=== PATIENT | female | born 1940 | race Caucasian/White ===

== ENCOUNTER 2018-11-04 07:27 | Day surgery (SDC) | payer MEDICARE ==
[~2018-11-04 07:27] MED LIST: Ak-Dilate OPHTHALMIC*** 1.065 ML, Cyclogyl 1% OPHTH SOL 5 ML 1.065 ML, GATIFLOXACIN 0.5... OP ONE; Lactated Ringers 1,000 ML IV ONE; Lactated Ringers 1,000 ML IV SCH; TETRACAINE 0.5% STERI-UNIT SOL OP ONE
[2018-11-04] MEDS ORDERED: DIPRIVAN 200 MG/20 ML IV ONE (07:28)
[2018-11-04] MEDS ORDERED: Versed 2 MG/2 ML Injection IV ONE (07:28)
[2018-11-04] MEDS ORDERED: LIDOCAINE HCL 1% AMPUL 5 ML IJ ONE (09:00)
[2018-11-04] MEDS ORDERED: BETADINE 5% OPHTHALMIC 30 ML OP ONE (09:00)
[2018-11-04] MEDS ORDERED: ACETAZOLAMIDE 250 MG TABLET PO ONE (09:00)
[2018-11-04] MEDS ORDERED: Zofran 4 MG/2 ML VIAL IV PRN (09:00)
[2018-11-04] MEDS ORDERED: Epinephrine Preservative Free 1 MG/ML INTRAOP ONE (09:00)
[2018-11-04 10:08] VITALS: BP 154/83; PULSE 74; O2SAT 96
--- NOTE | 2018-11-04 15:31 | OP ---
DATE/TIME OF OPERATION: 11/04/2018 0904 TIME DICTATED: 1146 PREOPERATIVE DIAGNOSIS: Senile cataract of left eye. POSTOPERATIVE DIAGNOSIS: Senile cataract of left eye. SURGEON: Marj Elder MD WOOL FLEECE GRADER: None. OPERATION: Cataract extraction of left eye with an intraocular lens implant. STANDARD __X___ COMPLEX ANESTHESIA: MAC. ___X___ Monitored anesthesia care in combination with topical and intra-cameral anesthesia (because of the established specific risk of reflux, arrhythmias, or an anxiety attack associated with ocular manipulation as well as difficulty of the security test engineer to manage such potentially catastrophic events while simultaneously attempting to complete the surgical procedure, it was deemed necessary for the patient's safety to have an anesthesiologist or a nurse electronic warfare officer present during the procedure whenever possible. The anesthesiologist or the nurse electronic warfare officer was utilized to monitor and regulate the intravenous sedation of the patient, so the patient was cooperative, relaxed, and comfortable). Topical anesthesia using Tetracaine eye drops together with intra cameral anesthesia using Lidocaine 1% MPF. The nurse was utilized to monitor the patient. ANESTHESIA PROVIDER: Abel Serrato CRNA. COMPLICATIONS: None. BLOOD LOSS: None. INDICATIONS: The patient is undergoing cataract surgery in the hopes of eliminating the visual complaints and difficulty. PROCEDURE: After arriving at the facility's outpatient surgery area, an IV was started; the patient was given 5 mg of p.o. Versed. (If an anesthesia provider was not monitoring the patient) The patient was then given topical anesthetic Tetracaine eye drops. A cotton pellet was soaked into a solution of a combination of Zymaxid 0.5%, Tadeo-Synephrine 2.5% and Ocufen (other drops might have been substituted referenced in the patient's record). The pellet was inserted by the RN into the lower conjunctival cul-de-sac with a sterile forceps and left for 20 minutes. The pellet was then removed by the RN with a sterile forceps before taking the patient to the operating room. The preoperative area nurse identified the patient and marked the correct eye to be operated on. I identified the correct eye to be operated on and marked it appropriately in the outpatient surgery area. The patient was then taken into the operating room. Tetracaine eye drops were installed again in the correct eye. The eyelids and the lashes and the lid margins were scrubbed with Betadine solution. One drop of the diluted Betadine solution was placed in the conjunctival cul-de-sac for 45 seconds and then was irrigated. A drop of Tetracaine Gel was placed in the conjunctival cul-de-sac. The patient's forehead was taped to secure it during the procedure. The patient was monitored. The patient was then draped in the usual way for this procedure. An eye speculum was used to separate the eyelids. The eye was then fixated and a temporal 2.5 mm incision was made in the clear cornea temporally at the limbus. Through the incision, 0.25 cc of 1% non-preserved lidocaine was injected into the anterior chamber for intracameral anesthesia. The anterior chamber was then filled with viscoelastic. The pupil was small. I felt that it would be safer to mechanically dilate the pupil. A Malyugin ring was used at this point which dilated the pupil. That was removed at the end of the procedure prior to aspiration of the viscoelastic from the anterior chamber and posterior to the intraocular lens implant. The cataract had a great amount of cortical changes. That rendered seeing the anterior capsule difficult for a safe performance of an anterior capsulotomy. I injected an air bubble into the anterior chamber. I then injected 1 ML of vision blue solution into the anterior chamber. The vision blue solution was irrigated from the anterior chamber after 30 seconds. The anterior capsule was stained which facilitated performing the anterior capsulotomy safely. After that was completed, a cystotome was introduced into the anterior chamber and a round anterior capsulotomy was performed. The capsule was removed by a forceps. Hydrodissection was next carried utilizing a 25-gauge cannula and balanced salt solution to delineate the cortical material from the capsule and the nucleus from the cortical material. The nucleus was rotated freely into the capsular bag with no difficulty. The phaco tip of the [employer] Phacoemulsifier was introduced into the anterior chamber and two grooves were made into the nucleus 90 degrees apart. Using two spatulas resulted into the nucleus being fractured into four quadrants. The phaco tip was then used to remove each quadrant of the nucleus. Viscoelastic was used during this process to protect the corneal endothelium. Once the entire nucleus was removed, the phaco tip then was removed and the irrigation tip was introduced into the eye and the cortex was removed. The posterior capsule was polished. It was noticed that there was a tear into the posterior capsule with few vitreous strands into the pupil plan. An anterior vitrectomy was performed. A 16.00 diopter, SN60WF, posterior chamber lens implant, was inspected and found to be grossly normal. The implant was inserted into the implant injector cartridge; Viscoelastic again was introduced into the anterior chamber, which filled the capsular bag. The implant injector's cartridge tip was placed at the limbal wound and the posterior chamber implant was released into the capsular bag and rotated appropriately. The implant was found to be into the capsular bag and it was centered. 0.2 ml of Tri-Moxi was introduced via 27 gauge cannula into the vitreous cavity through the ciliary processes. Viscoelastic was aspirated from the anterior chamber and posterior to the intraocular lens implant from the capsular bag using the irrigating tip. The anterior chamber was irrigated and filled with 5 cc antibiotic solution (500 cc of BSS plus 2 ml of Fortaz 100 mg/ml) ( if patient was not allergic to the medication). The lips of the corneal incision were hydrated using BSS solution. The anterior chamber was checked and found to be water tight. ___X___ One drop each of antibiotic, steroid and NSAID drops (refer to chart for drops used) were placed in the conjunctival cul-de-sac of the operated eye. Patient tolerated the procedure quite well and left the operating room in satisfactory condition. DISCHARGE SUMMARY: The patient was released in stable condition. The patient and those with the patient were given an instruction sheet as of how to care for the eye after surgery as well as counseling on any abnormal laboratory studies by the postoperative RN. The patient was also given an appointment card for follow-up in the office and is to call immediately for any difficulties including but not limited to pain in the eye, decreased vision, discharge from the eye, headache and or fever. DISCHARGE DIAGNOSIS: Pseudophakia of left eye.
== END 2018-11-04 10:18 | disposition home or self-care (01) ==
LOC: SDC 07:27
PROVIDERS: ATTEND Ophthalmology
DX: H25.9 Unspecified age-related cataract (principal); I10 Essential (primary) hypertension; E07.9 Disorder of thyroid, unspecified; E78.00 Pure hypercholesterolemia, unspecified
CPT/HCPCS: 94250; 99100; C1780; J0171; J2250; J2704; A9270-GY

== ENCOUNTER 2018-12-02 09:43 | Day surgery (SDC) | payer MEDICARE ==
[~2018-12-02 09:43] MED LIST changes: +ACETAZOLAMIDE 250 MG TABLET PO ONE; +Zofran 4 MG/2 ML VIAL IV PRN
[2018-12-02] MEDS ORDERED: DIPRIVAN 200 MG/20 ML IV ONE (09:44)
[2018-12-02] MEDS ORDERED: LIDOCAINE HCL 1% AMPUL 5 ML IJ ONE (10:00)
[2018-12-02] MEDS ORDERED: BETADINE 5% OPHTHALMIC 30 ML OP ONE (10:00)
[2018-12-02] MEDS ORDERED: Epinephrine Preservative Free 1 MG/ML INTRAOP ONE (10:00)
[2018-12-02] MEDS ORDERED: BSS 500 ML, Fortaz/Tazicef 1 GM** 0.2 G IO ONE ×2 (10:00)
[2018-12-02] MEDS ORDERED: Lactated Ringers 1,000 ML IV ONE (10:03)
[2018-12-02] MEDS ORDERED: Sodium Chloride 3 ML UD NEBULES IH ONE ×2 (10:41→10:56)
[2018-12-02] MEDS ORDERED: Xopenex 1.25 MG/0.5 ML UD NEBULE IH ONE ×2 (10:41→10:54)
[2018-12-02 13:54] VITALS: O2SAT 98
[2018-12-02 14:01] VITALS: BP 132/72; PULSE 64
--- NOTE | 2018-12-03 08:21 | OP ---
DATE/TIME OF OPERATION: 12/02/2018 1130 TIME DICTATED: 1241 PREOPERATIVE DIAGNOSIS: Senile cataract of right eye. POSTOPERATIVE DIAGNOSIS: Senile cataract of right eye. SURGEON: Marj Elder MD SALES REPRESENTATIVE [employer] PRODUCTS: None. OPERATION: Cataract extraction of right eye with an intraocular lens implant. STANDARD __X___ COMPLEX ANESTHESIA: MAC. ___X___ Monitored anesthesia care in combination with topical and intra-cameral anesthesia (because of the established specific risk of reflux, arrhythmias, or an anxiety attack associated with ocular manipulation as well as difficulty of the meter and service line inspector to manage such potentially catastrophic events while simultaneously attempting to complete the surgical procedure, it was deemed necessary for the patient's safety to have an anesthesiologist or a nurse natural gas inspector present during the procedure whenever possible. The anesthesiologist or the nurse natural gas inspector was utilized to monitor and regulate the intravenous sedation of the patient, so the patient was cooperative, relaxed, and comfortable). Topical anesthesia using Tetracaine eye drops together with intra cameral anesthesia using Lidocaine 1% MPF. The nurse was utilized to monitor the patient. ANESTHESIA PROVIDER: Abel Serrato CRNA. COMPLICATIONS: None. BLOOD LOSS: None. INDICATIONS: The patient is undergoing cataract surgery in the hopes of eliminating the visual complaints and difficulty. PROCEDURE: After arriving at the facility's outpatient surgery area, an IV was started; the patient was given 5 mg of p.o. Versed. (If an anesthesia provider was not monitoring the patient) The patient was then given topical anesthetic Tetracaine eye drops. A cotton pellet was soaked into a solution of a combination of Zymaxid 0.5%, Tadeo-Synephrine 2.5% and Ocufen (other drops might have been substituted referenced in the patient's record). The pellet was inserted by the RN into the lower conjunctival cul-de-sac with a sterile forceps and left for 20 minutes. The pellet was then removed by the RN with a sterile forceps before taking the patient to the operating room. The preoperative area nurse identified the patient and marked the correct eye to be operated on. I identified the correct eye to be operated on and marked it appropriately in the outpatient surgery area. The patient was then taken into the operating room. Tetracaine eye drops were installed again in the correct eye. The eyelids and the lashes and the lid margins were scrubbed with Betadine solution. One drop of the diluted Betadine solution was placed in the conjunctival cul-de-sac for 45 seconds and then was irrigated. A drop of Tetracaine Gel was placed in the conjunctival cul-de-sac. The patient's forehead was taped to secure it during the procedure. The patient was monitored. The patient was then draped in the usual way for this procedure. An eye speculum was used to separate the eyelids. The eye was then fixated and a temporal 2.5 mm incision was made in the clear cornea temporally at the limbus. Through the incision, 0.25 cc of 1% non-preserved lidocaine was injected into the anterior chamber for intracameral anesthesia. The anterior chamber was then filled with viscoelastic. The pupil was small. I felt that it would be safer to mechanically dilate the pupil. A Malyugin ring was used at this point which dilated the pupil. That was removed at the end of the procedure prior to aspiration of the viscoelastic from the anterior chamber and posterior to the intraocular lens implant. The cataract had a great amount of cortical changes. That rendered seeing the anterior capsule difficult for a safe performance of an anterior capsulotomy. I injected an air bubble into the anterior chamber. I then injected 1 ML of vision blue solution into the anterior chamber. The vision blue solution was irrigated from the anterior chamber after 30 seconds. The anterior capsule was stained which facilitated performing the anterior capsulotomy safely. After that was completed, a cystotome was introduced into the anterior chamber and a round anterior capsulotomy was performed. The capsule was removed by a forceps. Hydrodissection was next carried utilizing a 25-gauge cannula and balanced salt solution to delineate the cortical material from the capsule and the nucleus from the cortical material. The nucleus was rotated freely into the capsular bag with no difficulty. The phaco tip of the [employer] Phacoemulsifier was introduced into the anterior chamber and two grooves were made into the nucleus 90 degrees apart. Using two spatulas resulted into the nucleus being fractured into four quadrants. The phaco tip was then used to remove each quadrant of the nucleus. Viscoelastic was used during this process to protect the corneal endothelium. Once the entire nucleus was removed, the phaco tip then was removed and the irrigation tip was introduced into the eye and the cortex was removed. The posterior capsule was polished. It was noticed that there was a tear into the posterior capsule with few vitreous strands into the pupil plan. An anterior vitrectomy was performed. A 17.50 diopter, SN60WF, posterior chamber lens implant, was inspected and found to be grossly normal. The implant was inserted into the implant injector cartridge; Viscoelastic again was introduced into the anterior chamber, which filled the capsular bag. The implant injector's cartridge tip was placed at the limbal wound and the posterior chamber implant was released into the capsular bag and rotated appropriately. The implant was found to be into the capsular bag and it was centered. 0.2 ml of Tri-Moxi was introduced via 27 gauge cannula into the vitreous cavity through the ciliary processes. Viscoelastic was aspirated from the anterior chamber and posterior to the intraocular lens implant from the capsular bag using the irrigating tip. The anterior chamber was irrigated and filled with 5 cc antibiotic solution (500 cc of BSS plus 2 ml of Fortaz 100 mg/ml) ( if patient was not allergic to the medication). The lips of the corneal incision were hydrated using BSS solution. The anterior chamber was checked and found to be water tight. ___X___ One drop each of antibiotic, steroid and NSAID drops (refer to chart for drops used) were placed in the conjunctival cul-de-sac of the operated eye. Patient tolerated the procedure quite well and left the operating room in satisfactory condition. DISCHARGE SUMMARY: The patient was released in stable condition. The patient and those with the patient were given an instruction sheet as of how to care for the eye after surgery as well as counseling on any abnormal laboratory studies by the postoperative RN. The patient was also given an appointment card for follow-up in the office and is to call immediately for any difficulties including but not limited to pain in the eye, decreased vision, discharge from the eye, headache and or fever. DISCHARGE DIAGNOSIS: Pseudophakia of right eye.
== END 2018-12-02 12:50 | disposition home or self-care (01) ==
LOC: SDC 09:43 → EDSTATUS 13:31
PROVIDERS: ATTEND Ophthalmology
DX: H25.811 Combined forms of age-related cataract, right eye (principal); I10 Essential (primary) hypertension; E78.00 Pure hypercholesterolemia, unspecified; E07.9 Disorder of thyroid, unspecified
CPT/HCPCS: 94640; 99100; C1780; J2704; A9270-GY

== ENCOUNTER 2021-05-12 08:30 | Observation (INO) | payer MEDICARE ==
[2021-05-12] MEDS ORDERED: DUONEB 0.5-3 MG/3 ml Neb IH ONE ×2 (08:38→09:15)
[2021-05-12] MEDS ORDERED: solu-MEDROL 125 MG IV ONE (08:42)
[2021-05-12] MEDS ORDERED: PROVENTIL 2.5 MG/3 ML NEB IH ONE (08:42)
[2021-05-12] MEDS ORDERED: solu-MEDROL 125 MG ONE (08:52)
[2021-05-12 08:53] LABS: Absolute Neutrophil Ct (ANC) 6.42 (1.4-6.9); BASOPHIL % 0.5 % (0.0-0.4); Basophil (Absolute #) 0.05 (0-0.4); Eosinophil % 8.3 % (0.00-5.0); Eosinophil (Absolute #) 0.89 (0-0.5); Hematocrit 44.9 % (35-47); Hemoglobin 14.6 gm/dl (12.0-16.0); Lymphocyte (Absolute #) 2.39 (1.0-4.6); Lymphocytes % 22.2 % (24.0-44.0); Mean Cell Volume 90.5 fl (78-100); Mean Corpuscular Hemoglobin 29.4 pg (26-32); Mean Corpuscular Hgb Concent. 32.5 g/dl (32-36); Mean Platelet Volume 9.5 fl (7.5-11.0); Monocyte (Absolute #) 1.03 (0.0-1.3); Monocytes % 9.6 % (0.0-12.0); Neutrophil % 59.4 % (36.0-66.0); Platelet Count 301 K/mm3 (150-450); Red Blood Count 4.96 M/mm3 (4.1-5.4); White Blood Count 10.8 K/mm3 (4.0-10.5)
[2021-05-12 09:07] LABS: INR 1.04 (0.8-3.0); PROTIME 12.3 SECONDS (9.4-12.5)
--- NOTE | 2021-05-12 09:08 | XRAY ---
Exam: AP upright portable chest film from 05/12/2021. Comparison: None. Indication: 80-year-old female with shortness of breath which started about 10 days ago; current smoker. Findings: The patient is rotated slightly toward the right. The heart size is normal. Atherosclerotic calcification and mild tortuosity of the thoracic aorta are seen. No other significant findings are seen within the emerita or mediastinum. A prominent calcified granuloma is seen at the lateral left lung base. The lungs are well inflated and otherwise appear clear. No vascular congestion or pleural fluid is seen. There is no pneumothorax. Some degenerative changes are seen within both shoulder girdles, right greater than left. I also note thoracic spondylosis and a mild rotary convexity of the lumbar spine toward the right at the inferior margin of the film. Impression: 1. The lungs appear mildly hyperinflated, but are otherwise free of active disease. No other acute process is seen.
[2021-05-12 09:13] LABS: ALBUMIN 4.8 g/dL (3.5-5.0); ALKALINE PHOSPHATASE 52 U/L (38-126); BLOOD UREA NITROGEN 16 mg/dL (7-17); CHLORIDE 94 mmol/L (98-107); Calcium 9.9 mg/dL (8.4-10.2); Carbon Dioxide 27 mmol/L (22-30); Creatinine 1 0.65 mg/dL (0.52-1.04); EST GLOMERULAR FILTRATION RATE > 60.0 ML/MIN; Glucose 106 mg/dL (74-106); MAGNESIUM 1.9 mg/dL (1.6-2.3); NT PRO BNP 177 pg/mL (0-1800); SGOT/AST 30 U/L (14-36); SGPT/ALT 17 U/L (0-35); SODIUM 132 mmol/L (137-145); Total Protein 8.2 g/dL (6.3-8.2)
[2021-05-12 09:14] LABS: Potassium 4.4 mmol/L (3.5-5.1)
--- NOTE | 2021-05-12 09:17 | ERPHSYRPT ---
- History of Present Illness Time Seen by Provider: 05/12/21 08:45 Source: patient Exam Limitations: no limitations Patient Subjective Stated Complaint: shortness of breath x 10 days Triage Nursing Assessment: pt to ED c/o SOB x 10 days, intermittently but worsening this am. 85% on RA, up to 98% on 3 L NC. audible wheezing and definitely noted on auscultation. denies pain now. heart sounds clear. skin PWD. Physician History: Patient is a 80-year-old white female who has smoked for over 60 years who presents with a 10-day history of increasing cough which is occasionally productive of some yellow sputum also wheezing and shortness of breath. She denies fever or chills some sweats year and a half ago she had a similar episode and she continues to smoke. Timing/Duration: day(s) (10) Activities at Onset: activity Severity of Dyspnea-Max: severe Severity of Dyspnea-Current: moderate Possible Cause: occasional episodes Modifying Factors: Improves With: albuterol inhaler, coughing Associated Symptoms: cough, lightheadedness, wheezing, weakness Allergies/Adverse Reactions: Penicillins Allergy (Severe, Verified 05/12/21 08:48) Hives Home Medications: Acetaminophen 325 mg [Tylenol 325 mg] 325 mg PO DAILY 10/27/18 [History] Aspirin EC 325 mg [Ecotrin 325 MG] 325 mg PO DAILY 10/27/18 [History] Levothyroxine Sodium 50 Mcg [Synthroid 50 Mcg] 50 mcg PO DAILY 10/27/18 [History] Lisinopril 20 mg [Zestril 20 MG] 20 mg PO DAILY 10/27/18 [History] Loratadine 10 mg [Claritin 10 mg] 10 mg PO DAILY 10/27/18 [History] Metoprolol Succinate 50 mg [Toprol Xl 50 MG] 50 mg PO DAILY 10/27/18 [History] Simvastatin 20Mg [Zocor 20Mg] 20 mg PO DAILY 10/27/18 [History] Venlafaxine HCl ER 75 mg [Effexor XR 75 MG] 75 mg PO BID 10/27/18 [History] Verapamil HCl Sr 240 mg [Isoptin S.r. 240 mg] 240 mg PO DAILY 10/27/18 [History] Labetalol HCl 100 mg [Trandate 100 MG] 100 mg PO DAILY 11/28/18 [History] cloNIDine HCL [Catapres] 0.2 mg PO DAILY 11/28/18 [History] Hx Tetanus, Diphtheria Vaccination/Date Given: No Hx Influenza Vaccination/Date Given: Yes Hx Pneumococcal Vaccination/Date Given: Yes Travel Risk - International Travel Have you traveled outside of the country in past 3 weeks: No - Coronavirus Screening Are you exhibiting any of the following symptoms?: Yes Symptoms: Shortness of Breath Close contact with a COVID-19 positive Pt in past 14-21 Days: No - Vaccine Status Have you recieved a Covid-19 vaccination: Yes [employer] Work[employer]: Moderna - Vaccination Dates Date of 2cond Vaccination (if applicable): February - Review of Systems Constitutional: No Fever, No Chills Eyes: No Symptoms Ears, Nose, & Throat: No Symptoms Respiratory: Cough, Dyspnea Cardiac: No Chest Pain, No Edema, No Syncope Abdominal/Gastrointestinal: No Abdominal Pain, No Nausea, No Vomiting, No Diarrhea Genitourinary Symptoms: No Dysuria Musculoskeletal: No Back Pain, No Neck Pain Skin: No Rash Neurological: No Dizziness, No Focal Weakness, No Sensory Changes Psychological: No Symptoms Endocrine: No Symptoms All Other Systems: Reviewed and Negative - Past Medical History Pertinent Past Medical History: Yes Neurological History: No Pertinent History ENT History: Cataracts Cardiac History: High Cholesterol, Hypertension Respiratory History: COPD Endocrine Medical History: Hypothyroidism Musculoskeletal History: Osteoarthritis GI Medical History: GERD History: No Pertinent History Psycho-Social History: No Pertinent History Female Reproductive Disorders: No Pertinent History - Past Surgical History Past Surgical History: Yes Neuro Surgical History: No Pertinent History Cardiac: No Pertinent History Respiratory: No Pertinent History Gastrointestinal: No Pertinent History Genitourinary: No Pertinent History Musculoskeletal: Joint Replacement, Other Female Surgical History: No Pertinent History Other Surgical History: bilateral hip replacements and lumar fusions, cataract. left eye Oct 2018 - Social History Smoking Status: Current every day smoker How long have you smoked: 60years Exposure to second hand smoke: Yes Drug Use: none Patient Lives Alone: No - Nursing Vital Signs Nursing Vital Signs: Initial Vital Signs Temperature 98.3 F 05/12/21 08:33 Pulse Rate 95 H 05/12/21 08:33 Respiratory Rate 24 05/12/21 08:33 Blood Pressure 168/87 05/12/21 08:33 O2 Sat by Pulse Oximetry 96 05/12/21 08:33 Pain Scale Pain Intensity 0 - Physical Exam General Appearance: moderate distress, alert Eye Exam: PERRL/EOMI Neck Exam: normal inspection, supple Respiratory Exam: respiratory distress, diminished breath sounds, crackles/rales, rhonchi, wheezing Cardiovascular/Chest Exam: normal heart sounds, regular rate/rhythm Abdominal/Gastrointestinal Exam: soft, No tenderness, No distention, No mass Extremity Exam: non-tender, normal range of motion, normal inspection, no calf tenderness, no pedal edema Neurologic Exam: alert, oriented x 3, cooperative, rug sample beveler II-XII nml as tested, sensation nml, No motor deficits Skin Exam: normal color, warm, No dry SpO2 Interpretation: hypoxic, O2 applied SpO2: 96 O2 Delivery: Nasal Cannula - Course Nursing assessment & vital signs reviewed: Yes EKG Interpreted by Me: RATE (83), NORMAL AXIS (Poor R wave progression), NORMAL INTERVALS, Non-specific ST Changes, Other - Radiology Exams Chest X-ray Interpretation: Other (COPD) - CT Exams Chest CT Interpretation: Other (No evidence of pulmonary emboli or pneumonia thickening the bronchial tubes) Ordered Tests: Active Orders 24 hr Category Date Time Status EKG-ER Only STAT Care 05/12/21 08:42 Active IV Insertion STAT Care 05/12/21 08:42 Active Oxygen-ED Only Nasal Cannula 3 lpm Care 05/12/21 08:42 Active CHEST 1 VIEW (PORTABLE) Stat Exams 05/12/21 08:42 Completed CHEST WITH CONTRAST [CT] Stat Exams 05/12/21 09:18 Completed CBC W DIFF Stat Lab 05/12/21 08:45 Completed CMP Stat Lab 05/12/21 08:45 Completed D-DIMER QUANTITATIVE Stat Lab 05/12/21 08:45 Completed Lactic Acid Stat Lab 05/12/21 08:42 Completed MAGNESIUM Stat Lab 05/12/21 08:45 Completed NT PRO BNP Stat Lab 05/12/21 08:45 Completed PROTIME WITH INR Stat Lab 05/12/21 08:45 Completed TROPONIN Q3H Lab 05/12/21 08:45 Completed TROPONIN Q3H Lab 05/12/21 11:45 Ordered TROPONIN Q3H Lab 05/12/21 14:45 Ordered TROPONIN Q3H Lab 05/12/21 17:45 Ordered TROPONIN Q3H Lab 05/12/21 20:45 Ordered UA W/RFX UR CULTURE Stat Lab 05/12/21 10:11 Completed Respiratory Therapy Assessment DAILY RT 05/12/21 09:17 Completed Medication Summary Discontinued Medications Generic Name Dose Route Start Last Admin Trade Name Freq PRN Reason Stop Dose Admin Albuterol Sulfate 2.5 mg 05/12/21 08:42 Proventil 2.5 Mg/3 Ml Neb IH 05/12/21 08:43 STAT ONE Albuterol/Ipratropium Confirm 05/12/21 08:38 Duoneb 0.5-3 Mg/3 Ml Neb Administered 05/12/21 08:39 Dose 3 ml IH .STK-MED ONE Albuterol/Ipratropium 3 ml 05/12/21 09:15 05/12/21 08:40 Duoneb 0.5-3 Mg/3 Ml Neb IH 05/12/21 09:16 3 ml STAT ONE Administration Ceftriaxone Sodium/Dextrose 1 g in 50 mls @ 100 mls/hr 05/12/21 10:27 Rocephin 1 Gm-D5w 50 Ml Bag IV 05/12/21 10:56 STAT STA Methylprednisolone Sodium Succinate 125 mg 05/12/21 08:42 05/12/21 08:54 Solu-Medrol 125 Mg IV 05/12/21 08:43 125 mg STAT ONE Administration Methylprednisolone Sodium Succinate Confirm 05/12/21 08:52 Solu-Medrol 125 Mg Administered 05/12/21 08:53 Dose 125 mg .ROUTE .STK-MED ONE Lab/Rad Data: Laboratory Result Diagrams 05/12/21 08:45 05/12/21 08:45 Laboratory Results 05/12/21 05/12/21 05/12/21 Range/Units 10:11 08:45 08:45 WBC (4.0-10.5) K/mm3 RBC (4.1-5.4) M/mm3 Hgb (12.0-16.0) gm/dl Hct (35-47) % MCV (78-100) fl MCH (26-32) pg MCHC (32-36) g/dl RDW (11.5-14.0) % Plt Count (150-450) K/mm3 MPV (7.5-11.0) fl Gran % (36.0-66.0) % Eos # (Auto) (0-0.5) Absolute Lymphs (auto) (1.0-4.6) Absolute Monos (auto) (0.0-1.3) Lymphocytes % (24.0-44.0) % Monocytes % (0.0-12.0) % Eosinophils % (0.00-5.0) % Basophils % (0.0-0.4) % Absolute Granulocytes (1.4-6.9) Basophils # (0-0.4) PT 12.3 (9.4-12.5) SECONDS INR 1.04 (0.8-3.0) D-Dimer 1050 H* (215-500) ng/mL Sodium (137-145) mmol/L Potassium (3.5-5.1) mmol/L Chloride (98-107) mmol/L Carbon Dioxide (22-30) mmol/L Anion Gap (5-15) MEQ/L BUN (7-17) mg/dL Creatinine (0.52-1.04) mg/dL Estimated GFR ML/MIN Glucose (74-106) mg/dL Lactic Acid (0.4-2.0) Calcium (8.4-10.2) mg/dL Magnesium (1.6-2.3) mg/dL Total Bilirubin (0.2-1.3) mg/dL AST (14-36) U/L ALT (0-35) U/L Alkaline Phosphatase (38-126) U/L Troponin I < 0.012 (0.000-0.034) ng/mL NT-Pro-B Natriuret Pep (0-1800) pg/mL Serum Total Protein (6.3-8.2) g/dL Albumin (3.5-5.0) g/dL Urine Color YELLOW (YELLOW) Urine Appearance SLIGHTLY CLOUDY (CLEAR) Urine pH 5.0 (5-6) Ur Specific [place] 1.019 (1.005-1.025) Urine Protein NEGATIVE (Negative) Urine Ketones NEGATIVE (NEGATIVE) Urine Blood SMALL (0-5) Denny/ul Urine Nitrite NEGATIVE (NEGATIVE) Urine Bilirubin NEGATIVE (NEGATIVE) Urine Urobilinogen 2 (0-1) mg/dL Ur Leukocyte Esterase TRACE (NEGATIVE) Urine WBC (Auto) 0-2 (0-5) /HPF Urine RBC (Auto) 6-10 (0-2) /HPF U Hyaline Cast (Auto) 11-25 (0-2) /LPF U Epithel Cells (Auto) RARE (FEW) /HPF Urine Bacteria (Auto) RARE (NEGATIVE) /HPF Urine Mucus (Auto) SLIGHT (NEGATIVE) /HPF Urine Culture Reflexed NO (NO) Urine Glucose NEGATIVE (NEGATIVE) mg/dL 05/12/21 05/12/21 05/12/21 Range/Units 08:45 08:45 08:42 WBC 10.8 H (4.0-10.5) K/mm3 RBC 4.96 (4.1-5.4) M/mm3 Hgb 14.6 (12.0-16.0) gm/dl Hct 44.9 (35-47) % MCV 90.5 (78-100) fl MCH 29.4 (26-32) pg MCHC 32.5 (32-36) g/dl RDW 13.0 (11.5-14.0) % Plt Count 301 (150-450) K/mm3 MPV 9.5 (7.5-11.0) fl Gran % 59.4 (36.0-66.0) % Eos # (Auto) 0.89 H (0-0.5) Absolute Lymphs (auto) 2.39 (1.0-4.6) Absolute Monos (auto) 1.03 (0.0-1.3) Lymphocytes % 22.2 L (24.0-44.0) % Monocytes % 9.6 (0.0-12.0) % Eosinophils % 8.3 H (0.00-5.0) % Basophils % 0.5 (0.0-0.4) % Absolute Granulocytes 6.42 (1.4-6.9) Basophils # 0.05 (0-0.4) PT (9.4-12.5) SECONDS INR (0.8-3.0) D-Dimer (215-500) ng/mL Sodium 132 L (137-145) mmol/L Potassium 4.4 (3.5-5.1) mmol/L Chloride 94 L (98-107) mmol/L Carbon Dioxide 27 (22-30) mmol/L Anion Gap 15.0 (5-15) MEQ/L BUN 16 (7-17) mg/dL Creatinine 0.65 (0.52-1.04) mg/dL Estimated GFR > 60.0 ML/MIN Glucose 106 (74-106) mg/dL Lactic Acid 1.5 (0.4-2.0) Calcium 9.9 (8.4-10.2) mg/dL Magnesium 1.9 (1.6-2.3) mg/dL Total Bilirubin 0.70 (0.2-1.3) mg/dL AST 30 (14-36) U/L ALT 17 (0-35) U/L Alkaline Phosphatase 52 (38-126) U/L Troponin I (0.000-0.034) ng/mL NT-Pro-B Natriuret Pep 177 (0-1800) pg/mL Serum Total Protein 8.2 (6.3-8.2) g/dL Albumin 4.8 (3.5-5.0) g/dL Urine Color (YELLOW) Urine Appearance (CLEAR) Urine pH (5-6) Ur Specific [place] (1.005-1.025) Urine Protein (Negative) Urine Ketones (NEGATIVE) Urine Blood (0-5) Denny/ul Urine Nitrite (NEGATIVE) Urine Bilirubin (NEGATIVE) Urine Urobilinogen (0-1) mg/dL Ur Leukocyte Esterase (NEGATIVE) Urine WBC (Auto) (0-5) /HPF Urine RBC (Auto) (0-2) /HPF U Hyaline Cast (Auto) (0-2) /LPF U Epithel Cells (Auto) (FEW) /HPF Urine Bacteria (Auto) (NEGATIVE) /HPF Urine Mucus (Auto) (NEGATIVE) /HPF Urine Culture Reflexed (NO) Urine Glucose (NEGATIVE) mg/dL - Progress Progress: improved Air Movement: fair Blood Culture(s) Obtained: No Antibiotics given: Yes Discussed with : Maximo Will see patient in: hospital (observation) - Departure Departure Disposition: Observation Clinical Impression: COPD exacerbation Condition: Fair Critical Care Time: No Referrals: KAVEH ALMANZAR [Primary Care Provider] - Instructions: Chronic Obstructive Pulmonary Disease, Exacerbation of COPD (DC)
[2021-05-12] MEDS ORDERED: ROCEPHIN 1 Gm-D5w 50 ml Bag** 1 G/50 ML IVPB IV STA (10:27)
[2021-05-12 10:30] LABS: Appearance SLIGHTLY CLOUDY (CLEAR); Bacteria RARE /HPF (NEGATIVE); Bilirubin NEGATIVE (NEGATIVE); Blood SMALL Ery/ul (0-5); Epithelial Cells RARE /HPF (FEW); Glucose NEGATIVE (NEGATIVE); Ketones NEGATIVE (NEGATIVE); Leukocyte Esterase TRACE (NEGATIVE); Mucus SLIGHT /HPF (NEGATIVE); Nitrite NEGATIVE (NEGATIVE); Protein,Urine Dip NEGATIVE (Negative); Specific Gravity 1.019 (1.005-1.025); Urobilinogen 2 mg/dL (0-1); WBC 0-2 /HPF (0-5)
--- NOTE | 2021-05-12 11:08 | XRAY ---
Exam: CT of the chest with IV contrast from 05/12/2021. CTDI: 7.89 mGy Comparison: AP upright portable chest film from 05/12/2021. Indication: 80-year-old female with cough, COPD, elevated d-dimer of 1050; consider pulmonary embolus. Technique: Post-IV contrast axial images were obtained through the chest using the PE protocol during automated injection of 100 ML's of Isovue 370 contrast material. Reconstructed coronal and sagittal images were created and reviewed. Findings: The pulmonary arteries enhance well revealing no filling defects to suggest clot/emboli. Mild atherosclerotic vascular calcification is seen within the thoracic aorta. No thoracic aortic aneurysm or dissection is seen. The heart size is normal without pericardial effusion. Mild coronary artery vascular calcification is seen on the left. I see no pathological lymphadenopathy within the mediastinum or emerita. A calcified lymph node is seen adjacent to the anterior left margin of the distal ascending aorta. A prominent calcified granuloma is seen within the lingula. The lung clay are mildly hyperinflated. I also note some mild centrilobular emphysematous changes bilaterally, most pronounced within the upper lung clay. In addition, there appears to be some mild diffuse bronchial wall thickening bilaterally. No air space infiltrates, pneumothorax, or pleural effusion is seen. The visualized upper abdomen appears unremarkable. The adrenal glands appear grossly unremarkable. The skeletal structures reveal no acute fracture or bone destruction. There is significant dorsal kyphosis and moderate diffuse thoracic spondylosis. Mild multilevel degenerative disc disease is seen within the lower cervical spine. There is minimal anterior subluxation of C6 over C7 which is probably degenerative in nature. Impression: 1. No CT findings to suggest acute pulmonary embolism, thoracic aortic aneurysm, or thoracic aortic dissection is seen. There is moderate arteriosclerotic vascular calcification noted. 2. Hyperinflation of the lungs with some mild bilateral centrilobular emphysematous changes, best seen within the upper lung clay. In addition, I see some scattered bronchial wall thickening bilaterally. This could be due to the patient's cigarette smoking, or possibly bronchitis. No air space infiltrates are seen. 3. Old healed granulomatous disease.
[2021-05-12] MEDS ORDERED: ROCEPHIN 1 Gm-D5w 50 ml Bag** 1 G/50 ML IVPB IV ONE (11:14)
[2021-05-12] MEDS ORDERED: PROVENTIL 2.5 MG/3 ML NEB IH SCH (15:00)
[2021-05-12] MEDS ORDERED: DUONEB 0.5-3 MG/3 ml Neb IH PRN (15:40)
[2021-05-12] MEDS: DUONEB 0.5-3 MG/3 ml Neb IH SCH ×2 (15:44→19:51)
[2021-05-12] MEDS ORDERED: BUSPAR 5 MG PO PRN (17:00)
[2021-05-12] MEDS: solu-MEDROL 125 MG IV SCH ×2 (17:34→23:05)
[2021-05-12] MEDS ORDERED: Robitussin-Dm Syrup PO PRN (20:13)
[2021-05-12] MEDS ORDERED: Zocor 10MG PO SCH (22:00)
[2021-05-12] MEDS ORDERED: Catapres 0.1 MG PO SCH (22:00)
[2021-05-12] MEDS ORDERED: Effexor XR 75 MG PO SCH (22:00)
[2021-05-12] MEDS ORDERED: Toprol Xl 50 MG PO SCH (22:00)
[2021-05-12] MEDS ORDERED: CLONIDINE HCL 0.1 MG PO SCH (22:00)
[2021-05-12] MEDS ORDERED: NON-FORMULARY ITEM (Atorvastatin Calcium [Atorvastatin Calcium] 10 MG) PO SCH (22:00)
[2021-05-13] MEDS ORDERED: SYNTHROID 25 MCG PO SCH ×3 (05:00→10:00)
[2021-05-13] MEDS: solu-MEDROL 125 MG IV SCH (05:02)
[2021-05-13 06:09] LABS: Hematocrit 39.3 % (35-47); Hemoglobin 12.9 gm/dl (12.0-16.0); Mean Cell Volume 89.7 fl (78-100); Mean Corpuscular Hemoglobin 29.5 pg (26-32); Mean Corpuscular Hgb Concent. 32.8 g/dl (32-36); Mean Platelet Volume 9.7 fl (7.5-11.0); Platelet Count 300 K/mm3 (150-450); Red Blood Count 4.38 M/mm3 (4.1-5.4); Red Cell Distribution Width 12.5 % (11.5-14.0); White Blood Count 18.6 K/mm3 (4.0-10.5)
[2021-05-13 06:52] LABS: ANION GAP 14.5 MEQ/L (5-15); BLOOD UREA NITROGEN 16 mg/dL (7-17); CHLORIDE 89 mmol/L (98-107); Calcium 9.4 mg/dL (8.4-10.2); Carbon Dioxide 27 mmol/L (22-30); Creatinine 1 0.59 mg/dL (0.52-1.04); EST GLOMERULAR FILTRATION RATE > 60.0 ML/MIN; Glucose 135 mg/dL (74-106); Potassium 3.9 mmol/L (3.5-5.1); SODIUM 127 mmol/L (137-145)
[2021-05-13 07:36] VITALS: BP 119/69
[2021-05-13] MEDS: DUONEB 0.5-3 MG/3 ml Neb IH SCH (08:45)
[2021-05-13 08:51] VITALS: PULSE 92; O2SAT 94
[2021-05-13] MEDS ORDERED: NON-FORMULARY ITEM (Omeprazole [Omeprazole] 20 MG) PO SCH (10:00)
[2021-05-13] MEDS ORDERED: Zestril 10 MG PO SCH (10:00)
[2021-05-13] MEDS ORDERED: VITAMIN D PO SCH (10:00)
[2021-05-13] MEDS ORDERED: Protonix 40MG Tablet PO SCH (10:00)
[2021-05-13] MEDS ORDERED: ROCEPHIN 1 Gm-D5w 50 ml Bag** 1 G/50 ML IVPB IV SCH (10:00)
[2021-05-13] MEDS ORDERED: ISOPTIN S.R. 240 MG PO SCH (10:00)
[2021-05-13] MEDS ORDERED: Effexor XR 75 MG PO SCH ×2 (10:00)
[2021-05-13] MEDS ORDERED: Ecotrin 325 MG PO SCH (10:00)
[2021-05-13] MEDS ORDERED: hydroDIURIL 25 MG PO SCH (10:00)
[2021-05-13] MEDS ORDERED: CHLORTHALIDONE 12.5 MG PO SCH (10:00)
[2021-05-13] MEDS ORDERED: TYLENOL EXTRA STRENGTH 500 MG PO SCH (10:00)
[2021-05-13] MEDS ORDERED: Zestril 20 MG PO SCH (10:00)
--- NOTE | 2021-05-13 17:33 | PCM.SSS ---
History of Present Illness - Chief Complaint Chief Complaint: exacerbation of copd Date: 05/13/21 History of Present Illness: is a 80 year old female. Presented to ER with increased sob, cough and hypoxia. Pt. noted symptoms with rather rapid onset - Review of Systems Constitutional: No Fever, No Chills Eyes: No Symptoms Ears, Nose, & Throat: No Symptoms Respiratory: Cough, Short Of Breath, Wheezing Cardiac: No Chest Pain, No Edema, No Syncope Abdominal/Gastrointestinal: No Abdominal Pain, No Nausea, No Vomiting, No Diarrhea Genitourinary Symptoms: No Dysuria Musculoskeletal: No Back Pain, No Neck Pain Skin: No Rash Neurological: No Dizziness, No Focal Weakness, No Sensory Changes Psychological: No Symptoms Endocrine: No Symptoms Hematologic/Lymphatic: No Symptoms Immunological/Allergic: No Symptoms Medications & Allergies Home Medications: Home Medication List Aspirin EC 325 mg [Ecotrin 325 MG] 325 mg PO DAILY 10/27/18 [History Co nfirmed 05/12/21] Lisinopril 20 mg [Zestril 20 MG] 10 mg PO DAILY 10/27/18 [History Confirmed 05/12/21] Metoprolol Succinate 50 mg [Toprol Xl 50 MG] 50 mg PO HS 10/27/18 [History Confirmed 05/12/21] Verapamil HCl Sr 240 mg [Isoptin S.r. 240 mg] 240 mg PO DAILY 10/27/18 [History Confirmed 05/12/21] cloNIDine HCL [Catapres] 0.1 mg PO HS 11/28/18 [History Confirmed 05/12/21] Acetaminophen 500 mg [Tylenol Extra Strength 500 mg] 500 mg PO DAILY 05/12/21 [History Confirmed 05/12/21] Alendronate Sodium 70 mg [Fosamax 70 MG] 70 mg PO Q7D 05/12/21 [History Confirmed 05/12/21] Atorvastatin Calcium 10 mg PO HS 05/12/21 [History Confirmed 05/12/21] Buspirone HCl 5 mg [Buspar 5 mg] 5 mg PO HS PRN PRN 05/12/21 [History Confirmed 05/12/21] Chlorthalidone 12.5 mg PO DAILY 05/12/21 [History Confirmed 05/12/21] Cholecalciferol (Vitamin D3) [Vitamin D] 2,000 unit PO DAILY 05/12/21 [History Confirmed 05/12/21] Levothyroxine Sodium 25 Mcg [Synthroid 25 Mcg] 25 mcg PO DAILY 05/12/21 [History Confirmed 05/12/21] Omeprazole 20 mg PO DAILY 05/12/21 [History Confirmed 05/12/21] Venlafaxine HCl [Effexor Xr] 150 mg PO DAILY 05/12/21 [History Confirmed 05/12/21] Doxycycline Hyclate 100 mg PO DAILY #10 capsule 05/13/21 [Rx] Prednisone 60 mg PO DAILY 5 Days tablet 05/13/21 [Rx] Allergies/Adverse Reactions: Allergies Allergy/AdvReac Type Severity Reaction Status Date / Time Penicillins Allergy Severe Hives Verified 05/12/21 08:48 - Past Medical History Past Medical History: Yes Neurological History: No Pertinent History ENT History: Cataracts Cardiac History: High Cholesterol, Hypertension Respiratory History: COPD Endocrine Medical History: Hypothyroidism Musculoskelatal History: Osteoarthritis GI Medical History: GERD History: No Pertinent History Pyscho-Social History: No Pertinent History Reproductive Disorders: No Pertinent History - Female History Are you now?: No - Past Surgical History Past Surgical History: Yes Neuro Surgical History: No Pertinent History Cardiac History: No Pertinent History Respiratory Surgery: No Pertinent History GI Surgical History: No Pertinent History Genitourinary Surgical Hx: No Pertinent History Musculskeletal Surgical Hx: Joint Replacement, Other Female Surgical History: No Pertinent History Other Surgical History: bilateral hip replacements and lumar fusions, cataract. left eye Oct 2018 - Social History Smoking Status: Current every day smoker How long have you smoked: 60years Exposure to second hand smoke: Yes Alcohol: None Drug Use: none - Physical Exam Vital Signs: Vital Signs - 24 hr Temp Pulse Resp BP Pulse Ox 05/13/21 08:45 92 H 16 94 L 05/13/21 07:35 98.2 F 83 16 119/69 95 05/13/21 03:50 98.6 F 83 17 128/62 95 05/12/21 23:50 98.4 F 109 H 20 112/72 94 L 05/12/21 20:00 97.7 F 84 16 128/68 95 05/12/21 19:53 99 H 20 96 General Appearance: no apparent distress, alert Neurologic Exam: alert, oriented x 3, cooperative, normal mood/affect, nml cerebellar function, nml station & gait, sensation nml, No motor deficits Eye Exam: PERRL/EOMI, eyes nml inspection Ears, Nose, Throat Exam: normal ENT inspection, TMs normal, pharynx normal, moist mucous membranes Neck Exam: normal inspection, non-tender, supple, full range of motion Respiratory Exam: lungs clear, prolonged expirations, wheezing, No respiratory distress Cardiovascular Exam: regular rate/rhythm, normal heart sounds, normal peripheral pulses Gastrointestinal/Abdomen Exam: soft, normal bowel sounds, No tenderness, No mass Back Exam: normal inspection, normal range of motion, No CVA tenderness, No vertebral tenderness Extremity Exam: normal inspection, normal range of motion, pelvis stable Skin Exam: normal color, warm, dry, No rash Lymphatic Exam: No adenopathy Results - Labs Lab/Micro Results: Lab Results-Last 24 Hours 05/12/21 05/12/21 05/13/21 Range/Units 17:25 19:45 05:35 WBC 18.6 H (4.0-10.5) K/mm3 RBC 4.38 (4.1-5.4) M/mm3 Hgb 12.9 (12.0-16.0) gm/dl Hct 39.3 (35-47) % MCV 89.7 (78-100) fl MCH 29.5 (26-32) pg MCHC 32.8 (32-36) g/dl RDW 12.5 (11.5-14.0) % Plt Count 300 (150-450) K/mm3 MPV 9.7 (7.5-11.0) fl Sodium (137-145) mmol/L Potassium (3.5-5.1) mmol/L Chloride (98-107) mmol/L Carbon Dioxide (22-30) mmol/L Anion Gap (5-15) MEQ/L BUN (7-17) mg/dL Creatinine (0.52-1.04) mg/dL Estimated GFR ML/MIN Glucose (74-106) mg/dL Calcium (8.4-10.2) mg/dL Troponin I < 0.012 < 0.012 (0.000-0.034) ng/mL 05/13/21 Range/Units 05:35 WBC (4.0-10.5) K/mm3 RBC (4.1-5.4) M/mm3 Hgb (12.0-16.0) gm/dl Hct (35-47) % MCV (78-100) fl MCH (26-32) pg MCHC (32-36) g/dl RDW (11.5-14.0) % Plt Count (150-450) K/mm3 MPV (7.5-11.0) fl Sodium 127 L (137-145) mmol/L Potassium 3.9 (3.5-5.1) mmol/L Chloride 89 L (98-107) mmol/L Carbon Dioxide 27 (22-30) mmol/L Anion Gap 14.5 (5-15) MEQ/L BUN 16 (7-17) mg/dL Creatinine 0.59 (0.52-1.04) mg/dL Estimated GFR > 60.0 ML/MIN Glucose 135 H (74-106) mg/dL Calcium 9.4 (8.4-10.2) mg/dL Troponin I (0.000-0.034) ng/mL - Radiology Impressions Radiology Exams & Impressions: Radiology Procedures Category Date Time Status CHEST 1 VIEW (PORTABLE) Stat Exams 05/12/21 08:42 Completed CHEST WITH CONTRAST [CT] Stat Exams 05/12/21 09:18 Completed Assessment/Plan (1) COPD exacerbation Status: Acute Code(s): J44.1 - CHRONIC OBSTRUCTIVE PULMONARY DISEASE W (ACUTE) EXACERBATION Hospital Summary - Hospital Course Hospital Course: Pt. admitted for iv steroids, iv antibiotics and supplemental oxygen, pt. was able to be weaned off oxygen about 24 hours after admission and felt ready for discharge to home. - Vitals & Intake/Output Vital Signs: Vital Signs Temperature 98.2 F 05/13/21 07:35 Pulse Rate 92 H 05/13/21 08:45 Respiratory Rate 16 05/13/21 08:45 Blood Pressure 119/69 05/13/21 07:35 O2 Sat by Pulse Oximetry 94 L 05/13/21 08:45 Intake & Output: Intake & Output 05/11/21 05/12/21 05/13/21 05/14/21 11:59 11:59 11:59 11:59 Intake Total 720 Output Total 200 Balance 520 Weight 58.5 kg 60.8 kg - Lab Result Diagrams: 05/13/21 05:35 05/13/21 05:35 Lab Results-Last 24 Hrs: Lab Results-Last 24 Hours 05/12/21 05/12/21 05/13/21 Range/Units 17:25 19:45 05:35 WBC 18.6 H (4.0-10.5) K/mm3 RBC 4.38 (4.1-5.4) M/mm3 Hgb 12.9 (12.0-16.0) gm/dl Hct 39.3 (35-47) % MCV 89.7 (78-100) fl MCH 29.5 (26-32) pg MCHC 32.8 (32-36) g/dl RDW 12.5 (11.5-14.0) % Plt Count 300 (150-450) K/mm3 MPV 9.7 (7.5-11.0) fl Sodium (137-145) mmol/L Potassium (3.5-5.1) mmol/L Chloride (98-107) mmol/L Carbon Dioxide (22-30) mmol/L Anion Gap (5-15) MEQ/L BUN (7-17) mg/dL Creatinine (0.52-1.04) mg/dL Estimated GFR ML/MIN Glucose (74-106) mg/dL Calcium (8.4-10.2) mg/dL Troponin I < 0.012 < 0.012 (0.000-0.034) ng/mL 05/13/21 Range/Units 05:35 WBC (4.0-10.5) K/mm3 RBC (4.1-5.4) M/mm3 Hgb (12.0-16.0) gm/dl Hct (35-47) % MCV (78-100) fl MCH (26-32) pg MCHC (32-36) g/dl RDW (11.5-14.0) % Plt Count (150-450) K/mm3 MPV (7.5-11.0) fl Sodium 127 L (137-145) mmol/L Potassium 3.9 (3.5-5.1) mmol/L Chloride 89 L (98-107) mmol/L Carbon Dioxide 27 (22-30) mmol/L Anion Gap 14.5 (5-15) MEQ/L BUN 16 (7-17) mg/dL Creatinine 0.59 (0.52-1.04) mg/dL Estimated GFR > 60.0 ML/MIN Glucose 135 H (74-106) mg/dL Calcium 9.4 (8.4-10.2) mg/dL Troponin I (0.000-0.034) ng/mL - Radiology Exams Ordered Rad Exams-Entire Visit: Radiology Procedures Category Date Time Status CHEST 1 VIEW (PORTABLE) Stat Exams 05/12/21 08:42 Completed CHEST WITH CONTRAST [CT] Stat Exams 05/12/21 09:18 Completed - Procedures and Test Procedures and Tests throughout Hospitalization: Therapy Orders & Screens 05/12/21 09:17 Respiratory Therapy Assessment DAILY Comment: 05/12/21 15:41 Oxygen Nasal Cannula 2 lpm Comment: Diagnosis: exacerbation of copd Respiratory Therapy Assessment DAILY Comment: Diagnosis: exacerbation of copd - Discharge Discharge Date: 05/13/21 Disposition: Home, Self-Care Condition: Fair Prescriptions: New Doxycycline Hyclate 100 mg PO DAILY #10 capsule Prednisone 60 mg PO DAILY 5 Days tablet Continue Aspirin EC 325 mg [Ecotrin 325 MG] 325 mg PO DAILY Verapamil HCl Sr 240 mg [Isoptin S.r. 240 mg] 240 mg PO DAILY Lisinopril 20 mg [Zestril 20 MG] 10 mg PO DAILY Metoprolol Succinate 50 mg [Toprol Xl 50 MG] 50 mg PO HS cloNIDine HCL [Catapres] 0.1 mg PO HS Buspirone HCl 5 mg [Buspar 5 mg] 5 mg PO HS PRN PRN PRN Reason: Sleep aid Alendronate Sodium 70 mg [Fosamax 70 MG] 70 mg PO Q7D Chlorthalidone 12.5 mg PO DAILY Acetaminophen 500 mg [Tylenol Extra Strength 500 mg] 500 mg PO DAILY Levothyroxine Sodium 25 Mcg [Synthroid 25 Mcg] 25 mcg PO DAILY Atorvastatin Calcium 10 mg PO HS Omeprazole 20 mg PO DAILY Cholecalciferol (Vitamin D3) [Vitamin D] 2,000 unit PO DAILY Venlafaxine HCl [Effexor Xr] 150 mg PO DAILY Instructions: Quitting Smoking for Older Adults, Exacerbation of COPD (DC), Do xycycline, Prednisone Forms: Discharge Instructions, Patient Portal Information
[2021-05-14] MEDS ORDERED: Fosamax 70 MG PO SCH (06:00)
== END 2021-05-13 10:32 | disposition home or self-care (01) ==
LOC: ED 08:30 → MED SURG 13:40
PROVIDERS: ADMIT General Practice; ATTEND General Practice
DX: J44.1 Chronic obstructive pulmonary disease with (acute) exacerbation (principal); Z79.899 Other long term (current) drug therapy; Z20.828 Contact with and (suspected) exposure to other viral communicable diseases; I10 Essential (primary) hypertension; E78.00 Pure hypercholesterolemia, unspecified; E03.9 Hypothyroidism, unspecified
CPT/HCPCS: 36000; 36415; 71045; 71260; 80048; 80053; 81001; 83605; 83735; 83880; 84484; 85025; 85027; 85379; 85610; 93005; 94640; 94760; 96365; 96374; 99285; G0378; U0003; J0696; J2930; A9270-GY

== ENCOUNTER 2021-07-28 03:48 | Inpatient (IN) | payer MEDICARE ==
[2021-07-28] MEDS ORDERED: solu-MEDROL ONE ×2 (04:11→07:11)
[2021-07-28] MEDS ORDERED: solu-MEDROL 125 MG, Sterile H2O 10 ml 2 ML IV ONE ×4 (04:11→06:58)
[2021-07-28] MEDS ORDERED: Sterile H2O 10 ml IJ ONE ×2 (04:11→07:11)
[2021-07-28] MEDS ORDERED: PROVENTIL 2.5 MG/3 ML NEB IH ONE ×2 (04:21→04:30)
--- NOTE | 2021-07-28 04:23 | ERPHSYRPT ---
- History of Present Illness Source: patient Exam Limitations: no limitations Patient Subjective Stated Complaint: I've been sob x2 nights and it just got worse this morning Triage Nursing Assessment: pt c/o sob starting 2 nights ago. Had intermittent sob episodes yesterday but it got so much worse last night and into this morning to where she hasn't been to sleep yet. Pt has rattley non prod cough, lungs coarse with rhonchi and wheezes noted throughtout ant/post bilat. Pt denies any chest pain. Pt was 83% on rm air upon arrival, pt placed on 3Ln/c, O2 sats 97%. Timing/Duration: day(s) (2) Activities at Onset: none Severity of Dyspnea-Max: moderate Severity of Dyspnea-Current: moderate Possible Cause: occasional episodes Modifying Factors: Improves With: coughing, oxygen (Improved) Associated Symptoms: constant, No fever, No weakness Hx Tetanus, Diphtheria Vaccination/Date Given: No Hx Influenza Vaccination/Date Given: No Hx Pneumococcal Vaccination/Date Given: Yes Immunizations Up to Date: No <CAROL YIN - Last Filed: 07/28/21 06:53> <LUZ MARIA CRUMP - Last Filed: 07/28/21 18:25> - History of Present Illness Time Seen by Provider: 07/28/21 03:50 Physician History: This is a 80-year-old white female with a history of hypertension, COPD, hypothyroidism, gastroesophageal reflux disease and elevated cholesterol who has recurrent episodes of shortness of breath. This episode began 2 days ago. Patient is a chronic smoker of over 60 years and has decreased to 1 pack/day. Patient's crimping machine operator is Dr. Aviles and her internal medicine doctor is Dr. Chevy Klein. In the last 2 days she has had worsening shortness of breath and an associated cough. Patient denies chest pain. She denies fevers. She denies chills. She has no abdominal pain. She has had no nausea vomiting or diarrhea. She has not been around anyone that has tested positive for COVID-19 virus. She did receive full vaccination with Moderna vaccine. Patient is not oxygen dependent at home. She arrives emergency department with a room air oxygen saturation level of 83%. (CAROL YIN) Allergies/Adverse Reactions: Penicillins Allergy (Severe, Verified 07/28/21 04:02) Hives Home Medications: Aspirin EC 325 mg [Ecotrin 325 MG] 325 mg PO DAILY 10/27/18 [History] Lisinopril 20 mg [Zestril 20 MG] 10 mg PO DAILY 10/27/18 [History] Metoprolol Succinate 50 mg [Toprol Xl 50 MG] 50 mg PO HS 10/27/18 [History] Verapamil HCl Sr 240 mg [Isoptin S.r. 240 mg] 240 mg PO DAILY 10/27/18 [History] cloNIDine HCL [Catapres] 0.1 mg PO HS 11/28/18 [History] Acetaminophen 500 mg [Tylenol Extra Strength 500 mg] 500 mg PO DAILY 05/12/21 [History] Alendronate Sodium 70 mg [Fosamax 70 MG] 70 mg PO Q7D 05/12/21 [History] Atorvastatin Calcium 10 mg PO HS 05/12/21 [History] Chlorthalidone 12.5 mg PO DAILY 05/12/21 [History] Levothyroxine Sodium 25 Mcg [Synthroid 25 Mcg] 50 mcg PO DAILY 05/12/21 [H istory] Omeprazole 20 mg PO DAILY 05/12/21 [History] Venlafaxine HCl [Effexor Xr] 150 mg PO DAILY 05/12/21 [History] ALPRAZolam [Alprazolam] 0.5 mg PO HS PRN PRN 07/28/21 [History] Cholecalciferol (Vitamin D3) [Vitamin D] 2,000 unit PO DAILY 07/28/21 [History] Travel Risk - International Travel Have you traveled outside of the country in past 3 weeks: No - Coronavirus Screening Are you exhibiting any of the following symptoms?: Yes Symptoms: Cough: New Onset, Shortness of Breath Close contact with a COVID-19 positive Pt in past 14-21 Days: No - Vaccine Status Have you recieved a Covid-19 vaccination: Yes Armature Connector: Moderna - Vaccination Dates Date of 2cond Vaccination (if applicable): february, <CAROL YIN - Last Filed: 07/28/21 06:53> - Review of Systems Constitutional: No Symptoms Eyes: No Symptoms Ears, Nose, & Throat: No Symptoms Respiratory: Cough, Dyspnea Cardiac: No Symptoms, No Chest Pain Abdominal/Gastrointestinal: No Symptoms Genitourinary Symptoms: No Symptoms Musculoskeletal: No Symptoms Skin: No Symptoms Neurological: No Symptoms Psychological: No Symptoms Endocrine: No Symptoms Hematologic/Lymphatic: No Symptoms Immunological/Allergic: No Symptoms <CAROL YIN - Last Filed: 07/28/21 06:53> - Past Medical History Pertinent Past Medical History: Yes Neurological History: No Pertinent History ENT History: Cataracts Cardiac History: High Cholesterol, Hypertension Respiratory History: COPD Endocrine Medical History: Hypothyroidism Musculoskeletal History: Osteoarthritis GI Medical History: GERD History: No Pertinent History Psycho-Social History: No Pertinent History Female Reproductive Disorders: No Pertinent History - Past Surgical History Past Surgical History: Yes Neuro Surgical History: No Pertinent History Cardiac: No Pertinent History Respiratory: No Pertinent History Gastrointestinal: No Pertinent History Genitourinary: No Pertinent History Musculoskeletal: Joint Replacement, Other Female Surgical History: No Pertinent History Other Surgical History: bilateral hip replacements and lumbar fusions, cataract. left eye Oct 2018 - Social History Smoking Status: Current every day smoker How long have you smoked: 61 yrs Exposure to second hand smoke: Yes Drug Use: none Patient Lives Alone: Yes - Female History Hx Now: No <CAROL YIN - Last Filed: 07/28/21 06:53> - Physical Exam General Appearance: moderate distress, alert, anxiety, thin Eye Exam: PERRL/EOMI, eyes nml inspection Ears, Nose, Throat Exam: hearing grossly normal, normal ENT inspection, normal pharynx Neck Exam: normal inspection, non-tender, supple, full range of motion Respiratory Exam: respiratory distress, airway intact, diminished breath sounds, rhonchi, wheezing, No chest tenderness Cardiovascular/Chest Exam: normal heart sounds, regular rate/rhythm, normal peripheral pulses Abdominal/Gastrointestinal Exam: soft, normal bowel sounds, No tenderness Rectal Exam: not done Extremity Exam: non-tender, normal range of motion, normal inspection Neurologic Exam: alert, oriented x 3, cooperative, log operations coordinator II-XII nml as tested, normal mood/affect, nml cerebellar function, nml station & gait, sensation nml Skin Exam: normal color, warm, dry Lymphatic Exam: No adenopathy SpO2 Interpretation: normal SpO2: 98 O2 Delivery: Nasal Cannula (3 liters) <CAROL YIN - Last Filed: 07/28/21 06:53> - Nursing Vital Signs Nursing Vital Signs: Initial Vital Signs Temperature 97.6 F 07/28/21 03:49 Pulse Rate 82 07/28/21 03:49 Respiratory Rate 32 H 07/28/21 03:49 Blood Pressure 177/106 07/28/21 03:49 O2 Sat by Pulse Oximetry 95 07/28/21 03:49 Pain Scale Pain Intensity 0 - Course Nursing assessment & vital signs reviewed: Yes EKG Interpreted by Me: RATE (102), Sinus Tach, NORMAL AXIS, NORMAL INTERVALS, NO RMAL QRS, NORMAL ST-T, Other (When I reviewed the EKG that was performed I do not see ST elevation or significant ST depression. The readout does say ST elevation. The patient is not having any chest pain. We will repeat her EKG.) <CAROL YIN - Last Filed: 07/28/21 06:53> - Course EKG Interpreted by Me: Other <LUZ MARIA CRUMP - Last Filed: 07/28/21 18:25> Ordered Tests: Active Orders 24 hr Category Date Time Status Bedrest ROUTINE Activity 07/28/21 11:50 Active Up With Assistance ROUTINE Activity 07/28/21 11:50 Active Dairy Products Maker STAT Care 07/28/21 04:11 Completed Code Status Order ROUTINE Care 07/28/21 11:50 Active EKG-ER Only STAT Care 07/28/21 04:10 Completed Fall Protocol ROUTINE Care 07/28/21 11:50 Active IV Care Q6H Care 07/28/21 11:50 Active IV Insertion STAT Care 07/28/21 04:10 Completed Oxygen-ED Only Nasal Cannula 3 lpm Care 07/28/21 04:[address] in Observation ROUTINE Care 07/28/21 11:50 Active Ashok Casimiro, Apply ROUTINE Care 07/28/21 11:50 Active Weight,Daily 0600 Care 07/28/21 11:50 Active CHEST 1 VIEW (PORTABLE) Stat Exams 07/28/21 04:10 Completed CHEST WITH CONTRAST [CT] Stat Exams 07/28/21 05:23 Completed BLOOD CULTURE Stat Lab 07/28/21 04:40 Received CBC W DIFF AM.LAB Lab 07/29/21 04:00 Ordered CBC W DIFF Stat Lab 07/28/21 04:40 Completed CMP AM.LAB Lab 07/29/21 04:00 Ordered CMP Stat Lab 07/28/21 04:40 Completed D-DIMER QUANTITATIVE Stat Lab 07/28/21 04:40 Completed INFLUENZA A+B RAFAEL Stat Lab 07/28/21 04:40 Completed Lactic Acid Stat Lab 07/28/21 04:34 Completed MAGNESIUM Stat Lab 07/28/21 04:40 Completed NT PRO BNP Stat Lab 07/28/21 04:40 Completed PROTIME WITH INR Stat Lab 07/28/21 04:40 Completed T4 (Thyroxine) Stat Lab 07/28/21 05:00 Completed TROPONIN Q3H Lab 07/28/21 04:40 Completed TROPONIN Q3H Lab 07/28/21 07:12 Completed TROPONIN Q3H Lab 07/28/21 09:50 Completed TROPONIN Q3H Lab 07/28/21 12:55 Completed TROPONIN Q3H Lab 07/28/21 13:59 Completed TSH [TSH, 3RD Generation] Stat Lab 07/28/21 05:00 Completed Oxygen Nasal Cannula 2 lpm RT 07/28/21 11:50 Active Respiratory Therapy Assessment DAILY RT 07/28/21 04:30 Completed Transfer Order Routine Transfer 07/28/21 Completed Medication Summary Generic Name Dose Route Start Last Admin Trade Name Freq PRN Reason Stop Dose Admin Acetaminophen 650 mg 07/28/21 11:50 Tylenol 325 Mg PO 08/27/21 11:49 Q4H PRN PRN PAIN AND/OR FEVER Acetaminophen 500 mg 07/29/21 10:00 Tylenol Extra Strength 500 Mg PO 08/28/21 09:59 DAILY DEVON Albuterol/Ipratropium 3 ml 07/28/21 15:00 07/28/21 15:02 Duoneb 0.5-3 Mg/3 Ml Neb IH 08/27/21 14:59 3 ml Q4HRT DEVON Administration Alendronate Sodium 70 mg 07/30/21 10:00 Fosamax 70 Mg PO 08/29/21 09:59 Q7D DEVON Alprazolam 0.5 mg 07/28/21 17:09 Xanax 0.5 Mg PO 08/27/21 17:08 HS PRN PRN ANXIETY Aspirin 325 mg 07/28/21 18:00 Ecotrin 325 Mg PO 08/27/21 17:59 DAILY [facility] Cholecalciferol 2,000 unit 07/28/21 18:00 Vitamin D PO 08/27/21 17:59 DAILY [facility] Clonidine 0.1 mg 07/28/21 22:00 Catapres 0.1 Mg PO 08/27/21 21:59 HS [facility] Methylprednisolone Sodium 0 mg 07/28/21 12:00 07/28/21 14:12 Succinate 60 mg/ Sterile Water IV 08/27/21 11:59 60 mg 2 ml Q6HT DEVON Administration Enoxaparin Sodium 60 mg 07/28/21 22:00 Enoxaparin Sodium SQ 08/27/21 21:59 BID [facility] Levofloxacin/Dextrose 750 mg in 150 mls @ 100 mls/hr 07/30/21 10:00 Levofloxacin 750mg/150ml D5w IV 08/29/21 09:59 Q48H [facility] Levothyroxine Sodium 50 mcg 07/28/21 18:00 Synthroid 50 Mcg PO 08/27/21 17:59 DAILY [facility] Lisinopril 10 mg 07/28/21 18:00 Zestril 20 Mg PO 08/27/21 17:59 DAILY [facility] Metoprolol Succinate 50 mg 07/28/21 22:00 Toprol Xl 50 Mg PO 08/27/21 21:59 HS [facility] Miscellaneous Information 1 each 07/28/21 17:30 Medication Intervention 08/27/21 17:29 .RN TO CHECK [facility] Morphine Sulfate 2 mg 07/28/21 11:50 Morphine Sulfate 2 Mg Inj IV 08/02/21 11:49 Q4H PRN PRN PAIN Nicotine 21 mg 07/28/21 15:00 07/28/21 14:39 Nicoderm Cq 21 Mg TOP 08/27/21 14:59 21 mg Q24H10 DEVON Administration Ondansetron HCl 4 mg 07/28/21 11:50 Zofran 4 Mg/2 Ml Vial IV 08/27/21 11:49 Q6H PRN PRN NAUSEA/VOMITING Pantoprazole Sodium 40 mg 07/28/21 13:00 07/28/21 14:12 Protonix 40 Mg Iv IV 08/27/21 12:59 40 mg DAILY DEVON Administration Pantoprazole Sodium 40 mg 07/29/21 10:00 Protonix 40mg Tablet PO 08/28/21 09:59 DAILY [facility]ON Simvastatin 10 mg 07/28/21 22:00 Zocor 10mg PO 08/27/21 21:59 HS DEVON Venlafaxine HCl 150 mg 07/29/21 10:00 Effexor Xr 75 Mg PO 08/28/21 09:59 DAILY DEVON Verapamil HCl 240 mg 07/28/21 18:00 Isoptin S.R. 240 Mg PO 08/27/21 17:59 DAILY DEVON Discontinued Medications Generic Name Dose Route Start Last Admin Trade Name Jamarcusq PRN Reason Stop Dose Admin Albuterol Sulfate Confirm 07/28/21 04:21 Proventil 2.5 Mg/3 Ml Neb Administered 07/28/21 04:22 Dose 2.5 mg IH .STK-MED ONE Albuterol Sulfate 2.5 mg 07/28/21 04:30 07/28/21 04:30 Proventil 2.5 Mg/3 Ml Neb IH 07/28/21 04:31 2.5 mg STAT ONE Administration Albuterol/Ipratropium 3 ml 07/28/21 10:02 07/28/21 10:05 Duoneb 0.5-3 Mg/3 Ml Neb IH 07/28/21 10:03 3 ml STAT ONE Administration Albuterol/Ipratropium Confirm 07/28/21 10:02 Duoneb 0.5-3 Mg/3 Ml Neb Administered 07/28/21 10:03 Dose 3 ml IH .STK-MED ONE Albuterol/Ipratropium 3 ml 07/28/21 13:00 Duoneb 0.5-3 Mg/3 Ml Neb IH 08/27/21 12:59 Q6HRT DEVON Aspirin 324 mg 07/28/21 08:07 07/28/21 08:10 Baby Aspirin 81 Mg Chew PO 07/28/21 08:08 324 mg STAT ONE Administration Aspirin Confirm 07/28/21 08:10 Baby Aspirin 81 Mg Chew Administered 07/28/21 08:11 Dose 324 mg .ROUTE .STK-MED ONE Methylprednisolone Sodium 0 mg 07/28/21 04:11 07/28/21 04:20 Succinate 125 mg/ Sterile IV 07/28/21 04:12 125 mg Water 2 ml STAT ONE Administration Methylprednisolone Sodium 0 mg 07/28/21 06:58 07/28/21 07:16 Succinate 125 mg/ Sterile IV 07/28/21 06:59 125 mg Water 2 ml STAT ONE Administration Enoxaparin Sodium 60 mg 07/28/21 11:08 07/28/21 11:17 Enoxaparin Sodium SQ 07/28/21 11:09 60 mg STAT ONE Administration Levofloxacin/Dextrose 750 mg in 150 mls @ 100 mls/hr 07/28/21 07:48 07/28/21 10:18 Levofloxacin 750mg/150ml D5w IV 07/28/21 09:17 Infused STAT STA Infusion Levofloxacin/Dextrose Confirm 07/28/21 07:50 Levofloxacin 750mg/150ml D5w Administered 07/28/21 07:51 Dose 750 mg in 150 mls @ ud IV .STK-MED ONE Methylprednisolone Sodium Succinate Confirm 07/28/21 04:11 Solu-Medrol Administered 07/28/21 04:12 Dose 125 mg .ROUTE .STK-MED ONE Methylprednisolone Sodium Succinate Confirm 07/28/21 07:11 Solu-Medrol Administered 07/28/21 07:12 Dose 125 mg .ROUTE .STK-MED ONE Sterile Water Confirm 07/28/21 04:11 Sterile H2o 10 Ml Administered 07/28/21 04:12 Dose 10 ml IJ .STK-MED ONE Sterile Water Confirm 07/28/21 07:11 Sterile H2o 10 Ml Administered 07/28/21 07:12 Dose 10 ml IJ .STK-MED ONE Lab/Rad Data: Laboratory Result Diagrams 07/28/21 04:40 07/28/21 04:40 Laboratory Results 07/28/21 07/28/21 07/28/21 Range/Units 09:50 09:02 07:12 WBC (4.0-10.5) K/mm3 RBC (4.1-5.4) M/mm3 Hgb (12.0-16.0) gm/dl Hct (35-47) % MCV (78-100) fl MCH (26-32) pg MCHC (32-36) g/dl RDW (11.5-14.0) % Plt Count (150-450) K/mm3 MPV (7.5-11.0) fl Gran % (36.0-66.0) % Eos # (Auto) (0-0.5) Absolute Lymphs (auto) (1.0-4.6) Absolute Monos (auto) (0.0-1.3) Lymphocytes % (24.0-44.0) % Monocytes % (0.0-12.0) % Eosinophils % (0.00-5.0) % Basophils % (0.0-0.4) % Absolute Granulocytes (1.4-6.9) Basophils # (0-0.4) PT (9.4-12.5) SECONDS INR (0.8-3.0) D-Dimer (215-500) ng/mL Sodium (137-145) mmol/L Potassium (3.5-5.1) mmol/L Chloride (98-107) mmol/L Carbon Dioxide (22-30) mmol/L Anion Gap (5-15) MEQ/L BUN (7-17) mg/dL Creatinine (0.52-1.04) mg/dL Estimated GFR ML/MIN Glucose (74-106) mg/dL Lactic Acid (0.4-2.0) Calcium (8.4-10.2) mg/dL Magnesium (1.6-2.3) mg/dL Total Bilirubin (0.2-1.3) mg/dL AST (14-36) U/L ALT (0-35) U/L Alkaline Phosphatase (38-126) U/L Troponin I 0.806 H* 0.628 H* (0.000-0.034) ng/mL NT-Pro-B Natriuret Pep (0-1800) pg/mL Serum Total Protein (6.3-8.2) g/dL Albumin (3.5-5.0) g/dL Thyroxine (T4) (5.53-10.96) ug/dL TSH 3rd Generation (0.47-4.68) mIU/L Influenza Type A Ag (NEGATIVE) Influenza Type B Ag (NEGATIVE) SARS-CoV-2 (PCR) NEGATIVE (NEGATIVE) 07/28/21 07/28/21 07/28/21 Range/Units 05:00 05:00 04:40 WBC (4.0-10.5) K/mm3 RBC (4.1-5.4) M/mm3 Hgb (12.0-16.0) gm/dl Hct (35-47) % MCV (78-100) fl MCH (26-32) pg MCHC (32-36) g/dl RDW (11.5-14.0) % Plt Count (150-450) K/mm3 MPV (7.5-11.0) fl Gran % (36.0-66.0) % Eos # (Auto) (0-0.5) Absolute Lymphs (auto) (1.0-4.6) Absolute Monos (auto) (0.0-1.3) Lymphocytes % (24.0-44.0) % Monocytes % (0.0-12.0) % Eosinophils % (0.00-5.0) % Basophils % (0.0-0.4) % Absolute Granulocytes (1.4-6.9) Basophils # (0-0.4) PT (9.4-12.5) SECONDS INR (0.8-3.0) D-Dimer (215-500) ng/mL Sodium (137-145) mmol/L Potassium (3.5-5.1) mmol/L Chloride (98-107) mmol/L Carbon Dioxide (22-30) mmol/L Anion Gap (5-15) MEQ/L BUN (7-17) mg/dL Creatinine (0.52-1.04) mg/dL Estimated GFR ML/MIN Glucose (74-106) mg/dL Lactic Acid (0.4-2.0) Calcium (8.4-10.2) mg/dL Magnesium (1.6-2.3) mg/dL Total Bilirubin (0.2-1.3) mg/dL AST (14-36) U/L ALT (0-35) U/L Alkaline Phosphatase (38-126) U/L Troponin I < 0.012 (0.000-0.034) ng/mL NT-Pro-B Natriuret Pep (0-1800) pg/mL Serum Total Protein (6.3-8.2) g/dL Albumin (3.5-5.0) g/dL Thyroxine (T4) 8.98 (5.53-10.96) ug/dL TSH 3rd Generation 0.887 (0.47-4.68) mIU/L Influenza Type A Ag (NEGATIVE) Influenza Type B Ag (NEGATIVE) SARS-CoV-2 (PCR) (NEGATIVE) 07/28/21 07/28/21 07/28/21 Range/Units 04:40 04:40 04:40 WBC (4.0-10.5) K/mm3 RBC (4.1-5.4) M/mm3 Hgb (12.0-16.0) gm/dl Hct (35-47) % MCV (78-100) fl MCH (26-32) pg MCHC (32-36) g/dl RDW (11.5-14.0) % Plt Count (150-450) K/mm3 MPV (7.5-11.0) fl Gran % (36.0-66.0) % Eos # (Auto) (0-0.5) Absolute Lymphs (auto) (1.0-4.6) Absolute Monos (auto) (0.0-1.3) Lymphocytes % (24.0-44.0) % Monocytes % (0.0-12.0) % Eosinophils % (0.00-5.0) % Basophils % (0.0-0.4) % Absolute Granulocytes (1.4-6.9) Basophils # (0-0.4) PT 11.3 (9.4-12.5) SECONDS INR 0.96 (0.8-3.0) D-Dimer 924 H* (215-500) ng/mL Sodium (137-145) mmol/L Potassium (3.5-5.1) mmol/L Chloride (98-107) mmol/L Carbon Dioxide (22-30) mmol/L Anion Gap (5-15) MEQ/L BUN (7-17) mg/dL Creatinine (0.52-1.04) mg/dL Estimated GFR ML/MIN Glucose (74-106) mg/dL Lactic Acid (0.4-2.0) Calcium (8.4-10.2) mg/dL Magnesium 2.0 (1.6-2.3) mg/dL Total Bilirubin (0.2-1.3) mg/dL AST (14-36) U/L ALT (0-35) U/L Alkaline Phosphatase (38-126) U/L Troponin I (0.000-0.034) ng/mL NT-Pro-B Natriuret Pep (0-1800) pg/mL Serum Total Protein (6.3-8.2) g/dL Albumin (3.5-5.0) g/dL Thyroxine (T4) (5.53-10.96) ug/dL TSH 3rd Generation (0.47-4.68) mIU/L Influenza Type A Ag NEGATIVE (NEGATIVE) Influenza Type B Ag NEGATIVE (NEGATIVE) SARS-CoV-2 (PCR) (NEGATIVE) 07/28/21 07/28/21 07/28/21 Range/Units 04:40 04:40 04:34 WBC 12.2 H (4.0-10.5) K/mm3 RBC 4.90 (4.1-5.4) M/mm3 Hgb 14.6 (12.0-16.0) gm/dl Hct 45.1 (35-47) % MCV 92.0 (78-100) fl MCH 29.8 (26-32) pg MCHC 32.4 (32-36) g/dl RDW 13.4 (11.5-14.0) % Plt Count 292 (150-450) K/mm3 MPV 9.8 (7.5-11.0) fl Gran % 56.5 (36.0-66.0) % Eos # (Auto) 1.59 H (0-0.5) Absolute Lymphs (auto) 2.59 (1.0-4.6) Absolute Monos (auto) 1.09 (0.0-1.3) Lymphocytes % 21.2 L (24.0-44.0) % Monocytes % 8.9 (0.0-12.0) % Eosinophils % 13.0 H (0.00-5.0) % Basophils % 0.4 (0.0-0.4) % Absolute Granulocytes 6.90 (1.4-6.9) Basophils # 0.05 (0-0.4) PT (9.4-12.5) SECONDS INR (0.8-3.0) D-Dimer (215-500) ng/mL Sodium 134 L (137-145) mmol/L Potassium 3.9 (3.5-5.1) mmol/L Chloride 94 L (98-107) mmol/L Carbon Dioxide 28 (22-30) mmol/L Anion Gap 15.7 H (5-15) MEQ/L BUN 13 (7-17) mg/dL Creatinine 0.63 (0.52-1.04) mg/dL Estimated GFR > 60.0 ML/MIN Glucose 127 H (74-106) mg/dL Lactic Acid 1.0 (0.4-2.0) Calcium 9.9 (8.4-10.2) mg/dL Magnesium (1.6-2.3) mg/dL Total Bilirubin 0.40 (0.2-1.3) mg/dL AST 35 (14-36) U/L ALT 16 (0-35) U/L Alkaline Phosphatase 61 (38-126) U/L Troponin I (0.000-0.034) ng/mL NT-Pro-B Natriuret Pep 153 (0-1800) pg/mL Serum Total Protein 8.1 (6.3-8.2) g/dL Albumin 5.0 (3.5-5.0) g/dL Thyroxine (T4) (5.53-10.96) ug/dL TSH 3rd Generation (0.47-4.68) mIU/L Influenza Type A Ag (NEGATIVE) Influenza Type B Ag (NEGATIVE) SARS-CoV-2 (PCR) (NEGATIVE) - Progress Progress: improved, re-examined Air Movement: fair Blood Culture(s) Obtained: Yes Counseled pt/family regarding: lab results, diagnosis, need for follow-up, rad results <CAROL YIN - Last Filed: 07/28/21 06:53> - Progress Discussed with DrTrent: Dinah, Chaparrita <LUZ MARIA CRUMP - Last Filed: 07/28/21 18:25> - Progress Progress Note: 07/28/21 06:14 Chest x-ray shows no acute cardiopulmonary process. There is no difference when compared to chest x-ray dated 05/12/2021. Repeat EKG was performed at 530 3 in the morning on 07/28/2021. Heart rate is 87 bpm. Patient has normal sinus rhythm. There are no acute ST segment changes or abnormalities. Patient denies chest pain. QT interval is within normal limits. There is improvement over the prior EKG that was done this morning. 07/28/21 06:53 Medical decision making: This patient is improving but she just was taken off oxygen to use the restroom and she desatted into the 80s on room air oxygenation. She feels she is improving but slowly. Patient is not ready to go home. We will provide her with another dose of Solu-Medrol, wait for her second troponin level and for the results of her CAT scan of her chest. I will sign out to Dr. Crump at shift change and he will follow up with the study results and make final disposition. (CAROL YIN) Second EKG time 0808. Rate 94, normal rhythm sinus, axis normal, no acute ST elevation, diffuse Q waves. No T wave inversions. Patient is checked out to me at shift change from Dr. Yin with pending CTA results. CTA did not show any obvious pulmonary embolism although it was moderate very good study and no obvious consolidation. I believe patient has C OPD exacerbation. On my evaluation she is chest pain-free, maintaining oxygen saturation around 99% on 2 L. Not in any distress. Second troponin bumped 0.6. She is given aspirin. She is also given Levaquin for COPD exacerbation. I was called her primary crimping machine operator Dr. Aviles, reviewed history, work-up with positive troponin, recommended trending cardiac enzyme and if has worsening call him back as there are no beds available in any of the hospital in [place] currently so we will admit patient in here. 07/28/21 08:17 07/28/21 08:[address] Guzman, went over history, work-up and cardiology recommendations, agreed with admission and here and will call cardiology if she develops chest pain or having trending up of cardiac enzymes. Plan discussed with patient to understand and agrees with it. 07/28/21 10:52 Repeat troponin is 0.8 which is a little worse than before, reviewed with Dr. Aviles over the phone, recommended giving a dose of Lovenox and thinks it is more from her COPD as patient continues to be chest pain-free and feeling better actually. Recommended rechecking in 6-hour and will see how they are trending. (LUZ MARIA CRUMP) - Departure Departure Disposition: Observation Critical Care Time: Yes Critical Care Time(excluding separately billable procedures): Critical 30-74 mins <CAROL YIN - Last Filed: 07/28/21 06:53> <LUZ MARIA CRUMP - Last Filed: 07/28/21 18:25> - Departure Clinical Impression: Acute exacerbation of chronic obstructive pulmonary disease (COPD), Hypoxia, NSTEMI (non-ST elevated myocardial infarction) Condition: Fair
[2021-07-28 05:03] LABS: BASOPHIL % 0.4 % (0.0-0.4); Basophil (Absolute #) 0.05 (0-0.4); Eosinophil (Absolute #) 1.59 (0-0.5); Hematocrit 45.1 % (35-47); Hemoglobin 14.6 gm/dl (12.0-16.0); Lymphocyte (Absolute #) 2.59 (1.0-4.6); Lymphocytes % 21.2 % (24.0-44.0); Mean Corpuscular Hemoglobin 29.8 pg (26-32); Mean Corpuscular Hgb Concent. 32.4 g/dl (32-36); Mean Platelet Volume 9.8 fl (7.5-11.0); Monocyte (Absolute #) 1.09 (0.0-1.3); Monocytes % 8.9 % (0.0-12.0); Neutrophil % 56.5 % (36.0-66.0); Platelet Count 292 K/mm3 (150-450); Red Cell Distribution Width 13.4 % (11.5-14.0); White Blood Count 12.2 K/mm3 (4.0-10.5)
[2021-07-28 05:08] LABS: INR 0.96 (0.8-3.0); PROTIME 11.3 SECONDS (9.4-12.5)
[2021-07-28 05:17] LABS: INFLUENZA A NEGATIVE (NEGATIVE); INFLUENZA B NEGATIVE (NEGATIVE)
[2021-07-28 05:20] LABS: ALKALINE PHOSPHATASE 61 U/L (38-126); ANION GAP 15.7 MEQ/L (5-15); BLOOD UREA NITROGEN 13 mg/dL (7-17); CHLORIDE 94 mmol/L (98-107); Calcium 9.9 mg/dL (8.4-10.2); Carbon Dioxide 28 mmol/L (22-30); Creatinine 1 0.63 mg/dL (0.52-1.04); EST GLOMERULAR FILTRATION RATE > 60.0 ML/MIN; Glucose 127 mg/dL (74-106); NT PRO BNP 153 pg/mL (0-1800); Potassium 3.9 mmol/L (3.5-5.1); SGOT/AST 35 U/L (14-36); SGPT/ALT 16 U/L (0-35); SODIUM 134 mmol/L (137-145); Total Protein 8.1 g/dL (6.3-8.2)
[2021-07-28] MEDS ORDERED: LEVOFLOXACIN 750MG/150ML D5W 750 MG/150 ML BAG IV STA (07:48)
[2021-07-28] MEDS ORDERED: LEVOFLOXACIN 750MG/150ML D5W 750 MG/150 ML BAG IV ONE (07:50)
[2021-07-28] MEDS ORDERED: BABY ASPIRIN 81 MG CHEW PO ONE (08:07)
[2021-07-28] MEDS ORDERED: BABY ASPIRIN 81 MG CHEW ONE (08:10)
--- NOTE | 2021-07-28 09:15 | XRAY ---
Indication: Short of breath and cough. COPD. Comparison: May 12, 2021 Portable chest unchanged again hyperinflated and clear with incidental small mediastinal and lingula calcified granulomas. Heart not enlarged. Bony thorax intact again with mild osteopenia and degenerative changes. No new/acute findings.
--- NOTE | 2021-07-28 09:20 | XRAY ---
Indication: Short of breath and elevated d-dimer. COPD. Multiple contiguous images obtained through the chest using 80 cc Isovue 370 contrast and PE protocol. Comparison: May 12, 2021. Good opacification of the pulmonary arteries to include the lobar and segmental branches. No pulmonary embolus. Heart not enlarged. Aorta remains mildly arteriosclerotic without aneurysm/dissection. Stable small mediastinal calcified nodes. No pathologic mediastinal/hilar lymphadenopathy. Lungs again hyperinflated with small lingular calcified granuloma. No suspicious pulmonary mass, infiltrate, consolidation, or effusion. Bony thorax intact again with mild osteopenia and mild/moderate degenerative changes throughout the spine. Stable small fatty right Bochdalek hernia. Limited upper abdomen again demonstrates 1 cm left upper renal cortical cyst and tiny hepatic/splenic calcified granulomas. Impression: 1. Continued negative pulmonary embolus. No new/acute cardiopulmonary abnormalities. 2. Again incidental pulmonary emphysema, fatty right [place]dale[place] hernia, chronic bony findings, left renal cyst, and old granulomatous disease. Comment: Preliminary interpretation made by C. No critical discrepancy.
[2021-07-28] MEDS ORDERED: DUONEB 0.5-3 MG/3 ml Neb IH ONE ×2 (10:02)
[2021-07-28] MEDS ORDERED: ENOXAPARIN SODIUM SQ ONE (11:08)
[2021-07-28] MEDS ORDERED: Zofran 4 MG/2 ML VIAL IV PRN (11:50)
[2021-07-28] MEDS ORDERED: TYLENOL 325 MG PO PRN (11:50)
[2021-07-28] MEDS ORDERED: MORPHINE SULFATE 2 MG INJ IV PRN (11:50)
[2021-07-28] MEDS ORDERED: DUONEB 0.5-3 MG/3 ml Neb IH SCH (13:00)
[2021-07-28] MEDS: PROTONIX 40 MG IV IV SCH (14:12)
[2021-07-28] MEDS: solu-MEDROL 60 MG, Sterile H2O 10 ml 2 ML IV SCH ×4 (14:12→18:22)
[2021-07-28] MEDS: Nicoderm CQ 21 MG TOP SCH (14:39)
[2021-07-28] MEDS: DUONEB 0.5-3 MG/3 ml Neb IH SCH ×2 (15:02→19:06)
[2021-07-28] MEDS ORDERED: Miscellaneous Medication Order MC ONE (17:18)
[2021-07-28] MEDS ORDERED: MEDICATION INTERVENTION MC SCH (17:30)
[2021-07-28] MEDS: Ecotrin 325 MG PO SCH (18:18)
[2021-07-28] MEDS: VITAMIN D PO SCH (18:18)
[2021-07-28] MEDS: ISOPTIN S.R. 240 MG PO SCH (18:18)
[2021-07-28] MEDS: Zestril 20 MG PO SCH (18:23)
[2021-07-28] MEDS: SYNTHROID 50 MCG PO SCH (18:26)
[2021-07-28] MEDS: Robitussin-Dm Syrup PO PRN (20:56)
[2021-07-28] MEDS ORDERED: CARDIZEM DRIP 100 MG/100 ML D5W 100 ML IV PRN (21:05)
[2021-07-28] MEDS: Toprol Xl 50 MG PO SCH (21:17)
[2021-07-28] MEDS: xanAX 0.5 MG PO PRN (21:17)
[2021-07-28] MEDS: ENOXAPARIN SODIUM SQ SCH (21:18)
[2021-07-28] MEDS: Catapres 0.1 MG PO SCH (21:18)
[2021-07-28] MEDS ORDERED: CLONIDINE HCL 0.1 MG PO SCH (22:00)
[2021-07-28] MEDS ORDERED: NON-FORMULARY ITEM (Atorvastatin Calcium [Atorvastatin Calcium] 10 MG) PO SCH (22:00)
[2021-07-28] MEDS: Zocor 10MG PO SCH (22:41)
[2021-07-29] MEDS: DUONEB 0.5-3 MG/3 ml Neb IH SCH ×7 (00:07→23:21)
[2021-07-29] MEDS: solu-MEDROL 60 MG, Sterile H2O 10 ml 2 ML IV SCH ×8 (00:25→18:06)
[2021-07-29] MEDS: Robitussin-Dm Syrup PO PRN ×2 (05:17→21:08)
[2021-07-29 07:35] LABS: Absolute Neutrophil Ct (ANC) 19.53 (1.4-6.9); BASOPHIL % 0.1 % (0.0-0.4); Basophil (Absolute #) 0.03 (0-0.4); Eosinophil (Absolute #) 0 (0-0.5); Hematocrit 40.9 % (35-47); Hemoglobin 13.4 gm/dl (12.0-16.0); Lymphocyte (Absolute #) 0.87 (1.0-4.6); Lymphocytes % 4.1 % (24.0-44.0); Mean Cell Volume 90.5 fl (78-100); Mean Corpuscular Hemoglobin 29.6 pg (26-32); Mean Corpuscular Hgb Concent. 32.8 g/dl (32-36); Mean Platelet Volume 9.6 fl (7.5-11.0); Monocyte (Absolute #) 0.76 (0.0-1.3); Monocytes % 3.6 % (0.0-12.0); Neutrophil % 92.2 % (36.0-66.0); Platelet Count 282 K/mm3 (150-450); Red Blood Count 4.52 M/mm3 (4.1-5.4); Red Cell Distribution Width 13.1 % (11.5-14.0); White Blood Count 21.2 K/mm3 (4.0-10.5)
[2021-07-29 07:49] LABS: ALBUMIN 4.4 g/dL (3.5-5.0); ALKALINE PHOSPHATASE 52 U/L (38-126); ANION GAP 14.2 MEQ/L (5-15); BLOOD UREA NITROGEN 16 mg/dL (7-17); CHLORIDE 92 mmol/L (98-107); Calcium 9.6 mg/dL (8.4-10.2); Carbon Dioxide 29 mmol/L (22-30); Creatinine 1 0.69 mg/dL (0.52-1.04); EST GLOMERULAR FILTRATION RATE > 60.0 ML/MIN; Glucose 149 mg/dL (74-106); Potassium 4.2 mmol/L (3.5-5.1); SGOT/AST 31 U/L (14-36); SGPT/ALT 21 U/L (0-35); SODIUM 131 mmol/L (137-145); Total Protein 7.1 g/dL (6.3-8.2)
[2021-07-29] MEDS ORDERED: CHLORTHALIDONE 12.5 MG PO SCH (10:00)
[2021-07-29] MEDS ORDERED: NON-FORMULARY ITEM (Omeprazole [Omeprazole] 20 MG) PO SCH (10:00)
[2021-07-29] MEDS ORDERED: NON-FORMULARY ITEM (Venlafaxine Hcl [Effexor Xr] 150 MG) PO SCH (10:00)
[2021-07-29] MEDS: Nicoderm CQ 21 MG TOP SCH (10:57)
[2021-07-29] MEDS: Effexor XR 75 MG PO SCH (10:58)
[2021-07-29] MEDS: ISOPTIN S.R. 240 MG PO SCH (10:58)
[2021-07-29] MEDS: VITAMIN D PO SCH (10:58)
[2021-07-29] MEDS: SYNTHROID 50 MCG PO SCH (10:59)
[2021-07-29] MEDS: Ecotrin 325 MG PO SCH (11:00)
[2021-07-29] MEDS: Zestril 20 MG PO SCH (11:00)
[2021-07-29] MEDS: TYLENOL EXTRA STRENGTH 500 MG PO SCH (11:01)
[2021-07-29] MEDS: Protonix 40MG Tablet PO SCH (11:02)
[2021-07-29] MEDS: ENOXAPARIN SODIUM SQ SCH ×2 (11:02→21:08)
--- NOTE | 2021-07-29 20:17 | PCM.HP ---
History of Present Illness - Chief Complaint Chief Complaint: NSTEMI, COPD exacerbation Date: 07/29/21 History of Present Illness: is a 80 year old female. Pt. notes she has had increased sob and chest pain over the past 2 nights, and although chest pain is better she notes more sob. Presentation to ER prompted evaluation - Review of Systems Constitutional: No Fever, No Chills Eyes: No Symptoms Ears, Nose, & Throat: No Symptoms Respiratory: Cough, Short Of Breath, Wheezing Cardiac: Chest Pain, No Edema, No Syncope Abdominal/Gastrointestinal: No Abdominal Pain, No Nausea, No Vomiting, No Diarrhea Genitourinary Symptoms: No Dysuria Musculoskeletal: No Back Pain, No Neck Pain Skin: No Rash Neurological: No Dizziness, No Focal Weakness, No Sensory Changes Psychological: No Symptoms Endocrine: No Symptoms Hematologic/Lymphatic: No Symptoms Immunological/Allergic: No Symptoms Medications & Allergies Home Medications: Home Medication List Aspirin EC 325 mg [Ecotrin 325 MG] 325 mg PO DAILY 10/27/18 [History Confirmed 07/28/21] Lisinopril 20 mg [Zestril 20 MG] 10 mg PO DAILY 10/27/18 [History Confirmed 07/28/21] Metoprolol Succinate 50 mg [Toprol Xl 50 MG] 50 mg PO HS 10/27/18 [History Confirmed 07/28/21] Verapamil HCl Sr 240 mg [Isoptin S.r. 240 mg] 240 mg PO DAILY 10/27/18 [History Confirmed 07/28/21] cloNIDine HCL [Catapres] 0.1 mg PO HS 11/28/18 [History Confirmed 07/28/21] Acetaminophen 500 mg [Tylenol Extra Strength 500 mg] 500 mg PO DAILY 05/12/21 [History Confirmed 07/28/21] Alendronate Sodium 70 mg [Fosamax 70 MG] 70 mg PO Q7D 05/12/21 [History Confirmed 07/28/21] Atorvastatin Calcium 10 mg PO HS 05/12/21 [History Confirmed 07/28/21] Chlorthalidone 12.5 mg PO DAILY 05/12/21 [History Confirmed 07/28/21] Levothyroxine Sodium 25 Mcg [Synthroid 25 Mcg] 50 mcg PO DAILY 05/12/21 [History Confirmed 07/28/21] Omeprazole 20 mg PO DAILY 05/12/21 [History Confirmed 07/28/21] Venlafaxine HCl [Effexor Xr] 150 mg PO DAILY 05/12/21 [History Confirmed 07/28/21] ALPRAZolam [Alprazolam] 0.5 mg PO HS PRN PRN 07/28/21 [History Confirmed 07/28/21] Cholecalciferol (Vitamin D3) [Vitamin D] 2,000 unit PO DAILY 07/28/21 [History Confirmed 07/28/21] Allergies/Adverse Reactions: Allergies Allergy/AdvReac Type Severity Reaction Status Date / Time Penicillins Allergy Severe Hives Verified 07/28/21 04:02 - Past Medical History Past Medical History: Yes Neurological History: No Pertinent History ENT History: Cataracts Cardiac History: High Cholesterol, Hypertension Respiratory History: Bronchitis, COPD Endocrine Medical History: Hypothyroidism Musculoskelatal History: Osteoarthritis GI Medical History: GERD History: No Pertinent History Pyscho-Social History: Anxiety Reproductive Disorders: No Pertinent History - Female History Are you now?: No - Past Surgical History Past Surgical History: Yes Neuro Surgical History: No Pertinent History Cardiac History: No Pertinent History Respiratory Surgery: No Pertinent History GI Surgical History: No Pertinent History Genitourinary Surgical Hx: No Pertinent History Musculskeletal Surgical Hx: Joint Replacement, Other Female Surgical History: No Pertinent History Other Surgical History: bilateral hip replacements and lumbar fusions, cataract. left eye Oct 2018 - Social History Smoking Status: Current every day smoker How long have you smoked: 61 yrs Exposure to second hand smoke: Yes Alcohol: None Drug Use: none - Physical Exam Vital Signs: Vital Signs - 24 hr Temp Pulse Resp BP BP Pulse Ox 07/29/21 20:00 103 H 24 102/57 95 07/29/21 18:00 106 H 27 H 92 L 07/29/21 17:50 84 16 94 L 07/29/21 16:00 97.8 F 106 H 23 93/53 99 07/29/21 14:28 87 16 94 L 07/29/21 12:00 97.8 F 106 H 23 93/53 94 L 07/29/21 10:29 93 H 18 93 L 07/29/21 10:00 96.6 F 100 H 24 118/85 96 07/29/21 08:00 97.9 F 93 H 20 115/71 93 L 07/29/21 07:00 97.9 F 88 20 115/71 93 L 07/29/21 06:06 86 20 93 L 07/29/21 06:00 84 20 96/52 96 07/29/21 05:00 89 19 103/64 96 07/29/21 04:29 82 31 H 97/65 07/29/21 04:00 97.8 F 81 31 H 97/65 95 07/29/21 03:00 85 25 H 100/65 95 07/29/21 02:10 89 24 89/51 07/29/21 02:00 89 26 H 89/51 95 07/29/21 01:22 86 24 101/60 07/29/21 01:00 94 H 26 H 101/60 95 07/29/21 00:08 106 H 22 95 07/29/21 00:07 101 H 22 100/60 07/29/21 00:00 97.7 F 104 H 22 100/60 94 L 07/28/21 23:00 109 H 26 H 125/69 96 07/28/21 22:00 112 H 16 124/80 100 07/28/21 21:25 142 H 16 119/77 07/28/21 21:00 122 H 16 117/76 General Appearance: no apparent distress, alert Neurologic Exam: alert, oriented x 3, cooperative, normal mood/affect, No motor deficits Eye Exam: PERRL/EOMI, eyes nml inspection Ears, Nose, Throat Exam: normal ENT inspection, pharynx normal, moist mucous membranes Neck Exam: normal inspection, non-tender, supple, full range of motion Respiratory Exam: diminished breath sounds, prolonged expirations, crackles/rales, rhonchi, wheezing, No respiratory distress Cardiovascular Exam: regular rate/rhythm, normal heart sounds, normal peripheral pulses Gastrointestinal/Abdomen Exam: soft, normal bowel sounds, No tenderness, No mass Back Exam: normal inspection, normal range of motion, No CVA tenderness, No vertebral tenderness Extremity Exam: normal inspection, normal range of motion, pelvis stable Skin Exam: normal color, warm, dry, No rash Wound Assessment: Skin/Wound Assessment Wound/Incision Assessment Start: 07/29/21 12:09 Text: Status: Active Freq: Q6H Protocol: Document 07/29/21 17:37 [facility] (Rec: 07/29/21 17:38 [facility] [id number]) Wound Photo Comment: wounds to coccyx and redness to both heels unchanged. Lymphatic Exam: No adenopathy Results - Labs Lab/Micro Results: Lab Results-Last 24 Hours 07/29/21 07/29/21 07/29/21 Range/Units 06:40 06:40 06:40 WBC 21.2 H (4.0-10.5) K/mm3 RBC 4.52 (4.1-5.4) M/mm3 Hgb 13.4 (12.0-16.0) gm/dl Hct 40.9 (35-47) % MCV 90.5 (78-100) fl MCH 29.6 (26-32) pg MCHC 32.8 (32-36) g/dl RDW 13.1 (11.5-14.0) % Plt Count 282 (150-450) K/mm3 MPV 9.6 (7.5-11.0) fl Gran % 92.2 H (36.0-66.0) % Eos # (Auto) 0 (0-0.5) Absolute Lymphs (auto) 0.87 L (1.0-4.6) Absolute Monos (auto) 0.76 (0.0-1.3) Lymphocytes % 4.1 L (24.0-44.0) % Monocytes % 3.6 (0.0-12.0) % Eosinophils % 0.0 (0.00-5.0) % Basophils % 0.1 (0.0-0.4) % Absolute Granulocytes 19.53 H (1.4-6.9) Basophils # 0.03 (0-0.4) Sodium 131 L (137-145) mmol/L Potassium 4.2 (3.5-5.1) mmol/L Chloride 92 L (98-107) mmol/L Carbon Dioxide 29 (22-30) mmol/L Anion Gap 14.2 (5-15) MEQ/L BUN 16 (7-17) mg/dL Creatinine 0.69 (0.52-1.04) mg/dL Estimated GFR > 60.0 ML/MIN Glucose 149 H (74-106) mg/dL Calcium 9.6 (8.4-10.2) mg/dL Total Bilirubin 0.40 (0.2-1.3) mg/dL AST 31 (14-36) U/L ALT 21 (0-35) U/L Alkaline Phosphatase 52 (38-126) U/L Troponin I 0.917 H* (0.000-0.034) ng/mL Serum Total Protein 7.1 (6.3-8.2) g/dL Albumin 4.4 (3.5-5.0) g/dL Microbiology 07/28/21 04:45 Blood Culture - Preliminary Blood NO GROWTH TO DATE 07/28/21 04:40 Blood Culture - Preliminary Blood NO GROWTH TO DATE - Radiology Impressions Radiology Exams & Impressions: Radiology Procedures Category Date Time Status CHEST 1 VIEW (PORTABLE) Routine Exams 07/30/21 08:00 Ordered CHEST 1 VIEW (PORTABLE) Routine Exams 07/30/21 08:00 Stop Req CHEST 1 VIEW (PORTABLE) Stat Exams 07/28/21 04:10 Completed CHEST WITH CONTRAST [CT] Stat Exams 07/28/21 05:23 Completed ECHO W/2D AND DOPPLER [US] Routine Exams 07/31/21 08:00 Ordered ECHO W/2D AND DOPPLER [US] Routine Exams 07/31/21 08:00 Stop Req ECHO W/2D AND DOPPLER [US] Routine Exams 07/31/21 08:00 Stop Req Assessment/Plan (1) COPD exacerbation Current Visit: Yes Status: Acute Assessment & Plan: IV antibiotics and steroids with nebulizers intitiated and will be continued. Code(s): J44.1 - CHRONIC OBSTRUCTIVE PULMONARY DISEASE W (ACUTE) EXACERBATION (2) NSTEMI (non-ST elevated myocardial infarction) Current Visit: Yes Status: Acute Assessment & Plan: full dose lovenox, po aspirin and serial troponins, cardiology has seen and monitering the patient. Code(s): I21.4 - NON-ST ELEVATION (NSTEMI) MYOCARDIAL INFARCTION
[2021-07-29] MEDS: xanAX 0.5 MG PO PRN (21:08)
[2021-07-29] MEDS: Zocor 10MG PO SCH (21:08)
[2021-07-29] MEDS: Catapres 0.1 MG PO SCH (21:08)
[2021-07-29] MEDS: Toprol Xl 50 MG PO SCH (21:08)
[2021-07-30] MEDS: solu-MEDROL 60 MG, Sterile H2O 10 ml 2 ML IV SCH ×4 (00:13→05:02)
[2021-07-30] MEDS: DUONEB 0.5-3 MG/3 ml Neb IH SCH ×4 (03:36→19:30)
[2021-07-30] MEDS: Robitussin-Dm Syrup PO PRN ×2 (05:02→21:18)
[2021-07-30 06:36] LABS: Hematocrit 37.9 % (35-47); Hemoglobin 12.2 gm/dl (12.0-16.0); Mean Cell Volume 91.5 fl (78-100); Mean Corpuscular Hemoglobin 29.5 pg (26-32); Mean Corpuscular Hgb Concent. 32.2 g/dl (32-36); Mean Platelet Volume 9.6 fl (7.5-11.0); Platelet Count 242 K/mm3 (150-450); Red Blood Count 4.14 M/mm3 (4.1-5.4); Red Cell Distribution Width 13.3 % (11.5-14.0); White Blood Count 21.6 K/mm3 (4.0-10.5)
[2021-07-30 06:55] LABS: ANION GAP 12.4 MEQ/L (5-15); BLOOD UREA NITROGEN 19 mg/dL (7-17); CHLORIDE 92 mmol/L (98-107); Calcium 9.3 mg/dL (8.4-10.2); Carbon Dioxide 29 mmol/L (22-30); Creatinine 1 0.66 mg/dL (0.52-1.04); EST GLOMERULAR FILTRATION RATE > 60.0 ML/MIN; Glucose 145 mg/dL (74-106); Potassium 4.1 mmol/L (3.5-5.1); SODIUM 130 mmol/L (137-145)
--- NOTE | 2021-07-30 07:58 | XRAY ---
Indication: Exacerbation COPD. Comparison: July 28, 2021. Portable chest unchanged again hyperinflated and clear with incidental small mediastinal/lingula calcified granulomas. Heart not enlarged. No new/acute cardiopulmonary abnormalities.
[2021-07-30] MEDS ORDERED: LEVOFLOXACIN 750MG/150ML D5W 750 MG/150 ML BAG IV SCH (10:00)
[2021-07-30] MEDS ORDERED: Fosamax 70 MG PO SCH (10:00)
[2021-07-30] MEDS: VITAMIN D PO SCH (10:01)
[2021-07-30] MEDS: Zestril 20 MG PO SCH (10:01)
[2021-07-30] MEDS: Protonix 40MG Tablet PO SCH (10:02)
[2021-07-30] MEDS: ISOPTIN S.R. 240 MG PO SCH (10:02)
[2021-07-30] MEDS: Nicoderm CQ 21 MG TOP SCH (10:02)
[2021-07-30] MEDS: SYNTHROID 50 MCG PO SCH (10:02)
[2021-07-30] MEDS: Effexor XR 75 MG PO SCH (10:02)
[2021-07-30] MEDS: Ecotrin 325 MG PO SCH (10:02)
[2021-07-30] MEDS: TYLENOL EXTRA STRENGTH 500 MG PO SCH (10:03)
[2021-07-30] MEDS: ENOXAPARIN SODIUM SQ SCH ×2 (10:03→21:17)
[2021-07-30] MEDS: DELTASONE 20 MG PO SCH (11:58)
[2021-07-30] MEDS: Toprol Xl 50 MG PO SCH (21:17)
[2021-07-30] MEDS: Zocor 10MG PO SCH (21:18)
[2021-07-30] MEDS: Catapres 0.1 MG PO SCH (21:18)
[2021-07-30] MEDS: xanAX 0.5 MG PO PRN (21:18)
[2021-07-31] MEDS: DUONEB 0.5-3 MG/3 ml Neb IH SCH ×3 (00:51→13:26)
[2021-07-31 06:33] LABS: Absolute Neutrophil Ct (ANC) 13.64 (1.4-6.9); BASOPHIL % 0.1 % (0.0-0.4); Basophil (Absolute #) 0.01 (0-0.4); Eosinophil % 0.1 % (0.00-5.0); Eosinophil (Absolute #) 0.01 (0-0.5); Hematocrit 37.8 % (35-47); Hemoglobin 12.2 gm/dl (12.0-16.0); Lymphocyte (Absolute #) 0.78 (1.0-4.6); Mean Cell Volume 92.2 fl (78-100); Mean Corpuscular Hemoglobin 29.8 pg (26-32); Mean Corpuscular Hgb Concent. 32.3 g/dl (32-36); Mean Platelet Volume 10.5 fl (7.5-11.0); Monocyte (Absolute #) 1.19 (0.0-1.3); Monocytes % 7.6 % (0.0-12.0); Neutrophil % 87.2 % (36.0-66.0); Platelet Count 233 K/mm3 (150-450); Red Cell Distribution Width 13.3 % (11.5-14.0); White Blood Count 15.6 K/mm3 (4.0-10.5)
[2021-07-31 06:46] LABS: ANION GAP 11.5 MEQ/L (5-15); BLOOD UREA NITROGEN 22 mg/dL (7-17); CHLORIDE 94 mmol/L (98-107); Carbon Dioxide 29 mmol/L (22-30); Creatinine 1 0.63 mg/dL (0.52-1.04); EST GLOMERULAR FILTRATION RATE > 60.0 ML/MIN; Glucose 99 mg/dL (74-106); Potassium 3.5 mmol/L (3.5-5.1); SODIUM 131 mmol/L (137-145)
--- NOTE | 2021-07-31 08:05 | CONS ---
CONSULT DATE: 07/28/2021 BRIEF HISTORY: This is a 80 year-old female who was seen because of progressive shortness of breath. The patient stated that she has been short of breath for the last five days which got worse over the last couple of nights and finally decided to come to the emergency room of [facility] because of worsening symptoms. She has been having a nonproductive cough but no fever. On initial arrival to the emergency room, her saturations were 82% and was placed on 2 liters which brought saturations to 97%. She denies any chest pain. She has had previous cardiac work up which included coronary calcium score of 1,038. An eventual pharmacological stress test done showed no evidence of ischemia with left ventricular ejection fraction 84%. She has never had myocardial infarction or previous heart failure. CARDIAC RISK FACTORS: Positive for hypertension. She still smokes. No diabetes. She has history of hyperlipidemia. FAMILY HISTORY: Positive premature coronary artery disease. CURRENT MEDICATIONS: Aspirin 325 mg a day, lisinopril 20 mg a day, metoprolol 50 mg daily, Verapamil SR 240 mg a day, clonidine 0.1 mg at bedtime, Alendronate 40 mg a day, atorvastatin 10 mg at bedtime, buspirone 5 mg bedtime, Chlorthalidone 12.5 mg a day, levothyroxine 25 mcg daily, omeprazole 20 mg a day, venlafaxine 150 mg at bedtime. REVIEW OF SYSTEMS: CRITICAL CARE UNIT NURSE: There is no history of stroke. RESPIRATORY: She has chronic obstructive lung disease and continues to smoke. GI: Denies any heartburn. No nausea, vomiting or diarrhea. : Negative for dysuria or hematuria. PERIPHERAL VASCULAR: No history of DVT or claudication. HEMATOLOGY: No history of bleeding or history of hypercoagulable state. No history of easy bruising. MUSCULOSKELETAL: She has occasional joint pains. SKIN: No active dermatological problems. ENDOCRINE: History of hypothyroidism on replacement therapy. PHYSICAL EXAMINATION: Her blood pressure is 130/80, heart rate 125, respirations about 26. GENERAL: The patient is an elderly female who is alert, who is currently chest pain free but gets short of breath with just plain conversation. HEENT: Unremarkable. NECK: No significant JVD but external jugulars are prominent. CHEST: The respiratory excursions are diminished. There is scattered rhonchi and wheezing in both clay. CARDIAC: Heart tones are within normal. The rhythm is regular but tachycardic. No rub or gallop. ABDOMEN: Soft with normal bowel sounds. EXTREMITIES: No significant edema. Decreased distal pulses. LAB DATA AND DIAGNOSTIC TESTS: The EKG showed sinus rhythm with probable old anteroseptal myocardial infarction. The CT scan of the chest is negative for pulmonary embolism with incidental finding of pulmonary emphysema. ASSESSMENT AND PLAN: 1) The shortness of breath is likely due exacerbation of chronic obstructive pulmonary disease. The BNP is normal. Troponin I is now mildly elevated which may be secondary to underlying ischemia resulting in some myocardial injury. She currently has no angina. I will institute her home medications. 2) History of hypertension. 3) Hyperlipidemia. Continue with statin therapy. An echocardiogram will be obtained to assess left ventricular systolic function. I will follow up with you.
[2021-07-31] MEDS: DELTASONE 20 MG PO SCH (10:12)
[2021-07-31] MEDS: VITAMIN D PO SCH (10:12)
[2021-07-31] MEDS: Effexor XR 75 MG PO SCH (10:13)
[2021-07-31] MEDS: ISOPTIN S.R. 240 MG PO SCH (10:13)
[2021-07-31] MEDS: TYLENOL EXTRA STRENGTH 500 MG PO SCH (10:13)
[2021-07-31] MEDS: Ecotrin 325 MG PO SCH (10:13)
[2021-07-31] MEDS: Zestril 20 MG PO SCH (10:13)
[2021-07-31] MEDS: Protonix 40MG Tablet PO SCH (10:13)
[2021-07-31] MEDS: SYNTHROID 50 MCG PO SCH (10:13)
[2021-07-31] MEDS: Nicoderm CQ 21 MG TOP SCH (10:14)
[2021-07-31] MEDS: ENOXAPARIN SODIUM SQ SCH (10:14)
[2021-07-31 13:35] VITALS: BP 132/60; PULSE 80; O2SAT 93
--- NOTE | 2021-08-01 08:00 | ECHO ---
Transthoracic echocardiographic examination and color Doppler was done on 07/31/2021. INDICATION: Elevated troponin I and shortness of breath. IMPRESSION: 1) NO REGIONAL WALL MOTION ABNORMALITY. ESTIMATED GLOBAL LEFT VENTRICULAR EJECTION FRACTION OF AROUND 60 TO 65%. 2) TRACE TRICUSPID REGURGITATION. RIGHT VENTRICULAR SYSTOLIC PRESSURE OF 28 MM OF MERCURY. 3) AORTIC VALVE SCLEROSIS. 4) LEFT VENTRICULAR HYPERTROPHY. 5) LEFT VENTRICULAR DIASTOLIC DYSFUNCTION. The left ventricle is visualized and demonstrated adequate motion of all the segments. Estimated global left ventricular ejection fraction around 60 to 65%. There is concentric left ventricular hypertrophy. The mitral valve is seen and this opens adequately. No significant mitral regurgitation is seen. Left atrium is normal. Tissue Doppler study of the lateral mitral annulus suggestive of left ventricle diastolic dysfunction. The aortic valve is sclerotic but there is no significant gradient across the left ventricular outflow tract. The right side chambers are normal. There is trace tricuspid regurgitation. The right ventricular systolic pressure of 28 mm of Mercury.
[2021-08-01] MEDS ORDERED: LEVOFLOXACIN 750MG/150ML D5W 750 MG/150 ML BAG IV SCH (10:00)
--- NOTE | 2021-08-16 17:35 | PCM.DS ---
Discharge Summary Date of Admission: 07/28/21 20:30 Date of Discharge: 07/31/2021 Admitting Physician: RAMONE COPELAND Consults: Consults on Case 07/28/21 14:29 Consult Cardiology ROUTINE Primary Care Provider: KAVEH ALMANZAR Allergies Allergies Penicillins Allergy (Severe, Verified 07/28/21 04:02) [facility] Summary - Hospital Course Hospital Course: Pt. admitted with COPD exacerbation and upon work-up noted to have had a NSTEMI, for which her scheduling representative was consulted, pt. was treated with full dose lovenox in the early phases of this with cardiology watching for possible need for intervention, the pt. copd responded rapidly and was stabilized the following day, pt. monitered for NSTEMI, until ECHO could be done and troponins were trending downward. - Vitals & Intake/Output Vital Signs: Vital Signs Temperature 98.0 F 07/31/21 12:00 Pulse Rate 80 07/31/21 12:00 Respiratory Rate 18 07/31/21 12:00 Blood Pressure 132/60 07/31/21 12:00 O2 Sat by Pulse Oximetry 93 L 07/31/21 12:00 - Lab Result Diagrams: 07/31/21 04:26 07/31/21 04:20 Micro Results-Entire Visit: Microbiology 07/28/21 04:45 Blood Culture Gram Stain - Final Blood Blood Culture - Final Coagulase Negative Staph. Possible Contaminant. Clinical judgement required. No further workup performed. 07/28/21 04:40 Blood Culture Gram Stain - Final Blood Not Reportable Blood Culture - Final NO GROWTH - Procedures and Test Procedures and Tests throughout Hospitalization: Therapy Orders & Screens 07/28/21 04:30 Respiratory Therapy Assessment DAILY Comment: 07/28/21 11:50 Oxygen Nasal Cannula 2 lpm Comment: 07/28/21 15:08 Respiratory Therapy Assessment DAILY Comment: Diagnosis: NSTEMI, COPD exacerbation 07/28/21 15:09 Flutter Therapy UD Comment: Diagnosis: NSTEMI, COPD exacerbation Discharge Exam General Appearance: no apparent distress Neurologic Exam: alert, cooperative Eye Exam: PERRL, EOMI, eyes nml inspection Ears, Nose, Throat Exam: normal ENT inspection, pharynx normal, moist mucous membranes Neck Exam: normal inspection, non-tender, supple Respiratory Exam: diminished breath sounds, prolonged expirations, No chest tenderness Cardiovascular Exam: regular rate/rhythm, normal heart sounds Gastrointestinal/Abdomen Exam: soft, normal bowel sounds, No tenderness, No distention Pelvic Exam: deferred Rectal Exam: deferred Back Exam: normal inspection Extremity Exam: normal inspection Wound Assessment: Skin/Wound Assessment Wound/Incision Assessment Start: 07/29/21 12:09 Text: Status: Active Freq: Q6H Protocol: Document 07/31/21 12:00 [facility] (Rec: 07/31/21 12:16 AWG [id number]) Wound Photo Photo Taken No Final Diagnosis/Problem List - Final Discharge Diagnosis/Problem (1) COPD exacerbation Status: Acute Code(s): J44.1 - CHRONIC OBSTRUCTIVE PULMONARY DISEASE W (ACUTE) EXACERBATION (2) NSTEMI (non-ST elevated myocardial infarction) Status: Acute Code(s): I21.4 - NON-ST ELEVATION (NSTEMI) MYOCARDIAL INFARCTION - Discharge Discharge Date: 07/31/21 Disposition: Home, Self-Care Condition: Stable Prescriptions: New Levofloxacin [Levaquin] 750 mg PO DAILY 5 Days tablet Nicotine [Nicotine Patch] 1 each TD DAILY 30 Days predniSONE [Prednisone] 20 mg PO DAILY 4 Days tablet Continue Aspirin EC 325 mg [Ecotrin 325 MG] 325 mg PO DAILY Verapamil HCl Sr 240 mg [Isoptin S.r. 240 mg] 240 mg PO DAILY Lisinopril 20 mg [Zestril 20 MG] 10 mg PO DAILY Metoprolol Succinate 50 mg [Toprol Xl 50 MG] 50 mg PO HS cloNIDine HCL [Catapres] 0.1 mg PO HS Alendronate Sodium 70 mg [Fosamax 70 MG] 70 mg PO Q7D Chlorthalidone 12.5 mg PO DAILY Acetaminophen 500 mg [Tylenol Extra Strength 500 mg] 500 mg PO DAILY Levothyroxine Sodium 25 Mcg [Synthroid 25 Mcg] 50 mcg PO DAILY Atorvastatin Calcium 10 mg PO HS Omeprazole 20 mg PO DAILY Venlafaxine HCl [Effexor Xr] 150 mg PO DAILY Cholecalciferol (Vitamin D3) [Vitamin D] 2,000 unit PO DAILY ALPRAZolam [Alprazolam] 0.5 mg PO HS PRN PRN PRN Reason: Anxiety Instructions: Heart Attack (DC) Additional Instructions: FOLLOW UP WITH PRIMARY DR WITHIN 1-2 WEEKS Follow up with: BETHANY GARCIA [ACTIVE STAFF] - 08/18/21 12:45 pm KAVEH ALMANZAR [Primary Care Provider] - Forms: Discharge Instructions
== END 2021-07-31 14:20 | disposition home or self-care (01) | DRG 190 ==
LOC: ED 03:48 → MED SURG 11:38 → UNDOADMOB 11:38 → OBSVTOIN 20:30 → INTOOBSV 20:30 → ICU 20:31 → MED SURG 20:31
PROVIDERS: ADMIT Family Medicine; ATTEND Family Medicine
DX: J44.1 Chronic obstructive pulmonary disease with (acute) exacerbation (principal); I21.4 Non-ST elevation (NSTEMI) myocardial infarction; R09.02 Hypoxemia; I10 Essential (primary) hypertension; E78.5 Hyperlipidemia, unspecified; Z79.899 Other long term (current) drug therapy; I48.91 Unspecified atrial fibrillation; Z20.822 Contact with and (suspected) exposure to COVID-19; E03.9 Hypothyroidism, unspecified
CPT/HCPCS: 36000; 36415; 71045; 71260; 80048; 80053; 83605; 83735; 83880; 84436; 84443; 84484; 85025; 85027; 85379; 85610; 87040; 87400; 93005; 93041; 93268; 93306; 94640; 94667; 94668; 94760; 96365; 96372; 96374; 96376; 99285; 99291; U0003; J1650; J1956; J2930; J7609; A9270-GY

== ENCOUNTER 2022-10-09 16:37 | Inpatient (IN) | payer MEDICARE ==
[2022-10-09] MEDS ORDERED: DUONEB 0.5-3 MG/3 ml Neb IH ONE ×2 (16:49→16:50)
--- NOTE | 2022-10-09 16:52 | ERPHSYRPT ---
- History of Present Illness Time Seen by Provider: 10/09/22 16:45 Source: patient, family Exam Limitations: no limitations Physician History: This is an 82-year-old white female patient of Dr. Chevy Almanzar and Dr. Aviles who has a history of hypertension, hypothyroidism, hyperlipidemia and COPD and continues to smoke despite her worsening pulmonary status. She has decreased her smoking to 1 pack/week. She is smoked greater than 60 years. In the last few days, her shortness of breath has worsened. She is not oxygen dependent. She denies chest pain. She is had no fevers. She does have a cough. It is a nonproductive cough. She has no abdominal pain. She denies nausea vomiting and diarrhea. Patient arrives to the emergency department with a room air oxygen saturation level of 89%. Timing/Duration: day(s) (3) Severity of Dyspnea-Max: moderate Severity of Dyspnea-Current: moderate Possible Cause: occasional episodes Modifying Factors: Improves With: activity, coughing Associated Symptoms: cough, wheezing, No chest pain/discomfort Allergies/Adverse Reactions: Penicillins Allergy (Severe, Verified 10/09/22 16:40) Hives Home Medications: Aspirin EC 325 mg [Ecotrin 325 MG] 325 mg PO DAILY 10/27/18 [History] Lisinopril 20 mg [Zestril 20 MG] 10 mg PO DAILY 10/27/18 [History] Metoprolol Succinate 50 mg [Toprol Xl 50 MG] 50 mg PO HS 10/27/18 [History] Verapamil HCl Sr [Isoptin Sr] 240 mg PO DAILY 10/27/18 [History] cloNIDine HCL [Catapres] 0.1 mg PO HS 11/28/18 [History] Acetaminophen 500 mg [Tylenol Extra Strength 500 mg] 500 mg PO DAILY 05/12/21 [History] Alendronate Sodium 70 mg [Fosamax 70 MG] 70 mg PO Q7D 05/12/21 [History] Atorvastatin Calcium 10 mg PO HS 05/12/21 [History] Chlorthalidone 12.5 mg PO DAILY 05/12/21 [History] Levothyroxine Sodium 25 Mcg [Synthroid 25 Mcg] 50 mcg PO DAILY 05/12/21 [ History] Omeprazole 20 mg PO DAILY 05/12/21 [History] Venlafaxine HCl [Effexor Xr] 150 mg PO DAILY 05/12/21 [History] ALPRAZolam [Alprazolam] 0.5 mg PO HS PRN PRN 07/28/21 [History] Cholecalciferol (Vitamin D3) [Vitamin D] 2,000 unit PO DAILY 07/28/21 [History] Hx Tetanus, Diphtheria Vaccination/Date Given: No Hx Influenza Vaccination/Date Given: No Hx Pneumococcal Vaccination/Date Given: Yes Travel Risk - International Travel Have you traveled outside of the country in past 3 weeks: No - Coronavirus Screening Are you exhibiting any of the following symptoms?: Yes Symptoms: Cough: New Onset, Shortness of Breath Close contact with a COVID-19 positive Pt in past 14-21 Days: No - Vaccine Status Have you recieved a Covid-19 vaccination: Yes Coder: Moderna - Vaccination Dates Date of 2cond Vaccination (if applicable): february, - Review of Systems Constitutional: No Symptoms Eyes: No Symptoms Ears, Nose, & Throat: No Symptoms Respiratory: Cough, Dyspnea Cardiac: No Symptoms Abdominal/Gastrointestinal: No Symptoms Genitourinary Symptoms: No Symptoms Musculoskeletal: No Symptoms Skin: No Symptoms Neurological: No Symptoms Psychological: No Symptoms Endocrine: No Symptoms Hematologic/Lymphatic: No Symptoms Immunological/Allergic: No Symptoms All Other Systems: Reviewed and Negative - Past Medical History Pertinent Past Medical History: Yes Neurological History: No Pertinent History ENT History: Cataracts Cardiac History: High Cholesterol, Hypertension Respiratory History: Bronchitis, COPD Endocrine Medical History: Hypothyroidism Musculoskeletal History: Osteoarthritis GI Medical History: GERD History: No Pertinent History Psycho-Social History: Anxiety Female Reproductive Disorders: No Pertinent History - Past Surgical History Past Surgical History: Yes Neuro Surgical History: No Pertinent History Cardiac: No Pertinent History Respiratory: No Pertinent History Gastrointestinal: No Pertinent History Genitourinary: No Pertinent History Musculoskeletal: Joint Replacement, Other Female Surgical History: No Pertinent History Other Surgical History: bilateral hip replacements and lumbar fusions, cataract. left eye Oct 2018 - Social History Smoking Status: Current every day smoker How long have you smoked: 61 yrs Exposure to second hand smoke: Yes Drug Use: none Patient Lives Alone: Yes - Nursing Vital Signs Nursing Vital Signs: Initial Vital Signs Temperature 97.8 F 10/09/22 16:41 Pulse Rate 103 H 10/09/22 16:41 Respiratory Rate 30 H 10/09/22 16:41 O2 Sat by Pulse Oximetry 89 L 10/09/22 16:41 Pain Scale Pain Intensity 0 - Physical Exam General Appearance: mild distress, alert, anxiety Eye Exam: PERRL/EOMI, eyes nml inspection Ears, Nose, Throat Exam: hearing grossly normal, normal ENT inspection, normal pharynx Neck Exam: normal inspection, non-tender, supple, full range of motion Respiratory Exam: respiratory distress (Mild), airway intact, diminished breath sounds, wheezing (Bilateral diffuse expiratory), No chest tenderness Cardiovascular/Chest Exam: tachycardia Abdominal/Gastrointestinal Exam: soft, normal bowel sounds, No tenderness Rectal Exam: not done Extremity Exam: non-tender, normal range of motion, normal inspection, normal capillary refill, no calf tenderness, no pedal edema, pelvis stable Neurologic Exam: alert, oriented x 3, 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, 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, normal mood/affect, nml cerebellar function, nml station & gait, sensation nml Skin Exam: normal color, warm, dry Lymphatic Exam: No adenopathy SpO2 Interpretation: hypoxic SpO2: 89 O2 Delivery: Room Air - Course Nursing assessment & vital signs reviewed: Yes EKG Interpreted by Me: RATE ([id number]), Sinus Tach, NORMAL AXIS, NORMAL INTERVALS, NORMAL QRS, NORMAL ST-T, Other (No acute ischemic changes on today's EKG.) Ordered Tests: Active Orders 24 hr Category Date Time Status Ship/Rec/Doc Control STAT Care 10/09/22 16:55 Active EKG-ER Only STAT Care 10/09/22 16:54 Active IV Insertion STAT Care 10/09/22 16:54 Active Oxygen-ED Only Nasal Cannula 2 lpm Care 10/09/22 17:05 Active Pulse Oximetry (ED) STAT Care 10/09/22 16:54 Active CHEST 1 VIEW (PORTABLE) Stat Exams 10/09/22 16:54 Completed CHEST WITH CONTRAST [CT] Stat Exams 10/09/22 18:39 Taken ABG [ARTERIAL BLOOD GASES] Stat Lab 10/09/22 16:54 Completed BLOOD CULTURE Stat Lab 10/09/22 17:44 Received CBC W DIFF Stat Lab 10/09/22 16:45 Completed CMP Stat Lab 10/09/22 16:45 Completed CULTURE,SPUTUM Stat Lab 10/09/22 16:54 Ordered D-DIMER QUANTITATIVE Stat Lab 10/09/22 16:45 Completed Lactic Acid Stat Lab 10/09/22 16:54 Completed NT PRO BNP Stat Lab 10/09/22 16:45 Completed TROPONIN Q4H Lab 10/09/22 16:45 Completed TROPONIN Q4H Lab 10/09/22 20:30 Completed TROPONIN Q4H Lab 10/10/22 01:00 Ordered Transfer Order Routine Transfer 10/09/22 Ordered Medication Summary Discontinued Medications Generic Name Dose Route Start Last Admin Trade Name Rich PRN Reason Stop Dose Admin Albuterol Sulfate 2.5 mg 10/09/22 22:01 10/09/22 22:07 Albuterol Sulfate 2.5 Mg/3 Ml Neb IH 10/09/22 22:02 2.5 mg STAT ONE Administration Albuterol Sulfate Confirm 10/09/22 22:05 Albuterol Sulfate 2.5 Mg/3 Ml Neb Administered 10/09/22 22:06 Dose 2.5 mg IH .STK-MED ONE Albuterol/Ipratropium Confirm 10/09/22 16:49 Ipratropium/Albuterol Sulfate 3 Ml Ampul.Neb Administered 10/09/22 16:50 Dose 3 ml IH .STK-MED ONE Albuterol/Ipratropium 3 ml 10/09/22 16:50 10/09/22 16:50 Ipratropium/Albuterol Sulfate 3 Ml Ampul.Neb IH 10/09/22 16:51 3 ml STAT ONE Administration Methylprednisolone Sodium 0 mg 10/09/22 16:54 10/09/22 17:04 Succinate 125 mg/ Sterile IV 10/09/22 16:55 125 mg Water 2 ml STAT ONE Administration Sodium Chloride 500 mls @ 500 mls/hr 10/09/22 18:45 10/09/22 19:47 Sodium Chloride 0.9% 500 Ml IV 10/09/22 19:44 Infused .Q1H ONE Infusion Sodium Chloride Confirm 10/09/22 18:46 Sodium Chloride 0.9% 500 Ml Administered 10/09/22 18:47 Dose 500 mls @ ud IV .STK-MED ONE Methylprednisolone Sodium Succinate Confirm 10/09/22 17:03 Methylprednis Sod Succ 125 Mg/2 Ml Vial Administered 10/09/22 17:04 Dose 125 mg .ROUTE .STK-MED ONE Sterile Water Confirm 10/09/22 17:03 Water For Injection,Sterile 10 Ml Vial Administered 10/09/22 17:04 Dose 10 ml IJ .Spotzot-MED ONE Lab/Rad Data: Laboratory Result Diagrams 10/09/22 16:45 10/09/22 16:45 Laboratory Results 10/09/22 10/09/22 10/09/22 Range/Units 20:30 17:44 16:54 WBC (4.0-10.5) x10^3/uL RBC (4.1-5.4) x10^6/uL Hgb (12.0-16.0) g/dL Hct (35-47) % MCV (78-100) fL MCH (26-32) pg MCHC (32-36) g/dL RDW (11.5-14.0) % Plt Count (150-450) x10^3/uL MPV (7.5-11.0) fL Gran % (36.0-66.0) % Immature Gran % (Auto) (0.00-0.4) % Nucleat RBC Rel Count (0.00-0.1) % Eos # (Auto) (0-0.5) x10^3/uL Immature Gran # (Auto) (0.00-0.03) x10^3u/L Absolute Lymphs (auto) (1.0-4.6) x10^3/uL Absolute Monos (auto) (0.0-1.3) x10^3/uL Absolute Nucleated RBC (0.00-0.01) x10^3u/L Lymphocytes % (24.0-44.0) % Monocytes % (0.0-12.0) % Eosinophils % (0.00-5.0) % Basophils % (0.0-0.4) % Absolute Granulocytes (1.4-6.9) x10^3/uL Basophils # (0-0.4) x10^3/uL D-Dimer (0.0-0.50) mg/L Puncture Site RIGHT RADIAL pCO2 41 (35-45) mmHg pO2 118 H (75-100) mmHg Base Excess 4.9 H (-2.0-2.0) O2 Saturation 96.9 (94-100) g/dF ABG pH 7.46 H (7.35-7.45) ABG HCO3 29.2 H* (22-28) ABG O2 Sat (Measured) 98.8 (95-100) % Robert Test YES A-a Gradient 30 a/A Ratio 0.80 Hemoglobin 14.3 Carboxyhemoglobin 1.3 (0.0-6.9) % THgb Methemoglobin 0.5 L (1.4-1.5) % Temperature 37.0 C POC O2 Flow Rate 28 % Sodium (137-145) mmol/L Potassium 3.8 (3.5-5.1) mmol/L Chloride (98-107) mmol/L Carbon Dioxide (22-30) mmol/L Anion Gap (5-15) MEQ/L BUN (7-17) mg/dL Creatinine (0.52-1.04) mg/dL Estimated GFR ML/MIN Glucose (74-106) mg/dL Lactic Acid (0.4-2.0) Calcium (8.4-10.2) mg/dL Total Bilirubin (0.2-1.3) mg/dL AST (14-36) U/L ALT (0-35) U/L Alkaline Phosphatase (38-126) U/L Troponin I 0.063 H* (0.000-0.034) ng/mL NT-Pro-B Natriuret Pep (0-1800) pg/mL Serum Total Protein (6.3-8.2) g/dL Albumin (3.5-5.0) g/dL Influenza Type A Ag NEGATIVE (NEGATIVE) Influenza Type B Ag NEGATIVE (NEGATIVE) RSV (PCR) NEGATIVE (Negative) SARS-CoV-2 (PCR) NEGATIVE (NEGATIVE) 10/09/22 10/09/22 10/09/22 Range/Units 16:54 16:45 16:45 WBC (4.0-10.5) x10^3/uL RBC (4.1-5.4) x10^6/uL Hgb (12.0-16.0) g/dL Hct (35-47) % MCV (78-100) fL MCH (26-32) pg MCHC (32-36) g/dL RDW (11.5-14.0) % Plt Count (150-450) x10^3/uL MPV (7.5-11.0) fL Gran % (36.0-66.0) % Immature Gran % (Auto) (0.00-0.4) % Nucleat RBC Rel Count (0.00-0.1) % Eos # (Auto) (0-0.5) x10^3/uL Immature Gran # (Auto) (0.00-0.03) x10^3u/L Absolute Lymphs (auto) (1.0-4.6) x10^3/uL Absolute Monos (auto) (0.0-1.3) x10^3/uL Absolute Nucleated RBC (0.00-0.01) x10^3u/L Lymphocytes % (24.0-44.0) % Monocytes % (0.0-12.0) % Eosinophils % (0.00-5.0) % Basophils % (0.0-0.4) % Absolute Granulocytes (1.4-6.9) x10^3/uL Basophils # (0-0.4) x10^3/uL D-Dimer 0.72 H* (0.0-0.50) mg/L Puncture Site pCO2 (35-45) mmHg pO2 (75-100) mmHg Base Excess (-2.0-2.0) O2 Saturation (94-100) g/dF ABG pH (7.35-7.45) ABG HCO3 (22-28) ABG O2 Sat (Measured) (95-100) % Robert Test A-a Gradient a/A Ratio Hemoglobin Carboxyhemoglobin (0.0-6.9) % THgb Methemoglobin (1.4-1.5) % Temperature C POC O2 Flow Rate % Sodium (137-145) mmol/L Potassium (3.5-5.1) mmol/L Chloride (98-107) mmol/L Carbon Dioxide (22-30) mmol/L Anion Gap (5-15) MEQ/L BUN (7-17) mg/dL Creatinine (0.52-1.04) mg/dL Estimated GFR ML/MIN Glucose (74-106) mg/dL Lactic Acid 1.0 (0.4-2.0) Calcium (8.4-10.2) mg/dL Total Bilirubin (0.2-1.3) mg/dL AST (14-36) U/L ALT (0-35) U/L Alkaline Phosphatase (38-126) U/L Troponin I 0.074 H* (0.000-0.034) ng/mL NT-Pro-B Natriuret Pep (0-1800) pg/mL Serum Total Protein (6.3-8.2) g/dL Albumin (3.5-5.0) g/dL Influenza Type A Ag (NEGATIVE) Influenza Type B Ag (NEGATIVE) RSV (PCR) (Negative) SARS-CoV-2 (PCR) (NEGATIVE) 10/09/22 10/09/22 Range/Units 16:45 16:45 WBC 13.6 H (4.0-10.5) x10^3/uL RBC 4.72 (4.1-5.4) x10^6/uL Hgb 13.8 (12.0-16.0) g/dL Hct 41.4 (35-47) % MCV 87.7 (78-100) fL MCH 29.2 (26-32) pg MCHC 33.3 (32-36) g/dL RDW 12.9 (11.5-14.0) % Plt Count 352 (150-450) x10^3/uL MPV 9.4 (7.5-11.0) fL Gran % 65.4 (36.0-66.0) % Immature Gran % (Auto) 0.5 H (0.00-0.4) % Nucleat RBC Rel Count 0.0 (0.00-0.1) % Eos # (Auto) 0.89 H (0-0.5) x10^3/uL Immature Gran # (Auto) 0.07 H (0.00-0.03) x10^3u/L Absolute Lymphs (auto) 2.28 (1.0-4.6) x10^3/uL Absolute Monos (auto) 1.35 H (0.0-1.3) x10^3/uL Absolute Nucleated RBC 0.00 (0.00-0.01) x10^3u/L Lymphocytes % 16.8 L (24.0-44.0) % Monocytes % 10.0 (0.0-12.0) % Eosinophils % 6.6 H (0.00-5.0) % Basophils % 0.7 (0.0-0.4) % Absolute Granulocytes 8.88 H (1.4-6.9) x10^3/uL Basophils # 0.09 (0-0.4) x10^3/uL D-Dimer (0.0-0.50) mg/L Puncture Site pCO2 (35-45) mmHg pO2 (75-100) mmHg Base Excess (-2.0-2.0) O2 Saturation (94-100) g/dF ABG pH (7.35-7.45) ABG HCO3 (22-28) ABG O2 Sat (Measured) (95-100) % Robert Test A-a Gradient a/A Ratio Hemoglobin Carboxyhemoglobin (0.0-6.9) % THgb Methemoglobin (1.4-1.5) % Temperature C POC O2 Flow Rate % Sodium 125 L (137-145) mmol/L Potassium 4.9 (3.5-5.1) mmol/L Chloride 87 L (98-107) mmol/L Carbon Dioxide 27 (22-30) mmol/L Anion Gap 16.1 H (5-15) MEQ/L BUN 7 (7-17) mg/dL Creatinine 0.50 L (0.52-1.04) mg/dL Estimated GFR > 60.0 ML/MIN Glucose 121 H (74-106) mg/dL Lactic Acid (0.4-2.0) Calcium 9.4 (8.4-10.2) mg/dL Total Bilirubin 0.80 (0.2-1.3) mg/dL AST 31 (14-36) U/L ALT 23 (0-35) U/L Alkaline Phosphatase 63 (38-126) U/L Troponin I (0.000-0.034) ng/mL NT-Pro-B Natriuret Pep 260 (0-1800) pg/mL Serum Total Protein 8.0 (6.3-8.2) g/dL Albumin 5.1 H (3.5-5.0) g/dL Influenza Type A Ag (NEGATIVE) Influenza Type B Ag (NEGATIVE) RSV (PCR) (Negative) SARS-CoV-2 (PCR) (NEGATIVE) - Progress Progress: improved Air Movement: fair Progress Note: 10/09/22 17:57 Chest x-ray shows nonacute hyperinflated chest with chronic features 10/09/22 20:32 CTA of chest continues to be negative for pulmonary embolus. There is incidental emphysema. There is fatty right Bochdalek hernia. No acute new findings 10/09/22 21:58 Medical decision making: This patient has, in my opinion acute exacerbation of COPD. I reviewed the patient history, work-up results with Dr. Devang Garibay. We will place the patient in observation and provide her with intravenous steroids, intravenous antibiotics and monitor her troponins and repeat twelve- lead EKG in the morning. Patient also will receive nebulizer treatments. Blood Culture(s) Obtained: Yes Discussed with DrTrent: Nabila Counseled pt/family regarding: lab results, diagnosis, need for follow-up, rad results - Departure Departure Disposition: Observation Clinical Impression: COPD exacerbation, Hypoxia, Elevated troponin I level, Leukocytosis, Hyponatremia Condition: Stable Critical Care Time: No Referrals: KAVEH ALMANZAR [Primary Care Provider] - Follow up/PCP as directed Instructions: Chronic Obstructive Pulmonary Disease
[2022-10-09] MEDS ORDERED: solu-MEDROL 125 MG, Sterile H2O 10 ml 2 ML IV ONE ×2 (16:54)
[2022-10-09 17:02] LABS: A-aADO2 30; ABG HEMOGLOBIN 14.3; ABG POTASSIUM 3.8 (3.5-5.1); ABG SITE RIGHT RADIAL; ALLEN TEST OK? YES; ARTERIAL BLD GAS O2 SATURATION 98.8 % (95-100); ARTERIAL BLOOD GAS BASE EXCESS 4.9 (-2.0-2.0); ARTERIAL BLOOD GAS FIO2 28 %; ARTERIAL BLOOD GAS PCO2 41 mmHg (35-45); ARTERIAL BLOOD GAS PO2 118 mmHg (75-100); ARTERIAL BLOOD GAS pH 7.46 (7.35-7.45); CARBOXYHEMOGLOBIN 1.3 % THgb (0.0-6.9); HCO3- 29.2 (22-28); HGB O2 SAT 96.9 g/dF (94-100); Methhemoglobin 0.5 % (1.4-1.5)
[2022-10-09] MEDS ORDERED: Sterile H2O 10 ml IJ ONE (17:03)
[2022-10-09] MEDS ORDERED: solu-MEDROL ONE (17:03)
--- NOTE | 2022-10-09 17:18 | XRAY ---
Indication: Short of breath. COPD. Comparison: July 30, 2021 Portable chest unchanged again hyperinflated and clear with incidental small mediastinal/lingula calcified granulomas. Heart not enlarged. Bony thorax intact again with mild osteopenia and degenerative changes. Impression: Continued nonacute hyperinflated chest with chronic features.
[2022-10-09 18:01] LABS: Absolute Neutrophil Ct (ANC) 8.88 x10^3/uL (1.4-6.9); Basophil (Absolute #) 0.09 x10^3/uL (0-0.4); Eosinophil % 6.6 % (0.00-5.0); Eosinophil (Absolute #) 0.89 x10^3/uL (0-0.5); Hematocrit 41.4 % (35-47); Hemoglobin 13.8 g/dL (12.0-16.0); Lymphocyte (Absolute #) 2.28 x10^3/uL (1.0-4.6); Lymphocytes % 16.8 % (24.0-44.0); Mean Cell Volume 87.7 fL (78-100); Mean Corpuscular Hemoglobin 29.2 pg (26-32); Mean Corpuscular Hgb Concent. 33.3 g/dL (32-36); Mean Platelet Volume 9.4 fL (7.5-11.0); Monocyte (Absolute #) 1.35 x10^3/uL (0.0-1.3); Neutrophil % 65.4 % (36.0-66.0); Platelet Count 352 x10^3/uL (150-450); Red Blood Count 4.72 x10^6/uL (4.1-5.4); Red Cell Distribution Width 12.9 % (11.5-14.0); White Blood Count 13.6 x10^3/uL (4.0-10.5)
[2022-10-09 18:18] LABS: ALBUMIN 5.1 g/dL (3.5-5.0); ALKALINE PHOSPHATASE 63 U/L (38-126); ANION GAP 16.1 MEQ/L (5-15); BLOOD UREA NITROGEN 7 mg/dL (7-17); CHLORIDE 87 mmol/L (98-107); Calcium 9.4 mg/dL (8.4-10.2); Carbon Dioxide 27 mmol/L (22-30); EST GLOMERULAR FILTRATION RATE > 60.0 ML/MIN; Glucose 121 mg/dL (74-106); NT PRO BNP 260 pg/mL (0-1800); Potassium 4.9 mmol/L (3.5-5.1); SGOT/AST 31 U/L (14-36); SGPT/ALT 23 U/L (0-35); SODIUM 125 mmol/L (137-145)
[2022-10-09 18:30] LABS: INFLUENZA A NEGATIVE (NEGATIVE); INFLUENZA B NEGATIVE (NEGATIVE); RESPIRATORY SYNCTIAL VIRUS NEGATIVE (Negative); SARS-CoV-2 Xpert Express NEGATIVE (NEGATIVE)
[2022-10-09] MEDS ORDERED: Sodium Chloride 0.9% 500 ML 500 ML IV ONE ×2 (18:45→18:46)
[2022-10-09] MEDS ORDERED: PROVENTIL 2.5 MG/3 ML NEB IH ONE ×2 (22:01→22:05)
[2022-10-09] MEDS ORDERED: TYLENOL 325 MG PO PRN (22:34)
[2022-10-09] MEDS ORDERED: BUSPAR 5 MG PO ONE (23:22)
[2022-10-09] MEDS ORDERED: Zocor 10MG PO ONE (23:23)
[2022-10-09] MEDS: CLONIDINE 0.1 MG TABLET PO ONE (23:29)
[2022-10-09] MEDS: Sodium Chloride 0.9% 1000 ML 1,000 ML IV SCH (23:37)
[2022-10-09] MEDS ORDERED: Lopressor 50 MG PO ONE (23:40)
[2022-10-10] MEDS: PROVENTIL 2.5 MG/3 ML NEB IH SCH ×4 (01:13→17:48)
[2022-10-10 02:30] LABS: Absolute Neutrophil Ct (ANC) 6.45 x10^3/uL (1.4-6.9); Basophil (Absolute #) 0.01 x10^3/uL (0-0.4); Eosinophil (Absolute #) 0 x10^3/uL (0-0.5); Hematocrit 38.1 % (35-47); Hemoglobin 12.3 g/dL (12.0-16.0); Mean Cell Volume 88.8 fL (78-100); Mean Corpuscular Hemoglobin 28.7 pg (26-32); Mean Corpuscular Hgb Concent. 32.3 g/dL (32-36); Mean Platelet Volume 8.8 fL (7.5-11.0); Monocyte (Absolute #) 0.19 x10^3/uL (0.0-1.3); Monocytes % 2.6 % (0.0-12.0); Neutrophil % 89.7 % (36.0-66.0); Platelet Count 253 x10^3/uL (150-450); Red Blood Count 4.29 x10^6/uL (4.1-5.4); Red Cell Distribution Width 12.7 % (11.5-14.0); White Blood Count 7.2 x10^3/uL (4.0-10.5)
[2022-10-10 03:07] LABS: ALBUMIN 4.3 g/dL (3.5-5.0); ALKALINE PHOSPHATASE 46 U/L (38-126); ANION GAP 14.8 MEQ/L (5-15); BLOOD UREA NITROGEN 5 mg/dL (7-17); CHLORIDE 90 mmol/L (98-107); Calcium 8.9 mg/dL (8.4-10.2); Carbon Dioxide 25 mmol/L (22-30); Creatinine 1 0.47 mg/dL (0.52-1.04); EST GLOMERULAR FILTRATION RATE > 60.0 ML/MIN; Glucose 201 mg/dL (74-106); NT PRO BNP 323 pg/mL (0-1800); Potassium 4.4 mmol/L (3.5-5.1); SGOT/AST 26 U/L (14-36); SGPT/ALT 22 U/L (0-35); SODIUM 125 mmol/L (137-145); Total Protein 6.8 g/dL (6.3-8.2)
[2022-10-10] MEDS ORDERED: solu-MEDROL ONE (05:09)
[2022-10-10] MEDS ORDERED: Sterile H2O 10 ml IJ ONE (05:09)
[2022-10-10] MEDS ORDERED: solu-MEDROL 80 MG, Sterile H2O 10 ml 2 ML IV SCH ×2 (06:00)
[2022-10-10] MEDS: ROCEPHIN 1 Gm-D5w 50 ml Bag** 1 G/50 ML IVPB IV SCH (08:30)
--- NOTE | 2022-10-10 08:45 | XRAY ---
Indication: Short of breath. Elevated d-dimer. Multiple contiguous axial images obtained through the chest using 80 cc Isovue 370 contrast and PE protocol. Comparison: July 28, 2021 Good opacification of the pulmonary arteries to include the lobar and segmental branches. No pulmonary embolus. Heart is not enlarged again with scattered coronary calcifications. Aorta remains mildly arteriosclerotic without aneurysm/dissection. Stable tiny mediastinal calcified nodes. No pathologic mediastinal/hilar lymphadenopathy. Lungs again demonstrates mild pulmonary emphysema and small lingula calcified granuloma. No new pulmonary mass/nodule, infiltrate, consolidation, effusion, or pneumothorax. Bony thorax intact again with osteopenia and mild/moderate degenerative changes throughout the spine. Grossly stable small fatty right Bochdalek hernia. Limited upper abdomen demonstrates stable 1 cm right renal cyst. Impression: 1. Continued negative for pulmonary embolus. No new/acute cardiopulmonary abnormalities. 2. Again chronic findings pulmonary emphysema, fatty right Bochdalek hernia, chronic bony findings, right renal cyst, and old granulomatous disease.
[2022-10-10] MEDS: Zithromax 500 MG/ 250 ML NaCl Premix 500 MG/250 ML IVPB IV SCH (10:20)
[2022-10-10] MEDS ORDERED: PROVENTIL 2.5 MG/3 ML NEB IH PRN (10:43)
[2022-10-10] MEDS: HYDROCODONE-CHLORPHEN ER SUSP PO PRN ×2 (10:48→22:41)
--- NOTE | 2022-10-10 12:14 | PCM.HP ---
History of Present Illness - Chief Complaint Chief Complaint: COPD exacerbation History of Present Illness: is a 82 year old female pt of DR. Farida Klein with COPD, HTN, hypothyroidism, and hyperlipidemia who was admitted through ER with COPD exacerbation. Her CXR was nonacute but d-dimer elevated; her CT was neg for PNA, no PE, + for emphysema. Denies CP. Had nl BNP; troponin initially elevated but trending down. EKG nonacute. Pt had some small cough x 2 weeks, but feeling worse for the past 5d. Producing very little fputum. No fever. abd sore from coughing. Denies chest pain. She is a 60 pk-yr smoker who continues to smoke about 1 PPD. She tells me this morning she feels even worse than at admission because she is having paroxysms of coughing. - Review of Systems Respiratory: Cough, Short Of Breath Abdominal/Gastrointestinal: Abdominal Pain Psychological: Depression (due to winter), No Suicidal Ideations All Other Systems: Reviewed and Negative Medications & Allergies Home Medications: Home Medication List Aspirin EC 325 mg [Ecotrin 325 MG] 325 mg PO DAILY 10/27/18 [History Confirmed 10/09/22] Lisinopril 20 mg [Zestril 20 MG] 10 mg PO DAILY 10/27/18 [History Confirmed 10/09/22] Verapamil HCl Sr [Isoptin Sr] 240 mg PO DAILY 10/27/18 [History Confirmed 10/09/22] cloNIDine HCL [Catapres] 0.1 mg PO HS 11/28/18 [History Confirmed 10/09/22] Atorvastatin Calcium 10 mg PO HS 05/12/21 [History Confirmed 10/09/22] Chlorthalidone 12.5 mg PO DAILY 05/12/21 [History Confirmed 10/09/22] Levothyroxine Sodium 25 Mcg [Synthroid 25 Mcg] 25 mcg PO DAILY 05/12/21 [History Confirmed 10/09/22] Omeprazole 20 mg PO DAILY 05/12/21 [History Confirmed 10/09/22] Venlafaxine HCl [Effexor Xr] 150 mg PO DAILY 05/12/21 [History Confirmed 10/09/22] Cholecalciferol (Vitamin D3) [Vitamin D] 2,000 unit PO DAILY 07/28/21 [History Confirmed 10/09/22] Buspirone HCl 5 mg [Buspar 5 mg] 10 mg PO BID 10/09/22 [History Confirmed 10/09/22] Loratadine 10 mg [Claritin 10 mg] 10 mg PO DAILY 10/09/22 [History Confirmed 10/09/22] Metoprolol Tartrate 50 mg [Lopressor 50 MG] 50 mg PO HS 10/09/22 [History Confirmed 10/09/22] Allergies/Adverse Reactions: Allergies Allergy/AdvReac Type Severity Reaction Status Date / Time Penicillins Allergy Severe Hives Verified 10/09/22 16:40 - Past Medical History Past Medical History: Yes Neurological History: No Pertinent History ENT History: No Pertinent History Cardiac History: High Cholesterol, Hypertension Respiratory History: Bronchitis, COPD Endocrine Medical History: Hypothyroidism Musculoskelatal History: Osteoarthritis GI Medical History: GERD History: No Pertinent History Pyscho-Social History: Anxiety Reproductive Disorders: No Pertinent History - Past Surgical History Past Surgical History: Yes Neuro Surgical History: No Pertinent History Cardiac History: No Pertinent History Respiratory Surgery: No Pertinent History GI Surgical History: No Pertinent History Genitourinary Surgical Hx: No Pertinent History Musculskeletal Surgical Hx: Joint Replacement, Other Female Surgical History: No Pertinent History Other Surgical History: bilateral hip replacements and lumbar fusions, cataract. left eye Oct 2018 - Social History Smoking Status: Former smoker How long have you smoked: 61 yrs Exposure to second hand smoke: Yes Alcohol: None Drug Use: none - Physical Exam Vital Signs: Vital Signs - 24 hr Temp Pulse Resp BP Pulse Ox 10/10/22 12:00 97.7 F 117 H 16 96 10/10/22 10:50 101 H 20 98 10/10/22 08:00 97.3 F 90 17 134/73 97 10/10/22 07:13 93 H 24 94 L 10/10/22 04:00 97.0 F 86 22 141/86 95 10/10/22 01:16 95 H 20 95 10/09/22 23:38 97 H 22 96 10/09/22 22:37 97.6 F 97 H 23 146/80 96 10/09/22 22:14 89 L 10/09/22 22:12 100 H 18 176/98 100 10/09/22 22:08 105 H 20 99 10/09/22 21:15 100 H 20 103/80 99 10/09/22 20:26 100 H 26 H 115/68 100 10/09/22 19:00 99 H 28 H 130/82 99 10/09/22 18:30 100 H 28 H 120/81 96 10/09/22 17:50 92 H 29 H 145/118 96 10/09/22 17:08 89 L 10/09/22 17:06 97 H 26 H 99 10/09/22 16:41 97.8 F 103 H 30 H 89 L General Appearance: no apparent distress, alert Neurologic Exam: oriented x 3, cooperative Eye Exam: eyes nml inspection Ears, Nose, Throat Exam: moist mucous membranes Neck Exam: normal inspection, non-tender, No lymphadenopathy, No thyromegaly Respiratory Exam: diminished breath sounds (fair air exchange), wheezing (throughout), No crackles/rales, No rhonchi Cardiovascular Exam: regular rate/rhythm, normal heart sounds, No murmur Extremity Exam: normal inspection, No pedal edema, No swelling Skin Exam: normal color, warm, dry, No rash Results - Labs Lab/Micro Results: Lab Results-Last 24 Hours 10/09/22 10/09/22 10/09/22 Range/Units 16:45 16:45 16:45 WBC 13.6 H (4.0-10.5) x10^3/uL RBC 4.72 (4.1-5.4) x10^6/uL Hgb 13.8 (12.0-16.0) g/dL Hct 41.4 (35-47) % MCV 87.7 (78-100) fL MCH 29.2 (26-32) pg MCHC 33.3 (32-36) g/dL RDW 12.9 (11.5-14.0) % Plt Count 352 (150-450) x10^3/uL MPV 9.4 (7.5-11.0) fL Gran % 65.4 (36.0-66.0) % Immature Gran % (Auto) 0.5 H (0.00-0.4) % Nucleat RBC Rel Count 0.0 (0.00-0.1) % Eos # (Auto) 0.89 H (0-0.5) x10^3/uL Immature Gran # (Auto) 0.07 H (0.00-0.03) x10^3u/L Absolute Lymphs (auto) 2.28 (1.0-4.6) x10^3/uL Absolute Monos (auto) 1.35 H (0.0-1.3) x10^3/uL Absolute Nucleated RBC 0.00 (0.00-0.01) x10^3u/L Lymphocytes % 16.8 L (24.0-44.0) % Monocytes % 10.0 (0.0-12.0) % Eosinophils % 6.6 H (0.00-5.0) % Basophils % 0.7 (0.0-0.4) % Absolute Granulocytes 8.88 H (1.4-6.9) x10^3/uL Basophils # 0.09 (0-0.4) x10^3/uL D-Dimer 0.72 H* (0.0-0.50) mg/L Puncture Site pCO2 (35-45) mmHg pO2 (75-100) mmHg Base Excess (-2.0-2.0) O2 Saturation (94-100) g/dF ABG pH (7.35-7.45) ABG HCO3 (22-28) ABG O2 Sat (Measured) (95-100) % Robert Test A-a Gradient a/A Ratio Hemoglobin Carboxyhemoglobin (0.0-6.9) % THgb Methemoglobin (1.4-1.5) % Temperature C POC O2 Flow Rate % Sodium 125 L (137-145) mmol/L Potassium 4.9 (3.5-5.1) mmol/L Chloride 87 L (98-107) mmol/L Carbon Dioxide 27 (22-30) mmol/L Anion Gap 16.1 H (5-15) MEQ/L BUN 7 (7-17) mg/dL Creatinine 0.50 L (0.52-1.04) mg/dL Estimated GFR > 60.0 ML/MIN Glucose 121 H (74-106) mg/dL Lactic Acid (0.4-2.0) Calcium 9.4 (8.4-10.2) mg/dL Total Bilirubin 0.80 (0.2-1.3) mg/dL AST 31 (14-36) U/L ALT 23 (0-35) U/L Alkaline Phosphatase 63 (38-126) U/L Troponin I (0.000-0.034) ng/mL NT-Pro-B Natriuret Pep 260 (0-1800) pg/mL Serum Total Protein 8.0 (6.3-8.2) g/dL Albumin 5.1 H (3.5-5.0) g/dL Influenza Type A Ag (NEGATIVE) Influenza Type B Ag (NEGATIVE) RSV (PCR) (Negative) SARS-CoV-2 (PCR) (NEGATIVE) 10/09/22 10/09/22 10/09/22 Range/Units 16:45 16:54 16:54 WBC (4.0-10.5) x10^3/uL RBC (4.1-5.4) x10^6/uL Hgb (12.0-16.0) g/dL Hct (35-47) % MCV (78-100) fL MCH (26-32) pg MCHC (32-36) g/dL RDW (11.5-14.0) % Plt Count (150-450) x10^3/uL MPV (7.5-11.0) fL Gran % (36.0-66.0) % Immature Gran % (Auto) (0.00-0.4) % Nucleat RBC Rel Count (0.00-0.1) % Eos # (Auto) (0-0.5) x10^3/uL Immature Gran # (Auto) (0.00-0.03) x10^3u/L Absolute Lymphs (auto) (1.0-4.6) x10^3/uL Absolute Monos (auto) (0.0-1.3) x10^3/uL Absolute Nucleated RBC (0.00-0.01) x10^3u/L Lymphocytes % (24.0-44.0) % Monocytes % (0.0-12.0) % Eosinophils % (0.00-5.0) % Basophils % (0.0-0.4) % Absolute Granulocytes (1.4-6.9) x10^3/uL Basophils # (0-0.4) x10^3/uL D-Dimer (0.0-0.50) mg/L Puncture Site RIGHT RADIAL pCO2 41 (35-45) mmHg pO2 118 H (75-100) mmHg Base Excess 4.9 H (-2.0-2.0) O2 Saturation 96.9 (94-100) g/dF ABG pH 7.46 H (7.35-7.45) ABG HCO3 29.2 H* (22-28) ABG O2 Sat (Measured) 98.8 (95-100) % Robert Test YES A-a Gradient 30 a/A Ratio 0.80 Hemoglobin 14.3 Carboxyhemoglobin 1.3 (0.0-6.9) % THgb Methemoglobin 0.5 L (1.4-1.5) % Temperature 37.0 C POC O2 Flow Rate 28 % Sodium (137-145) mmol/L Potassium 3.8 (3.5-5.1) mmol/L Chloride (98-107) mmol/L Carbon Dioxide (22-30) mmol/L Anion Gap (5-15) MEQ/L BUN (7-17) mg/dL Creatinine (0.52-1.04) mg/dL Estimated GFR ML/MIN Glucose (74-106) mg/dL Lactic Acid 1.0 (0.4-2.0) Calcium (8.4-10.2) mg/dL Total Bilirubin (0.2-1.3) mg/dL AST (14-36) U/L ALT (0-35) U/L Alkaline Phosphatase (38-126) U/L Troponin I 0.074 H* (0.000-0.034) ng/mL NT-Pro-B Natriuret Pep (0-1800) pg/mL Serum Total Protein (6.3-8.2) g/dL Albumin (3.5-5.0) g/dL Influenza Type A Ag (NEGATIVE) Influenza Type B Ag (NEGATIVE) RSV (PCR) (Negative) SARS-CoV-2 (PCR) (NEGATIVE) 10/09/22 10/09/22 10/10/22 Range/Units 17:44 20:30 02:28 WBC (4.0-10.5) x10^3/uL RBC (4.1-5.4) x10^6/uL Hgb (12.0-16.0) g/dL Hct (35-47) % MCV (78-100) fL MCH (26-32) pg MCHC (32-36) g/dL RDW (11.5-14.0) % Plt Count (150-450) x10^3/uL MPV (7.5-11.0) fL Gran % (36.0-66.0) % Immature Gran % (Auto) (0.00-0.4) % Nucleat RBC Rel Count (0.00-0.1) % Eos # (Auto) (0-0.5) x10^3/uL Immature Gran # (Auto) (0.00-0.03) x10^3u/L Absolute Lymphs (auto) (1.0-4.6) x10^3/uL Absolute Monos (auto) (0.0-1.3) x10^3/uL Absolute Nucleated RBC (0.00-0.01) x10^3u/L Lymphocytes % (24.0-44.0) % Monocytes % (0.0-12.0) % Eosinophils % (0.00-5.0) % Basophils % (0.0-0.4) % Absolute Granulocytes (1.4-6.9) x10^3/uL Basophils # (0-0.4) x10^3/uL D-Dimer (0.0-0.50) mg/L Puncture Site pCO2 (35-45) mmHg pO2 (75-100) mmHg Base Excess (-2.0-2.0) O2 Saturation (94-100) g/dF ABG pH (7.35-7.45) ABG HCO3 (22-28) ABG O2 Sat (Measured) (95-100) % Robert Test A-a Gradient a/A Ratio Hemoglobin Carboxyhemoglobin (0.0-6.9) % THgb Methemoglobin (1.4-1.5) % Temperature C POC O2 Flow Rate % Sodium (137-145) mmol/L Potassium (3.5-5.1) mmol/L Chloride (98-107) mmol/L Carbon Dioxide (22-30) mmol/L Anion Gap (5-15) MEQ/L BUN (7-17) mg/dL Creatinine (0.52-1.04) mg/dL Estimated GFR ML/MIN Glucose (74-106) mg/dL Lactic Acid (0.4-2.0) Calcium (8.4-10.2) mg/dL Total Bilirubin (0.2-1.3) mg/dL AST (14-36) U/L ALT (0-35) U/L Alkaline Phosphatase (38-126) U/L Troponin I 0.063 H* 0.034 (0.000-0.034) ng/mL NT-Pro-B Natriuret Pep (0-1800) pg/mL Serum Total Protein (6.3-8.2) g/dL Albumin (3.5-5.0) g/dL Influenza Type A Ag NEGATIVE (NEGATIVE) Influenza Type B Ag NEGATIVE (NEGATIVE) RSV (PCR) NEGATIVE (Negative) SARS-CoV-2 (PCR) NEGATIVE (NEGATIVE) 10/10/22 10/10/22 Range/Units 02:28 02:28 WBC 7.2 (4.0-10.5) x10^3/uL RBC 4.29 (4.1-5.4) x10^6/uL Hgb 12.3 (12.0-16.0) g/dL Hct 38.1 (35-47) % MCV 88.8 (78-100) fL MCH 28.7 (26-32) pg MCHC 32.3 (32-36) g/dL RDW 12.7 (11.5-14.0) % Plt Count 253 (150-450) x10^3/uL MPV 8.8 (7.5-11.0) fL Gran % 89.7 H (36.0-66.0) % Immature Gran % (Auto) 0.6 H (0.00-0.4) % Nucleat RBC Rel Count 0.0 (0.00-0.1) % Eos # (Auto) 0 (0-0.5) x10^3/uL Immature Gran # (Auto) 0.04 H (0.00-0.03) x10^3u/L Absolute Lymphs (auto) 0.50 L (1.0-4.6) x10^3/uL Absolute Monos (auto) 0.19 (0.0-1.3) x10^3/uL Absolute Nucleated RBC 0.00 (0.00-0.01) x10^3u/L Lymphocytes % 7.0 L (24.0-44.0) % Monocytes % 2.6 (0.0-12.0) % Eosinophils % 0.0 (0.00-5.0) % Basophils % 0.1 (0.0-0.4) % Absolute Granulocytes 6.45 (1.4-6.9) x10^3/uL Basophils # 0.01 (0-0.4) x10^3/uL D-Dimer (0.0-0.50) mg/L Puncture Site pCO2 (35-45) mmHg pO2 (75-100) mmHg Base Excess (-2.0-2.0) O2 Saturation (94-100) g/dF ABG pH (7.35-7.45) ABG HCO3 (22-28) ABG O2 Sat (Measured) (95-100) % Robert Test A-a Gradient a/A Ratio Hemoglobin Carboxyhemoglobin (0.0-6.9) % THgb Methemoglobin (1.4-1.5) % Temperature C POC O2 Flow Rate % Sodium 125 L (137-145) mmol/L Potassium 4.4 (3.5-5.1) mmol/L Chloride 90 L (98-107) mmol/L Carbon Dioxide 25 (22-30) mmol/L Anion Gap 14.8 (5-15) MEQ/L BUN 5 L (7-17) mg/dL Creatinine 0.47 L (0.52-1.04) mg/dL Estimated GFR > 60.0 ML/MIN Glucose 201 H (74-106) mg/dL Lactic Acid (0.4-2.0) Calcium 8.9 (8.4-10.2) mg/dL Total Bilirubin 0.40 (0.2-1.3) mg/dL AST 26 (14-36) U/L ALT 22 (0-35) U/L Alkaline Phosphatase 46 (38-126) U/L Troponin I (0.000-0.034) ng/mL NT-Pro-B Natriuret Pep 323 (0-1800) pg/mL Serum Total Protein 6.8 (6.3-8.2) g/dL Albumin 4.3 (3.5-5.0) g/dL Influenza Type A Ag (NEGATIVE) Influenza Type B Ag (NEGATIVE) RSV (PCR) (Negative) SARS-CoV-2 (PCR) (NEGATIVE) - Radiology Impressions Radiology Exams & Impressions: Radiology Procedures Category Date Time Status CHEST 1 VIEW (PORTABLE) Stat Exams 10/09/22 16:54 Completed CHEST WITH CONTRAST [CT] Stat Exams 10/09/22 18:39 Completed - Other Procedures and Tests Respiratory Therapy 10/09/22 22:34 Oxygen Nasal Cannula 2 lpm Assessment/Plan (1) COPD exacerbation Current Visit: Yes Status: Acute Assessment & Plan: Increased solumedrol to 125mg q6h for the next 24h, then likely will want to decrease. Adding theophylline. on zithromax and rocephin. Code(s): J44.1 - CHRONIC OBSTRUCTIVE PULMONARY DISEASE W (ACUTE) EXACERBATION (2) Elevated troponin I level Current Visit: Yes Status: Acute Assessment & Plan: trending down Code(s): R77.8 - OTHER SPECIFIED ABNORMALITIES OF PLASMA PROTEINS (3) Tobacco abuse Current Visit: Yes Status: Acute Code(s): Z72.0 - TOBACCO USE
[2022-10-10] MEDS: VITAMIN D PO SCH (14:26)
[2022-10-10] MEDS: ISOPTIN SR PO SCH (14:26)
[2022-10-10] MEDS: BUSPAR 5 MG PO SCH ×2 (14:27→21:28)
[2022-10-10] MEDS: CHLORTHALIDONE PO SCH (14:27)
[2022-10-10] MEDS: Protonix 40MG Tablet PO SCH (14:27)
[2022-10-10] MEDS: Zestril 10 MG PO SCH (14:27)
[2022-10-10] MEDS: CLARITIN 10 MG PO SCH (14:27)
[2022-10-10] MEDS: Ecotrin 325 MG PO SCH (14:27)
[2022-10-10] MEDS: SYNTHROID 25 MCG PO SCH (14:27)
[2022-10-10] MEDS: Effexor XR 75 MG PO SCH (14:27)
[2022-10-10] MEDS: THEOPHYLLINE ER 24HR PO SCH (14:29)
[2022-10-10] MEDS: Tessalon Perles 100 MG PO PRN ×2 (16:00→22:41)
[2022-10-10] MEDS: solu-MEDROL 125 MG, Sterile H2O 10 ml 2 ML IV SCH ×4 (16:29→23:23)
[2022-10-10] MEDS: CLONIDINE 0.1 MG TABLET PO SCH (21:28)
[2022-10-10] MEDS: Sodium Chloride 0.9% 1000 ML 1,000 ML IV SCH (21:28)
[2022-10-10] MEDS: Lopressor 50 MG PO SCH (21:28)
[2022-10-10] MEDS: Zocor 10MG PO SCH (21:29)
[2022-10-10] MEDS ORDERED: CLONIDINE HCL 0.2 MG PO SCH (22:00)
[2022-10-10] MEDS ORDERED: NON-FORMULARY ITEM (Atorvastatin Calcium [Atorvastatin Calcium] 10 MG Tablet) PO SCH (22:00)
[2022-10-11] MEDS: PROVENTIL 2.5 MG/3 ML NEB IH SCH ×5 (00:43→23:12)
[2022-10-11] MEDS: Tessalon Perles 100 MG PO PRN ×2 (05:20→16:58)
[2022-10-11] MEDS: solu-MEDROL 125 MG, Sterile H2O 10 ml 2 ML IV SCH ×8 (05:20→23:44)
[2022-10-11] MEDS: CLARITIN 10 MG PO SCH (08:22)
[2022-10-11] MEDS: VITAMIN D PO SCH (08:22)
[2022-10-11] MEDS: Zestril 10 MG PO SCH (08:23)
[2022-10-11] MEDS: BUSPAR 5 MG PO SCH ×2 (08:23→22:03)
[2022-10-11] MEDS: Ecotrin 325 MG PO SCH (08:23)
[2022-10-11] MEDS: Effexor XR 75 MG PO SCH (08:23)
[2022-10-11] MEDS: Protonix 40MG Tablet PO SCH (08:23)
[2022-10-11] MEDS: ISOPTIN SR PO SCH (08:23)
[2022-10-11] MEDS: THEOPHYLLINE ER 24HR PO SCH (08:23)
[2022-10-11] MEDS: SYNTHROID 25 MCG PO SCH (08:23)
[2022-10-11] MEDS: CHLORTHALIDONE PO SCH (08:24)
[2022-10-11] MEDS: ROCEPHIN 1 Gm-D5w 50 ml Bag** 1 G/50 ML IVPB IV SCH (08:30)
--- NOTE | 2022-10-11 09:42 | PCM.NOTE ---
Date and Time: 10/11/22 0940 Subjective Assessment: still coughing and wheezing/short of breath. requiring oxygen, she is not on oxygen at home. still feels bad Objective Exam General Appearance: no apparent distress Neurologic Exam: alert, oriented x 3 Respiratory Exam: prolonged expirations, wheezing Cardiovascular Exam: regular rate/rhythm, normal heart sounds Gastrointestinal/Abdomen Exam: soft, No tenderness, No mass Extremity Exam: normal inspection OBJECTIVE DATA Vital Signs: Vital Signs - 24 hr Temp Pulse Resp BP Pulse Ox 10/11/22 07:11 97.8 F 94 H 16 139/75 96 10/11/22 06:13 91 H 22 96 10/11/22 04:00 97.7 F 91 H 22 118/62 96 10/11/22 00:46 87 22 98 10/10/22 23:42 98.0 F 112 H 26 H 124/62 97 10/10/22 19:57 97.9 F 116 H 24 156/75 94 L 10/10/22 17:50 106 H 20 97 10/10/22 16:00 97.5 F 120 H 20 180/84 92 L 10/10/22 12:42 120 H 16 97 10/10/22 12:00 97.7 F 117 H 16 177/82 96 10/10/22 10:50 101 H 20 98 Pain Assessment - Last Documented Pain Intensity 0 Intake and Output: Intake & Output 10/08/22 10/09/22 10/10/22 10/11/22 11:59 11:59 11:59 11:59 Intake Total 1011 3311 Output Total 700 1000 Balance 311 2311 Weight 70 kg 69.6 kg Radiology Exams: Radiology Procedures Category Date Time Status CHEST 1 VIEW (PORTABLE) Stat Exams 10/09/22 16:54 Completed CHEST WITH CONTRAST [CT] Stat Exams 10/09/22 18:39 Completed Assessment/Plan (1) COPD exacerbation Current Visit: Yes Status: Acute Assessment & Plan: continue rocephin/zithromax, duonebs and solu medrol. still has significant bronchospasm/respiratory distress. Code(s): J44.1 - CHRONIC OBSTRUCTIVE PULMONARY DISEASE W (ACUTE) EXACERBATION
[2022-10-11] MEDS ORDERED: NON-FORMULARY ITEM (Omeprazole [Omeprazole] 20 MG Tablet.Dr) PO SCH (10:00)
[2022-10-11] MEDS ORDERED: NON-FORMULARY ITEM (Venlafaxine Hcl [Effexor Xr] 150 MG Cap.Er.24h) PO SCH (10:00)
[2022-10-11] MEDS: Zithromax 500 MG/ 250 ML NaCl Premix 500 MG/250 ML IVPB IV SCH (10:44)
[2022-10-11] MEDS: HYDROCODONE-CHLORPHEN ER SUSP PO PRN ×2 (10:53→22:02)
[2022-10-11] MEDS: Zocor 10MG PO SCH (22:03)
[2022-10-11] MEDS: Lopressor 50 MG PO SCH (22:03)
[2022-10-11] MEDS: CLONIDINE 0.1 MG TABLET PO SCH (22:03)
[2022-10-11] MEDS: Sodium Chloride 0.9% 1000 ML 1,000 ML IV SCH (23:43)
[2022-10-12 05:02] LABS: ANION GAP 9.8 MEQ/L (5-15); BLOOD UREA NITROGEN 11 mg/dL (7-17); CHLORIDE 88 mmol/L (98-107); Calcium 8.7 mg/dL (8.4-10.2); Carbon Dioxide 36 mmol/L (22-30); Creatinine 1 0.58 mg/dL (0.52-1.04); EST GLOMERULAR FILTRATION RATE > 60.0 ML/MIN; Glucose 141 mg/dL (74-106); Potassium 3.1 mmol/L (3.5-5.1); SODIUM 130 mmol/L (137-145)
[2022-10-12 05:08] LABS: Basophil (Absolute #) 0.02 x10^3/uL (0-0.4); Eosinophil (Absolute #) 0 x10^3/uL (0-0.5); Hematocrit 36.2 % (35-47); Hemoglobin 11.9 g/dL (12.0-16.0); Lymphocyte (Absolute #) 0.42 x10^3/uL (1.0-4.6); Lymphocytes % 2.4 % (24.0-44.0); Mean Cell Volume 88.1 fL (78-100); Mean Corpuscular Hgb Concent. 32.9 g/dL (32-36); Mean Platelet Volume 9.2 fL (7.5-11.0); Monocyte (Absolute #) 0.52 x10^3/uL (0.0-1.3); Neutrophil % 93.8 % (36.0-66.0); Platelet Count 289 x10^3/uL (150-450); Red Blood Count 4.11 x10^6/uL (4.1-5.4); Red Cell Distribution Width 13.3 % (11.5-14.0); White Blood Count 17.3 x10^3/uL (4.0-10.5)
[2022-10-12] MEDS: PROVENTIL 2.5 MG/3 ML NEB IH SCH ×3 (05:39→18:19)
[2022-10-12] MEDS ORDERED: solu-MEDROL ONE ×2 (06:37→11:31)
[2022-10-12] MEDS: solu-MEDROL 125 MG, Sterile H2O 10 ml 2 ML IV SCH ×4 (06:53→11:32)
[2022-10-12] MEDS ORDERED: K-LYTE PO ONE (09:00)
--- NOTE | 2022-10-12 09:03 | PCM.NOTE ---
Date and Time: 10/12/22900 Subjective Assessment: patient still has significant shortness of breath, coughing and wheezing. having some intermittent a fib, no chest pain, seems to happen when she is having coughing fits. potassium slightly low this am Objective Exam General Appearance: no apparent distress Neurologic Exam: alert, oriented x 3 Respiratory Exam: prolonged expirations, wheezing Cardiovascular Exam: regular rate/rhythm, normal heart sounds Gastrointestinal/Abdomen Exam: soft, No tenderness, No mass OBJECTIVE DATA Vital Signs: Vital Signs - 24 hr Temp Pulse Resp BP Pulse Ox 10/12/22 05:39 87 24 97 10/12/22 05:05 162/70 10/12/22 04:00 98.1 F 87 24 148/108 98 10/11/22 23:44 97.8 F 105 H 28 H 139/72 95 10/11/22 23:13 116 H 14 96 10/11/22 19:42 97.6 F 114 H 26 H 126/63 95 10/11/22 17:41 94 H 18 96 10/11/22 16:00 98.0 F 90 17 114/57 95 10/11/22 12:41 92 H 20 96 10/11/22 12:00 97.5 F 95 H 17 125/58 96 Pain Assessment - Last Documented Pain Intensity 0 Intake and Output: Intake & Output 10/09/22 10/10/22 10/11/22 10/12/22 11:59 11:59 11:59 11:59 Intake Total 1011 3311 3275 Output Total 700 1000 Balance 311 2311 3275 Weight 70 kg 69.6 kg Lab Results: Lab Results-Last 24 Hours 10/12/22 10/12/22 Range/Units 04:20 04:20 WBC 17.3 H (4.0-10.5) x10^3/uL RBC 4.11 (4.1-5.4) x10^6/uL Hgb 11.9 L (12.0-16.0) g/dL Hct 36.2 (35-47) % MCV 88.1 (78-100) fL MCH 29.0 (26-32) pg MCHC 32.9 (32-36) g/dL RDW 13.3 (11.5-14.0) % Plt Count 289 (150-450) x10^3/uL MPV 9.2 (7.5-11.0) fL Gran % 93.8 H (36.0-66.0) % Immature Gran % (Auto) 0.7 H (0.00-0.4) % Nucleat RBC Rel Count 0.0 (0.00-0.1) % Eos # (Auto) 0 (0-0.5) x10^3/uL Immature Gran # (Auto) 0.12 H (0.00-0.03) x10^3u/L Absolute Lymphs (auto) 0.42 L (1.0-4.6) x10^3/uL Absolute Monos (auto) 0.52 (0.0-1.3) x10^3/uL Absolute Nucleated RBC 0.00 (0.00-0.01) x10^3u/L Lymphocytes % 2.4 L (24.0-44.0) % Monocytes % 3.0 (0.0-12.0) % Eosinophils % 0.0 (0.00-5.0) % Basophils % 0.1 (0.0-0.4) % Absolute Granulocytes 16.20 H (1.4-6.9) x10^3/uL Basophils # 0.02 (0-0.4) x10^3/uL Sodium 130 L (137-145) mmol/L Potassium 3.1 L (3.5-5.1) mmol/L Chloride 88 L (98-107) mmol/L Carbon Dioxide 36 H (22-30) mmol/L Anion Gap 9.8 (5-15) MEQ/L BUN 11 (7-17) mg/dL Creatinine 0.58 (0.52-1.04) mg/dL Estimated GFR > 60.0 ML/MIN Glucose 141 H (74-106) mg/dL Calcium 8.7 (8.4-10.2) mg/dL Assessment/Plan (1) COPD exacerbation Current Visit: Yes Status: Acute Assessment & Plan: continue current management with nebs, steroids, abx and theophylline. Code(s): J44.1 - CHRONIC OBSTRUCTIVE PULMONARY DISEASE W (ACUTE) EXACERBATION (2) Intermittent atrial fibrillation Current Visit: Yes Status: Acute Assessment & Plan: will correct hypokaemia and observe, if persists will anticoagulate Code(s): I48.0 - PAROXYSMAL ATRIAL FIBRILLATION (3) Hypokalemia Current Visit: Yes Status: Acute Assessment & Plan: replacement ordered Code(s): E87.6 - HYPOKALEMIA
[2022-10-12] MEDS: Tessalon Perles 100 MG PO PRN ×2 (09:12→19:02)
[2022-10-12] MEDS: SYNTHROID 25 MCG PO SCH (09:12)
[2022-10-12] MEDS: Klor Con PO SCH ×2 (09:12→21:02)
[2022-10-12] MEDS: VITAMIN D PO SCH (09:12)
[2022-10-12] MEDS: BUSPAR 5 MG PO SCH ×2 (09:12→21:02)
[2022-10-12] MEDS: CLARITIN 10 MG PO SCH (09:12)
[2022-10-12] MEDS: Effexor XR 75 MG PO SCH (09:12)
[2022-10-12] MEDS: Zestril 10 MG PO SCH (09:12)
[2022-10-12] MEDS: ISOPTIN SR PO SCH (09:12)
[2022-10-12] MEDS: Protonix 40MG Tablet PO SCH (09:12)
[2022-10-12] MEDS: Ecotrin 325 MG PO SCH (09:12)
[2022-10-12] MEDS: CHLORTHALIDONE PO SCH (09:13)
[2022-10-12] MEDS: ROCEPHIN 1 Gm-D5w 50 ml Bag** 1 G/50 ML IVPB IV SCH (09:13)
[2022-10-12] MEDS: THEOPHYLLINE ER 24HR PO SCH (09:14)
[2022-10-12] MEDS: Zithromax 500 MG/ 250 ML NaCl Premix 500 MG/250 ML IVPB IV SCH (09:14)
[2022-10-12 11:11] LABS: PROCALCITONIN < 0.030 ng/mL (0.030-0.080)
[2022-10-12] MEDS: solu-MEDROL 80 MG, Sterile H2O 10 ml 2 ML IV SCH ×4 (16:59→23:33)
[2022-10-12] MEDS ORDERED: PROVENTIL 2.5 MG/3 ML NEB IH ONE (18:17)
[2022-10-12] MEDS ORDERED: CARDIZEM DRIP 100 MG/100 ML D5W 100 ML IV PRN (19:13)
[2022-10-12] MEDS ORDERED: Cardizem IV 50 MG/10 ML IV ONE (19:13)
[2022-10-12] MEDS ORDERED: Ativan 2 MG/1 ML VIAL IV PRN (19:14)
[2022-10-12] MEDS ORDERED: ENOXAPARIN SODIUM SQ SCH (20:40)
[2022-10-12] MEDS: Zocor 10MG PO SCH (21:02)
[2022-10-12] MEDS: Lopressor 50 MG PO SCH (21:02)
[2022-10-12] MEDS: CLONIDINE 0.1 MG TABLET PO SCH (21:02)
[2022-10-12] MEDS: Ambien 5 MG Tablet PO PRN (21:06)
[2022-10-13] MEDS: PROVENTIL 2.5 MG/3 ML NEB IH SCH ×4 (00:25→18:47)
[2022-10-13 02:27] LABS: Absolute Neutrophil Ct (ANC) 11.64 x10^3/uL (1.4-6.9); Basophil (Absolute #) 0.01 x10^3/uL (0-0.4); Eosinophil (Absolute #) 0 x10^3/uL (0-0.5); Hematocrit 35.2 % (35-47); Hemoglobin 11.3 g/dL (12.0-16.0); Lymphocyte (Absolute #) 0.37 x10^3/uL (1.0-4.6); Lymphocytes % 2.9 % (24.0-44.0); Mean Cell Volume 89.8 fL (78-100); Mean Corpuscular Hemoglobin 28.8 pg (26-32); Mean Corpuscular Hgb Concent. 32.1 g/dL (32-36); Monocytes % 4.7 % (0.0-12.0); Neutrophil % 91.4 % (36.0-66.0); Platelet Count 252 x10^3/uL (150-450); Red Blood Count 3.92 x10^6/uL (4.1-5.4); Red Cell Distribution Width 13.2 % (11.5-14.0); White Blood Count 12.7 x10^3/uL (4.0-10.5)
[2022-10-13 02:40] LABS: ANION GAP 6.9 MEQ/L (5-15); BLOOD UREA NITROGEN 13 mg/dL (7-17); CHLORIDE 90 mmol/L (98-107); Calcium 8.6 mg/dL (8.4-10.2); Carbon Dioxide 37 mmol/L (22-30); Creatinine 1 0.59 mg/dL (0.52-1.04); EST GLOMERULAR FILTRATION RATE > 60.0 ML/MIN; Glucose 131 mg/dL (74-106); MAGNESIUM 1.9 mg/dL (1.6-2.3); Potassium 3.4 mmol/L (3.5-5.1); SODIUM 130 mmol/L (137-145)
[2022-10-13] MEDS: solu-MEDROL 80 MG, Sterile H2O 10 ml 2 ML IV SCH ×8 (05:37→23:42)
[2022-10-13] MEDS: HYDROCODONE-CHLORPHEN ER SUSP PO PRN (07:24)
[2022-10-13] MEDS: Zestril 10 MG PO SCH (09:42)
[2022-10-13] MEDS: Zithromax 500 MG/ 250 ML NaCl Premix 500 MG/250 ML IVPB IV SCH (09:42)
[2022-10-13] MEDS: BUSPAR 5 MG PO SCH ×2 (09:42→22:38)
[2022-10-13] MEDS: Klor Con PO SCH ×2 (09:42→22:38)
[2022-10-13] MEDS: VITAMIN D PO SCH (09:42)
[2022-10-13] MEDS: ROCEPHIN 1 Gm-D5w 50 ml Bag** 1 G/50 ML IVPB IV SCH (09:42)
[2022-10-13] MEDS: SYNTHROID 25 MCG PO SCH (09:42)
[2022-10-13] MEDS: Effexor XR 75 MG PO SCH (09:42)
[2022-10-13] MEDS: ISOPTIN SR PO SCH (09:43)
[2022-10-13] MEDS: THEOPHYLLINE ER 24HR PO SCH (09:43)
[2022-10-13] MEDS: Ecotrin 325 MG PO SCH (09:43)
[2022-10-13] MEDS: CLARITIN 10 MG PO SCH (09:43)
[2022-10-13] MEDS: CHLORTHALIDONE PO SCH (09:43)
[2022-10-13] MEDS: Protonix 40MG Tablet PO SCH (10:01)
[2022-10-13] MEDS: Cordarone 200 MG PO SCH ×2 (10:34→19:30)
[2022-10-13] MEDS ORDERED: solu-MEDROL ONE (16:18)
[2022-10-13] MEDS ORDERED: Ativan 1 MG ONE (17:37)
[2022-10-13] MEDS: Ativan 1 MG PO PRN (17:38)
[2022-10-13] MEDS: Advair Hfa 115/21 Common canister IH SCH (18:47)
[2022-10-13] MEDS ORDERED: Advair Hfa 115/21 Common canister IH SCH (19:00)
[2022-10-13] MEDS ORDERED: ENOXAPARIN SODIUM SQ SCH ×2 (20:00→22:00)
[2022-10-13] MEDS: Ambien 5 MG Tablet PO PRN (22:38)
[2022-10-13] MEDS: CLONIDINE 0.1 MG TABLET PO SCH (22:38)
[2022-10-13] MEDS: Lopressor 50 MG PO SCH (22:38)
[2022-10-13] MEDS: Zocor 10MG PO SCH (22:39)
[2022-10-14] MEDS: PROVENTIL 2.5 MG/3 ML NEB IH SCH ×4 (01:04→17:29)
[2022-10-14] MEDS: solu-MEDROL 80 MG, Sterile H2O 10 ml 2 ML IV SCH ×2 (05:33)
[2022-10-14 06:39] LABS: Hematocrit 36.5 % (35-47); Hemoglobin 11.8 g/dL (12.0-16.0); Mean Cell Volume 89.5 fL (78-100); Mean Corpuscular Hemoglobin 28.9 pg (26-32); Mean Corpuscular Hgb Concent. 32.3 g/dL (32-36); Mean Platelet Volume 9.1 fL (7.5-11.0); Platelet Count 261 x10^3/uL (150-450); Red Blood Count 4.08 x10^6/uL (4.1-5.4)
[2022-10-14] MEDS: Advair Hfa 115/21 Common canister IH SCH ×3 (06:45→17:29)
[2022-10-14 06:58] LABS: ANION GAP 9.7 MEQ/L (5-15); BLOOD UREA NITROGEN 19 mg/dL (7-17); CHLORIDE 86 mmol/L (98-107); Calcium 8.6 mg/dL (8.4-10.2); Carbon Dioxide 37 mmol/L (22-30); Creatinine 1 0.65 mg/dL (0.52-1.04); EST GLOMERULAR FILTRATION RATE > 60.0 ML/MIN; Glucose 116 mg/dL (74-106); Potassium 3.1 mmol/L (3.5-5.1); SODIUM 130 mmol/L (137-145)
[2022-10-14] MEDS: CHLORTHALIDONE PO SCH (08:32)
[2022-10-14] MEDS: BUSPAR 5 MG PO SCH ×2 (08:32→21:11)
[2022-10-14] MEDS: CLARITIN 10 MG PO SCH (08:32)
[2022-10-14] MEDS: SYNTHROID 25 MCG PO SCH (08:32)
[2022-10-14] MEDS: Protonix 40MG Tablet PO SCH (08:32)
[2022-10-14] MEDS: Klor Con PO SCH ×2 (08:32→21:10)
[2022-10-14] MEDS: Zestril 10 MG PO SCH (08:33)
[2022-10-14] MEDS: THEOPHYLLINE ER 24HR PO SCH (08:33)
[2022-10-14] MEDS: VITAMIN D PO SCH (08:33)
[2022-10-14] MEDS: Effexor XR 75 MG PO SCH (08:33)
[2022-10-14] MEDS: ISOPTIN SR PO SCH (08:33)
[2022-10-14] MEDS: Ecotrin 325 MG PO SCH (08:33)
[2022-10-14] MEDS: HYDROCODONE-CHLORPHEN ER SUSP PO PRN (08:36)
[2022-10-14] MEDS ORDERED: Cordarone 200 MG PO SCH (10:00)
[2022-10-14] MEDS: Zithromax 500 MG/ 250 ML NaCl Premix 500 MG/250 ML IVPB IV SCH (10:27)
[2022-10-14] MEDS: ROCEPHIN 1 Gm-D5w 50 ml Bag** 1 G/50 ML IVPB IV SCH (10:27)
[2022-10-14] MEDS ORDERED: DELTASONE 20 MG PO SCH (12:00)
[2022-10-14] MEDS ORDERED: Cordarone 200 MG PO ONE (12:00)
[2022-10-14] MEDS: Ativan 1 MG PO PRN (19:20)
[2022-10-14] MEDS: Cordarone 200 MG PO SCH (21:10)
[2022-10-14] MEDS: ELIQUIS 2.5 MG TABLET PO SCH (21:11)
[2022-10-14] MEDS: Lopressor 50 MG PO SCH (21:11)
[2022-10-14] MEDS: CLONIDINE 0.1 MG TABLET PO SCH (21:11)
[2022-10-14] MEDS: Zocor 10MG PO SCH (21:11)
[2022-10-15] MEDS: PROVENTIL 2.5 MG/3 ML NEB IH SCH ×4 (01:34→18:44)
[2022-10-15] MEDS: Ativan 1 MG PO PRN ×3 (02:06→22:10)
[2022-10-15 05:04] LABS: Absolute Neutrophil Ct (ANC) 9.27 x10^3/uL (1.4-6.9); Basophil (Absolute #) 0.02 x10^3/uL (0-0.4); Eosinophil (Absolute #) 0 x10^3/uL (0-0.5); Hematocrit 40.5 % (35-47); Lymphocyte (Absolute #) 0.54 x10^3/uL (1.0-4.6); Lymphocytes % 4.9 % (24.0-44.0); Mean Corpuscular Hemoglobin 28.9 pg (26-32); Mean Corpuscular Hgb Concent. 32.1 g/dL (32-36); Mean Platelet Volume 9.6 fL (7.5-11.0); Monocyte (Absolute #) 1.09 x10^3/uL (0.0-1.3); Monocytes % 9.8 % (0.0-12.0); Neutrophil % 83.2 % (36.0-66.0); Platelet Count 248 x10^3/uL (150-450); Red Cell Distribution Width 13.1 % (11.5-14.0); White Blood Count 11.1 x10^3/uL (4.0-10.5)
[2022-10-15 05:40] LABS: BLOOD UREA NITROGEN 17 mg/dL (7-17); CHLORIDE 86 mmol/L (98-107); Calcium 8.7 mg/dL (8.4-10.2); Creatinine 1 0.71 mg/dL (0.52-1.04); EST GLOMERULAR FILTRATION RATE > 60.0 ML/MIN; Glucose 85 mg/dL (74-106); SODIUM 132 mmol/L (137-145)
[2022-10-15 05:46] LABS: Carbon Dioxide 38 mmol/L (22-30)
[2022-10-15 05:49] LABS: Potassium 2.9 mmol/L (3.5-5.1)
[2022-10-15 05:50] LABS: ANION GAP 10.9 MEQ/L (5-15)
[2022-10-15] MEDS ORDERED: Klor Con PO ONE (05:57)
[2022-10-15 06:18] LABS: Slide Review 1 YES
[2022-10-15] MEDS: Advair Hfa 115/21 Common canister IH SCH ×2 (07:00→18:57)
[2022-10-15] MEDS: Effexor XR 75 MG PO SCH ×2 (09:31→09:32)
[2022-10-15] MEDS: Ecotrin 325 MG PO SCH (09:31)
[2022-10-15] MEDS: ISOPTIN SR PO SCH ×2 (09:31→09:33)
[2022-10-15] MEDS: Cordarone 200 MG PO SCH ×2 (09:31→22:08)
[2022-10-15] MEDS: VITAMIN D PO SCH (09:31)
[2022-10-15] MEDS: ELIQUIS 2.5 MG TABLET PO SCH ×2 (09:32→22:09)
[2022-10-15] MEDS: Klor Con PO SCH ×2 (09:32→23:07)
[2022-10-15] MEDS: Zestril 10 MG PO SCH (09:32)
[2022-10-15] MEDS: DELTASONE 20 MG PO SCH (09:32)
[2022-10-15] MEDS: SYNTHROID 25 MCG PO SCH (09:33)
[2022-10-15] MEDS: BUSPAR 5 MG PO SCH ×3 (10:04→22:09)
[2022-10-15] MEDS: Zithromax 500 MG/ 250 ML NaCl Premix 500 MG/250 ML IVPB IV SCH (10:05)
[2022-10-15] MEDS: CHLORTHALIDONE PO SCH (10:05)
[2022-10-15] MEDS: CLARITIN 10 MG PO SCH (10:05)
[2022-10-15] MEDS: ROCEPHIN 1 Gm-D5w 50 ml Bag** 1 G/50 ML IVPB IV SCH (10:06)
[2022-10-15] MEDS: THEOPHYLLINE ER 24HR PO SCH (10:06)
[2022-10-15] MEDS ORDERED: K-LYTE PO ONE ×2 (14:58→22:02)
--- NOTE | 2022-10-15 17:47 | PCM.NOTE ---
Date and Time: 10/15/22 174 Subjective Assessment: She is feeling good. Kenzei po well. Her potassium was 2.8 this afternoon. - Review of Systems Constitutional: No Fever Respiratory: Cough, Short Of Breath Objective Exam General Appearance: no apparent distress, alert Neurologic Exam: oriented x 3, cooperative Skin Exam: normal color, warm, dry, No rash Eye Exam: eyes nml inspection Ears, Nose, Throat Exam: moist mucous membranes Neck Exam: normal inspection Respiratory Exam: diminished breath sounds, wheezing (scattered throughout), No normal breath sounds (fair to good air exchange), No crackles/rales, No rhonchi Cardiovascular Exam: normal heart sounds, irregular, No murmur Extremity Exam: normal inspection, No pedal edema, No swelling, No tenderness Back Exam: normal inspection, No rash OBJECTIVE DATA Vital Signs: Vital Signs - 24 hr Temp Pulse Resp BP BP Pulse Ox 10/15/22 16:00 98.9 F 100 H 16 149/73 93 L 10/15/22 13:05 91 H 18 92 L 10/15/22 11:17 98.4 F 86 18 144/65 91 L 10/15/22 07:27 88 16 93 L 10/15/22 06:54 98.5 F 86 18 163/69 92 L 10/15/22 03:40 97.1 F 80 18 146/79 154/82 99 10/15/22 01:36 76 18 98 10/15/22 00:00 96.9 F 84 19 133/87 100 10/14/22 19:47 97.1 F 115 H 19 156/96 154/82 91 L Pain Assessment - Last Documented Pain Intensity 0 Pain Scale Used 0-10 Pain Scale Intake and Output: Intake & Output 10/13/22 10/14/22 10/15/22 10/16/22 11:59 11:59 11:59 11:59 Intake Total 5561 927 9451 350 Balance 4990 730 2663 350 Weight 73.6 kg 72.5 kg 75.5 kg Lab Results: Lab Results-Last 24 Hours 10/15/22 10/15/22 10/15/22 Range/Units 04:21 04:21 14:18 WBC 11.1 H (4.0-10.5) x10^3/uL RBC 4.50 (4.1-5.4) x10^6/uL Hgb 13.0 (12.0-16.0) g/dL Hct 40.5 (35-47) % MCV 90.0 (78-100) fL MCH 28.9 (26-32) pg MCHC 32.1 (32-36) g/dL RDW 13.1 (11.5-14.0) % Plt Count 248 (150-450) x10^3/uL MPV 9.6 (7.5-11.0) fL Gran % 83.2 H (36.0-66.0) % Immature Gran % (Auto) 1.9 H (0.00-0.4) % Nucleat RBC Rel Count 0.0 (0.00-0.1) % Eos # (Auto) 0 (0-0.5) x10^3/uL Immature Gran # (Auto) 0.21 H (0.00-0.03) x10^3u/L Absolute Lymphs (auto) 0.54 L (1.0-4.6) x10^3/uL Absolute Monos (auto) 1.09 (0.0-1.3) x10^3/uL Absolute Nucleated RBC 0.00 (0.00-0.01) x10^3u/L Lymphocytes % 4.9 L (24.0-44.0) % Monocytes % 9.8 (0.0-12.0) % Eosinophils % 0.0 (0.00-5.0) % Basophils % 0.2 (0.0-0.4) % Absolute Granulocytes 9.27 H (1.4-6.9) x10^3/uL Basophils # 0.02 (0-0.4) x10^3/uL Sodium 132 L (137-145) mmol/L Potassium 2.9 L* 2.8 L* (3.5-5.1) mmol/L Chloride 86 L (98-107) mmol/L Carbon Dioxide 38 H (22-30) mmol/L Anion Gap 10.9 (5-15) MEQ/L BUN 17 (7-17) mg/dL Creatinine 0.71 (0.52-1.04) mg/dL Estimated GFR > 60.0 ML/MIN Glucose 85 (74-106) mg/dL Calcium 8.7 (8.4-10.2) mg/dL Magnesium (1.6-2.3) mg/dL Slides for Path Review YES 10/15/22 Range/Units 14:18 WBC (4.0-10.5) x10^3/uL RBC (4.1-5.4) x10^6/uL Hgb (12.0-16.0) g/dL Hct (35-47) % MCV (78-100) fL MCH (26-32) pg MCHC (32-36) g/dL RDW (11.5-14.0) % Plt Count (150-450) x10^3/uL MPV (7.5-11.0) fL Gran % (36.0-66.0) % Immature Gran % (Auto) (0.00-0.4) % Nucleat RBC Rel Count (0.00-0.1) % Eos # (Auto) (0-0.5) x10^3/uL Immature Gran # (Auto) (0.00-0.03) x10^3u/L Absolute Lymphs (auto) (1.0-4.6) x10^3/uL Absolute Monos (auto) (0.0-1.3) x10^3/uL Absolute Nucleated RBC (0.00-0.01) x10^3u/L Lymphocytes % (24.0-44.0) % Monocytes % (0.0-12.0) % Eosinophils % (0.00-5.0) % Basophils % (0.0-0.4) % Absolute Granulocytes (1.4-6.9) x10^3/uL Basophils # (0-0.4) x10^3/uL Sodium (137-145) mmol/L Potassium (3.5-5.1) mmol/L Chloride (98-107) mmol/L Carbon Dioxide (22-30) mmol/L Anion Gap (5-15) MEQ/L BUN (7-17) mg/dL Creatinine (0.52-1.04) mg/dL Estimated GFR ML/MIN Glucose (74-106) mg/dL Calcium (8.4-10.2) mg/dL Magnesium 2.0 (1.6-2.3) mg/dL Slides for Path Review Multi-Disciplinary Progress Notes: Multi-Disciplinary Progress Notes 10/15/22 12:27 Case Management Note by Iliana Moreno Addendum entered by Iliana Moreno 10/15/22 12:58: NOTE PLACED ON CHART FOR MD, PRIMARY NURSE NOTIFIED WELL Original Note: S/W JEAN-PAUL- PATIENT'S CURRENT DOSE OF ELIQUIS WILL BE $122/MONTH. PATIENT REPORTS SHE CAN NOT AFFORD THAT. PATIENT IS UNELIGABLE FOR SAVINGS CARDS D/T HER INSURANCE PLAN. I ALSO HAD PHARMACY SHELLEY OUT [place]- THIS WAS THE SAME SHELLEY. PATIENT WILL NOT BE ABLE TO AFFORD THESE OPTIONS Initialized on 10/15/22 12:27 - END OF NOTE 10/15/22 11:54 Case Management Note by Iliana Moreno Addendum entered by Iliana Moreno 10/15/22 12:01: PATIENT REPORTS SHE HAS A PULSE OX AT HOME Original Note: ORDER FOR HOME OXYGEN PLACED THRU [employer] WITH SYBIL. S/W PATIENT- SHE WAS RELUCTANT BUT AGREEABLE TO OXYGEN SET UP. SHE DENIES ANY OTHER NEEDS AT TIME OF DC. SHE PLANS TO RETURN HOME TO HER PLF AT TIME OF DC. Initialized on 10/15/22 11:54 - END OF NOTE 10/15/22 07:45 Respiratory Note by aZra Rabago Patient on room air at rest sturation were 93%. Walked patient and saturation dropped to 87% at the end of walk. Recovered quickly to 94%. connor Addendum entered by Zara Rabago 10/15/22 10:51: Walked patient on oxygen at 2lpm n/c and saturations held at 93 to 94%. connor Initialized on 10/15/22 07:45 - END OF NOTE Assessment/Plan (1) COPD exacerbation Current Visit: Yes Status: Acute Assessment & Plan: Stopped zithromax. On day #6 of rocephin. On theophylline 200mg/d and po prednisone. Will be discharging to home on O2, 2L NC, likely tomorrow. Code(s): J44.1 - CHRONIC OBSTRUCTIVE PULMONARY DISEASE W (ACUTE) EXACERBATION (2) Atrial fibrillation Current Visit: Yes Status: Acute Qualifiers: Atrial fibrillation type: unspecified Qualified Code(s): I48.91 - Unspecified atrial fibrillation Assessment & Plan: she will be discharged to home on DOAC - she has someone who can arrange for her to have 2 months of samples of, I believe, Mili. Discussed that worst case she may end up on coumadin and she is familiar with that, but obviously would rather have Eliquis. She will be f/u outpatient with cardiology. Code(s): I48.91 - UNSPECIFIED ATRIAL FIBRILLATION (3) Hypokalemia Current Visit: Yes Status: Acute Assessment & Plan: repleting po - will put pt on protocol to replete with next check. Code(s): E87.6 - HYPOKALEMIA (4) Tobacco abuse Current Visit: Yes Status: Acute Code(s): Z72.0 - TOBACCO USE
[2022-10-15] MEDS ORDERED: K-LYTE ONE (21:37)
[2022-10-15] MEDS: CLONIDINE 0.1 MG TABLET PO SCH (22:08)
[2022-10-15] MEDS: Zocor 10MG PO SCH (22:09)
[2022-10-15] MEDS: Lopressor 50 MG PO SCH (22:09)
[2022-10-15] MEDS: Ambien 5 MG Tablet PO PRN (22:10)
[2022-10-16] MEDS: PROVENTIL 2.5 MG/3 ML NEB IH SCH ×3 (01:13→13:10)
[2022-10-16] MEDS: Advair Hfa 115/21 Common canister IH SCH (06:45)
[2022-10-16 07:41] LABS: Potassium 3.9 mmol/L (3.5-5.1)
[2022-10-16] MEDS: VITAMIN D PO SCH (09:18)
[2022-10-16] MEDS: Zestril 10 MG PO SCH (09:18)
[2022-10-16] MEDS: SYNTHROID 25 MCG PO SCH (09:18)
[2022-10-16] MEDS: Klor Con PO SCH (09:18)
[2022-10-16] MEDS: Protonix 40MG Tablet PO SCH (09:18)
[2022-10-16] MEDS: CLARITIN 10 MG PO SCH (09:18)
[2022-10-16] MEDS: Ecotrin 325 MG PO SCH (09:18)
[2022-10-16] MEDS: DELTASONE 20 MG PO SCH (09:19)
[2022-10-16] MEDS: Cordarone 200 MG PO SCH (09:21)
[2022-10-16] MEDS: ELIQUIS 2.5 MG TABLET PO SCH (09:21)
[2022-10-16] MEDS: CHLORTHALIDONE PO SCH (09:22)
[2022-10-16] MEDS: THEOPHYLLINE ER 24HR PO SCH (09:23)
[2022-10-16] MEDS: BUSPAR 5 MG PO SCH ×2 (09:24→11:04)
[2022-10-16] MEDS: Effexor XR 75 MG PO SCH ×2 (09:25→11:03)
[2022-10-16] MEDS: ISOPTIN SR PO SCH ×2 (09:26→11:04)
[2022-10-16 11:24] VITALS: BP 144/84; O2SAT 90
[2022-10-16] MEDS: Ativan 1 MG PO PRN (13:24)
[2022-10-16 13:52] VITALS: PULSE 89
--- NOTE | 2022-10-16 14:05 | PCM.DS ---
Discharge Summary Date of Admission: 10/12/22 09:01 Admitting Physician: MARQUITA HEMPHILL Consults: Consults on Case 10/13/22 09:05 Consult Cardiology ROUTINE Primary Care Provider: KAVEH ALMANZAR Allergies Allergies Penicillins Allergy (Severe, Verified 10/09/22 16:40) [facility] Summary - Hospital Course Hospital Course: Pt is 82 yo female pt of Dr. Kaveh Almanzar with COPD who was admitted through ER with COPD exacerbation. She was started on IV antibiotics and steroids but continued to have cough (worsening) and extremely wheezy. Was started on po theophylline. She was noted to have new onset afib and was started on DOAC. She plans to have a family member help her get Eliquis samples for 2 months and f/u outpatient with cardiology. Pt had hypokalemia; stayed an extra day increasing her potassium. Will need to recheck potassium in 3-4 days. Pt will need to f/u with pulmonology outpatient as well, as she is now on theophylline. Will finish antibiotics and steroid taper. - Vitals & Intake/Output Vital Signs: Vital Signs Temperature 97.8 F 10/16/22 11:24 Pulse Rate 89 10/16/22 13:10 Respiratory Rate 20 10/16/22 13:10 Blood Pressure 144/84 10/16/22 11:24 O2 Sat by Pulse Oximetry 90 L 10/16/22 13:10 Intake & Output: Intake & Output 10/14/22 10/15/22 10/16/22 10/17/22 11:59 11:59 11:59 11:59 Intake Total 960 1460 1230 600 Balance 960 1460 1230 600 Weight 72.5 kg 75.5 kg 71.8 kg - Lab Result Diagrams: 10/15/22 04:21 10/16/22 04:50 Lab Results-Last 24 Hrs: Lab Results-Last 24 Hours 10/15/22 10/15/22 10/15/22 Range/Units 14:18 14:18 20:50 Potassium 2.8 L* 3.1 L (3.5-5.1) mmol/L Magnesium 2.0 (1.6-2.3) mg/dL Theophylline (10-20) ug/mL 10/16/22 10/16/22 Range/Units 04:45 04:50 Potassium 3.9 D (3.5-5.1) mmol/L Magnesium 2.0 (1.6-2.3) mg/dL Theophylline 4.3 L (10-20) ug/mL Micro Results-Entire Visit: Microbiology 10/09/22 16:45 Blood Culture Gram Stain - Final Blood Not Reportable Blood Culture - Final NO GROWTH 10/09/22 17:44 Blood Culture Gram Stain - Final Blood Not Reportable Blood Culture - Final NO GROWTH 10/10/22 11:09 Gram Stain - Final Sputum - Expectorant Sputum Culture - Final Klebsiella Pneumoniae - Procedures and Test Procedures and Tests throughout Hospitalization: Therapy Orders & Screens 10/09/22 22:34 EKG REPEAT IN AM Comment: Oxygen Nasal Cannula 2 lpm Comment: Respiratory Therapy Assessment DAILY Comment: Respiratory Therapy Consult ROUTINE Comment: Reason For Exam: 10/11/22 22:15 EKG STAT Comment: Diagnosis: COPD exacerbation Discharge Exam General Appearance: no apparent distress, alert Neurologic Exam: oriented x 3, cooperative Eye Exam: eyes nml inspection Ears, Nose, Throat Exam: moist mucous membranes Neck Exam: normal inspection Respiratory Exam: diminished breath sounds (fair to good air exchange), prolonged expirations, wheezing (scattered, more so in LLL), No crackles/rales, No rhonchi Cardiovascular Exam: normal heart sounds, irregular, No murmur Gastrointestinal/Abdomen Exam: soft, normal bowel sounds Extremity Exam: normal inspection, No pedal edema, No swelling Skin Exam: normal color, warm, dry, No rash Final Diagnosis/Problem List - Final Discharge Diagnosis/Problem (1) COPD exacerbation Current Visit: Yes Status: Acute Assessment & Plan: much better, but needs to go home on O2. Will continue theophylline for now pending pulmonology f/u. Steroid taper over the next 1 week. F/u with PCP in 1 week. Code(s): J44.1 - CHRONIC OBSTRUCTIVE PULMONARY DISEASE W (ACUTE) EXACERBATION (2) Atrial fibrillation Current Visit: Yes Status: Acute Assessment & Plan: New onset. F/u with cardiology outpatient. Code(s): I48.91 - UNSPECIFIED ATRIAL FIBRILLATION (3) Hypokalemia Current Visit: Yes Status: Acute Assessment & Plan: repleted; home on po K+. Mg nl. Code(s): E87.6 - HYPOKALEMIA (4) Tobacco abuse Current Visit: Yes Status: Chronic Assessment & Plan: Would strongly advise pt to stop smoking. Code(s): Z72.0 - TOBACCO USE - Discharge Disposition: Home, Self-Care Condition: Stable Prescriptions: New Fluticasone/Salmeterol 115/21 [Advair Hfa 115/21 Common canister*] 2 puff IH BIDRT #1 inhaler Amiodarone HCl 200 mg [Cordarone 200 MG] 200 mg PO DAILY #30 tablet Amiodarone HCl 200 mg [Cordarone 200 MG] 200 mg PO BID #10 tablet Amiodarone HCl 200 mg [Cordarone 200 MG] 300 mg PO BID #5 tablet Prednisone 10 mg [Deltasone 10 mg] 10 mg PO DAILY tablet Prednisone 20 mg [Deltasone 20 mg] 20 mg PO DAILY #5 tablet Apixaban [Eliquis 2.5 mg Tablet] 2.5 mg PO BID #60 tablet Potassium Chloride Tab* [Klor Con] 20 meq PO TID 14 Days #42 tablet Albuterol 2.5 mg/3 ml Neb [Proventil 2.5 mg/3 ml Neb] 2.5 mg IH Q4H PRN PRN #35 unit PRN Reason: Shortness Of Breath/Wheezing Theophylline Anhydrous [Theophylline ER 24Hr] 200 mg PO DAILY 7 Days #7 tablet Continue Aspirin EC 325 mg [Ecotrin 325 MG] 325 mg PO DAILY Verapamil HCl Sr [Isoptin Sr] 240 mg PO DAILY Lisinopril 20 mg [Zestril 20 MG] 10 mg PO DAILY cloNIDine HCL [Catapres] 0.1 mg PO HS Chlorthalidone 12.5 mg PO DAILY Levothyroxine Sodium 25 Mcg [Synthroid 25 Mcg] 25 mcg PO DAILY Atorvastatin Calcium 10 mg PO HS Omeprazole 20 mg PO DAILY Venlafaxine HCl [Effexor Xr] 150 mg PO DAILY Cholecalciferol (Vitamin D3) [Vitamin D] 2,000 unit PO DAILY Metoprolol Tartrate 50 mg [Lopressor 50 MG] 50 mg PO HS Loratadine 10 mg [Claritin 10 mg] 10 mg PO DAILY Buspirone HCl 5 mg [Buspar 5 mg] 10 mg PO BID Instructions: Atrial Fibrillation (DC), Chronic Obstructive Pulmonary Disease (COPD) (DC), Oxygen Therapy, Adult (DC) Additional Instructions: YOU NEED TO WEAR 2L/NC AT ALL TIMES CALL [facility] AT [phone] WHEN YOU GET HOME SO THEY CAN DELIVER YOUR HOME OXY GEN CONCENTRATOR Follow up with: BETHANY GARCIA [ACTIVE STAFF] - KAVEH ALMANZAR [Primary Care Provider] -
[2022-10-19] MEDS ORDERED: Cordarone 200 MG PO SCH (10:00)
[2022-10-19] MEDS ORDERED: DELTASONE 20 MG PO SCH (10:00)
[2022-10-23] MEDS ORDERED: DELTASONE 10 MG PO SCH (10:00)
[2022-10-24] MEDS ORDERED: Cordarone 200 MG PO SCH (10:00)
== END 2022-10-16 14:50 | disposition home or self-care (01) | DRG 192 ==
LOC: ED 16:37 → MED SURG 22:32 → OBSVTOIN 10-12 09:01 → ICU 10-12 19:20 → MED SURG 10-14 11:08
PROVIDERS: ADMIT General Practice; ATTEND Family Medicine
DX: J44.1 Chronic obstructive pulmonary disease with (acute) exacerbation (principal); E87.6 Hypokalemia; R77.8 Other specified abnormalities of plasma proteins; I48.0 Paroxysmal atrial fibrillation; I10 Essential (primary) hypertension; E03.9 Hypothyroidism, unspecified; E78.5 Hyperlipidemia, unspecified; Z79.899 Other long term (current) drug therapy; Z20.828 Contact with and (suspected) exposure to other viral communicable diseases; Z72.0 Tobacco use
CPT/HCPCS: 0241U; 36000; 36415; 36600; 71045; 71260; 80048; 80053; 80198; 82375; 82803; 83605; 83735; 83880; 84132; 84145; 84484; 85025; 85027; 85379; 87040; 87070; 87077; 87186; 93005; 93041; 93268; 94640; 94760; 94762; 96374; 99285; G0378; J0456; J0696; J1650; J2930; J7609; A9270-GY

== ENCOUNTER 2022-11-05 00:08 | Inpatient (IN) | payer MEDICARE ==
[2022-11-05] MEDS ORDERED: DUONEB 0.5-3 MG/3 ml Neb IH ONE ×2 (00:32→00:33)
--- NOTE | 2022-11-05 00:39 | ERPHSYRPT ---
- History of Present Illness Source: patient Exam Limitations: clinical condition Patient Subjective Stated Complaint: pt states she was in the hospital three weeks ago with pnuemonia and states that she has been feeling SOB suddenly since yesterday, states that she also has pain in left year, states she was up all night struggling to breath. states she has a history of COPD and history of afib, states she is currently on eliquis. Triage Nursing Assessment: pt is alert and oriented, taking deep breaths and using accessory muscles to breath. appears flushed and is struggling to breath course wheezes throughout. Physician History: 82 yo wf w dyspnea x 1 day. Pt has a h/o COPD and smoked 1-2 ppd until 1 year ago. She has home O2 but does not use it. Pt has had a cough/coryza for several days. She denies fever/chest pain/N/V/D/melena/hematochezia. Dyspnea worse w exertion but also at rest. Timing/Duration: yesterday Activities at Onset: rest Severity of Dyspnea-Max: severe Severity of Dyspnea-Current: severe Possible Cause: frequent episodes Modifying Factors: Improves With: activity Associated Symptoms: denies symptoms, wheezing Allergies/Adverse Reactions: Penicillins Allergy (Severe, Verified 10/09/22 16:40) Hives Home Medications: Aspirin EC 325 mg [Ecotrin 325 MG] 325 mg PO DAILY 10/27/18 [History] Lisinopril 20 mg [Zestril 20 MG] 10 mg PO DAILY 10/27/18 [History] Verapamil HCl Sr [Isoptin Sr] 240 mg PO DAILY 10/27/18 [History] cloNIDine HCL [Catapres] 0.1 mg PO HS 11/28/18 [History] Atorvastatin Calcium 10 mg PO HS 05/12/21 [History] Chlorthalidone 12.5 mg PO DAILY 05/12/21 [History] Levothyroxine Sodium 25 Mcg [Synthroid 25 Mcg] 25 mcg PO DAILY 05/12/21 [History] Omeprazole 20 mg PO DAILY 05/12/21 [History] Venlafaxine HCl [Effexor Xr] 150 mg PO DAILY 05/12/21 [History] Buspirone HCl 5 mg [Buspar 5 mg] 10 mg PO BID 10/09/22 [History] Loratadine 10 mg [Claritin 10 mg] 10 mg PO DAILY 10/09/22 [History] Metoprolol Tartrate 50 mg [Lopressor 50 MG] 50 mg PO HS 10/09/22 [History] Hx Tetanus, Diphtheria Vaccination/Date Given: No Hx Influenza Vaccination/Date Given: No Hx Pneumococcal Vaccination/Date Given: Yes Travel Risk - International Travel Have you traveled outside of the country in past 3 weeks: No - Coronavirus Screening Are you exhibiting any of the following symptoms?: No Close contact with a COVID-19 positive Pt in past 14-21 Days: No - Vaccine Status Have you recieved a Covid-19 vaccination: Yes Pneumatic Systems Operator: Moderna - Vaccination Dates Date of 2cond Vaccination (if applicable): february, - Review of Systems Constitutional: No Symptoms Eyes: No Symptoms Ears, Nose, & Throat: No Symptoms, Nose Congestion, Nose Discharge Respiratory: No Symptoms, Cough, Dyspnea, Dyspnea on Exertion (BRANHAM) Cardiac: No Symptoms Abdominal/Gastrointestinal: No Symptoms Genitourinary Symptoms: No Symptoms Musculoskeletal: No Symptoms Skin: No Symptoms Neurological: No Symptoms Psychological: No Symptoms Endocrine: No Symptoms Hematologic/Lymphatic: No Symptoms Immunological/Allergic: No Symptoms - Past Medical History Pertinent Past Medical History: Yes Neurological History: No Pertinent History ENT History: No Pertinent History Cardiac History: High Cholesterol, Hypertension Respiratory History: Bronchitis, COPD Endocrine Medical History: Hypothyroidism Musculoskeletal History: Osteoarthritis GI Medical History: GERD History: No Pertinent History Psycho-Social History: Anxiety Female Reproductive Disorders: No Pertinent History - Past Surgical History Past Surgical History: Yes Neuro Surgical History: No Pertinent History Cardiac: No Pertinent History Respiratory: No Pertinent History Gastrointestinal: No Pertinent History Genitourinary: No Pertinent History Musculoskeletal: Joint Replacement, Other Female Surgical History: No Pertinent History Other Surgical History: bilateral hip replacements and lumbar fusions, cataract. left eye Oct 2018 - Social History Smoking Status: Former smoker How long have you smoked: 61 yrs Exposure to second hand smoke: Yes Drug Use: none Patient Lives Alone: Yes - Nursing Vital Signs Nursing Vital Signs: Initial Vital Signs Temperature 97.9 F 11/05/22 00:09 Pulse Rate 96 H 11/05/22 00:09 Respiratory Rate 35 H 11/05/22 00:09 Blood Pressure 208/119 11/05/22 00:09 O2 Sat by Pulse Oximetry 93 L 11/05/22 00:09 Pain Scale Pain Intensity 0 Hypertensive/Tachypneic/Borderline sats - Physical Exam General Appearance: mild distress Eye Exam: PERRL/EOMI, eyes nml inspection Ears, Nose, Throat Exam: hearing grossly normal, normal ENT inspection, normal pharynx Neck Exam: normal inspection, non-tender, supple, full range of motion, No Brudzinski, No Kernig's, No meningismus Respiratory Exam: respiratory distress (Mild w scattered wheezes and decreased breath sounds B), prolonged expirations Cardiovascular/Chest Exam: normal heart sounds, regular rate/rhythm, normal peripheral pulses, No murmur Abdominal/Gastrointestinal Exam: soft, normal bowel sounds Extremity Exam: non-tender, normal range of motion, normal inspection, normal capillary refill Peripheral Pulses Exam: carotid (R): 2+, carotid (L): 2+ Neurologic Exam: alert, oriented x 3, 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, 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, normal mood/affect, nml cerebellar function, nml station & gait, sensation nml Skin Exam: normal color, warm, dry Lymphatic Exam: No adenopathy SpO2 Interpretation: borderline oxygenation SpO2: 99 O2 Delivery: Nasal Cannula - Course Nursing assessment & vital signs reviewed: Yes EKG Interpreted by Me: RATE (NSR/Rate93/Normal QT-QTc/No acute ST segment changes) - Radiology Exams Chest X-ray Interpretation: Interpreted by me (Possible L perihilar infiltrate) - CT Exams Chest CT Interpretation: Tele-radiologist Report (CT chest wo contrast/COPD) Ordered Tests: Active Orders 24 hr Category Date Time Status Heart-Healthy Diet Diet 11/05/22 Breakfast Active CHEST 1 VIEW (PORTABLE) Stat Exams 11/05/22 00:32 Taken CHEST WITHOUT CONTRAST [CT] Stat Exams 11/05/22 01:17 Taken CBC AM.LAB Lab 11/05/22 04:00 Ordered CBC W DIFF Stat Lab 11/05/22 01:00 Completed CMP AM.LAB Lab 11/05/22 04:00 Ordered CMP Stat Lab 11/05/22 01:00 Completed NT PRO BNP Stat Lab 11/05/22 01:00 Completed PROTIME WITH INR Stat Lab 11/05/22 01:00 Completed PTT Stat Lab 11/05/22 01:00 Completed TROPONIN Q4H Lab 11/05/22 01:00 Completed TROPONIN Q4H Lab 11/05/22 04:45 Ordered TROPONIN Q4H Lab 11/05/22 08:45 Ordered Transfer Order Routine Transfer 11/05/22 Completed Medication Summary Generic Name Dose Route Start Last Admin Trade Name Rich PRN Reason Stop Dose Admin Albuterol/Ipratropium 3 ml 11/05/22 03:00 Ipratropium/Albuterol Sulfate 3 Ml Ampul.Neb IH 12/05/22 02:59 Q4HRT DEVON Methylprednisolone Sodium 0 mg 11/05/22 06:00 Succinate 125 mg/ Sterile IV 12/05/22 05:59 Water 2 ml Q6HT DEVON Famotidine 20 mg 11/05/22 10:00 Famotidine 20 Mg/1 Vial IV 12/05/22 09:59 Q12HT DEVON Sodium Chloride 1,000 mls @ 100 mls/hr 11/05/22 03:00 Sodium Chloride 0.45% 1000 Ml IV 12/05/22 02:59 .Q10H DEVON Discontinued Medications Generic Name Dose Route Start Last Admin Trade Name Rich PRN Reason Stop Dose Admin Albuterol/Ipratropium 3 ml 11/05/22 00:32 11/05/22 00:35 Ipratropium/Albuterol Sulfate 3 Ml Ampul.Neb IH 11/05/22 00:33 3 ml STAT ONE Administration Albuterol/Ipratropium Confirm 11/05/22 00:33 Ipratropium/Albuterol Sulfate 3 Ml Ampul.Neb Administered 11/05/22 00:34 Dose 3 ml IH .STK-MED ONE Apixaban 5 mg 11/05/22 02:37 Apixaban 2.5 Mg Tablet PO 11/05/22 02:38 STAT ONE Methylprednisolone Sodium 0 mg 11/05/22 02:28 11/05/22 02:30 Succinate 125 mg/ Sterile IV 11/05/22 02:29 125 mg Water 2 ml STAT ONE Administration Ceftriaxone Sodium/Dextrose 1 g in 50 mls @ 100 mls/hr 11/05/22 02:34 11/05/22 02:39 Rocephin 1 Gm-D5w 50 Ml Bag IV 11/05/22 03:03 100 ml/hr STAT STA 100 mls/hr Administration Ceftriaxone Sodium/Dextrose Confirm 11/05/22 02:35 Rocephin 1 Gm-D5w 50 Ml Bag Administered 11/05/22 02:36 Dose 1 g in 50 mls @ ud IV .STK-MED ONE Methylprednisolone Sodium Succinate Confirm 11/05/22 02:29 Methylprednis Sod Succ 125 Mg/2 Ml Vial Administered 11/05/22 02:30 Dose 125 mg .ROUTE .STK-MED ONE Sterile Water Confirm 11/05/22 02:29 Water For Injection,Sterile 10 Ml Vial Administered 11/05/22 02:30 Dose 10 ml IJ .STK-MED ONE Lab/Rad Data: Laboratory Result Diagrams 11/05/22 01:00 11/05/22 01:00 Laboratory Results 11/05/22 11/05/22 11/05/22 Range/Units 01:00 01:00 01:00 WBC (4.0-10.5) x10^3/uL RBC (4.1-5.4) x10^6/uL Hgb (12.0-16.0) g/dL Hct (35-47) % MCV (78-100) fL MCH (26-32) pg MCHC (32-36) g/dL RDW (11.5-14.0) % Plt Count (150-450) x10^3/uL MPV (7.5-11.0) fL Gran % (36.0-66.0) % Immature Gran % (Auto) (0.00-0.4) % Nucleat RBC Rel Count (0.00-0.1) % Eos # (Auto) (0-0.5) x10^3/uL Immature Gran # (Auto) (0.00-0.03) x10^3u/L Absolute Lymphs (auto) (1.0-4.6) x10^3/uL Absolute Monos (auto) (0.0-1.3) x10^3/uL Absolute Nucleated RBC (0.00-0.01) x10^3u/L Lymphocytes % (24.0-44.0) % Monocytes % (0.0-12.0) % Eosinophils % (0.00-5.0) % Basophils % (0.0-0.4) % Absolute Granulocytes (1.4-6.9) x10^3/uL Basophils # (0-0.4) x10^3/uL PT 10.5 (9.4-12.5) SECONDS INR 0.99 (0.8-3.0) APTT 28.0 (25.1-36.5) SECONDS Sodium (137-145) mmol/L Potassium (3.5-5.1) mmol/L Chloride (98-107) mmol/L Carbon Dioxide (22-30) mmol/L Anion Gap (5-15) MEQ/L BUN (7-17) mg/dL Creatinine (0.52-1.04) mg/dL Estimated GFR ML/MIN Glucose (74-106) mg/dL Calcium (8.4-10.2) mg/dL Total Bilirubin (0.2-1.3) mg/dL AST (14-36) U/L ALT (0-35) U/L Alkaline Phosphatase (38-126) U/L Troponin I < 0.012 (0.000-0.034) ng/mL NT-Pro-B Natriuret Pep (0-1800) pg/mL Serum Total Protein (6.3-8.2) g/dL Albumin (3.5-5.0) g/dL Influenza Type A Ag NEGATIVE (NEGATIVE) Influenza Type B Ag NEGATIVE (NEGATIVE) RSV (PCR) NEGATIVE (Negative) SARS-CoV-2 (PCR) NEGATIVE (NEGATIVE) 11/05/22 11/05/22 Range/Units 01:00 01:00 WBC 10.9 H (4.0-10.5) x10^3/uL RBC 4.50 (4.1-5.4) x10^6/uL Hgb 13.1 (12.0-16.0) g/dL Hct 41.3 (35-47) % MCV 91.8 (78-100) fL MCH 29.1 (26-32) pg MCHC 31.7 L (32-36) g/dL RDW 13.6 (11.5-14.0) % Plt Count 306 (150-450) x10^3/uL MPV 8.7 (7.5-11.0) fL Gran % 73.5 H (36.0-66.0) % Immature Gran % (Auto) 0.6 H (0.00-0.4) % Nucleat RBC Rel Count 0.0 (0.00-0.1) % Eos # (Auto) 0.77 H (0-0.5) x10^3/uL Immature Gran # (Auto) 0.07 H (0.00-0.03) x10^3u/L Absolute Lymphs (auto) 0.90 L (1.0-4.6) x10^3/uL Absolute Monos (auto) 1.08 (0.0-1.3) x10^3/uL Absolute Nucleated RBC 0.00 (0.00-0.01) x10^3u/L Lymphocytes % 8.3 L (24.0-44.0) % Monocytes % 9.9 (0.0-12.0) % Eosinophils % 7.1 H (0.00-5.0) % Basophils % 0.6 (0.0-0.4) % Absolute Granulocytes 8.00 H (1.4-6.9) x10^3/uL Basophils # 0.07 (0-0.4) x10^3/uL PT (9.4-12.5) SECONDS INR (0.8-3.0) APTT (25.1-36.5) SECONDS Sodium 131 L (137-145) mmol/L Potassium 4.1 (3.5-5.1) mmol/L Chloride 96 L (98-107) mmol/L Carbon Dioxide 30 (22-30) mmol/L Anion Gap 8.2 (5-15) MEQ/L BUN 10 (7-17) mg/dL Creatinine 0.59 (0.52-1.04) mg/dL Estimated GFR > 60.0 ML/MIN Glucose 127 H (74-106) mg/dL Calcium 9.4 (8.4-10.2) mg/dL Total Bilirubin 0.40 (0.2-1.3) mg/dL AST 19 (14-36) U/L ALT 20 (0-35) U/L Alkaline Phosphatase 65 (38-126) U/L Troponin I (0.000-0.034) ng/mL NT-Pro-B Natriuret Pep 128 (0-1800) pg/mL Serum Total Protein 7.2 (6.3-8.2) g/dL Albumin 4.4 (3.5-5.0) g/dL Influenza Type A Ag (NEGATIVE) Influenza Type B Ag (NEGATIVE) RSV (PCR) (Negative) SARS-CoV-2 (PCR) (NEGATIVE) - Progress Progress: improved Air Movement: fair Progress Note: 11/05/22 02:35 Duoneb x1 w mild improvement 125mg IV Solumedrol 1gm IV Rocephin - Departure Departure Disposition: Observation Clinical Impression: COPD exacerbation Condition: Stable Critical Care Time: No
[2022-11-05 01:18] LABS: Basophil (Absolute #) 0.07 x10^3/uL (0-0.4); Eosinophil % 7.1 % (0.00-5.0); Eosinophil (Absolute #) 0.77 x10^3/uL (0-0.5); Hematocrit 41.3 % (35-47); Hemoglobin 13.1 g/dL (12.0-16.0); Lymphocytes % 8.3 % (24.0-44.0); Mean Cell Volume 91.8 fL (78-100); Mean Corpuscular Hemoglobin 29.1 pg (26-32); Mean Corpuscular Hgb Concent. 31.7 g/dL (32-36); Mean Platelet Volume 8.7 fL (7.5-11.0); Monocyte (Absolute #) 1.08 x10^3/uL (0.0-1.3); Monocytes % 9.9 % (0.0-12.0); Neutrophil % 73.5 % (36.0-66.0); Platelet Count 306 x10^3/uL (150-450); Red Cell Distribution Width 13.6 % (11.5-14.0); White Blood Count 10.9 x10^3/uL (4.0-10.5)
[2022-11-05 01:38] LABS: INR 0.99 (0.8-3.0); PROTIME 10.5 SECONDS (9.4-12.5)
[2022-11-05 01:41] LABS: ALBUMIN 4.4 g/dL (3.5-5.0); ALKALINE PHOSPHATASE 65 U/L (38-126); ANION GAP 8.2 MEQ/L (5-15); BLOOD UREA NITROGEN 10 mg/dL (7-17); CHLORIDE 96 mmol/L (98-107); Calcium 9.4 mg/dL (8.4-10.2); Carbon Dioxide 30 mmol/L (22-30); Creatinine 1 0.59 mg/dL (0.52-1.04); EST GLOMERULAR FILTRATION RATE > 60.0 ML/MIN; Glucose 127 mg/dL (74-106); NT PRO BNP 128 pg/mL (0-1800); Potassium 4.1 mmol/L (3.5-5.1); SGOT/AST 19 U/L (14-36); SGPT/ALT 20 U/L (0-35); SODIUM 131 mmol/L (137-145); Total Protein 7.2 g/dL (6.3-8.2)
[2022-11-05 01:59] LABS: INFLUENZA A NEGATIVE (NEGATIVE); INFLUENZA B NEGATIVE (NEGATIVE); RESPIRATORY SYNCTIAL VIRUS NEGATIVE (Negative); SARS-CoV-2 Xpert Express NEGATIVE (NEGATIVE)
[2022-11-05] MEDS ORDERED: solu-MEDROL 125 MG, Sterile H2O 10 ml 2 ML IV ONE ×2 (02:28)
[2022-11-05] MEDS ORDERED: Sterile H2O 10 ml IJ ONE (02:29)
[2022-11-05] MEDS ORDERED: solu-MEDROL ONE (02:29)
[2022-11-05] MEDS ORDERED: ROCEPHIN 1 Gm-D5w 50 ml Bag** 1 G/50 ML IVPB IV STA (02:34)
[2022-11-05] MEDS ORDERED: ROCEPHIN 1 Gm-D5w 50 ml Bag** 1 G/50 ML IVPB IV ONE (02:35)
[2022-11-05] MEDS ORDERED: ELIQUIS 2.5 MG TABLET PO ONE (02:37)
[2022-11-05] MEDS: DUONEB 0.5-3 MG/3 ml Neb IH SCH ×6 (04:11→22:46)
[2022-11-05 05:18] LABS: Hemoglobin 13.1 g/dL (12.0-16.0); Mean Cell Volume 89.1 fL (78-100); Mean Corpuscular Hemoglobin 28.5 pg (26-32); Mean Platelet Volume 8.6 fL (7.5-11.0); Platelet Count 339 x10^3/uL (150-450); Red Cell Distribution Width 13.7 % (11.5-14.0)
[2022-11-05 05:34] LABS: ALBUMIN 4.5 g/dL (3.5-5.0); ALKALINE PHOSPHATASE 72 U/L (38-126); ANION GAP 8.3 MEQ/L (5-15); BLOOD UREA NITROGEN 8 mg/dL (7-17); CHLORIDE 96 mmol/L (98-107); Calcium 9.4 mg/dL (8.4-10.2); Carbon Dioxide 31 mmol/L (22-30); Creatinine 1 0.56 mg/dL (0.52-1.04); EST GLOMERULAR FILTRATION RATE > 60.0 ML/MIN; Glucose 170 mg/dL (74-106); Potassium 4.2 mmol/L (3.5-5.1); SGOT/AST 25 U/L (14-36); SGPT/ALT 21 U/L (0-35); SODIUM 131 mmol/L (137-145); Total Protein 7.6 g/dL (6.3-8.2)
[2022-11-05] MEDS ORDERED: solu-MEDROL 125 MG, Sterile H2O 10 ml 2 ML IV SCH ×2 (06:00)
[2022-11-05] MEDS ORDERED: PROVENTIL 2.5 MG/3 ML NEB IH PRN (07:52)
--- NOTE | 2022-11-05 08:52 | XRAY ---
Indication: Short of breath. Multiple contiguous axial images obtained through the chest without contrast. Comparison: October 09, 2022 Again diffuse pulmonary emphysema, small lingula calcified, right base noncalcified micronodule, and small fatty right Bochdalek hernia. No new pulmonary mass/nodule, infiltrate, or effusion. Heart is not enlarged again with coronary calcifications. Aorta remains mildly arteriosclerotic without aneurysm. Stable small mediastinal calcified nodes. No pathologic mediastinal lymphadenopathy. Bony thorax intact again with osteopenia and degenerative changes throughout the spine. Limited upper abdomen demonstrates grossly stable perisplenic cyst. Impression: 1. Stable COPD, arteriosclerotic disease, fatty right Bochdalek hernia, chronic bony findings, perisplenic cyst, and old granulomatous disease. 2. Remaining CT chest without contrast exam is negative. Comment: Preliminary interpretation made by C. No critical discrepancy.
--- NOTE | 2022-11-05 08:54 | XRAY ---
Indication: Dyspnea. Comparison: October 09, 2022 Portable chest remains hyperinflated and clear again with left base calcific granuloma. Heart not enlarged. Bony thorax intact again with osteopenia and degenerative changes. No new/acute findings.
[2022-11-05] MEDS: Zestril 20 MG PO SCH (09:35)
[2022-11-05] MEDS: Protonix 40MG Tablet PO SCH (09:35)
[2022-11-05] MEDS: ISOPTIN SR PO SCH (09:35)
[2022-11-05] MEDS: Klor Con PO SCH ×2 (09:35→21:29)
[2022-11-05] MEDS: ECOTRIN 81 MG PO SCH (09:35)
[2022-11-05] MEDS: SYNTHROID 25 MCG PO SCH (09:35)
[2022-11-05] MEDS: BUSPAR 5 MG PO SCH ×2 (09:35→21:29)
[2022-11-05] MEDS: CHLORTHALIDONE PO SCH (09:36)
[2022-11-05] MEDS: Effexor XR 75 MG PO SCH (09:36)
[2022-11-05] MEDS: Pepcid 20 MG VIAL IV SCH ×2 (09:37→21:29)
[2022-11-05] MEDS ORDERED: Ativan 0.5 MG PO PRN (09:55)
[2022-11-05] MEDS ORDERED: NON-FORMULARY ITEM (Venlafaxine Hcl [Effexor Xr] 150 MG Cap.Er.24h) PO SCH (10:00)
[2022-11-05] MEDS ORDERED: NON-FORMULARY ITEM (Omeprazole [Omeprazole] 20 MG Tablet.Dr) PO SCH (10:00)
[2022-11-05 10:24] LABS: MAGNESIUM 1.5 mg/dL (1.6-2.3); TSH, 3RD Generation 2.6 mIU/L (0.47-4.68)
[2022-11-05] MEDS: ELIQUIS 2.5 MG TABLET PO SCH ×2 (11:34→21:29)
[2022-11-05] MEDS ORDERED: Toprol-Xl 25MG Tablets PO ONE (11:44)
[2022-11-05] MEDS ORDERED: Toprol-Xl 25MG Tablets ONE (11:51)
[2022-11-05] MEDS ORDERED: Cyanocobalamin B-12 1000 MCG/ML IM ONE (13:21)
[2022-11-05] MEDS ORDERED: MAGNESIUM SULF 2 G/50 ML BAG 2 GM/50 ML PIGGYBACK IV ONE (13:24)
--- NOTE | 2022-11-05 18:38 | PCM.HP ---
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 ER evaluation Medications & Allergies Home Medications: Home Medication List Lisinopril 20 mg [Zestril 20 MG] 10 mg PO DAILY 10/27/18 [History Confirmed 11/05/22] Verapamil HCl Sr [Isoptin Sr] 240 mg PO DAILY 10/27/18 [History Confirmed 11/05/22] cloNIDine HCL [Catapres] 0.1 mg PO HS 11/28/18 [History Confirmed 11/05/22] Atorvastatin Calcium 10 mg PO HS 05/12/21 [History Confirmed 11/05/22] Chlorthalidone 12.5 mg PO DAILY 05/12/21 [History Confirmed 11/05/22] Levothyroxine Sodium 25 Mcg [Synthroid 25 Mcg] 25 mcg PO DAILY 05/12/21 [History Confirmed 11/05/22] Omeprazole 20 mg PO DAILY 05/12/21 [History Confirmed 11/05/22] Venlafaxine HCl [Effexor Xr] 150 mg PO DAILY 05/12/21 [History Confirmed 11/05/22] Buspirone HCl 5 mg [Buspar 5 mg] 10 mg PO BID 10/09/22 [History Confirmed 11/05/22] Metoprolol Tartrate 50 mg [Lopressor 50 MG] 50 mg PO HS 10/09/22 [History Confirmed 11/05/22] Albuterol 2.5 mg/3 ml Neb [Proventil 2.5 mg/3 ml Neb] 2.5 mg IH Q4H PRN PRN #35 unit 10/16/22 [Rx Confirmed 11/05/22] Alendronate Sodium [Fosamax] 70 mg PO WEEKLY 11/05/22 [History Confirmed 11/05/22] Apixaban [Eliquis 2.5 mg Tablet] 2.5 mg PO HS 11/05/22 [History Confirmed 11/05/22] Aspirin EC 81 mg [Ecotrin 81 mg] 81 mg PO DAILY 11/05/22 [History Confirmed 11/05/22] Potassium Chloride Tab* [Klor Con] 20 meq PO BID 11/05/22 [History Confirmed 11/05/22] Allergies/Adverse Reactions: Allergies Allergy/AdvReac Type Severity Reaction Status Date / Time Penicillins Allergy Severe Hives Verified 10/09/22 16:40 - Past Medical History Past Medical History: Yes Neurological History: No Pertinent History ENT History: No Pertinent History Cardiac History: Arrhythmia, High Cholesterol, Hypertension, Myocardial Infarction ([place]) Respiratory History: Bronchitis, COPD Endocrine Medical History: Hypothyroidism Musculoskelatal History: Osteoarthritis GI Medical History: GERD, Hemorrhoids History: No Pertinent History Pyscho-Social History: Anxiety Reproductive Disorders: No Pertinent History Comment: Had mild [place] in 2020, A-fib in 2021, herniated rectum - Female History Are you now?: No - Past Surgical History Past Surgical History: Yes Neuro Surgical History: No Pertinent History Cardiac History: No Pertinent History Respiratory Surgery: No Pertinent History GI Surgical History: No Pertinent History Genitourinary Surgical Hx: No Pertinent History Musculskeletal Surgical Hx: Joint Replacement, Other Female Surgical History: No Pertinent History Other Surgical History: bilateral hip replacements and lumbar fusions, cataract. left eye Oct 2018 - Social History Smoking Status: Former smoker How long have you smoked: 61 yrs Exposure to second hand smoke: Yes Alcohol: None Drug Use: none - Physical Exam Vital Signs: Vital Signs - 24 hr Temp Pulse Resp BP Pulse Ox 11/05/22 16:00 97.1 F 116 H 20 152/76 91 L 11/05/22 14:53 117 H 26 H 94 L 11/05/22 11:48 97.0 F 131 H 31 H 134/76 95 11/05/22 10:58 125 H 22 95 11/05/22 07:13 97.8 F 105 H 22 142/86 95 11/05/22 06:53 105 H 22 95 11/05/22 04:50 97 11/05/22 04:11 85 24 97 11/05/22 03:21 96.9 F 85 26 H 156/74 100 11/05/22 03:16 99 11/05/22 02:45 86 18 162/91 97 11/05/22 02:02 87 18 171/81 98 11/05/22 01:17 87 25 H 171/81 94 L 11/05/22 00:35 87 31 H 98 11/05/22 00:09 97.9 F 96 H 31 H 208/119 99 Results - Labs Lab/Micro Results: Lab Results-Last 24 Hours 11/05/22 11/05/22 11/05/22 Range/Units 01:00 01:00 01:00 WBC 10.9 H (4.0-10.5) x10^3/uL RBC 4.50 (4.1-5.4) x10^6/uL Hgb 13.1 (12.0-16.0) g/dL Hct 41.3 (35-47) % MCV 91.8 (78-100) fL MCH 29.1 (26-32) pg MCHC 31.7 L (32-36) g/dL RDW 13.6 (11.5-14.0) % Plt Count 306 (150-450) x10^3/uL MPV 8.7 (7.5-11.0) fL Gran % 73.5 H (36.0-66.0) % Immature Gran % (Auto) 0.6 H (0.00-0.4) % Nucleat RBC Rel Count 0.0 (0.00-0.1) % Eos # (Auto) 0.77 H (0-0.5) x10^3/uL Immature Gran # (Auto) 0.07 H (0.00-0.03) x10^3u/L Absolute Lymphs (auto) 0.90 L (1.0-4.6) x10^3/uL Absolute Monos (auto) 1.08 (0.0-1.3) x10^3/uL Absolute Nucleated RBC 0.00 (0.00-0.01) x10^3u/L Lymphocytes % 8.3 L (24.0-44.0) % Monocytes % 9.9 (0.0-12.0) % Eosinophils % 7.1 H (0.00-5.0) % Basophils % 0.6 (0.0-0.4) % Absolute Granulocytes 8.00 H (1.4-6.9) x10^3/uL Basophils # 0.07 (0-0.4) x10^3/uL PT 10.5 (9.4-12.5) SECONDS INR 0.99 (0.8-3.0) APTT 28.0 (25.1-36.5) SECONDS Sodium 131 L (137-145) mmol/L Potassium 4.1 (3.5-5.1) mmol/L Chloride 96 L (98-107) mmol/L Carbon Dioxide 30 (22-30) mmol/L Anion Gap 8.2 (5-15) MEQ/L BUN 10 (7-17) mg/dL Creatinine 0.59 (0.52-1.04) mg/dL Estimated GFR > 60.0 ML/MIN Glucose 127 H (74-106) mg/dL Calcium 9.4 (8.4-10.2) mg/dL Magnesium (1.6-2.3) mg/dL Total Bilirubin 0.40 (0.2-1.3) mg/dL AST 19 (14-36) U/L ALT 20 (0-35) U/L Alkaline Phosphatase 65 (38-126) U/L Troponin I (0.000-0.034) ng/mL NT-Pro-B Natriuret Pep 128 (0-1800) pg/mL Serum Total Protein 7.2 (6.3-8.2) g/dL Albumin 4.4 (3.5-5.0) g/dL Vitamin B12 (239-931) pg/mL TSH 3rd Generation (0.47-4.68) mIU/L Influenza Type A Ag (NEGATIVE) Influenza Type B Ag (NEGATIVE) RSV (PCR) (Negative) SARS-CoV-2 (PCR) (NEGATIVE) 11/05/22 11/05/22 11/05/22 Range/Units 01:00 01:00 01:00 WBC (4.0-10.5) x10^3/uL RBC (4.1-5.4) x10^6/uL Hgb (12.0-16.0) g/dL Hct (35-47) % MCV (78-100) fL MCH (26-32) pg MCHC (32-36) g/dL RDW (11.5-14.0) % Plt Count (150-450) x10^3/uL MPV (7.5-11.0) fL Gran % (36.0-66.0) % Immature Gran % (Auto) (0.00-0.4) % Nucleat RBC Rel Count (0.00-0.1) % Eos # (Auto) (0-0.5) x10^3/uL Immature Gran # (Auto) (0.00-0.03) x10^3u/L Absolute Lymphs (auto) (1.0-4.6) x10^3/uL Absolute Monos (auto) (0.0-1.3) x10^3/uL Absolute Nucleated RBC (0.00-0.01) x10^3u/L Lymphocytes % (24.0-44.0) % Monocytes % (0.0-12.0) % Eosinophils % (0.00-5.0) % Basophils % (0.0-0.4) % Absolute Granulocytes (1.4-6.9) x10^3/uL Basophils # (0-0.4) x10^3/uL PT (9.4-12.5) SECONDS INR (0.8-3.0) APTT (25.1-36.5) SECONDS Sodium (137-145) mmol/L Potassium (3.5-5.1) mmol/L Chloride (98-107) mmol/L Carbon Dioxide (22-30) mmol/L Anion Gap (5-15) MEQ/L BUN (7-17) mg/dL Creatinine (0.52-1.04) mg/dL Estimated GFR ML/MIN Glucose (74-106) mg/dL Calcium (8.4-10.2) mg/dL Magnesium 1.5 L (1.6-2.3) mg/dL Total Bilirubin (0.2-1.3) mg/dL AST (14-36) U/L ALT (0-35) U/L Alkaline Phosphatase (38-126) U/L Troponin I < 0.012 (0.000-0.034) ng/mL NT-Pro-B Natriuret Pep (0-1800) pg/mL Serum Total Protein (6.3-8.2) g/dL Albumin (3.5-5.0) g/dL Vitamin B12 280 (239-931) pg/mL TSH 3rd Generation 2.600 (0.47-4.68) mIU/L Influenza Type A Ag NEGATIVE (NEGATIVE) Influenza Type B Ag NEGATIVE (NEGATIVE) RSV (PCR) NEGATIVE (Negative) SARS-CoV-2 (PCR) NEGATIVE (NEGATIVE) 11/05/22 11/05/22 11/05/22 Range/Units 04:30 04:30 04:30 WBC 8.0 (4.0-10.5) x10^3/uL RBC 4.60 (4.1-5.4) x10^6/uL Hgb 13.1 (12.0-16.0) g/dL Hct 41.0 (35-47) % MCV 89.1 (78-100) fL MCH 28.5 (26-32) pg MCHC 32.0 (32-36) g/dL RDW 13.7 (11.5-14.0) % Plt Count 339 (150-450) x10^3/uL MPV 8.6 (7.5-11.0) fL Gran % (36.0-66.0) % Immature Gran % (Auto) (0.00-0.4) % Nucleat RBC Rel Count (0.00-0.1) % Eos # (Auto) (0-0.5) x10^3/uL Immature Gran # (Auto) (0.00-0.03) x10^3u/L Absolute Lymphs (auto) (1.0-4.6) x10^3/uL Absolute Monos (auto) (0.0-1.3) x10^3/uL Absolute Nucleated RBC (0.00-0.01) x10^3u/L Lymphocytes % (24.0-44.0) % Monocytes % (0.0-12.0) % Eosinophils % (0.00-5.0) % Basophils % (0.0-0.4) % Absolute Granulocytes (1.4-6.9) x10^3/uL Basophils # (0-0.4) x10^3/uL PT (9.4-12.5) SECONDS INR (0.8-3.0) APTT (25.1-36.5) SECONDS Sodium 131 L (137-145) mmol/L Potassium 4.2 (3.5-5.1) mmol/L Chloride 96 L (98-107) mmol/L Carbon Dioxide 31 H (22-30) mmol/L Anion Gap 8.3 (5-15) MEQ/L BUN 8 (7-17) mg/dL Creatinine 0.56 (0.52-1.04) mg/dL Estimated GFR > 60.0 ML/MIN Glucose 170 H (74-106) mg/dL Calcium 9.4 (8.4-10.2) mg/dL Magnesium (1.6-2.3) mg/dL Total Bilirubin 0.50 (0.2-1.3) mg/dL AST 25 (14-36) U/L ALT 21 (0-35) U/L Alkaline Phosphatase 72 (38-126) U/L Troponin I < 0.012 (0.000-0.034) ng/mL NT-Pro-B Natriuret Pep (0-1800) pg/mL Serum Total Protein 7.6 (6.3-8.2) g/dL Albumin 4.5 (3.5-5.0) g/dL Vitamin B12 (239-931) pg/mL TSH 3rd Generation (0.47-4.68) mIU/L Influenza Type A Ag (NEGATIVE) Influenza Type B Ag (NEGATIVE) RSV (PCR) (Negative) SARS-CoV-2 (PCR) (NEGATIVE) 11/05/22 Range/Units 08:18 WBC (4.0-10.5) x10^3/uL RBC (4.1-5.4) x10^6/uL Hgb (12.0-16.0) g/dL Hct (35-47) % MCV (78-100) fL MCH (26-32) pg MCHC (32-36) g/dL RDW (11.5-14.0) % Plt Count (150-450) x10^3/uL MPV (7.5-11.0) fL Gran % (36.0-66.0) % Immature Gran % (Auto) (0.00-0.4) % Nucleat RBC Rel Count (0.00-0.1) % Eos # (Auto) (0-0.5) x10^3/uL Immature Gran # (Auto) (0.00-0.03) x10^3u/L Absolute Lymphs (auto) (1.0-4.6) x10^3/uL Absolute Monos (auto) (0.0-1.3) x10^3/uL Absolute Nucleated RBC (0.00-0.01) x10^3u/L Lymphocytes % (24.0-44.0) % Monocytes % (0.0-12.0) % Eosinophils % (0.00-5.0) % Basophils % (0.0-0.4) % Absolute Granulocytes (1.4-6.9) x10^3/uL Basophils # (0-0.4) x10^3/uL PT (9.4-12.5) SECONDS INR (0.8-3.0) APTT (25.1-36.5) SECONDS Sodium (137-145) mmol/L Potassium (3.5-5.1) mmol/L Chloride (98-107) mmol/L Carbon Dioxide (22-30) mmol/L Anion Gap (5-15) MEQ/L BUN (7-17) mg/dL Creatinine (0.52-1.04) mg/dL Estimated GFR ML/MIN Glucose (74-106) mg/dL Calcium (8.4-10.2) mg/dL Magnesium (1.6-2.3) mg/dL Total Bilirubin (0.2-1.3) mg/dL AST (14-36) U/L ALT (0-35) U/L Alkaline Phosphatase (38-126) U/L Troponin I < 0.012 (0.000-0.034) ng/mL NT-Pro-B Natriuret Pep (0-1800) pg/mL Serum Total Protein (6.3-8.2) g/dL Albumin (3.5-5.0) g/dL Vitamin B12 (239-931) pg/mL TSH 3rd Generation (0.47-4.68) mIU/L Influenza Type A Ag (NEGATIVE) Influenza Type B Ag (NEGATIVE) RSV (PCR) (Negative) SARS-CoV-2 (PCR) (NEGATIVE) - Radiology Impressions Radiology Exams & Impressions: Radiology Procedures Category Date Time Status CHEST 1 VIEW (PORTABLE) Stat Exams 11/05/22 00:32 Completed CHEST WITHOUT CONTRAST [CT] Stat Exams 11/05/22 01:17 Completed - Other Procedures and Tests Respiratory Therapy 11/05/22 00:39 Respiratory Therapy Assessment DAILY 11/05/22 02:31 Oxygen Nasal Cannula 3 lpm
[2022-11-05] MEDS: Zocor 10MG PO SCH (21:28)
[2022-11-05] MEDS: CLONIDINE 0.1 MG TABLET PO SCH (21:28)
[2022-11-05] MEDS: solu-MEDROL 40 MG, Sterile H2O 10 ml 1 ML IV SCH ×2 (21:29)
[2022-11-05] MEDS: Ativan 0.5 MG PO PRN (21:29)
[2022-11-05] MEDS: Toprol Xl 50 MG PO SCH (21:43)
[2022-11-05] MEDS ORDERED: NON-FORMULARY ITEM (Atorvastatin Calcium [Atorvastatin Calcium] 10 MG Tablet) PO SCH (22:00)
[2022-11-05] MEDS ORDERED: Lopressor 50 MG PO SCH (22:00)
[2022-11-05] MEDS ORDERED: CLONIDINE HCL 0.2 MG PO SCH (22:00)
[2022-11-06] MEDS: DUONEB 0.5-3 MG/3 ml Neb IH SCH ×6 (03:30→22:17)
[2022-11-06 05:23] LABS: ANION GAP 9.8 MEQ/L (5-15); BLOOD UREA NITROGEN 12 mg/dL (7-17); CHLORIDE 95 mmol/L (98-107); Calcium 8.7 mg/dL (8.4-10.2); Carbon Dioxide 29 mmol/L (22-30); Creatinine 1 0.66 mg/dL (0.52-1.04); EST GLOMERULAR FILTRATION RATE > 60.0 ML/MIN; Glucose 180 mg/dL (74-106); MAGNESIUM 1.9 mg/dL (1.6-2.3); Potassium 4.8 mmol/L (3.5-5.1); SODIUM 129 mmol/L (137-145)
[2022-11-06] MEDS: solu-MEDROL 40 MG, Sterile H2O 10 ml 1 ML IV SCH ×6 (05:43→21:33)
[2022-11-06] MEDS: Klor Con PO SCH ×2 (08:56→21:33)
[2022-11-06] MEDS: BUSPAR 5 MG PO SCH ×2 (08:56→21:33)
[2022-11-06] MEDS: Protonix 40MG Tablet PO SCH (08:57)
[2022-11-06] MEDS: Toprol Xl 50 MG PO SCH ×2 (08:57→21:33)
[2022-11-06] MEDS: ECOTRIN 81 MG PO SCH (08:57)
[2022-11-06] MEDS: ELIQUIS 2.5 MG TABLET PO SCH ×2 (08:57→21:33)
[2022-11-06] MEDS: Zestril 20 MG PO SCH (08:57)
[2022-11-06] MEDS: SYNTHROID 25 MCG PO SCH (08:57)
[2022-11-06] MEDS: Effexor XR 75 MG PO SCH (08:57)
[2022-11-06] MEDS: ISOPTIN SR PO SCH (08:57)
[2022-11-06] MEDS: CHLORTHALIDONE PO SCH (09:00)
[2022-11-06] MEDS: Ativan 0.5 MG PO PRN ×3 (09:00→21:43)
[2022-11-06] MEDS: Pepcid 20 MG VIAL IV SCH ×2 (09:03→21:34)
--- NOTE | 2022-11-06 15:31 | PCM.NOTE ---
Date and Time: 11/06/22 152 Subjective Assessment: Feeling better but still quite SOB when up to bathroom. Can talk without dyspnea, as long as she is sitting still. - Review of Systems Constitutional: No Fever Respiratory: Cough, Short Of Breath Objective Exam General Appearance: no apparent distress, alert Neurologic Exam: oriented x 3, cooperative Skin Exam: warm, dry, other (cheeks alfa), No rash Eye Exam: eyes nml inspection Ears, Nose, Throat Exam: moist mucous membranes Neck Exam: normal inspection Respiratory Exam: diminished breath sounds (poor air exchange), prolonged expirations, wheezing (throughout), No crackles/rales, No rhonchi Cardiovascular Exam: regular rate/rhythm, normal heart sounds, No murmur Gastrointestinal/Abdomen Exam: soft, normal bowel sounds, No tenderness, No distention, No mass, No guarding, No rebound Extremity Exam: normal inspection, No pedal edema, No swelling, No tenderness OBJECTIVE DATA Vital Signs: Vital Signs - 24 hr Temp Pulse Resp BP Pulse Ox 11/06/22 14:36 95 H 18 96 11/06/22 12:00 97.9 F 97 H 20 167/77 95 11/06/22 10:53 92 H 18 95 11/06/22 07:22 98.0 F 81 16 128/68 93 L 11/06/22 07:00 92 H 20 92 L 11/06/22 04:00 97.1 F 86 22 111/67 90 L 11/06/22 03:30 90 23 100 11/05/22 23:15 97.3 F 94 H 26 H 148/77 96 11/05/22 22:46 99 H 26 H 95 11/05/22 18:50 97.7 F 114 H 28 H 167/80 95 11/05/22 18:18 113 H 18 95 11/05/22 16:00 97.1 F 116 H 20 152/76 91 L Pain Assessment - Last Documented Pain Intensity 0 Intake and Output: Intake & Output 11/04/22 11/05/22 11/06/22 11/07/22 11:59 11:59 11:59 11:59 Intake Total 960 2897 480 Output Total 0 Balance 960 2897 480 Weight 68.1 kg 68.1 kg Lab Results: Lab Results-Last 24 Hours 11/06/22 Range/Units 04:25 Sodium 129 L (137-145) mmol/L Potassium 4.8 (3.5-5.1) mmol/L Chloride 95 L (98-107) mmol/L Carbon Dioxide 29 (22-30) mmol/L Anion Gap 9.8 (5-15) MEQ/L BUN 12 (7-17) mg/dL Creatinine 0.66 (0.52-1.04) mg/dL Estimated GFR > 60.0 ML/MIN Glucose 180 H (74-106) mg/dL Calcium 8.7 (8.4-10.2) mg/dL Magnesium 1.9 (1.6-2.3) mg/dL Radiology Exams: Radiology Procedures Category Date Time Status CHEST 1 VIEW (PORTABLE) Stat Exams 11/05/22 00:32 Completed CHEST WITHOUT CONTRAST [CT] Stat Exams 11/05/22 01:17 Completed Assessment/Plan (1) COPD exacerbation Current Visit: Yes Status: Acute Assessment & Plan: On solumedrol 40mg IV q8h. Received 1g IV rocephin in the ER, but no abx since then - procalcitonin pending. Code(s): J44.1 - CHRONIC OBSTRUCTIVE PULMONARY DISEASE W (ACUTE) EXACERBATION (2) Intermittent atrial fibrillation Current Visit: No Status: Chronic Code(s): I48.0 - PAROXYSMAL ATRIAL FIBRILLATION
[2022-11-06] MEDS: CLONIDINE 0.1 MG TABLET PO SCH (21:33)
[2022-11-06] MEDS: Zocor 10MG PO SCH (21:33)
[2022-11-07] MEDS: DUONEB 0.5-3 MG/3 ml Neb IH SCH ×6 (03:00→22:55)
[2022-11-07 05:15] LABS: Absolute Neutrophil Ct (ANC) 9.48 x10^3/uL (1.4-6.9); Basophil (Absolute #) 0.02 x10^3/uL (0-0.4); Eosinophil (Absolute #) 0 x10^3/uL (0-0.5); Hematocrit 34.9 % (35-47); Hemoglobin 11.3 g/dL (12.0-16.0); Lymphocyte (Absolute #) 0.53 x10^3/uL (1.0-4.6); Mean Cell Volume 89.9 fL (78-100); Mean Corpuscular Hemoglobin 29.1 pg (26-32); Mean Corpuscular Hgb Concent. 32.4 g/dL (32-36); Mean Platelet Volume 8.7 fL (7.5-11.0); Monocyte (Absolute #) 0.58 x10^3/uL (0.0-1.3); Monocytes % 5.4 % (0.0-12.0); Neutrophil % 88.7 % (36.0-66.0); Platelet Count 345 x10^3/uL (150-450); Red Blood Count 3.88 x10^6/uL (4.1-5.4); Red Cell Distribution Width 13.5 % (11.5-14.0); White Blood Count 10.7 x10^3/uL (4.0-10.5)
[2022-11-07 05:53] LABS: BLOOD UREA NITROGEN 15 mg/dL (7-17); CHLORIDE 93 mmol/L (98-107); Calcium 8.8 mg/dL (8.4-10.2); Carbon Dioxide 30 mmol/L (22-30); Creatinine 1 0.71 mg/dL (0.52-1.04); EST GLOMERULAR FILTRATION RATE > 60.0 ML/MIN; Glucose 133 mg/dL (74-106); Potassium 4.4 mmol/L (3.5-5.1); SODIUM 127 mmol/L (137-145)
[2022-11-07] MEDS: solu-MEDROL 40 MG, Sterile H2O 10 ml 1 ML IV SCH ×6 (06:29→22:06)
[2022-11-07 07:44] LABS: Slide Review 1 YES
[2022-11-07] MEDS: ELIQUIS 2.5 MG TABLET PO SCH ×2 (09:22→22:06)
[2022-11-07] MEDS: SYNTHROID 25 MCG PO SCH (09:22)
[2022-11-07] MEDS: Effexor XR 75 MG PO SCH (09:22)
[2022-11-07] MEDS: Pepcid 20 MG VIAL IV SCH ×2 (09:22→22:06)
[2022-11-07] MEDS: Protonix 40MG Tablet PO SCH (09:22)
[2022-11-07] MEDS: ISOPTIN SR PO SCH (09:22)
[2022-11-07] MEDS: BUSPAR 5 MG PO SCH ×2 (09:22→22:06)
[2022-11-07] MEDS: ECOTRIN 81 MG PO SCH (09:22)
[2022-11-07] MEDS: Klor Con PO SCH ×2 (09:22→22:06)
[2022-11-07] MEDS: CHLORTHALIDONE PO SCH (09:23)
[2022-11-07] MEDS: Zestril 20 MG PO SCH (09:23)
[2022-11-07] MEDS: Toprol Xl 50 MG PO SCH ×2 (09:23→22:07)
--- NOTE | 2022-11-07 09:34 | PCM.NOTE ---
Date and Time: 11/07/22932 Subjective Assessment: patient continues to have significant cough and feels short of breath at times, she is requiring oxygen currently. has oxygen at home but doesn't typically use it Objective Exam General Appearance: no apparent distress Neurologic Exam: alert, oriented x 3 Respiratory Exam: diminished breath sounds, prolonged expirations, wheezing Cardiovascular Exam: regular rate/rhythm, normal heart sounds Gastrointestinal/Abdomen Exam: soft, No tenderness, No mass Extremity Exam: normal inspection, normal range of motion OBJECTIVE DATA Vital Signs: Vital Signs - 24 hr Temp Pulse Resp BP Pulse Ox 11/07/22 07:23 97.5 F 84 22 140/83 96 11/07/22 07:18 83 18 96 11/07/22 04:00 97.8 F 82 20 142/65 97 11/07/22 03:00 84 20 95 11/06/22 23:39 98.0 F 86 22 115/58 95 11/06/22 22:19 93 H 18 97 11/06/22 19:54 98.0 F 83 24 116/58 96 11/06/22 18:32 88 22 94 L 11/06/22 16:00 98.0 F 91 H 12 122/69 94 L 11/06/22 14:36 95 H 18 96 11/06/22 12:00 97.9 F 97 H 20 167/77 95 11/06/22 10:53 92 H 18 95 Pain Assessment - Last Documented Pain Intensity 0 Intake and Output: Intake & Output 11/04/22 11/05/22 11/06/22 11/07/22 11:59 11:59 11:59 11:59 Intake Total 960 2897 2280 Output Total 0 Balance 960 2897 2280 Weight 68.1 kg 68.1 kg 69.3 kg Lab Results: Lab Results-Last 24 Hours 11/06/22 11/07/22 11/07/22 Range/Units 04:25 04:20 04:20 WBC 10.7 H (4.0-10.5) x10^3/uL RBC 3.88 L (4.1-5.4) x10^6/uL Hgb 11.3 L (12.0-16.0) g/dL Hct 34.9 L (35-47) % MCV 89.9 (78-100) fL MCH 29.1 (26-32) pg MCHC 32.4 (32-36) g/dL RDW 13.5 (11.5-14.0) % Plt Count 345 (150-450) x10^3/uL MPV 8.7 (7.5-11.0) fL Gran % 88.7 H (36.0-66.0) % Immature Gran % (Auto) 0.7 H (0.00-0.4) % Nucleat RBC Rel Count 0.0 (0.00-0.1) % Eos # (Auto) 0 (0-0.5) x10^3/uL Immature Gran # (Auto) 0.08 H (0.00-0.03) x10^3u/L Absolute Lymphs (auto) 0.53 L (1.0-4.6) x10^3/uL Absolute Monos (auto) 0.58 (0.0-1.3) x10^3/uL Absolute Nucleated RBC 0.00 (0.00-0.01) x10^3u/L Lymphocytes % 5.0 L (24.0-44.0) % Monocytes % 5.4 (0.0-12.0) % Eosinophils % 0.0 (0.00-5.0) % Basophils % 0.2 (0.0-0.4) % Absolute Granulocytes 9.48 H (1.4-6.9) x10^3/uL Basophils # 0.02 (0-0.4) x10^3/uL Sodium 127 L (137-145) mmol/L Potassium 4.4 (3.5-5.1) mmol/L Chloride 93 L (98-107) mmol/L Carbon Dioxide 30 (22-30) mmol/L Anion Gap 8.0 (5-15) MEQ/L BUN 15 (7-17) mg/dL Creatinine 0.71 (0.52-1.04) mg/dL Estimated GFR > 60.0 ML/MIN Glucose 133 H (74-106) mg/dL Calcium 8.8 (8.4-10.2) mg/dL Procalcitonin 0.044 (0.030-0.080) ng/mL Slides for Path Review YES Assessment/Plan (1) COPD exacerbation Current Visit: Yes Status: Acute Assessment & Plan: add levaquin, continue nebs and steroids. add tussionex Code(s): J44.1 - CHRONIC OBSTRUCTIVE PULMONARY DISEASE W (ACUTE) EXACERBATION
[2022-11-07] MEDS ORDERED: Levofloxacin 500 MG Tablet PO SCH (10:00)
[2022-11-07] MEDS: HYDROCODONE-CHLORPHEN ER SUSP PO PRN ×2 (10:25→22:06)
[2022-11-07] MEDS: Zocor 10MG PO SCH (22:06)
[2022-11-07] MEDS: CLONIDINE 0.1 MG TABLET PO SCH (22:06)
[2022-11-08] MEDS: DUONEB 0.5-3 MG/3 ml Neb IH SCH ×2 (03:12→07:00)
[2022-11-08 05:34] LABS: Absolute Neutrophil Ct (ANC) 10.01 x10^3/uL (1.4-6.9); Basophil (Absolute #) 0.01 x10^3/uL (0-0.4); Eosinophil (Absolute #) 0 x10^3/uL (0-0.5); Hematocrit 40.1 % (35-47); Hemoglobin 12.9 g/dL (12.0-16.0); Lymphocyte (Absolute #) 0.57 x10^3/uL (1.0-4.6); Mean Cell Volume 91.1 fL (78-100); Mean Corpuscular Hemoglobin 29.3 pg (26-32); Mean Corpuscular Hgb Concent. 32.2 g/dL (32-36); Mean Platelet Volume 8.7 fL (7.5-11.0); Monocyte (Absolute #) 0.75 x10^3/uL (0.0-1.3); Monocytes % 6.5 % (0.0-12.0); Platelet Count 385 x10^3/uL (150-450); Red Cell Distribution Width 13.2 % (11.5-14.0); White Blood Count 11.5 x10^3/uL (4.0-10.5)
[2022-11-08] MEDS: solu-MEDROL 40 MG, Sterile H2O 10 ml 1 ML IV SCH ×2 (05:53)
[2022-11-08] MEDS: Ativan 0.5 MG PO PRN (06:00)
[2022-11-08 06:09] LABS: ANION GAP 11.8 MEQ/L (5-15); BLOOD UREA NITROGEN 14 mg/dL (7-17); CHLORIDE 93 mmol/L (98-107); Carbon Dioxide 28 mmol/L (22-30); Creatinine 1 0.72 mg/dL (0.52-1.04); EST GLOMERULAR FILTRATION RATE > 60.0 ML/MIN; Glucose 210 mg/dL (74-106); Potassium 4.3 mmol/L (3.5-5.1); SODIUM 129 mmol/L (137-145)
[2022-11-08 06:23] LABS: Slide Review 1 YES
--- NOTE | 2022-11-08 07:31 | PCM.DS ---
Discharge Summary Date of Admission: 11/06/22 15:25 Admitting Physician: HERBERT ONOFRE DO Primary Care Provider: KAVEH ALMANZAR Allergies Allergies Penicillins Allergy (Severe, Verified 10/09/22 16:40) [facility] Summary - Hospital Course Hospital Course: patient admitted with cough, wheezing and dyspnea with copd exacerbation. she is doing much better, feeling better. has oxygen and nebulizer and supplies at home. - Vitals & Intake/Output Vital Signs: Vital Signs Temperature 97.8 F 11/08/22 04:00 Pulse Rate 91 H 11/08/22 07:04 Respiratory Rate 18 11/08/22 07:04 Blood Pressure 151/73 11/08/22 04:00 O2 Sat by Pulse Oximetry 95 11/08/22 07:04 Intake & Output: Intake & Output 11/05/22 11/06/22 11/07/22 11/08/22 11:59 11:59 11:59 11:59 Intake Total 960 2897 2280 1979 Output Total 0 Balance 960 2897 2280 1979 Weight 68.1 kg 68.1 kg 69.3 kg - Lab Result Diagrams: 11/08/22 05:22 11/08/22 05:22 Lab Results-Last 24 Hrs: Lab Results-Last 24 Hours 11/07/22 11/08/22 11/08/22 Range/Units 04:20 05:22 05:22 WBC 11.5 H (4.0-10.5) x10^3/uL RBC 4.40 (4.1-5.4) x10^6/uL Hgb 12.9 (12.0-16.0) g/dL Hct 40.1 (35-47) % MCV 91.1 (78-100) fL MCH 29.3 (26-32) pg MCHC 32.2 (32-36) g/dL RDW 13.2 (11.5-14.0) % Plt Count 385 (150-450) x10^3/uL MPV 8.7 (7.5-11.0) fL Gran % 87.0 H (36.0-66.0) % Immature Gran % (Auto) 1.4 H (0.00-0.4) % Nucleat RBC Rel Count 0.0 (0.00-0.1) % Eos # (Auto) 0 (0-0.5) x10^3/uL Immature Gran # (Auto) 0.16 H (0.00-0.03) x10^3u/L Absolute Lymphs (auto) 0.57 L (1.0-4.6) x10^3/uL Absolute Monos (auto) 0.75 (0.0-1.3) x10^3/uL Absolute Nucleated RBC 0.00 (0.00-0.01) x10^3u/L Lymphocytes % 5.0 L (24.0-44.0) % Monocytes % 6.5 (0.0-12.0) % Eosinophils % 0.0 (0.00-5.0) % Basophils % 0.1 (0.0-0.4) % Absolute Granulocytes 10.01 H (1.4-6.9) x10^3/uL Basophils # 0.01 (0-0.4) x10^3/uL Sodium 129 L (137-145) mmol/L Potassium 4.3 (3.5-5.1) mmol/L Chloride 93 L (98-107) mmol/L Carbon Dioxide 28 (22-30) mmol/L Anion Gap 11.8 (5-15) MEQ/L BUN 14 (7-17) mg/dL Creatinine 0.72 (0.52-1.04) mg/dL Estimated GFR > 60.0 ML/MIN Glucose 210 H (74-106) mg/dL Calcium 9.0 (8.4-10.2) mg/dL Slides for Path Review YES YES - Procedures and Test Procedures and Tests throughout Hospitalization: Therapy Orders & Screens 11/05/22 00:39 Respiratory Therapy Assessment DAILY Comment: 11/05/22 02:31 Oxygen Nasal Cannula 3 lpm Comment: 11/05/22 03:38 RT Screen per Nursing Assess ONCE Comment: Protocol Order Physician Instructions: Greater than 3 points order RT Admission Screen Reason For Exam: Triggered on Admission Diagnosis: COPD Diagnosis: COPD Pneumonia: No Home O2: Yes Asthma: No CHF: No Home CPAP/BIPAP: No Home Nebs/MDI: Yes Total Points: 10 Discharge Exam General Appearance: no apparent distress Neurologic Exam: alert, oriented x 3 Respiratory Exam: wheezing (minimal, mostly clear breath sounds) Cardiovascular Exam: regular rate/rhythm, normal heart sounds Extremity Exam: normal inspection, normal range of motion Skin Exam: normal color, warm, dry Final Diagnosis/Problem List - Final Discharge Diagnosis/Problem (1) COPD exacerbation Current Visit: Yes Status: Acute Assessment & Plan: home on po prednisone and levaquin Code(s): J44.1 - CHRONIC OBSTRUCTIVE PULMONARY DISEASE W (ACUTE) EXACERBATION - Discharge Disposition: Home, Self-Care Condition: Stable Prescriptions: New Prednisone 20 mg [Deltasone 20 mg] 20 mg PO UD #18 tablet Hydrocodone/Chlorphen P-Stirex [Hydrocodone-Chlorph ER Susp (TUSSIONEX)] 5 ml PO [id number] PRN #120 ml MDD 10mL PRN Reason: Cough Levofloxacin [Levofloxacin 250MG Tablet] 250 mg PO DAILY #5 tab Continue Verapamil HCl Sr [Isoptin Sr] 240 mg PO DAILY Lisinopril 20 mg [Zestril 20 MG] 10 mg PO DAILY cloNIDine HCL [Catapres] 0.1 mg PO HS Chlorthalidone 12.5 mg PO DAILY Levothyroxine Sodium 25 Mcg [Synthroid 25 Mcg] 25 mcg PO DAILY Atorvastatin Calcium 10 mg PO HS Omeprazole 20 mg PO DAILY Venlafaxine HCl [Effexor Xr] 150 mg PO DAILY Metoprolol Tartrate 50 mg [Lopressor 50 MG] 50 mg PO HS Buspirone HCl 5 mg [Buspar 5 mg] 10 mg PO BID Albuterol 2.5 mg/3 ml Neb [Proventil 2.5 mg/3 ml Neb] 2.5 mg IH Q4H PRN PRN #35 unit PRN Reason: Shortness Of Breath/Wheezing Potassium Chloride Tab* [Klor Con] 20 meq PO BID Aspirin EC 81 mg [Ecotrin 81 mg] 81 mg PO DAILY Apixaban [Eliquis 2.5 mg Tablet] 2.5 mg PO HS Alendronate Sodium [Fosamax] 70 mg PO WEEKLY Follow up with: KAVEH ALMANZAR [Primary Care Provider] -
[2022-11-08 07:32] VITALS: BP 170/91; PULSE 93; O2SAT 94
[2022-11-08] MEDS: Zestril 20 MG PO SCH (09:16)
[2022-11-08] MEDS: Effexor XR 75 MG PO SCH (09:17)
[2022-11-08] MEDS: Protonix 40MG Tablet PO SCH (09:17)
[2022-11-08] MEDS: ECOTRIN 81 MG PO SCH (09:17)
[2022-11-08] MEDS: Toprol Xl 50 MG PO SCH (09:17)
[2022-11-08] MEDS: Klor Con PO SCH (09:17)
[2022-11-08] MEDS: SYNTHROID 25 MCG PO SCH (09:17)
[2022-11-08] MEDS: BUSPAR 5 MG PO SCH (09:17)
[2022-11-08] MEDS: ELIQUIS 2.5 MG TABLET PO SCH (09:17)
[2022-11-08] MEDS: Pepcid 20 MG VIAL IV SCH (09:18)
[2022-11-08] MEDS: CHLORTHALIDONE PO SCH (09:18)
[2022-11-08] MEDS: ISOPTIN SR PO SCH (09:18)
[2022-11-08] MEDS ORDERED: Levofloxacin 250MG Tablet PO SCH (10:00)
[2022-11-11] MEDS ORDERED: Fosamax 70 MG PO SCH (06:00)
== END 2022-11-08 09:40 | disposition home or self-care (01) | DRG 192 ==
LOC: ED 00:08 → MED SURG 03:08 → OBSVTOIN 11-06 15:25
PROVIDERS: ADMIT Family Medicine; ATTEND Family Medicine
DX: J44.1 Chronic obstructive pulmonary disease with (acute) exacerbation (principal); I48.0 Paroxysmal atrial fibrillation; I10 Essential (primary) hypertension; E78.5 Hyperlipidemia, unspecified; I25.2 Old myocardial infarction; E03.9 Hypothyroidism, unspecified; Z79.899 Other long term (current) drug therapy; Z20.828 Contact with and (suspected) exposure to other viral communicable diseases; Z79.01 Long term (current) use of anticoagulants
CPT/HCPCS: 0241U; 36415; 71045; 71250; 80048; 80053; 82607; 83735; 83880; 84145; 84443; 84484; 85025; 85027; 85610; 85730; 93005; 93268; 94640; 94760; 94762; 96365; 96374; 99285; G0378; J0696; J2920; J2930; J3420; A9270-GY; J3475

== ENCOUNTER 2022-11-27 18:50 | Observation (INO) | payer MEDICARE ==
[2022-11-27] MEDS ORDERED: PROVENTIL 2.5 MG/3 ML NEB IH ONE ×2 (18:57→19:02)
[2022-11-27] MEDS ORDERED: solu-MEDROL 125 MG, Sterile H2O 10 ml 2 ML IV ONE ×2 (19:21)
[2022-11-27] MEDS ORDERED: Sterile H2O 10 ml IJ ONE (19:29)
[2022-11-27] MEDS ORDERED: solu-MEDROL ONE (19:29)
--- NOTE | 2022-11-27 20:13 | ERPHSYRPT ---
- History of Present Illness Time Seen by Provider: 11/27/22 20:09 Source: patient Exam Limitations: no limitations Patient Subjective Stated Complaint: pt here for increase sob, cough, pt has hx of copd.no fever Triage Nursing Assessment: pt alert, resp distress, only speak 3 wourd sentences audible wheezes heard,o2 sat 88 % ra. o2 at 2 l nc started, no edema noted Physician History: Patient is an 82-year-old female with a history of COPD, A. fib currently on Eliquis presents to our ED with progressive shortness of breath. Symptoms progressively worse throughout the day. Patient arrived to our ED via private vehicle. Patient's at bedside. No fever. Upon arrival patient only able to speak 3 word sentences. Audible wheezing. O2 sat on room air was 88%. 2 L nasal cannula applied. Patient received a DuoNeb immediately upon arrival. Patient not resting more comfortably. But still feels somewhat short of breath. Audible wheezing ongoing. No associated chest pain. No nausea vomiting or diaphoresis. No rash. Patient voices no other complaints or concerns at this time. Portions of this note were created with voice recognition technology. There may be grammatical, spelling, punctuation or sound alike errors Timing/Duration: today Activities at Onset: none Severity of Dyspnea-Max: severe Severity of Dyspnea-Current: moderate Possible Cause: occasional episodes Modifying Factors: Improves With: albuterol nebulizer, oxygen Associated Symptoms: cough, wheezing, tightness, No chest pain/discomfort, No ankle swelling, No hemoptysis, No calf pain Allergies/Adverse Reactions: Penicillins Allergy (Severe, Verified 11/27/22 18:51) Hives Home Medications: Lisinopril 20 mg [Zestril 20 MG] 10 mg PO DAILY 10/27/18 [History] Verapamil HCl Sr [Isoptin Sr] 240 mg PO DAILY 10/27/18 [History] cloNIDine HCL [Catapres] 0.1 mg PO HS 11/28/18 [History] Atorvastatin Calcium 10 mg PO HS 05/12/21 [History] Chlorthalidone 12.5 mg PO DAILY 05/12/21 [History] Levothyroxine Sodium 25 Mcg [Synthroid 25 Mcg] 25 mcg PO DAILY 05/12/21 [History] Omeprazole 20 mg PO DAILY 05/12/21 [History] Venlafaxine HCl [Effexor Xr] 150 mg PO DAILY 05/12/21 [History] Buspirone HCl 5 mg [Buspar 5 mg] 10 mg PO BID 10/09/22 [History] Metoprolol Tartrate 50 mg [Lopressor 50 MG] 50 mg PO HS 10/09/22 [History] Alendronate Sodium [Fosamax] 70 mg PO WEEKLY 11/05/22 [History] Apixaban [Eliquis 2.5 mg Tablet] 2.5 mg PO HS 11/05/22 [History] Aspirin EC 81 mg [Ecotrin 81 mg] 81 mg PO DAILY 11/05/22 [History] Potassium Chloride Tab* [Klor Con] 20 meq PO BID 11/05/22 [History] Hx Tetanus, Diphtheria Vaccination/Date Given: No Hx Influenza Vaccination/Date Given: No Hx Pneumococcal Vaccination/Date Given: Yes Immunizations Up to Date: Yes Travel Risk - International Travel Have you traveled outside of the country in past 3 weeks: No - Coronavirus Screening Are you exhibiting any of the following symptoms?: No Close contact with a COVID-19 positive Pt in past 14-21 Days: No - Vaccine Status Have you recieved a Covid-19 vaccination: Yes [employer]: Moderna - Vaccination Dates Date of 2cond Vaccination (if applicable): february, - Review of Systems Constitutional: No Symptoms, No Fever, No Chills Eyes: No Symptoms Ears, Nose, & Throat: No Symptoms Respiratory: No Symptoms, No Cough, No Dyspnea Cardiac: No Symptoms, No Chest Pain, No Edema, No Syncope Abdominal/Gastrointestinal: No Symptoms, No Abdominal Pain, No Nausea, No Vomiting, No Diarrhea Genitourinary Symptoms: No Symptoms, No Dysuria Musculoskeletal: No Symptoms, No Back Pain, No Neck Pain Skin: No Symptoms, No Rash Neurological: No Symptoms, No Dizziness, No Focal Weakness, No Sensory Changes Psychological: No Symptoms Endocrine: No Symptoms Hematologic/Lymphatic: No Symptoms Immunological/Allergic: No Symptoms All Other Systems: Reviewed and Negative - Past Medical History Pertinent Past Medical History: Yes Neurological History: No Pertinent History ENT History: No Pertinent History Cardiac History: Arrhythmia, High Cholesterol, Hypertension, Myocardial Infarction ([place]) Respiratory History: Bronchitis, COPD Endocrine Medical History: Hypothyroidism Musculoskeletal History: Osteoarthritis GI Medical History: GERD, Hemorrhoids History: No Pertinent History Psycho-Social History: Anxiety Female Reproductive Disorders: No Pertinent History Other Medical History: Had mild OK in 2020, A-fib in 2021, herniated rectum - Past Surgical History Past Surgical History: Yes Neuro Surgical History: No Pertinent History Cardiac: No Pertinent History Respiratory: No Pertinent History Gastrointestinal: No Pertinent History Genitourinary: No Pertinent History Musculoskeletal: Joint Replacement, Other Female Surgical History: No Pertinent History Other Surgical History: bilateral hip replacements and lumbar fusions, cataract. left eye Oct 2018 - Social History Smoking Status: Former smoker How long have you smoked: 61 yrs Exposure to second hand smoke: Yes Drug Use: none Patient Lives Alone: No - Nursing Vital Signs Nursing Vital Signs: Initial Vital Signs Temperature 96.8 F 11/27/22 18:53 Pulse Rate 108 H 11/27/22 18:53 Respiratory Rate 38 H 11/27/22 18:53 Blood Pressure 151/108 11/27/22 18:53 O2 Sat by Pulse Oximetry 88 L 11/27/22 18:53 Pain Scale Pain Intensity 3 - Physical Exam General Appearance: no apparent distress, alert Eye Exam: PERRL/EOMI, eyes nml inspection Ears, Nose, Throat Exam: hearing grossly normal, normal ENT inspection, normal pharynx Neck Exam: normal inspection, supple, full range of motion Respiratory Exam: respiratory distress, accessory muscle use, rhonchi, wheezing Cardiovascular/Chest Exam: normal heart sounds, regular rate/rhythm Abdominal/Gastrointestinal Exam: soft, No tenderness, No distention, No mass Extremity Exam: non-tender, normal range of motion, normal inspection, no calf tenderness, no pedal edema, No swelling Peripheral Pulses Exam: dorsalis-pedis (R): 2+, dorsalis-pedis (L): 2+ Neurologic Exam: alert, oriented x 3, cooperative, 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 Chronic changes observed. Otherwise negative) Ordered Tests: Active Orders 24 hr Category Date Time Status Outsole Flexer STAT Care 11/27/22 19:19 Active EKG-ER Only STAT Care 11/27/22 19:18 Active IV Insertion STAT Care 11/27/22 19:18 Active Pulse Oximetry (ED) STAT Care 11/27/22 19:18 Active CHEST 1 VIEW (PORTABLE) Stat Exams 11/27/22 19:19 Taken BLOOD CULTURE Stat Lab 11/27/22 19:58 Received CBC W DIFF Stat Lab 11/27/22 19:56 Completed CMP Stat Lab 11/27/22 19:56 Completed Lactic Acid Stat Lab 11/27/22 19:32 Completed NT PRO BNP Stat Lab 11/27/22 19:56 Completed TROPONIN Q4H Lab 11/27/22 19:58 Completed TROPONIN Q4H Lab 11/27/22 23:30 Ordered TROPONIN Q4H Lab 11/28/22 03:30 Ordered Respiratory Therapy Assessment DAILY RT 11/27/22 19:03 Active Transfer Order Routine Transfer 11/27/22 Ordered Medication Summary Generic Name Dose Route Start Last Admin Trade Name Freq PRN Reason Stop Dose Admin Doxycycline Hyclate 100 mg/ 100 mls @ 100 mls/hr 11/27/22 22:00 11/27/22 20:47 Dextrose IV 12/27/22 21:59 100 mls/hr Q12HT DEVON Administration Discontinued Medications Generic Name Dose Route Start Last Admin Trade Name Freq PRN Reason Stop Dose Admin Albuterol Sulfate Confirm 11/27/22 18:57 Albuterol Sulfate 2.5 Mg/3 Ml Neb Administered 11/27/22 18:58 Dose 2.5 mg IH .STK-MED ONE Albuterol Sulfate 2.5 mg 11/27/22 19:02 11/27/22 19:03 Albuterol Sulfate 2.5 Mg/3 Ml Neb IH 11/27/22 19:03 2.5 mg STAT ONE Administration Methylprednisolone Sodium 0 mg 11/27/22 19:21 11/27/22 19:30 Succinate 125 mg/ Sterile IV 11/27/22 19:22 125 mg Water 2 ml STAT ONE Administration Doxycycline Hyclate Confirm 11/27/22 20:36 Doxycycline Hyclate 100 Mg/Vial Injection Administered 11/27/22 20:37 Dose 100 mg IV .STK-MED ONE Dextrose Confirm 11/27/22 20:37 D5w 100ml Mini Bag 100 Ml Administered 11/27/22 20:38 Dose 100 mls @ ud IV .STK-MED ONE Methylprednisolone Sodium Succinate Confirm 11/27/22 19:29 Methylprednis Sod Succ 125 Mg/2 Ml Vial Administered 11/27/22 19:30 Dose 125 mg .ROUTE .STK-MED ONE Sterile Water Confirm 11/27/22 19:29 Water For Injection,Sterile 10 Ml Vial Administered 11/27/22 19:30 Dose 10 ml IJ .STK-MED ONE Lab/Rad Data: Laboratory Result Diagrams 11/27/22 19:56 11/27/22 19:56 Laboratory Results 11/27/22 11/27/22 11/27/22 Range/Units 19:59 19:58 19:56 WBC (4.0-10.5) x10^3/uL RBC (4.1-5.4) x10^6/uL Hgb (12.0-16.0) g/dL Hct (35-47) % MCV (78-100) fL MCH (26-32) pg MCHC (32-36) g/dL RDW (11.5-14.0) % Plt Count (150-450) x10^3/uL MPV (7.5-11.0) fL Gran % (36.0-66.0) % Immature Gran % (Auto) (0.00-0.4) % Nucleat RBC Rel Count (0.00-0.1) % Eos # (Auto) (0-0.5) x10^3/uL Immature Gran # (Auto) (0.00-0.03) x10^3u/L Absolute Lymphs (auto) (1.0-4.6) x10^3/uL Absolute Monos (auto) (0.0-1.3) x10^3/uL Absolute Nucleated RBC (0.00-0.01) x10^3u/L Lymphocytes % (24.0-44.0) % Monocytes % (0.0-12.0) % Eosinophils % (0.00-5.0) % Basophils % (0.0-0.4) % Absolute Granulocytes (1.4-6.9) x10^3/uL Basophils # (0-0.4) x10^3/uL Sodium 131 L (137-145) mmol/L Potassium 3.9 (3.5-5.1) mmol/L Chloride 93 L (98-107) mmol/L Carbon Dioxide 29 (22-30) mmol/L Anion Gap 12.6 (5-15) MEQ/L BUN 10 (7-17) mg/dL Creatinine 0.59 (0.52-1.04) mg/dL Estimated GFR > 60.0 ML/MIN Glucose 128 H (74-106) mg/dL Lactic Acid (0.4-2.0) Calcium 9.5 (8.4-10.2) mg/dL Total Bilirubin 0.50 (0.2-1.3) mg/dL AST 22 (14-36) U/L ALT 20 (0-35) U/L Alkaline Phosphatase 69 (38-126) U/L Troponin I < 0.012 (0.000-0.034) ng/mL NT-Pro-B Natriuret Pep 162 (0-1800) pg/mL Serum Total Protein 7.6 (6.3-8.2) g/dL Albumin 4.5 (3.5-5.0) g/dL Influenza Type A Ag NEGATIVE (NEGATIVE) Influenza Type B Ag NEGATIVE (NEGATIVE) RSV (PCR) NEGATIVE (Negative) SARS-CoV-2 (PCR) NEGATIVE (NEGATIVE) 11/27/22 11/27/22 Range/Units 19:56 19:32 WBC 13.0 H (4.0-10.5) x10^3/uL RBC 4.46 (4.1-5.4) x10^6/uL Hgb 13.1 (12.0-16.0) g/dL Hct 39.4 (35-47) % MCV 88.3 (78-100) fL MCH 29.4 (26-32) pg MCHC 33.2 (32-36) g/dL RDW 14.3 H (11.5-14.0) % Plt Count 327 (150-450) x10^3/uL MPV 9.3 (7.5-11.0) fL Gran % 70.6 H (36.0-66.0) % Immature Gran % (Auto) 0.6 H (0.00-0.4) % Nucleat RBC Rel Count 0.0 (0.00-0.1) % Eos # (Auto) 0.83 H (0-0.5) x10^3/uL Immature Gran # (Auto) 0.08 H (0.00-0.03) x10^3u/L Absolute Lymphs (auto) 1.68 (1.0-4.6) x10^3/uL Absolute Monos (auto) 1.18 (0.0-1.3) x10^3/uL Absolute Nucleated RBC 0.00 (0.00-0.01) x10^3u/L Lymphocytes % 12.9 L (24.0-44.0) % Monocytes % 9.1 (0.0-12.0) % Eosinophils % 6.4 H (0.00-5.0) % Basophils % 0.4 (0.0-0.4) % Absolute Granulocytes 9.21 H (1.4-6.9) x10^3/uL Basophils # 0.05 (0-0.4) x10^3/uL Sodium (137-145) mmol/L Potassium (3.5-5.1) mmol/L Chloride (98-107) mmol/L Carbon Dioxide (22-30) mmol/L Anion Gap (5-15) MEQ/L BUN (7-17) mg/dL Creatinine (0.52-1.04) mg/dL Estimated GFR ML/MIN Glucose (74-106) mg/dL Lactic Acid 1.6 (0.4-2.0) Calcium (8.4-10.2) mg/dL Total Bilirubin (0.2-1.3) mg/dL AST (14-36) U/L ALT (0-35) U/L Alkaline Phosphatase (38-126) U/L Troponin I (0.000-0.034) ng/mL NT-Pro-B Natriuret Pep (0-1800) pg/mL Serum Total Protein (6.3-8.2) g/dL Albumin (3.5-5.0) g/dL Influenza Type A Ag (NEGATIVE) Influenza Type B Ag (NEGATIVE) RSV (PCR) (Negative) SARS-CoV-2 (PCR) (NEGATIVE) - Progress Progress: improved Air Movement: good Progress Note: I interpreted the EKG I interpreted the chest x-ray 11/27/22 20:[address] Siddiqi who excepts admission to observation. Plan of care discussed with patient. She agrees to admission at [facility] for further evaluation and treatment. Patient is COVID-negative 11/27/22 21:33 Patient is on Eliquis for history of A. fib. 11/27/22 21:46 Patient is an 82-year-old female presents to our ED from home for evaluation of shortness of breath. Patient has a history of COPD and A. fib. Patient currently on Eliquis. Patient's complaint is acute on chronic. Symptoms were moderate to severe in intensity and complexity. Patient's comorbidities are likely contributing to patient's current shortness of breath. Test ordered include chest x-ray, blood cultures, CBC, CMP, COVID testing, lactic acid, proBNP. Results of test ordered were used to formulate medical decision making. Patient received a dose of doxycycline. Methylprednisolone and albuterol nebulizer treatment. Symptoms significantly improved. Case discussed with Dr. Siddiqi who accepts admission to observation. Plan of care discussed with patient. She agrees to admission at [facility] for further evaluation and treatment. Level of EM service provided was moderate to high. Complexity of problem addressed was moderate to high. Complexity of data reviewed and analyzed was moderate. Risks and complications, morbidity/mortality was moderate. No critical care time Patient was an independent historian. Patient was competent and provided adequate information for history of present illness. Portions of this note were created with voice recognition technology. There may be grammatical, spelling, punctuation or sound alike errors 11/27/22 21:58 Blood Culture(s) Obtained: Yes Antibiotics given: Yes Discussed with : Nabila Will see patient in: hospital (observation) Counseled pt/family regarding: lab results, diagnosis - Departure Departure Disposition: Observation Clinical Impression: Hypoxia, Leukocytosis, Hyponatremia, COPD exacerbation Condition: Stable Critical Care Time: No Referrals: KAVEH ALMANZAR [Primary Care Provider] - Follow up/PCP as directed Instructions: Chronic Obstructive Pulmonary Disease
[2022-11-27 20:14] LABS: ALBUMIN 4.5 g/dL (3.5-5.0); ALKALINE PHOSPHATASE 69 U/L (38-126); ANION GAP 12.6 MEQ/L (5-15); BLOOD UREA NITROGEN 10 mg/dL (7-17); CHLORIDE 93 mmol/L (98-107); Calcium 9.5 mg/dL (8.4-10.2); Carbon Dioxide 29 mmol/L (22-30); Creatinine 1 0.59 mg/dL (0.52-1.04); EST GLOMERULAR FILTRATION RATE > 60.0 ML/MIN; Glucose 128 mg/dL (74-106); NT PRO BNP 162 pg/mL (0-1800); Potassium 3.9 mmol/L (3.5-5.1); SGOT/AST 22 U/L (14-36); SGPT/ALT 20 U/L (0-35); SODIUM 131 mmol/L (137-145); Total Protein 7.6 g/dL (6.3-8.2)
[2022-11-27 20:24] LABS: Absolute Neutrophil Ct (ANC) 9.21 x10^3/uL (1.4-6.9); Basophil (Absolute #) 0.05 x10^3/uL (0-0.4); Eosinophil % 6.4 % (0.00-5.0); Eosinophil (Absolute #) 0.83 x10^3/uL (0-0.5); Hematocrit 39.4 % (35-47); Hemoglobin 13.1 g/dL (12.0-16.0); Lymphocyte (Absolute #) 1.68 x10^3/uL (1.0-4.6); Lymphocytes % 12.9 % (24.0-44.0); Mean Cell Volume 88.3 fL (78-100); Mean Corpuscular Hemoglobin 29.4 pg (26-32); Mean Corpuscular Hgb Concent. 33.2 g/dL (32-36); Mean Platelet Volume 9.3 fL (7.5-11.0); Monocyte (Absolute #) 1.18 x10^3/uL (0.0-1.3); Monocytes % 9.1 % (0.0-12.0); Neutrophil % 70.6 % (36.0-66.0); Platelet Count 327 x10^3/uL (150-450); Red Blood Count 4.46 x10^6/uL (4.1-5.4); Red Cell Distribution Width 14.3 % (11.5-14.0)
[2022-11-27] MEDS ORDERED: VIBRAMYCIN 100 MG IV ONE (20:36)
[2022-11-27] MEDS ORDERED: D5w 100ML Mini Bag 100 ML 100 ML IV ONE (20:37)
[2022-11-27 20:48] LABS: INFLUENZA A NEGATIVE (NEGATIVE); INFLUENZA B NEGATIVE (NEGATIVE); RESPIRATORY SYNCTIAL VIRUS NEGATIVE (Negative); SARS-CoV-2 Xpert Express NEGATIVE (NEGATIVE)
[2022-11-27] MEDS ORDERED: VIBRAMYCIN 100 MG*** 100 MG in Dextrose 5%/Water IV Soln. 100ML PLUS BAG 100 ML IV SCH (22:00)
[2022-11-27] MEDS ORDERED: Vibramycin 100 MG PO SCH (22:21)
[2022-11-27] MEDS ORDERED: Toprol Xl 50 MG PO SCH (23:00)
[2022-11-27] MEDS: Zocor 10MG PO SCH (23:16)
[2022-11-27] MEDS: CLONIDINE 0.1 MG TABLET PO SCH (23:16)
[2022-11-27] MEDS: Lopressor 50 MG PO SCH (23:16)
[2022-11-27] MEDS: Klor Con PO SCH (23:16)
[2022-11-27] MEDS: ELIQUIS 2.5 MG TABLET PO SCH (23:16)
[2022-11-27] MEDS: BUSPAR 5 MG PO SCH (23:16)
[2022-11-28] MEDS: PROVENTIL 2.5 MG/3 ML NEB IH SCH ×7 (00:02→22:09)
[2022-11-28] MEDS: solu-MEDROL 60 MG, Sterile H2O 10 ml 2 ML IV SCH ×8 (00:20→17:11)
[2022-11-28] MEDS ORDERED: solu-MEDROL ONE ×2 (00:20→01:07)
[2022-11-28] MEDS ORDERED: Sterile H2O 10 ml IJ ONE ×2 (00:20→01:07)
[2022-11-28 04:35] LABS: Hemoglobin 11.9 g/dL (12.0-16.0); Mean Cell Volume 88.5 fL (78-100); Mean Corpuscular Hemoglobin 29.2 pg (26-32); Mean Corpuscular Hgb Concent. 33.1 g/dL (32-36); Mean Platelet Volume 9.1 fL (7.5-11.0); Platelet Count 274 x10^3/uL (150-450); Red Blood Count 4.07 x10^6/uL (4.1-5.4); Red Cell Distribution Width 13.8 % (11.5-14.0); White Blood Count 5.5 x10^3/uL (4.0-10.5)
[2022-11-28 04:38] LABS: ALKALINE PHOSPHATASE 59 U/L (38-126); ANION GAP 11.3 MEQ/L (5-15); BLOOD UREA NITROGEN 9 mg/dL (7-17); CHLORIDE 93 mmol/L (98-107); Calcium 9.1 mg/dL (8.4-10.2); Carbon Dioxide 27 mmol/L (22-30); Creatinine 1 0.47 mg/dL (0.52-1.04); EST GLOMERULAR FILTRATION RATE > 60.0 ML/MIN; Glucose 181 mg/dL (74-106); Potassium 4.2 mmol/L (3.5-5.1); SGOT/AST 19 U/L (14-36); SGPT/ALT 19 U/L (0-35); SODIUM 127 mmol/L (137-145); Total Protein 6.4 g/dL (6.3-8.2)
[2022-11-28] MEDS ORDERED: PROVENTIL 2.5 MG/3 ML NEB IH ONE (07:06)
[2022-11-28] MEDS: Vibramycin 100 MG PO SCH ×2 (07:59→16:34)
--- NOTE | 2022-11-28 08:37 | XRAY ---
Indication: Short of breath. Comparison: November 05, 2022 Portable chest remains inflated and clear with again left base calcified granuloma. Heart not enlarged. Bony thorax intact again with osteopenia and mild degenerative changes. No new/acute findings.
[2022-11-28] MEDS: BUSPAR 5 MG PO SCH ×2 (09:47→21:36)
[2022-11-28] MEDS: Klor Con PO SCH ×2 (09:47→21:37)
[2022-11-28] MEDS: TYLENOL 325 MG PO PRN ×2 (10:13→17:11)
--- NOTE | 2022-11-28 11:54 | PCM.HP ---
History of Present Illness - Chief Complaint Chief Complaint: COPD exacerbation History of Present Illness: is a 82 year old female pt of Dr. Chevy Miles who was admitted through ER with COPD exacerbation. She has PMHx COPD, afib (on Eliquis), HTN, CAD (had [place] 2020), hypothyroidism, OA, GERD, and anxiety with hx bilat hip replacements. She had been admitted within the past 1-2 months; felt good for 2 weeks after discharge, then after her meds ran out she started feeling worse, particularly in the last 36 hours. She had O2 sat 88% on RA and increased WOB in the ER. Could only speak 3 word sentences. Howe better with nebs, solumedrol, and antibiotic. Has been refusing O2 at home after hospital discharge, because her trailer is small. She c/o SOB, cough at home - no fever or chest pain. - Review of Systems Respiratory: Cough, Short Of Breath Genitourinary Symptoms: Other (making "lots of urine") Psychological: Depression (has seasonal depression), No Suicidal Ideations, No Homicidal Ideations All Other Systems: Reviewed and Negative Medications & Allergies Home Medications: Home Medication List Lisinopril 20 mg [Zestril 20 MG] 10 mg PO DAILY 10/27/18 [History Confirmed 11/27/22] Verapamil HCl Sr [Isoptin Sr] 240 mg PO DAILY 10/27/18 [History Confirmed 11/27/22] cloNIDine HCL [Catapres] 0.1 mg PO HS 11/28/18 [History Confirmed 11/27/22] Atorvastatin Calcium 10 mg PO HS 05/12/21 [History Confirmed 11/27/22] Chlorthalidone 12.5 mg PO DAILY 05/12/21 [History Confirmed 11/27/22] Levothyroxine Sodium 25 Mcg [Synthroid 25 Mcg] 25 mcg PO DAILY 05/12/21 [History Confirmed 11/27/22] Omeprazole 20 mg PO DAILY 05/12/21 [History Confirmed 11/27/22] Venlafaxine HCl [Effexor Xr] 150 mg PO DAILY 05/12/21 [History Confirmed 11/27/22] Buspirone HCl 5 mg [Buspar 5 mg] 10 mg PO BID 10/09/22 [History Confirmed 11/27/22] Metoprolol Tartrate 50 mg [Lopressor 50 MG] 50 mg PO HS 10/09/22 [History Confirmed 11/27/22] Albuterol 2.5 mg/3 ml Neb [Proventil 2.5 mg/3 ml Neb] 2.5 mg IH Q4H PRN PRN #35 unit 10/16/22 [Rx Confirmed 11/27/22] Alendronate Sodium [Fosamax] 70 mg PO WEEKLY 11/05/22 [History Confirmed 11/27/22] Apixaban [Eliquis 2.5 mg Tablet] 2.5 mg PO HS 11/05/22 [History Confirmed 11/27/22] Aspirin EC 81 mg [Ecotrin 81 mg] 81 mg PO DAILY 11/05/22 [History Confirm ed 11/27/22] Potassium Chloride Tab* [Klor Con] 20 meq PO BID 11/05/22 [History Confirmed 11/27/22] Prednisone 20 mg [Deltasone 20 mg] 20 mg PO UD #18 tablet 11/08/22 [Rx Confirmed 11/27/22] Allergies/Adverse Reactions: Allergies Allergy/AdvReac Type Severity Reaction Status Date / Time Penicillins Allergy Severe Hives Verified 11/27/22 18:51 - Past Medical History Past Medical History: Yes Neurological History: No Pertinent History ENT History: No Pertinent History Cardiac History: Arrhythmia, High Cholesterol, Hypertension, Myocardial Infarction ([place]) Respiratory History: Bronchitis, COPD Endocrine Medical History: Hypothyroidism Musculoskelatal History: Osteoarthritis GI Medical History: GERD, Hemorrhoids History: No Pertinent History Pyscho-Social History: Anxiety Reproductive Disorders: No Pertinent History Comment: Had mild [place] in 2020, A-fib in 2021, herniated rectum - Past Surgical History Past Surgical History: Yes Neuro Surgical History: No Pertinent History Cardiac History: No Pertinent History Respiratory Surgery: No Pertinent History GI Surgical History: No Pertinent History Genitourinary Surgical Hx: No Pertinent History Musculskeletal Surgical Hx: Joint Replacement, Other Female Surgical History: No Pertinent History Other Surgical History: bilateral hip replacements and lumbar fusions, cataract. left eye Oct 2018 - Social History Smoking Status: Former smoker How long have you smoked: 61 yrs Exposure to second hand smoke: Yes Alcohol: None Drug Use: none - Physical Exam Vital Signs: Vital Signs - 24 hr Temp Pulse Resp BP Pulse Ox 11/28/22 10:43 106 H 18 96 11/28/22 08:00 94 H 18 96 11/28/22 07:27 96.9 F 93 H 17 144/67 94 L 11/28/22 04:00 97.9 F 89 20 126/66 99 11/28/22 03:13 89 20 99 11/28/22 00:02 117 H 20 95 11/27/22 23:41 96.9 F 109 H 178/64 98 11/27/22 23:00 98 11/27/22 22:22 96.9 F 109 H 178/64 98 11/27/22 22:05 98 11/27/22 21:33 50 L 23 141/83 96 11/27/22 20:12 107 H 24 111/69 99 11/27/22 19:54 102 H 24 109/84 98 11/27/22 19:27 98 11/27/22 19:03 103 H 22 98 11/27/22 18:53 96.8 F 108 H 38 H 151/108 88 L General Appearance: no apparent distress, alert Neurologic Exam: oriented x 3, cooperative Eye Exam: eyes nml inspection Neck Exam: normal inspection Respiratory Exam: diminished breath sounds (poor to fair AE.), prolonged expirations, wheezing (throughout), No crackles/rales, No rhonchi Cardiovascular Exam: regular rate/rhythm, normal heart sounds, No murmur Gastrointestinal/Abdomen Exam: soft, normal bowel sounds, No tenderness, No distention, No mass, No guarding, No rebound Back Exam: normal inspection, No rash Extremity Exam: normal inspection, No pedal edema, No swelling Skin Exam: normal color, warm, dry, No rash Results - Labs Lab/Micro Results: Lab Results-Last 24 Hours 11/27/22 11/27/22 11/27/22 Range/Units 19:32 19:56 19:56 WBC 13.0 H (4.0-10.5) x10^3/uL RBC 4.46 (4.1-5.4) x10^6/uL Hgb 13.1 (12.0-16.0) g/dL Hct 39.4 (35-47) % MCV 88.3 (78-100) fL MCH 29.4 (26-32) pg MCHC 33.2 (32-36) g/dL RDW 14.3 H (11.5-14.0) % Plt Count 327 (150-450) x10^3/uL MPV 9.3 (7.5-11.0) fL Gran % 70.6 H (36.0-66.0) % Immature Gran % (Auto) 0.6 H (0.00-0.4) % Nucleat RBC Rel Count 0.0 (0.00-0.1) % Eos # (Auto) 0.83 H (0-0.5) x10^3/uL Immature Gran # (Auto) 0.08 H (0.00-0.03) x10^3u/L Absolute Lymphs (auto) 1.68 (1.0-4.6) x10^3/uL Absolute Monos (auto) 1.18 (0.0-1.3) x10^3/uL Absolute Nucleated RBC 0.00 (0.00-0.01) x10^3u/L Lymphocytes % 12.9 L (24.0-44.0) % Monocytes % 9.1 (0.0-12.0) % Eosinophils % 6.4 H (0.00-5.0) % Basophils % 0.4 (0.0-0.4) % Absolute Granulocytes 9.21 H (1.4-6.9) x10^3/uL Basophils # 0.05 (0-0.4) x10^3/uL Sodium 131 L (137-145) mmol/L Potassium 3.9 (3.5-5.1) mmol/L Chloride 93 L (98-107) mmol/L Carbon Dioxide 29 (22-30) mmol/L Anion Gap 12.6 (5-15) MEQ/L BUN 10 (7-17) mg/dL Creatinine 0.59 (0.52-1.04) mg/dL Estimated GFR > 60.0 ML/MIN Glucose 128 H (74-106) mg/dL Lactic Acid 1.6 (0.4-2.0) Calcium 9.5 (8.4-10.2) mg/dL Total Bilirubin 0.50 (0.2-1.3) mg/dL AST 22 (14-36) U/L ALT 20 (0-35) U/L Alkaline Phosphatase 69 (38-126) U/L Troponin I (0.000-0.034) ng/mL NT-Pro-B Natriuret Pep 162 (0-1800) pg/mL Serum Total Protein 7.6 (6.3-8.2) g/dL Albumin 4.5 (3.5-5.0) g/dL Influenza Type A Ag (NEGATIVE) Influenza Type B Ag (NEGATIVE) RSV (PCR) (Negative) SARS-CoV-2 (PCR) (NEGATIVE) 11/27/22 11/27/22 11/27/22 Range/Units 19:58 19:59 23:47 WBC (4.0-10.5) x10^3/uL RBC (4.1-5.4) x10^6/uL Hgb (12.0-16.0) g/dL Hct (35-47) % MCV (78-100) fL MCH (26-32) pg MCHC (32-36) g/dL RDW (11.5-14.0) % Plt Count (150-450) x10^3/uL MPV (7.5-11.0) fL Gran % (36.0-66.0) % Immature Gran % (Auto) (0.00-0.4) % Nucleat RBC Rel Count (0.00-0.1) % Eos # (Auto) (0-0.5) x10^3/uL Immature Gran # (Auto) (0.00-0.03) x10^3u/L Absolute Lymphs (auto) (1.0-4.6) x10^3/uL Absolute Monos (auto) (0.0-1.3) x10^3/uL Absolute Nucleated RBC (0.00-0.01) x10^3u/L Lymphocytes % (24.0-44.0) % Monocytes % (0.0-12.0) % Eosinophils % (0.00-5.0) % Basophils % (0.0-0.4) % Absolute Granulocytes (1.4-6.9) x10^3/uL Basophils # (0-0.4) x10^3/uL Sodium (137-145) mmol/L Potassium (3.5-5.1) mmol/L Chloride (98-107) mmol/L Carbon Dioxide (22-30) mmol/L Anion Gap (5-15) MEQ/L BUN (7-17) mg/dL Creatinine (0.52-1.04) mg/dL Estimated GFR ML/MIN Glucose (74-106) mg/dL Lactic Acid (0.4-2.0) Calcium (8.4-10.2) mg/dL Total Bilirubin (0.2-1.3) mg/dL AST (14-36) U/L ALT (0-35) U/L Alkaline Phosphatase (38-126) U/L Troponin I < 0.012 < 0.012 (0.000-0.034) ng/mL NT-Pro-B Natriuret Pep (0-1800) pg/mL Serum Total Protein (6.3-8.2) g/dL Albumin (3.5-5.0) g/dL Influenza Type A Ag NEGATIVE (NEGATIVE) Influenza Type B Ag NEGATIVE (NEGATIVE) RSV (PCR) NEGATIVE (Negative) SARS-CoV-2 (PCR) NEGATIVE (NEGATIVE) 11/28/22 11/28/22 11/28/22 Range/Units 04:17 04:17 04:17 WBC 5.5 (4.0-10.5) x10^3/uL RBC 4.07 L (4.1-5.4) x10^6/uL Hgb 11.9 L (12.0-16.0) g/dL Hct 36.0 (35-47) % MCV 88.5 (78-100) fL MCH 29.2 (26-32) pg MCHC 33.1 (32-36) g/dL RDW 13.8 (11.5-14.0) % Plt Count 274 (150-450) x10^3/uL MPV 9.1 (7.5-11.0) fL Gran % (36.0-66.0) % Immature Gran % (Auto) (0.00-0.4) % Nucleat RBC Rel Count (0.00-0.1) % Eos # (Auto) (0-0.5) x10^3/uL Immature Gran # (Auto) (0.00-0.03) x10^3u/L Absolute Lymphs (auto) (1.0-4.6) x10^3/uL Absolute Monos (auto) (0.0-1.3) x10^3/uL Absolute Nucleated RBC (0.00-0.01) x10^3u/L Lymphocytes % (24.0-44.0) % Monocytes % (0.0-12.0) % Eosinophils % (0.00-5.0) % Basophils % (0.0-0.4) % Absolute Granulocytes (1.4-6.9) x10^3/uL Basophils # (0-0.4) x10^3/uL Sodium 127 L (137-145) mmol/L Potassium 4.2 (3.5-5.1) mmol/L Chloride 93 L (98-107) mmol/L Carbon Dioxide 27 (22-30) mmol/L Anion Gap 11.3 (5-15) MEQ/L BUN 9 (7-17) mg/dL Creatinine 0.47 L (0.52-1.04) mg/dL Estimated GFR > 60.0 ML/MIN Glucose 181 H (74-106) mg/dL Lactic Acid (0.4-2.0) Calcium 9.1 (8.4-10.2) mg/dL Total Bilirubin 0.50 (0.2-1.3) mg/dL AST 19 (14-36) U/L ALT 19 (0-35) U/L Alkaline Phosphatase 59 (38-126) U/L Troponin I < 0.012 (0.000-0.034) ng/mL NT-Pro-B Natriuret Pep (0-1800) pg/mL Serum Total Protein 6.4 (6.3-8.2) g/dL Albumin 4.0 (3.5-5.0) g/dL Influenza Type A Ag (NEGATIVE) Influenza Type B Ag (NEGATIVE) RSV (PCR) (Negative) SARS-CoV-2 (PCR) (NEGATIVE) - Radiology Impressions Radiology Exams & Impressions: Radiology Procedures Category Date Time Status CHEST 1 VIEW (PORTABLE) Stat Exams 11/27/22 19:19 Completed - Other Procedures and Tests Respiratory Therapy 11/28/22 00:04 Oxygen NASAL CANNULA 2 lpm Respiratory Therapy Assessment DAILY Assessment/Plan (1) COPD exacerbation Current Visit: Yes Status: Acute Assessment & Plan: Was on IV doxycycline initially, but now on PO. Day #2. On 60mg IV steroid q6h. I did discuss with her the chronic nature of COPD and that she has had several hospitalizations recently, which could signal a decline in her condition. Code(s): J44.1 - CHRONIC OBSTRUCTIVE PULMONARY DISEASE W (ACUTE) EXACERBATION (2) Hypoxia Current Visit: Yes Status: Acute Assessment & Plan: encouraged her to use her O2 at home. Code(s): R09.02 - HYPOXEMIA (3) Hyponatremia Current Visit: Yes Status: Chronic Assessment & Plan: may be acute on chronic. worse today. Code(s): E87.1 - HYPO-OSMOLALITY AND HYPONATREMIA (4) Leukocytosis Current Visit: Yes Status: Acute Qualifiers: Leukocytosis type: unspecified Qualified Code(s): D72.829 - Elevated white blood cell count, unspecified Code(s): D72.829 - ELEVATED WHITE BLOOD CELL COUNT, UNSPECIFIED (5) Atrial fibrillation Current Visit: No Status: Chronic Qualifiers: Atrial fibrillation type: unspecified Code(s): I48.91 - UNSPECIFIED ATRIAL FIBRILLATION
[2022-11-28] MEDS: CHLORTHALIDONE PO SCH (14:07)
[2022-11-28] MEDS: ISOPTIN SR PO SCH (14:08)
[2022-11-28] MEDS: ECOTRIN 81 MG PO SCH (14:08)
[2022-11-28] MEDS: SYNTHROID 25 MCG PO SCH ×2 (14:08→14:10)
[2022-11-28] MEDS: Effexor XR 75 MG PO SCH (14:08)
[2022-11-28] MEDS: Zestril 10 MG PO SCH (14:08)
[2022-11-28] MEDS: Protonix 40MG Tablet PO SCH (14:08)
[2022-11-28] MEDS: Lopressor 50 MG PO SCH (21:36)
[2022-11-28] MEDS: Zocor 10MG PO SCH (21:36)
[2022-11-28] MEDS: ELIQUIS 2.5 MG TABLET PO SCH (21:37)
[2022-11-28] MEDS: CLONIDINE 0.1 MG TABLET PO SCH (21:37)
[2022-11-28] MEDS ORDERED: Lopressor 50 MG PO SCH (22:00)
[2022-11-29] MEDS: solu-MEDROL 60 MG, Sterile H2O 10 ml 2 ML IV SCH ×4 (00:39→05:17)
[2022-11-29] MEDS: PROVENTIL 2.5 MG/3 ML NEB IH SCH ×6 (03:02→22:47)
[2022-11-29] MEDS: SYNTHROID 25 MCG PO SCH (05:17)
[2022-11-29 07:39] LABS: Absolute Neutrophil Ct (ANC) 19.72 x10^3/uL (1.4-6.9); Basophil (Absolute #) 0.03 x10^3/uL (0-0.4); Eosinophil (Absolute #) 0 x10^3/uL (0-0.5); Hematocrit 34.4 % (35-47); Hemoglobin 11.2 g/dL (12.0-16.0); Lymphocyte (Absolute #) 0.39 x10^3/uL (1.0-4.6); Lymphocytes % 1.9 % (24.0-44.0); Mean Cell Volume 89.1 fL (78-100); Mean Corpuscular Hgb Concent. 32.6 g/dL (32-36); Mean Platelet Volume 8.9 fL (7.5-11.0); Monocytes % 1.9 % (0.0-12.0); Neutrophil % 95.6 % (36.0-66.0); Platelet Count 309 x10^3/uL (150-450); Red Blood Count 3.86 x10^6/uL (4.1-5.4); Red Cell Distribution Width 14.1 % (11.5-14.0); White Blood Count 20.7 x10^3/uL (4.0-10.5)
[2022-11-29] MEDS: Vibramycin 100 MG PO SCH ×2 (07:50→17:09)
--- NOTE | 2022-11-29 09:28 | PCM.NOTE ---
Date and Time: 11/29/22924 Subjective Assessment: She is feeling better, less dyspneic on exertion. Kenzie po. - Review of Systems Constitutional: No Fever Respiratory: Cough, Short Of Breath Objective Exam General Appearance: no apparent distress, alert Neurologic Exam: oriented x 3, cooperative Skin Exam: normal color, warm, dry, No rash Eye Exam: eyes nml inspection Ears, Nose, Throat Exam: moist mucous membranes Neck Exam: normal inspection Respiratory Exam: diminished breath sounds (fair air exchange), prolonged expirations, wheezing (faint, throughout), No crackles/rales, No rhonchi Cardiovascular Exam: regular rate/rhythm, normal heart sounds, No murmur Gastrointestinal/Abdomen Exam: soft, normal bowel sounds, No tenderness, No distention, No mass, No guarding, No rebound Extremity Exam: normal inspection, No pedal edema, No swelling Back Exam: normal inspection, No rash OBJECTIVE DATA Vital Signs: Vital Signs - 24 hr Temp Pulse Resp BP Pulse Ox 11/29/22 07:12 97.3 F 86 18 119/63 92 L 11/29/22 04:00 96.8 F 89 17 112/64 92 L 11/29/22 03:04 90 18 96 11/29/22 00:00 95.9 F 102 H 19 111/70 94 L 11/28/22 22:10 119 H 20 94 L 11/28/22 19:49 97.1 F 115 H 20 116/61 94 L 11/28/22 18:58 111 H 20 95 11/28/22 17:35 113 H 16 96 11/28/22 16:00 97.5 F 113 H 16 157/76 94 L 11/28/22 12:00 97.5 F 110 H 16 135/71 94 L 11/28/22 10:43 106 H 18 96 Pain Assessment - Last Documented Pain Intensity 0 Pain Scale Used 0-10 Pain Scale Intake and Output: Intake & Output 11/26/22 11/27/22 11/28/22 11/29/22 11:59 11:59 11:59 11:59 Intake Total 600 1180 Balance 600 1180 Weight 67.8 kg 68.4 kg Lab Results: Lab Results-Last 24 Hours 11/29/22 Range/Units 05:30 WBC 20.7 H (4.0-10.5) x10^3/uL RBC 3.86 L (4.1-5.4) x10^6/uL Hgb 11.2 L (12.0-16.0) g/dL Hct 34.4 L (35-47) % MCV 89.1 (78-100) fL MCH 29.0 (26-32) pg MCHC 32.6 (32-36) g/dL RDW 14.1 H (11.5-14.0) % Plt Count 309 (150-450) x10^3/uL MPV 8.9 (7.5-11.0) fL Gran % 95.6 H (36.0-66.0) % Immature Gran % (Auto) 0.5 H (0.00-0.4) % Nucleat RBC Rel Count 0.0 (0.00-0.1) % Eos # (Auto) 0 (0-0.5) x10^3/uL Immature Gran # (Auto) 0.11 H (0.00-0.03) x10^3u/L Absolute Lymphs (auto) 0.39 L (1.0-4.6) x10^3/uL Absolute Monos (auto) 0.40 (0.0-1.3) x10^3/uL Absolute Nucleated RBC 0.00 (0.00-0.01) x10^3u/L Lymphocytes % 1.9 L (24.0-44.0) % Monocytes % 1.9 (0.0-12.0) % Eosinophils % 0.0 (0.00-5.0) % Basophils % 0.1 (0.0-0.4) % Absolute Granulocytes 19.72 H (1.4-6.9) x10^3/uL Basophils # 0.03 (0-0.4) x10^3/uL Radiology Exams: Radiology Procedures Category Date Time Status CHEST 1 VIEW (PORTABLE) Stat Exams 11/27/22 19:19 Completed Multi-Disciplinary Progress Notes: Multi-Disciplinary Progress Notes 11/28/22 09:58 Case Management Note by Iliana Moreno PATIENT HAS HAD SEVERAL ADMISSION LATELY FOR COPD. ON HER FIRST VISIT SHE STATED SHE HAD HOME OXYGEN BUT WAS GOING TO HAVE IT PICKED UP D/T NOT NEEDING IT. PATIENT REQUIRED PORTABILITY WHEN SHE LEFT FROM THAT VISIT. THE LAST VISIT SHE STILL HAD THE OXYGEN AT HOME BUT WAS NOT WEARING IT. SHE WAS ENCOURAGED TO KEEP IT IN CASE SHE NEEDED IT. SHE VERIFIED UNDERSTANDING. THIS ADMISSION PATIENT STATES HER OXYGEN WAS JUST PICKED UP LAST WEEK. SHE REPORTS SHE DOESN'T NEED IT AND IS ALWAYS 95% AT HOME EVEN AFTER UP DOING CHORES. WHEN THIS TECHNICIAN INVENTORY SPECIALIST TRIED TO EXPLAIN TO PATIENT THAT WEARING HER OXYGEN AT HOME ALL THE TIME MAY PREVENT THESE COPD EXACERBATIONS. PATIENT ARGUMENTATIVE ABOUT SUBJECT. SHE REPORTS THE CONCENTRATOR IS LARGE AND THERE IS TOO MANY TANKS FOR HER SMALL HOME. PATIENT IS AWARE THAT SHE MAY NEED IT AGAIN AT CO DEPENDING ON OXYGEN STATUS, SHE UNDERSTANDS BUT HOPES THIS IS NOT THE CARE. I ALSO DISCUSSED C- THAT WHEN SHE GETS SOB SHE COULD CALL THEM TO COME CHECK ON HER. PATIENT AGAIN ARGUMENTATIVE ABOUT SUBJECT AND STATED "I DON'T WANT ANYONE IN MY HOME" DR. GENAO NOTIFIED OF THE ABOVE Initialized on 11/28/22 09:58 - END OF NOTE Assessment/Plan (1) COPD exacerbation Current Visit: Yes Status: Acute Assessment & Plan: Improving. On steroid 60mg q6h, so decreased to 40mg IV q12h. On doxycycline 100mg po BID. Code(s): J44.1 - CHRONIC OBSTRUCTIVE PULMONARY DISEASE W (ACUTE) EXACERBATION (2) Hypoxia Current Visit: Yes Status: Acute Code(s): R09.02 - HYPOXEMIA (3) Hyponatremia Current Visit: Yes Status: Chronic Assessment & Plan: lab pending Code(s): E87.1 - HYPO-OSMOLALITY AND HYPONATREMIA (4) Leukocytosis Current Visit: Yes Status: Acute Qualifiers: Leukocytosis type: unspecified Qualified Code(s): D72.829 - Elevated white blood cell count, unspecified Assessment & Plan: increased, but now pt has been on steroids Code(s): D72.829 - ELEVATED WHITE BLOOD CELL COUNT, UNSPECIFIED (5) Atrial fibrillation Current Visit: No Status: Chronic Qualifiers: Atrial fibrillation type: unspecified Code(s): I48.91 - UNSPECIFIED ATRIAL FIBRILLATION
[2022-11-29 09:40] LABS: ANION GAP 11.8 MEQ/L (5-15); BLOOD UREA NITROGEN 13 mg/dL (7-17); CHLORIDE 94 mmol/L (98-107); Calcium 8.7 mg/dL (8.4-10.2); Carbon Dioxide 25 mmol/L (22-30); Creatinine 1 0.46 mg/dL (0.52-1.04); EST GLOMERULAR FILTRATION RATE > 60.0 ML/MIN; Glucose 153 mg/dL (74-106); Potassium 3.9 mmol/L (3.5-5.1); SODIUM 127 mmol/L (137-145)
[2022-11-29] MEDS: Protonix 40MG Tablet PO SCH (09:43)
[2022-11-29] MEDS: BUSPAR 5 MG PO SCH ×2 (09:43→21:55)
[2022-11-29] MEDS: Zestril 10 MG PO SCH (09:43)
[2022-11-29] MEDS: ISOPTIN SR PO SCH (09:45)
[2022-11-29] MEDS: ECOTRIN 81 MG PO SCH (09:45)
[2022-11-29] MEDS: Effexor XR 75 MG PO SCH (09:46)
[2022-11-29] MEDS: CHLORTHALIDONE PO SCH (09:46)
[2022-11-29] MEDS: Klor Con PO SCH ×2 (09:46→21:54)
[2022-11-29] MEDS ORDERED: NON-FORMULARY ITEM (Omeprazole [Omeprazole] 20 MG Tablet.Dr) PO SCH (10:00)
[2022-11-29] MEDS ORDERED: NON-FORMULARY ITEM (Venlafaxine Hcl [Effexor Xr] 150 MG Cap.Er.24h) PO SCH (10:00)
[2022-11-29] MEDS: solu-MEDROL 40 MG, Sterile H2O 10 ml 1 ML IV SCH ×2 (17:09)
[2022-11-29] MEDS: ELIQUIS 2.5 MG TABLET PO SCH (21:54)
[2022-11-29] MEDS: Zocor 10MG PO SCH (21:54)
[2022-11-29] MEDS: Lopressor 50 MG PO SCH (21:54)
[2022-11-29] MEDS: CLONIDINE 0.1 MG TABLET PO SCH (21:55)
[2022-11-30] MEDS: PROVENTIL 2.5 MG/3 ML NEB IH SCH ×4 (03:05→14:36)
[2022-11-30] MEDS: SYNTHROID 25 MCG PO SCH (05:09)
[2022-11-30] MEDS: solu-MEDROL 40 MG, Sterile H2O 10 ml 1 ML IV SCH ×2 (05:12)
[2022-11-30 05:41] LABS: Absolute Neutrophil Ct (ANC) 13.32 x10^3/uL (1.4-6.9); Basophil (Absolute #) 0.01 x10^3/uL (0-0.4); Eosinophil (Absolute #) 0 x10^3/uL (0-0.5); Hematocrit 34.7 % (35-47); Hemoglobin 11.2 g/dL (12.0-16.0); Lymphocyte (Absolute #) 0.49 x10^3/uL (1.0-4.6); Lymphocytes % 3.3 % (24.0-44.0); Mean Cell Volume 89.2 fL (78-100); Mean Corpuscular Hemoglobin 28.8 pg (26-32); Mean Corpuscular Hgb Concent. 32.3 g/dL (32-36); Monocyte (Absolute #) 0.77 x10^3/uL (0.0-1.3); Monocytes % 5.3 % (0.0-12.0); Neutrophil % 90.8 % (36.0-66.0); Platelet Count 301 x10^3/uL (150-450); Red Blood Count 3.89 x10^6/uL (4.1-5.4); Red Cell Distribution Width 14.4 % (11.5-14.0); White Blood Count 14.7 x10^3/uL (4.0-10.5)
[2022-11-30 06:26] LABS: ANION GAP 7.1 MEQ/L (5-15); BLOOD UREA NITROGEN 17 mg/dL (7-17); CHLORIDE 94 mmol/L (98-107); Calcium 8.8 mg/dL (8.4-10.2); Carbon Dioxide 32 mmol/L (22-30); Creatinine 1 0.67 mg/dL (0.52-1.04); EST GLOMERULAR FILTRATION RATE > 60.0 ML/MIN; Glucose 126 mg/dL (74-106); Potassium 3.8 mmol/L (3.5-5.1); SODIUM 129 mmol/L (137-145)
--- NOTE | 2022-11-30 08:04 | PCM.NOTE ---
Date and Time: 11/30/22 0800 Subjective Assessment: Pt is feeling better, wasn't on the O2 last night. Still feeling weak, minh when up. Kenzie po. - Review of Systems Constitutional: No Fever Respiratory: Cough, Short Of Breath Objective Exam General Appearance: no apparent distress, alert Neurologic Exam: oriented x 3, cooperative Skin Exam: normal color, warm, dry, No rash Eye Exam: eyes nml inspection Ears, Nose, Throat Exam: moist mucous membranes Neck Exam: normal inspection Respiratory Exam: lungs clear, diminished breath sounds (fair to good air exchange), wheezing (exp, throughout), No crackles/rales, No rhonchi Cardiovascular Exam: regular rate/rhythm, normal heart sounds, No murmur Gastrointestinal/Abdomen Exam: soft, normal bowel sounds Extremity Exam: normal inspection, No pedal edema, No swelling Back Exam: normal inspection, No rash OBJECTIVE DATA Vital Signs: Vital Signs - 24 hr Temp Pulse Resp BP Pulse Ox 11/30/22 07:48 98.1 F 77 16 118/50 95 11/30/22 06:44 114 H 16 95 11/30/22 04:05 97.9 F 80 18 132/67 93 L 11/30/22 03:05 83 18 93 L 11/29/22 23:41 97.9 F 91 H 18 121/65 95 11/29/22 22:47 89 18 93 L 11/29/22 19:40 98.1 F 91 H 18 122/64 93 L 11/29/22 18:42 94 H 18 95 11/29/22 15:14 97.1 F 91 H 17 124/55 93 L 11/29/22 14:57 107 H 18 95 11/29/22 12:00 96.9 F 111 H 17 128/62 92 L Pain Assessment - Last Documented Pain Intensity 0 Pain Scale Used 0-10 Pain Scale Intake and Output: Intake & Output 11/27/22 11/28/22 11/29/22 11/30/22 11:59 11:59 11:59 11:59 Intake Total 600 1540 660 Balance 600 1540 660 Weight 67.8 kg 68.4 kg 68.1 kg Lab Results: Lab Results-Last 24 Hours 11/29/22 11/29/22 11/30/22 Range/Units 05:30 05:30 04:00 WBC 20.7 H (4.0-10.5) x10^3/uL RBC 3.86 L (4.1-5.4) x10^6/uL Hgb 11.2 L (12.0-16.0) g/dL Hct 34.4 L (35-47) % MCV 89.1 (78-100) fL MCH 29.0 (26-32) pg MCHC 32.6 (32-36) g/dL RDW 14.1 H (11.5-14.0) % Plt Count 309 (150-450) x10^3/uL MPV 8.9 (7.5-11.0) fL Gran % 95.6 H (36.0-66.0) % Immature Gran % (Auto) 0.5 H (0.00-0.4) % Nucleat RBC Rel Count 0.0 (0.00-0.1) % Eos # (Auto) 0 (0-0.5) x10^3/uL Immature Gran # (Auto) 0.11 H (0.00-0.03) x10^3u/L Absolute Lymphs (auto) 0.39 L (1.0-4.6) x10^3/uL Absolute Monos (auto) 0.40 (0.0-1.3) x10^3/uL Absolute Nucleated RBC 0.00 (0.00-0.01) x10^3u/L Lymphocytes % 1.9 L (24.0-44.0) % Monocytes % 1.9 (0.0-12.0) % Eosinophils % 0.0 (0.00-5.0) % Basophils % 0.1 (0.0-0.4) % Absolute Granulocytes 19.72 H (1.4-6.9) x10^3/uL Basophils # 0.03 (0-0.4) x10^3/uL Sodium 127 L 129 L (137-145) mmol/L Potassium 3.9 3.8 (3.5-5.1) mmol/L Chloride 94 L 94 L (98-107) mmol/L Carbon Dioxide 25 32 H (22-30) mmol/L Anion Gap 11.8 7.1 (5-15) MEQ/L BUN 13 17 (7-17) mg/dL Creatinine 0.46 L 0.67 (0.52-1.04) mg/dL Estimated GFR > 60.0 > 60.0 ML/MIN Glucose 153 H 126 H (74-106) mg/dL Calcium 8.7 8.8 (8.4-10.2) mg/dL 11/30/22 Range/Units 04:45 WBC 14.7 H (4.0-10.5) x10^3/uL RBC 3.89 L (4.1-5.4) x10^6/uL Hgb 11.2 L (12.0-16.0) g/dL Hct 34.7 L (35-47) % MCV 89.2 (78-100) fL MCH 28.8 (26-32) pg MCHC 32.3 (32-36) g/dL RDW 14.4 H (11.5-14.0) % Plt Count 301 (150-450) x10^3/uL MPV 9.0 (7.5-11.0) fL Gran % 90.8 H (36.0-66.0) % Immature Gran % (Auto) 0.5 H (0.00-0.4) % Nucleat RBC Rel Count 0.0 (0.00-0.1) % Eos # (Auto) 0 (0-0.5) x10^3/uL Immature Gran # (Auto) 0.07 H (0.00-0.03) x10^3u/L Absolute Lymphs (auto) 0.49 L (1.0-4.6) x10^3/uL Absolute Monos (auto) 0.77 (0.0-1.3) x10^3/uL Absolute Nucleated RBC 0.00 (0.00-0.01) x10^3u/L Lymphocytes % 3.3 L (24.0-44.0) % Monocytes % 5.3 (0.0-12.0) % Eosinophils % 0.0 (0.00-5.0) % Basophils % 0.1 (0.0-0.4) % Absolute Granulocytes 13.32 H (1.4-6.9) x10^3/uL Basophils # 0.01 (0-0.4) x10^3/uL Sodium (137-145) mmol/L Potassium (3.5-5.1) mmol/L Chloride (98-107) mmol/L Carbon Dioxide (22-30) mmol/L Anion Gap (5-15) MEQ/L BUN (7-17) mg/dL Creatinine (0.52-1.04) mg/dL Estimated GFR ML/MIN Glucose (74-106) mg/dL Calcium (8.4-10.2) mg/dL Multi-Disciplinary Progress Notes: Multi-Disciplinary Progress Notes 11/29/22 20:16 Respiratory Note by Rosa Duron SpO2 on room air at rest--93% Initialized on 11/29/22 20:16 - END OF NOTE 11/29/22 10:22 Case Management Note by Iliana Moreno S/W PATIENT- SHE CONTINUES TO PLAN TO RETURN HOME AT TIME OF DC. SHE CONTINUES TO DENY ANY NEW NEEDS Initialized on 11/29/22 10:22 - END OF NOTE Assessment/Plan (1) COPD exacerbation Current Visit: Yes Status: Acute Assessment & Plan: She is improved, still weak today, likely home tomorrow on po doxycycline and prednisone, with lactobacillus acidophilus. Code(s): J44.1 - CHRONIC OBSTRUCTIVE PULMONARY DISEASE W (ACUTE) EXACERBATION (2) Hypoxia Current Visit: Yes Status: Acute Code(s): R09.02 - HYPOXEMIA (3) Hyponatremia Current Visit: Yes Status: Chronic Assessment & Plan: labs pending Code(s): E87.1 - HYPO-OSMOLALITY AND HYPONATREMIA (4) Leukocytosis Current Visit: Yes Status: Acute Qualifiers: Leukocytosis type: unspecified Qualified Code(s): D72.829 - Elevated white blood cell count, unspecified Code(s): D72.829 - ELEVATED WHITE BLOOD CELL COUNT, UNSPECIFIED (5) Atrial fibrillation Current Visit: No Status: Chronic Qualifiers: Atrial fibrillation type: unspecified Code(s): I48.91 - UNSPECIFIED ATRIAL FIBRILLATION
[2022-11-30] MEDS: ECOTRIN 81 MG PO SCH (08:21)
[2022-11-30] MEDS: Klor Con PO SCH (08:21)
[2022-11-30] MEDS: BUSPAR 5 MG PO SCH (08:21)
[2022-11-30] MEDS: Effexor XR 75 MG PO SCH (08:21)
[2022-11-30] MEDS: Protonix 40MG Tablet PO SCH (08:21)
[2022-11-30] MEDS: Vibramycin 100 MG PO SCH (08:21)
[2022-11-30] MEDS: ISOPTIN SR PO SCH (08:22)
[2022-11-30] MEDS: CHLORTHALIDONE PO SCH (08:23)
[2022-11-30] MEDS: Zestril 10 MG PO SCH (08:23)
[2022-11-30 09:07] LABS: Slide Review 1 YES
[2022-11-30 11:50] VITALS: BP 122/65
--- NOTE | 2022-11-30 14:22 | PCM.DS ---
Discharge Summary Date of Admission: 11/27/22 22:13 Admitting Physician: JULISSA GLEASON Primary Care Provider: KAVEH ALMANZAR Allergies Allergies Penicillins Allergy (Severe, Verified 11/27/22 18:51) [facility] Summary - Hospital Course Hospital Course: Pt is an 82 yo female pt of Dr. Chevy Alexandre who was admitted through ER with COPD exacerbation. She was put on IV doxycycline initially (then changed to po doxycycline) and IV steroids. Her sodium was decreased throughout her stay (131 on admission, was 127 for the next 2 days and 129 today) - she is completely asymptomatic. Her breathing has improved and she is on room air currently. At home she has used oxygen prn - she is supposed to use it at night, but doesn't always. She's been advised she should have an overnight pulse oximetry study at home after discharge. She will f/u with PCP in1 week. - Vitals & Intake/Output Vital Signs: Vital Signs Temperature 97.9 F 11/30/22 11:49 Pulse Rate 81 11/30/22 11:49 Respiratory Rate 16 11/30/22 11:49 Blood Pressure 122/65 11/30/22 11:49 O2 Sat by Pulse Oximetry 96 11/30/22 11:49 Intake & Output: Intake & Output 11/28/22 11/29/22 11/30/22 12/01/22 11:59 11:59 11:59 11:59 Intake Total 600 1540 1340 480 Output Total 550 Balance 600 1540 1340 -70 Weight 67.8 kg 68.4 kg 68.1 kg - Lab Result Diagrams: 11/30/22 04:45 11/30/22 04:00 Lab Results-Last 24 Hrs: Lab Results-Last 24 Hours 11/30/22 11/30/22 Range/Units 04:00 04:45 WBC 14.7 H (4.0-10.5) x10^3/uL RBC 3.89 L (4.1-5.4) x10^6/uL Hgb 11.2 L (12.0-16.0) g/dL Hct 34.7 L (35-47) % MCV 89.2 (78-100) fL MCH 28.8 (26-32) pg MCHC 32.3 (32-36) g/dL RDW 14.4 H (11.5-14.0) % Plt Count 301 (150-450) x10^3/uL MPV 9.0 (7.5-11.0) fL Gran % 90.8 H (36.0-66.0) % Immature Gran % (Auto) 0.5 H (0.00-0.4) % Nucleat RBC Rel Count 0.0 (0.00-0.1) % Eos # (Auto) 0 (0-0.5) x10^3/uL Immature Gran # (Auto) 0.07 H (0.00-0.03) x10^3u/L Absolute Lymphs (auto) 0.49 L (1.0-4.6) x10^3/uL Absolute Monos (auto) 0.77 (0.0-1.3) x10^3/uL Absolute Nucleated RBC 0.00 (0.00-0.01) x10^3u/L Lymphocytes % 3.3 L (24.0-44.0) % Monocytes % 5.3 (0.0-12.0) % Eosinophils % 0.0 (0.00-5.0) % Basophils % 0.1 (0.0-0.4) % Absolute Granulocytes 13.32 H (1.4-6.9) x10^3/uL Basophils # 0.01 (0-0.4) x10^3/uL Sodium 129 L (137-145) mmol/L Potassium 3.8 (3.5-5.1) mmol/L Chloride 94 L (98-107) mmol/L Carbon Dioxide 32 H (22-30) mmol/L Anion Gap 7.1 (5-15) MEQ/L BUN 17 (7-17) mg/dL Creatinine 0.67 (0.52-1.04) mg/dL Estimated GFR > 60.0 ML/MIN Glucose 126 H (74-106) mg/dL Calcium 8.8 (8.4-10.2) mg/dL Slides for Path Review YES Micro Results-Entire Visit: Microbiology 11/27/22 19:58 Blood Culture - Preliminary Blood NO GROWTH TO DATE 11/27/22 19:56 Blood Culture - Preliminary Blood NO GROWTH TO DATE - Procedures and Test Procedures and Tests throughout Hospitalization: Therapy Orders & Screens 11/27/22 19:03 Respiratory Therapy Assessment DAILY Comment: 11/28/22 00:04 Oxygen NASAL CANNULA 2 lpm Comment: Diagnosis: COPD exacerbation Respiratory Therapy Assessment DAILY Comment: Diagnosis: COPD exacerbation 11/29/22 11:03 RT Miscellaneous Order ROUTINE Comment: Physician Instructions: WEAN OXYGEN TOLERATED Reason For Exam: Diagnosis: COPD exacerbation Discharge Exam General Appearance: no apparent distress, alert Neurologic Exam: oriented x 3, cooperative Eye Exam: eyes nml inspection Ears, Nose, Throat Exam: moist mucous membranes Neck Exam: normal inspection Respiratory Exam: diminished breath sounds (fair to good AE), wheezing (exp, throughout), No crackles/rales, No rhonchi Cardiovascular Exam: regular rate/rhythm, normal heart sounds, No murmur Gastrointestinal/Abdomen Exam: soft, normal bowel sounds Extremity Exam: normal inspection, No pedal edema, No swelling Skin Exam: normal color, warm, dry, No rash Final Diagnosis/Problem List - Final Discharge Diagnosis/Problem (1) COPD exacerbation Current Visit: Yes Status: Acute Assessment & Plan: Improved. This morning she wasn't sure she was ready to go home, but now she would like to go home today. Home on doxycycline to finish 7d total. Code(s): J44.1 - CHRONIC OBSTRUCTIVE PULMONARY DISEASE W (ACUTE) EXACERBATION (2) Hypoxia Current Visit: Yes Status: Resolved Code(s): R09.02 - HYPOXEMIA (3) Hyponatremia Current Visit: Yes Status: Chronic Code(s): E87.1 - HYPO-OSMOLALITY AND HYPONATREMIA (4) Leukocytosis Current Visit: Yes Status: Acute Assessment & Plan: improved. some elevation due to steroid therapy. Code(s): D72.829 - ELEVATED WHITE BLOOD CELL COUNT, UNSPECIFIED (5) Atrial fibrillation Current Visit: No Status: Chronic Code(s): I48.91 - UNSPECIFIED ATRIAL FIBR ILLATION - Discharge Disposition: Home, Self-Care Condition: Stable Prescriptions: New Lactobacillus Acidophilus [Acidophilus TABLET] 1 tab PO BID #10 tablet Doxycycline Hyclate 100 mg [Vibramycin 100 MG] 100 mg PO BIDWMEALS #7 tablet Continue Verapamil HCl Sr [Isoptin Sr] 240 mg PO DAILY Lisinopril 20 mg [Zestril 20 MG] 10 mg PO DAILY cloNIDine HCL [Catapres] 0.1 mg PO HS Chlorthalidone 12.5 mg PO DAILY Levothyroxine Sodium 25 Mcg [Synthroid 25 Mcg] 25 mcg PO DAILY Atorvastatin Calcium 10 mg PO HS Omeprazole 20 mg PO DAILY Venlafaxine HCl [Effexor Xr] 150 mg PO DAILY Metoprolol Tartrate 50 mg [Lopressor 50 MG] 50 mg PO HS Buspirone HCl 5 mg [Buspar 5 mg] 10 mg PO BID Albuterol 2.5 mg/3 ml Neb [Proventil 2.5 mg/3 ml Neb] 2.5 mg IH Q4H PRN PRN #35 unit PRN Reason: Shortness Of Breath/Wheezing Potassium Chloride Tab* [Klor Con] 20 meq PO BID Aspirin EC 81 mg [Ecotrin 81 mg] 81 mg PO DAILY Apixaban [Eliquis 2.5 mg Tablet] 2.5 mg PO HS Alendronate Sodium [Fosamax] 70 mg PO WEEKLY Prednisone 20 mg [Deltasone 20 mg] 20 mg PO UD #17 tablet Follow up with: TRISTAN ALEXANDRE [ACTIVE STAFF] - 12/06/22 12:30 pm ([facility]) KAVEH ALMANZAR [Primary Care Provider] - 12/07/22 11:30 am
[2022-11-30 14:40] VITALS: PULSE 80; O2SAT 95
== END 2022-11-30 15:15 | disposition home or self-care (01) ==
LOC: ED 18:50 → MED SURG 22:13
PROVIDERS: ADMIT Family Medicine; ATTEND Family Medicine
DX: J44.1 Chronic obstructive pulmonary disease with (acute) exacerbation (principal); R09.02 Hypoxemia; E87.1 Hypo-osmolality and hyponatremia; D72.829 Elevated white blood cell count, unspecified; I48.91 Unspecified atrial fibrillation; I10 Essential (primary) hypertension; I25.10 Atherosclerotic heart disease of native coronary artery without angina pectoris; Z79.899 Other long term (current) drug therapy; Z79.01 Long term (current) use of anticoagulants; Z20.828 Contact with and (suspected) exposure to other viral communicable diseases
CPT/HCPCS: 0241U; 36000; 36415; 71045; 80048; 80053; 83605; 83880; 84484; 85025; 85027; 87040; 93005; 93041; 93268; 94640; 94760; 94762; 96374; 99285; G0378; J2920; J2930; J7609; A9270-GY

== ENCOUNTER 2024-04-06 19:17 | Emergency (ER) | payer MEDICARE ==
--- NOTE | 2024-04-06 19:19 | ERPHSYRPT ---
- History of Present Illness Time Seen by Provider: 04/06/24 19:19 Source: patient, family Exam Limitations: no limitations Physician History: This is an 83-year-old white female patient who has been exerting herself more today than typical. She has been caring items in her arms more in the last day or 2 and has some achiness in her arms and twinges of chest pain that are mild but intermittent and new for her. Patient has a history of COPD, hypertension, hyperlipidemia, hypothyroidism, anxiety and depression. Patient states there is no neutral stressors in her life. She has not had any headaches or visual changes. She was concerned because her blood pressure was elevated at home. Upon arrival to our emergency department, she had a blood pressure of 174/104. Patient took clonidine and metoprolol approximately 30 minutes prior to arrival to our emergency department. Patient also takes verapamil and lisinopril each morning. There have been no new changes to her drug regimen. Even though old records show that this patient has intermittent atrial fibrillation, patient states that she does not recall being told she has that medical entity. In addition, she was prescribed Eliquis but did not take it because it was too expensive. She states she is not on any anticoagulation therapy. Timing/Duration: today Severity: mild Associated Symptoms: chest pain (Described as superficial, light twinges in the substernal central region without radiation), malaise, weakness, No nausea, No vomiting, No abdominal pain, No shortness of breath Allergies/Adverse Reactions: Penicillins Allergy (Severe, Verified 04/06/24 19:23) Hives Home Medications: Lisinopril 20 mg [Zestril 20 MG] 10 mg PO DAILY 10/27/18 [History] Verapamil HCl Sr [Isoptin Sr] 240 mg PO DAILY 10/27/18 [History] cloNIDine HCL [Catapres] 0.1 mg PO HS 11/28/18 [History] Atorvastatin Calcium 10 mg PO HS 05/12/21 [History] Levothyroxine Sodium 25 Mcg [Synthroid 25 Mcg] 25 mcg PO DAILY 05/12/21 [History] Venlafaxine HCl [Effexor Xr] 150 mg PO DAILY 05/12/21 [History] Buspirone HCl 5 mg [Buspar 5 mg] 10 mg PO BID 10/09/22 [History] Metoprolol Tartrate 50 mg [Lopressor 50 MG] 50 mg PO HS 10/09/22 [History] Alendronate Sodium [Fosamax] 70 mg PO WEEKLY 11/05/22 [History] Budesonide/Glycopyr/Formoterol [Breztri Aerosphere Inhaler] 2 puff IH BID 04/06/24 [History] Hx Tetanus, Diphtheria Vaccination/Date Given: No Hx Influenza Vaccination/Date Given: No Hx Pneumococcal Vaccination/Date Given: Yes Travel Risk - International Travel Have you traveled outside of the country in past 3 weeks: No - Emerging Infectious Disease Are you exhibiting symptoms associated with any current EIDs: No - Review of Systems Constitutional: Malaise, Weakness Eyes: No Symptoms Ears, Nose, & Throat: No Symptoms Respiratory: No Symptoms Cardiac: Chest Pain (He describes this as light twinges of pain that are substernal and central without radiation) Abdominal/Gastrointestinal: No Symptoms Genitourinary Symptoms: No Symptoms Musculoskeletal: No Symptoms Skin: No Symptoms Neurological: No Symptoms Psychological: No Symptoms Endocrine: No Symptoms Hematologic/Lymphatic: No Symptoms Immunological/Allergic: No Symptoms All Other Systems: Reviewed and Negative - Past Medical History Pertinent Past Medical History: Yes Neurological History: No Pertinent History ENT History: No Pertinent History Cardiac History: Arrhythmia, High Cholesterol, Hypertension, Myocardial Infarction ([place]) Respiratory History: Bronchitis, COPD Endocrine Medical History: Hypothyroidism Musculoskeletal History: Osteoarthritis GI Medical History: GERD, Hemorrhoids History: No Pertinent History Psycho-Social History: Anxiety Female Reproductive Disorders: No Pertinent History Other Medical History: Had mild [place] in 2020, A-fib in 2021, herniated rectum - Past Surgical History Past Surgical History: Yes Neuro Surgical History: No Pertinent History Cardiac: No Pertinent History Respiratory: No Pertinent History Gastrointestinal: No Pertinent History Genitourinary: No Pertinent History Musculoskeletal: Joint Replacement, Other Female Surgical History: No Pertinent History Other Surgical History: bilateral hip replacements and lumbar fusions, cataract. left eye Oct 2018 - Social History Smoking Status: Former smoker How long have you smoked: 61 yrs Exposure to second hand smoke: Yes Drug Use: none Patient Lives Alone: No - Nursing Vital Signs Nursing Vital Signs: Initial Vital Signs Temperature 98.6 F 04/06/24 19:23 Pulse Rate 107 H 04/06/24 19:23 Respiratory Rate 24 04/06/24 19:23 O2 Sat by Pulse Oximetry 95 04/06/24 19:23 Pain Scale Pain Intensity 0 - Physical Exam General Appearance: no apparent distress, alert, anxiety Eye Exam: PERRL/EOMI, eyes nml inspection Ears, Nose, Throat Exam: normal ENT inspection, moist mucous membranes Neck Exam: normal inspection, non-tender, supple, full range of motion Respiratory Exam: normal breath sounds, chest tenderness (Scribes as intermittent, light twinges of pain that is in the substernal central region without radiation), lungs clear, airway intact, No respiratory distress Cardiovascular Exam: regular rate/rhythm, normal heart sounds, normal peripheral pulses Gastrointestinal/Abdomen Exam: soft, normal bowel sounds, No tenderness Pelvic Exam: not done Rectal Exam: not done Back Exam: normal inspection, normal range of motion, No CVA tenderness, No vertebral tenderness Extremity Exam: normal inspection, normal range of motion, pelvis stable Neurologic Exam: alert, oriented x 3, cooperative, 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 nml as tested, nml cerebellar function, nml station & gait, sensation nml Skin Exam: normal color, warm, dry Lymphatic Exam: No adenopathy SpO2 Interpretation: normal O2 Delivery: Room Air - Course Nursing assessment & vital signs reviewed: Yes EKG Interpreted by Me: RATE, Sinus Tach, NORMAL AXIS, NORMAL INTERVALS, NORMAL QRS, NORMAL ST-T, Other (No acute ischemic changes on today's twelve-lead EKG.) Ordered Tests: Active Orders 24 hr Category Date Time Status EKG-ER Only STAT Care 04/06/24 19:47 Active IV Insertion STAT Care 04/06/24 19:47 Active Pulse Oximetry (ED) STAT Care 04/06/24 19:47 Active CBC W DIFF Stat Lab 04/06/24 19:40 Completed CMP Stat Lab 04/06/24 19:40 Completed MAGNESIUM Stat Lab 04/06/24 19:40 Completed MONO SCREEN Stat Lab 04/06/24 19:40 Completed NT PRO BNPII Stat Lab 04/06/24 19:40 Completed PROTIME WITH INR Stat Lab 04/06/24 19:40 Completed TROPONIN Q4H Lab 04/06/24 19:40 Completed TROPONIN Q4H Lab 04/07/24 00:00 Ordered TROPONIN Q4H Lab 04/07/24 04:00 Ordered TSH, 3RD Generation Stat Lab 04/06/24 19:40 Completed UA W/RFX UR CULTURE Stat Lab 04/06/24 19:54 Completed Lab/Rad Data: Laboratory Result Diagrams 04/06/24 19:40 04/06/24 19:40 Laboratory Results 04/06/24 04/06/24 04/06/24 Range/Units 20:05 19:54 19:40 WBC (4.0-10.5) x10^3/uL RBC (4.1-5.4) x10^6/uL Hgb (12.0-16.0) g/dL Hct (35-47) % MCV (78-100) fL MCH (26-32) pg MCHC (32-36) g/dL RDW (11.5-14.0) % Plt Count (150-450) x10^3/uL MPV (7.5-11.0) fL Gran % (36.0-66.0) % Immature Gran % (Auto) (0.00-0.4) % Nucleat RBC Rel Count (0.00-0.1) % Eos # (Auto) (0-0.5) x10^3/uL Immature Gran # (Auto) (0.00-0.03) x10^3u/L Absolute Lymphs (auto) (1.0-4.6) x10^3/uL Absolute Monos (auto) (0.0-1.3) x10^3/uL Absolute Nucleated RBC (0.00-0.01) x10^3u/L Lymphocytes % (24.0-44.0) % Monocytes % (0.0-12.0) % Eosinophils % (0.00-5.0) % Basophils % (0.0-0.4) % Absolute Granulocytes (1.4-6.9) x10^3/uL Basophils # (0-0.4) x10^3/uL PT (9.4-12.5) SECONDS INR (0.8-3.0) Sodium (135-145) mmol/L Potassium (3.5-5.1) mmol/L Chloride (98-107) mmol/L Carbon Dioxide (22-30) mmol/L Anion Gap (5-15) MEQ/L BUN (7-17) mg/dL Creatinine (0.52-1.04) mg/dL Estimated GFR ML/MIN Glucose (74-106) mg/dL Calcium (8.4-10.2) mg/dL Magnesium (1.6-2.3) mg/dL Total Bilirubin (0.2-1.3) mg/dL AST (14-36) U/L ALT (0-35) U/L Alkaline Phosphatase (38-126) U/L Troponin I (0.000-0.033) ng/mL NT-Pro-B Natriuret Pep (<300) pg/mL Serum Total Protein (6.3-8.2) g/dL Albumin (3.5-5.0) g/dL Free T4 (0.78-2.19) ng/dL TSH 3rd Generation (0.470-4.680) mIU/L Urine Color Yellow (Yellow) Urine Appearance Clear (Clear) Urine pH 6.0 (4.6-8.0) Ur Specific Dale <=1.005 (1.005-1.030) Urine Protein Negative (Negative) Urine Glucose (UA) Negative (Negative) mg/dL Urine Ketones Negative (Negative) Urine Blood Negative (Negative) Urine Nitrite Negative (Negative) Urine Bilirubin Negative (Negative) Urine Urobilinogen 0.2 (0.2) mg/dL Ur Leukocyte Esterase Trace A (Negative) U Hyaline Cast (Auto) NONE SEEN (0-2) /LPF Urine Microscopic RBC 0-2 (0-5) /HPF Urine Microscopic WBC 0-2 (0-5) /HPF Ur Epithelial Cells None Seen (None Seen) /HPF Urine Bacteria None Seen (None Seen) /HPF Urine Culture Reflexed NO (NO) Monoscreen NEGATIVE (NEGATIVE) Influenza Type A Ag NEGATIVE (NEGATIVE) Influenza Type B Ag NEGATIVE (NEGATIVE) RSV (PCR) NEGATIVE (NEGATIVE) SARS-CoV-2 (PCR) NEGATIVE (NEGATIVE) 04/06/24 04/06/24 04/06/24 Range/Units 19:40 19:40 19:40 WBC (4.0-10.5) x10^3/uL RBC (4.1-5.4) x10^6/uL Hgb (12.0-16.0) g/dL Hct (35-47) % MCV (78-100) fL MCH (26-32) pg MCHC (32-36) g/dL RDW (11.5-14.0) % Plt Count (150-450) x10^3/uL MPV (7.5-11.0) fL Gran % (36.0-66.0) % Immature Gran % (Auto) (0.00-0.4) % Nucleat RBC Rel Count (0.00-0.1) % Eos # (Auto) (0-0.5) x10^3/uL Immature Gran # (Auto) (0.00-0.03) x10^3u/L Absolute Lymphs (auto) (1.0-4.6) x10^3/uL Absolute Monos (auto) (0.0-1.3) x10^3/uL Absolute Nucleated RBC (0.00-0.01) x10^3u/L Lymphocytes % (24.0-44.0) % Monocytes % (0.0-12.0) % Eosinophils % (0.00-5.0) % Basophils % (0.0-0.4) % Absolute Granulocytes (1.4-6.9) x10^3/uL Basophils # (0-0.4) x10^3/uL PT 10.0 (9.4-12.5) SECONDS INR 0.91 (0.8-3.0) Sodium (135-145) mmol/L Potassium (3.5-5.1) mmol/L Chloride (98-107) mmol/L Carbon Dioxide (22-30) mmol/L Anion Gap (5-15) MEQ/L BUN (7-17) mg/dL Creatinine (0.52-1.04) mg/dL Estimated GFR ML/MIN Glucose (74-106) mg/dL Calcium (8.4-10.2) mg/dL Magnesium (1.6-2.3) mg/dL Total Bilirubin (0.2-1.3) mg/dL AST (14-36) U/L ALT (0-35) U/L Alkaline Phosphatase (38-126) U/L Troponin I < 0.012 (0.000-0.033) ng/mL NT-Pro-B Natriuret Pep 261 (<300) pg/mL Serum Total Protein (6.3-8.2) g/dL Albumin (3.5-5.0) g/dL Free T4 1.20 (0.78-2.19) ng/dL TSH 3rd Generation (0.470-4.680) mIU/L Urine Color (Yellow) Urine Appearance (Clear) Urine pH (4.6-8.0) Ur Specific Dale (1.005-1.030) Urine Protein (Negative) Urine Glucose (UA) (Negative) mg/dL Urine Ketones (Negative) Urine Blood (Negative) Urine Nitrite (Negative) Urine Bilirubin (Negative) Urine Urobilinogen (0.2) mg/dL Ur Leukocyte Esterase (Negative) U Hyaline Cast (Auto) (0-2) /LPF Urine Microscopic RBC (0-5) /HPF Urine Microscopic WBC (0-5) /HPF Ur Epithelial Cells (None Seen) /HPF Urine Bacteria (None Seen) /HPF Urine Culture Reflexed (NO) Monoscreen (NEGATIVE) Influenza Type A Ag (NEGATIVE) Influenza Type B Ag (NEGATIVE) RSV (PCR) (NEGATIVE) SARS-CoV-2 (PCR) (NEGATIVE) 04/06/24 04/06/24 Range/Units 19:40 19:40 WBC 8.3 (4.0-10.5) x10^3/uL RBC 4.25 (4.1-5.4) x10^6/uL Hgb 12.5 (12.0-16.0) g/dL Hct 38.1 (35-47) % MCV 89.6 (78-100) fL MCH 29.4 (26-32) pg MCHC 32.8 (32-36) g/dL RDW 12.5 (11.5-14.0) % Plt Count 247 (150-450) x10^3/uL MPV 9.3 (7.5-11.0) fL Gran % 65.6 (36.0-66.0) % Immature Gran % (Auto) 0.2 (0.00-0.4) % Nucleat RBC Rel Count 0.0 (0.00-0.1) % Eos # (Auto) 0.16 (0-0.5) x10^3/uL Immature Gran # (Auto) 0.02 (0.00-0.03) x10^3u/L Absolute Lymphs (auto) 1.83 (1.0-4.6) x10^3/uL Absolute Monos (auto) 0.81 (0.0-1.3) x10^3/uL Absolute Nucleated RBC 0.00 (0.00-0.01) x10^3u/L Lymphocytes % 22.1 L (24.0-44.0) % Monocytes % 9.8 (0.0-12.0) % Eosinophils % 1.9 (0.00-5.0) % Basophils % 0.4 (0.0-0.4) % Absolute Granulocytes 5.43 (1.4-6.9) x10^3/uL Basophils # 0.03 (0-0.4) x10^3/uL PT (9.4-12.5) SECONDS INR (0.8-3.0) Sodium 140 (135-145) mmol/L Potassium 3.5 (3.5-5.1) mmol/L Chloride 107 (98-107) mmol/L Carbon Dioxide 25 (22-30) mmol/L Anion Gap 11.5 (5-15) MEQ/L BUN 11 (7-17) mg/dL Creatinine 0.77 (0.52-1.04) mg/dL Estimated GFR 77.0 ML/MIN Glucose 111 H (74-106) mg/dL Calcium 9.5 (8.4-10.2) mg/dL Magnesium 1.7 (1.6-2.3) mg/dL Total Bilirubin 0.40 (0.2-1.3) mg/dL AST 20 (14-36) U/L ALT 13 (0-35) U/L Alkaline Phosphatase 54 (38-126) U/L Troponin I (0.000-0.033) ng/mL NT-Pro-B Natriuret Pep (<300) pg/mL Serum Total Protein 7.3 (6.3-8.2) g/dL Albumin 4.3 (3.5-5.0) g/dL Free T4 (0.78-2.19) ng/dL TSH 3rd Generation 0.552 (0.470-4.680) mIU/L Urine Color (Yellow) Urine Appearance (Clear) Urine pH (4.6-8.0) Ur Specific Dale (1.005-1.030) Urine Protein (Negative) Urine Glucose (UA) (Negative) mg/dL Urine Ketones (Negative) Urine Blood (Negative) Urine Nitrite (Negative) Urine Bilirubin (Negative) Urine Urobilinogen (0.2) mg/dL Ur Leukocyte Esterase (Negative) U Hyaline Cast (Auto) (0-2) /LPF Urine Microscopic RBC (0-5) /HPF Urine Microscopic WBC (0-5) /HPF Ur Epithelial Cells (None Seen) /HPF Urine Bacteria (None Seen) /HPF Urine Culture Reflexed (NO) Monoscreen (NEGATIVE) Influenza Type A Ag (NEGATIVE) Influenza Type B Ag (NEGATIVE) RSV (PCR) (NEGATIVE) SARS-CoV-2 (PCR) (NEGATIVE) - Progress Progress: improved, re-examined Progress Note: 04/06/24 19:54 My medical decision making and the assignment of moderate complexity of this patient's medical issue is based on review of the patient's past medical history, review the patient's medication list, review patient drug allergy list, physical findings on examination. The workup in this patient includes placement of intravenous line, CBC, CMP, magnesium level, troponin level, twelve-lead EKG, BNP, urinalysis. We will hold off on providing her antihypertensive medication as she just took her metoprolol and clonidine approximately 30 minutes prior to arrival. The differential diagnosis in this patient includes urinary tract infection, dehydration, electrolyte abnormalities, arrhythmias, myocardial infarction, CHF, anxiety 04/06/24 21:28 Interpreted the patient's laboratory data results. The patient has no acute, emergent medical issue based on her laboratory study results. Counseled pt/family regarding: lab results, diagnosis, need for follow-up Medical Desision Making - Independent Historian Additional History obtained from: Spouse - Diagnostic Testing Diagnostic test were ordered, analyzed, and reviewed by me: Yes - Risk of complications Low Risk: Low risk of morbidity from additional dx testing or treatment - Departure Departure Disposition: Home Clinical Impression: Hypertension Condition: Stable Critical Care Time: No Referrals: KAVEH ALMANZAR [Primary Care Provider] - Follow up/PCP as directed Additional Instructions: Continue medications as prescribed. Call your telecommunications support tomorrow morning, 04/07/2024, and make arranges for follow-up appointment to be seen in the next 3 days. Remember to keep a log of your blood pressure readings 3 times a day. Begin tonight.
[2024-04-06 19:56] VITALS: TEMP 98.6
[2024-04-06 19:57] LABS: Absolute Neutrophil Ct (ANC) 5.43 x10^3/uL (1.4-6.9); BASOPHIL % 0.4 % (0.0-0.4); Basophil (Absolute #) 0.03 x10^3/uL (0-0.4); Eosinophil % 1.9 % (0.00-5.0); Eosinophil (Absolute #) 0.16 x10^3/uL (0-0.5); Hematocrit 38.1 % (35-47); Hemoglobin 12.5 g/dL (12.0-16.0); IMMATURE GRAN # 0.02 x10^3u/L (0.00-0.03); IMMATURE GRAN % 0.2 % (0.00-0.4); Lymphocyte (Absolute #) 1.83 x10^3/uL (1.0-4.6); Lymphocytes % 22.1 % (24.0-44.0); Mean Cell Volume 89.6 fL (78-100); Mean Corpuscular Hemoglobin 29.4 pg (26-32); Mean Corpuscular Hgb Concent. 32.8 g/dL (32-36); Mean Platelet Volume 9.3 fL (7.5-11.0); Monocyte (Absolute #) 0.81 x10^3/uL (0.0-1.3); Monocytes % 9.8 % (0.0-12.0); Neutrophil % 65.6 % (36.0-66.0); Platelet Count 247 x10^3/uL (150-450); Red Blood Count 4.25 x10^6/uL (4.1-5.4); Red Cell Distribution Width 12.5 % (11.5-14.0); White Blood Count 8.3 x10^3/uL (4.0-10.5)
[2024-04-06 20:03] LABS: Appearance Clear (Clear); Bacteria None Seen /HPF (None Seen); Bilirubin Negative (Negative); Blood Negative (Negative); Epithelial Cells None Seen /HPF (None Seen); Glucose, Urine Negative (Negative); Hyaline Casts NONE SEEN /LPF (0-2); Ketones Negative (Negative); Leukocyte Esterase Trace (Negative); Nitrite Negative (Negative); Protein,Urine Dip Negative (Negative); RBC 0-2 /HPF (0-5); Specific Gravity <=1.005 (1.005-1.030); Urobilinogen 0.2 mg/dL (0.2); WBC 0-2 /HPF (0-5)
[2024-04-06 20:05] LABS: ADD URINE CULTURE? NO (NO)
[2024-04-06 20:11] LABS: INR 0.91 (0.8-3.0)
[2024-04-06 20:23] LABS: NT PRO BNPII 261 pg/mL (<300); TROPONIN < 0.012 ng/mL (0.000-0.033)
[2024-04-06 20:43] LABS: ALBUMIN 4.3 g/dL (3.5-5.0); ANION GAP 11.5 MEQ/L (5-15); BILIRUBIN,TOTAL 0.4 mg/dL (0.2-1.3); Calcium 9.5 mg/dL (8.4-10.2); Creatinine 1 0.77 mg/dL (0.52-1.04); MAGNESIUM 1.7 mg/dL (1.6-2.3); Potassium 3.5 mmol/L (3.5-5.1); TSH, 3RD Generation 0.552 mIU/L (0.470-4.680); Total Protein 7.3 g/dL (6.3-8.2)
[2024-04-06 20:47] LABS: INFLUENZA A NEGATIVE (NEGATIVE); INFLUENZA B NEGATIVE (NEGATIVE); RESPIRATORY SYNCTIAL VIRUS NEGATIVE (NEGATIVE); SARS-CoV-2 Xpert Express NEGATIVE (NEGATIVE)
[2024-04-06 21:32] VITALS: O2SAT 96
[2024-04-06 21:46] VITALS: BP 148/87; PULSE 81; RESP 18
== END 2024-04-06 21:46 | disposition home or self-care (01) ==
LOC: ED 19:17
DX: I10 Essential (primary) hypertension (principal); R07.9 Chest pain, unspecified; R53.1 Weakness; E78.5 Hyperlipidemia, unspecified; Z79.899 Other long term (current) drug therapy
CPT/HCPCS: 0241U; 36000; 36415; 80053; 81001; 83735; 83880; 84439; 84443; 84484; 85025; 85610; 86308; 93005; 93041; 94760; 99284

== ENCOUNTER 2024-08-30 09:28 | Emergency (ER) | payer MEDICARE ==
[2024-08-30 09:41] VITALS: TEMP 95.9
--- NOTE | 2024-08-30 09:47 | ERPHSYRPT ---
- History of Present Illness Time Seen by Provider: 08/30/24 09:40 Source: patient, family, EMS Exam Limitations: no limitations Physician History: Pt. awakened with feeling of vertigo and spinning ( dizziness) and found her BP high at 180- and called EMS. No Hx of CVA or TIA, known or prior episodes. Had N and V Given Zofran and Benadryl in route by EMS. Takes ASA baby 81 mg daily but no other blood thinners. No hx of trauma, Headache , or fall, weakness or fever. No cough CP or SObreath. Nursing Hx [place] - pt just Hptn per pt , "and a small heart attack". Visual clay intact/ fundi benign, No pronator drift, Normal bread slicer machine bilaterally and no facial asymmetry. Normal neuro exam and mental status. Chest clear Ht reg without M. Abd soft notender without peritoneal signs or masses. Discussed testing with pt and available family including CT head, TeleNeuro c onsultation, IV, Zofran, UA, TSH ( pt is on Tx) , CBC, CMP, ESR, EKG, Trop and they wish to proceed, so these are ordered. Results discussed. Timing/Duration: today Severity: moderate Modifying Factors: Improves With: movement (head movement increases ) Associated Symptoms: nausea, vomiting, No abdominal pain, No shortness of breath, No chest pain, No fever, No headaches, No syncope Allergies/Adverse Reactions: Penicillins Allergy (Severe, Verified 08/30/24 09:41) Hives Home Medications: Lisinopril 20 mg [Zestril 20 MG] 10 mg PO DAILY 10/27/18 [History] cloNIDine HCL [Catapres] 0.1 mg PO HS 11/28/18 [History] Atorvastatin Calcium 10 mg PO HS 05/12/21 [History] Levothyroxine Sodium 25 Mcg [Synthroid 25 Mcg] 25 mcg PO DAILY 05/12/21 [History] Venlafaxine HCl [Effexor Xr] 150 mg PO DAILY 05/12/21 [History] Buspirone HCl 5 mg [Buspar 5 mg] 10 mg PO BID 10/09/22 [History] Metoprolol Tartrate 50 mg [Lopressor 50 MG] 50 mg PO HS 10/09/22 [History] Alendronate Sodium [Fosamax] 70 mg PO WEEKLY 11/05/22 [History] Budesonide/Glycopyr/Formoterol [Breztri Aerosphere Inhaler] 2 puff IH BID 04/06/24 [History] Amlodipine Besylate 5 mg PO BID 08/30/24 [History] Chlorthalidone 12.5 mg PO DAILY 08/30/24 [History] Hx Tetanus, Diphtheria Vaccination/Date Given: No Hx Influenza Vaccination/Date Given: No Hx Pneumococcal Vaccination/Date Given: Yes Travel Risk - Emerging Infectious Disease Are you exhibiting symptoms associated with any current EIDs: No - Review of Systems Constitutional: No Fever, No Chills Eyes: No Symptoms Ears, Nose, & Throat: No Symptoms Respiratory: No Cough, No Dyspnea Cardiac: No Chest Pain, No Edema, No Syncope Abdominal/Gastrointestinal: No Abdominal Pain, No Nausea, No Vomiting, No Diarrhea Genitourinary Symptoms: No Dysuria Musculoskeletal: No Back Pain, No Neck Pain, No Fall, No Injury Skin: No Symptoms, No Rash Neurological: Dizziness, Vertigo, No Focal Weakness, No Gait Changes, No Headache, No Parasthesia, No Seizure, No Sensory Changes, No Speech Changes Psychological: No Symptoms Endocrine: No Symptoms Hematologic/Lymphatic: No Symptoms Immunological/Allergic: No Symptoms All Other Systems: Reviewed and Negative - Past Medical History Pertinent Past Medical History: Yes Neurological History: No Pertinent History ENT History: No Pertinent History Cardiac History: Arrhythmia, High Cholesterol, Hypertension, Myocardial Infarction ([place]) Respiratory History: Bronchitis, COPD Endocrine Medical History: Hypothyroidism Musculoskeletal History: Osteoarthritis GI Medical History: GERD, Hemorrhoids History: No Pertinent History Psycho-Social History: Anxiety Female Reproductive Disorders: No Pertinent History Other Medical History: Had mild [place] in 2020, A-fib in 2021, herniated rectum - Past Surgical History Past Surgical History: Yes Neuro Surgical History: No Pertinent History Cardiac: No Pertinent History Respiratory: No Pertinent History Gastrointestinal: No Pertinent History Genitourinary: No Pertinent History Musculoskeletal: Joint Replacement, Other Female Surgical History: No Pertinent History Other Surgical History: bilateral hip replacements and lumbar fusions, cataract. left eye Oct 2018 - Social History Smoking Status: Former smoker How long have you smoked: 61 yrs Exposure to second hand smoke: Yes Drug Use: none Patient Lives Alone: No - Social Determinants of Health Will the patient participate in the screening: Yes Do you worry about a steady place to live?: No In the past 12 months,have you had to go without utilities?: No Transportation Issues: No Has anyone in your support network made you feel unsafe?: No Have you or anyone in your house had to go without enough: No - Nursing Vital Signs Nursing Vital Signs: Initial Vital Signs Temperature 95.9 F 08/30/24 09:30 Pulse Rate 69 08/30/24 09:30 Respiratory Rate 15 08/30/24 09:30 Blood Pressure 151/74 08/30/24 09:30 O2 Sat by Pulse Oximetry 97 08/30/24 09:30 Pain Scale Pain Intensity 0 - Physical Exam General Appearance: no apparent distress, alert Eye Exam: PERRL/EOMI, eyes nml inspection Ears, Nose, Throat Exam: normal ENT inspection, TMs normal, pharynx normal, moist mucous membranes Neck Exam: normal inspection, non-tender, supple, full range of motion Respiratory Exam: normal breath sounds, lungs clear, No respiratory distress Cardiovascular Exam: regular rate/rhythm, normal heart sounds, normal peripheral pulses Gastrointestinal/Abdomen Exam: soft, normal bowel sounds, No tenderness, No mass Back Exam: normal inspection, normal range of motion, No CVA tenderness, No vertebral tenderness Extremity Exam: normal inspection, normal range of motion, pelvis stable Neurologic Exam: alert, oriented x 3, cooperative, normal mood/affect, nml cerebellar function, nml station & gait, sensation nml, No motor deficits Skin Exam: normal color, warm, dry, No rash Lymphatic Exam: No adenopathy SpO2 Interpretation: normal SpO2: 96 O2 Delivery: Room Air - Course Nursing assessment & vital signs reviewed: Yes EKG Interpreted by Me: Sinus Rhythm, NORMAL AXIS, NORMAL INTERVALS, NORMAL QRS, Non-specific ST Changes - CT Exams Head CT Interpretation: Tele-radiologist Report, No/Intracranial Hemorrhag, Old Stroke, Other (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.) Ordered Tests: Active Orders 24 hr Category Date Time Status EKG-ER Only STAT Care 08/30/24 09:52 Active Tele-Health Consult ROUTINE Cons 08/30/24 09:56 Active HEAD WITHOUT CONTRAST [CT] Stat Exams 08/30/24 10:19 Completed CBC W DIFF Stat Lab 08/30/24 10:08 Completed CMP Stat Lab 08/30/24 10:08 Completed ESR [Erythrocyte Sedimentation Rate] Stat Lab 08/30/24 10:08 Completed TROPONIN Q4H Lab 08/30/24 10:08 Completed TSH, 3RD Generation Stat Lab 08/30/24 10:08 Completed UA W/RFX UR CULTURE Stat Lab 08/30/24 12:43 Completed Medication Summary Discontinued Medications Generic Name Dose Route Start Last Admin Trade Name Rich PRN Reason Stop Dose Admin Meclizine HCl 25 mg 08/30/24 10:53 08/30/24 10:57 Meclizine Hcl 25 Mg Tablet PO 08/30/24 10:54 25 mg STAT ONE Administration Meclizine HCl Confirm 08/30/24 10:56 Meclizine Hcl 25 Mg Tablet Administered 08/30/24 10:57 Dose 25 mg .ROUTE .STK-MED ONE Lab/Rad Data: Laboratory Result Diagrams 08/30/24 10:08 08/30/24 10:08 Laboratory Results 08/30/24 08/30/24 08/30/24 Range/Units 12:43 10:08 10:08 WBC (3.98-10.04) x10^3/uL RBC (3.93-5.22) x10^6/uL Hgb (11.2-15.7) g/dL Hct (34.1-44.9) % MCV (79.4-94.8) fL MCH (25.6-32.2) pg MCHC (32.2-35.5) g/dL RDW (11.7-14.4) % Plt Count (182-369) x10^3/uL MPV (9.4-12.3) fL Gran % (34.0-71.1) % Immature Gran % (Auto) (0.001-0.429) % Nucleat RBC Rel Count (0.00-0.2) % Eos # (Auto) (0.04-0.36) x10^3/uL Immature Gran # (Auto) (0.001-0.031) x10^3u/L Absolute Lymphs (auto) (1.18-3.74) x10^3/uL Absolute Monos (auto) (0.24-0.86) x10^3/uL Absolute Nucleated RBC (0.00-0.012) x10^3u/L Lymphocytes % (19.3-51.7) % Monocytes % (4.7-12.5) % Eosinophils % (0.7-5.8) % Basophils % (0.1-1.2) % Absolute Granulocytes (1.56-6.13) x10^3/uL Basophils # (0.01-0.08) x10^3/uL ESR 13 (0-20) mm/hr Sodium (135-145) mmol/L Potassium (3.5-5.1) mmol/L Chloride (98-107) mmol/L Carbon Dioxide (22-30) mmol/L Anion Gap (5-15) MEQ/L BUN (7-17) mg/dL Creatinine (0.52-1.04) mg/dL Estimated GFR ML/MIN Glucose (74-106) mg/dL Calcium (8.4-10.2) mg/dL Total Bilirubin (0.2-1.3) mg/dL AST (14-36) U/L ALT (0-35) U/L Alkaline Phosphatase (38-126) U/L Troponin I < 0.012 (0.000-0.033) ng/mL Serum Total Protein (6.3-8.2) g/dL Albumin (3.5-5.0) g/dL TSH 3rd Generation (0.470-4.680) mIU/L Urine Color Yellow (Yellow) Urine Appearance Clear (Clear) Urine pH 7.5 (4.6-8.0) Ur Specific [place] 1.010 (1.005-1.030) Urine Protein Negative (Negative) Urine Glucose (UA) Negative (Negative) mg/dL Urine Ketones Negative (Negative) Urine Blood Negative (Negative) Urine Nitrite Negative (Negative) Urine Bilirubin Negative (Negative) Urine Urobilinogen 0.2 (0.2) mg/dL Ur Leukocyte Esterase Negative (Negative) U Hyaline Cast (Auto) NONE SEEN (0-2) /LPF Urine Microscopic RBC 0-2 (0-5) /HPF Urine Microscopic WBC 0-2 (0-5) /HPF Ur Epithelial Cells None Seen (None Seen) /HPF Urine Bacteria None Seen (None Seen) /HPF Urine Culture Reflexed NO (NO) 08/30/24 08/30/24 Range/Units 10:08 10:08 WBC 9.3 (3.98-10.04) x10^3/uL RBC 4.25 (3.93-5.22) x10^6/uL Hgb 12.6 (11.2-15.7) g/dL Hct 38.0 (34.1-44.9) % MCV 89.4 (79.4-94.8) fL MCH 29.6 (25.6-32.2) pg MCHC 33.2 (32.2-35.5) g/dL RDW 12.5 (11.7-14.4) % Plt Count 228 (182-369) x10^3/uL MPV 9.3 L (9.4-12.3) fL Gran % 78.6 H (34.0-71.1) % Immature Gran % (Auto) 0.4 (0.001-0.429) % Nucleat RBC Rel Count 0.0 (0.00-0.2) % Eos # (Auto) 0.07 (0.04-0.36) x10^3/uL Immature Gran # (Auto) 0.04 H (0.001-0.031) x10^3u/L Absolute Lymphs (auto) 1.20 (1.18-3.74) x10^3/uL Absolute Monos (auto) 0.63 (0.24-0.86) x10^3/uL Absolute Nucleated RBC 0.00 (0.00-0.012) x10^3u/L Lymphocytes % 13.0 L (19.3-51.7) % Monocytes % 6.8 (4.7-12.5) % Eosinophils % 0.8 (0.7-5.8) % Basophils % 0.4 (0.1-1.2) % Absolute Granulocytes 7.28 H (1.56-6.13) x10^3/uL Basophils # 0.04 (0.01-0.08) x10^3/uL ESR (0-20) mm/hr Sodium 138 (135-145) mmol/L Potassium 4.2 (3.5-5.1) mmol/L Chloride 102 (98-107) mmol/L Carbon Dioxide 24 (22-30) mmol/L Anion Gap 15.5 H (5-15) MEQ/L BUN 9 (7-17) mg/dL Creatinine 0.73 (0.52-1.04) mg/dL Estimated GFR 81.6 ML/MIN Glucose 147 H (74-106) mg/dL Calcium 9.4 (8.4-10.2) mg/dL Total Bilirubin 0.70 (0.2-1.3) mg/dL AST 28 (14-36) U/L ALT 22 (0-35) U/L Alkaline Phosphatase 44 (38-126) U/L Troponin I (0.000-0.033) ng/mL Serum Total Protein 7.4 (6.3-8.2) g/dL Albumin 4.5 (3.5-5.0) g/dL TSH 3rd Generation 0.857 (0.470-4.680) mIU/L Urine Color (Yellow) Urine Appearance (Clear) Urine pH (4.6-8.0) Ur Specific [place] (1.005-1.030) Urine Protein (Negative) Urine Glucose (UA) (Negative) mg/dL Urine Ketones (Negative) Urine Blood (Negative) Urine Nitrite (Negative) Urine Bilirubin (Negative) Urine Urobilinogen (0.2) mg/dL Ur Leukocyte Esterase (Negative) U Hyaline Cast (Auto) (0-2) /LPF Urine Microscopic RBC (0-5) /HPF Urine Microscopic WBC (0-5) /HPF Ur Epithelial Cells (None Seen) /HPF Urine Bacteria (None Seen) /HPF Urine Culture Reflexed (NO) - Progress Progress: improved, re-examined Progress Note: Pt re-confirms that head motion seems to make the vertigo increase. I advised her and of CT results, but that pathology may still be evolving and further w/u may be advised by Neuro. 08/30/24 10:54 discussed risk/benefit of antivert with pt and family and they wish to proceed. 08/30/24 11:55 pt and family advised of slight elevation of glucose , and elevation of BP and need to f/u PMD to optimize Tx . 08/30/24 11:56 08/30/24 16:52 consulted with neurologist by tele and he agrees relatively low risk and most likely a peripheral source for the vertigo dizziness but need outpt f/u MRI to rule out additional pathology - I advised pt and family that we cannot yet be certain to exclude pathology of serious nature cerebrovascular or other by the testing performed today and she prefers this outpt f/u rather than further testing in ER, transfer, or hospitalization and has the capacity to make this choice. 08/30/24 16:56 Counseled pt/family regarding: lab results, diagnosis, need for follow-up, rad results Medical Desision Making - Independent Historian Additional History obtained from: Family, EMS - Discussion of managment Care discussed with:: specialist Reviewed:: Test results, Need for additional workup Agreed on:: Treatment plan, need for follow-up - Diagnostic Testing Diagnostic test were ordered, analyzed, and reviewed by me: Yes Radiological Interpretation: Interpreted by me, Reviewed by me, Teleradiologist Report - Risk of complications The pt has a mod risk of morbidity or mortality based on: Need for prescription drug management The pt has a high risk of morbidity or mortality based on: Decision regarding hospitilization or escalation of hosp level of care - Departure Departure Disposition: Home Clinical Impression: diziness / vertigo unknown etiology Condition: Good Critical Care Time: No Referrals: KAVEH ALMANZAR [Primary Care Provider] - Follow up/PCP as directed Instructions: Vertigo (a type of dizziness), Dizziness, Adult ED, Vertigo ED Additional Instructions: ALthough the most likely condition is vertigo from inner ear , there still is a possibility of more serious blood vessel problems which should also be checked out by MRI and MRA studies as the neurologist we consulted advises - so call your Dr early this week to start setting that up. Return meantime if any concerning symptoms such as visual symptoms, vomiting, fever, weakness, unsteadiness or any other concerns. Prescriptions: Meclizine HCl 25 mg [Antivert 25 mg] 12.5 mg PO Q8H PRN PRN #20 tablet PRN Reason: Dizziness
[2024-08-30 10:09] LABS: Absolute Neutrophil Ct (ANC) 7.28 x10^3/uL (1.56-6.13); BASOPHIL % 0.4 % (0.1-1.2); Basophil (Absolute #) 0.04 x10^3/uL (0.01-0.08); Eosinophil % 0.8 % (0.7-5.8); Eosinophil (Absolute #) 0.07 x10^3/uL (0.04-0.36); Hemoglobin 12.6 g/dL (11.2-15.7); IMMATURE GRAN # 0.04 x10^3u/L (0.001-0.031); IMMATURE GRAN % 0.4 % (0.001-0.429); Mean Cell Volume 89.4 fL (79.4-94.8); Mean Corpuscular Hemoglobin 29.6 pg (25.6-32.2); Mean Corpuscular Hgb Concent. 33.2 g/dL (32.2-35.5); Mean Platelet Volume 9.3 fL (9.4-12.3); Monocyte (Absolute #) 0.63 x10^3/uL (0.24-0.86); Monocytes % 6.8 % (4.7-12.5); Neutrophil % 78.6 % (34.0-71.1); Platelet Count 228 x10^3/uL (182-369); Red Blood Count 4.25 x10^6/uL (3.93-5.22); Red Cell Distribution Width 12.5 % (11.7-14.4); White Blood Count 9.3 x10^3/uL (3.98-10.04)
--- NOTE | 2024-08-30 10:48 | XRAY ---
CLINICAL HISTORY: Dizziness and Vertigo COMPARISON: None. TECHNIQUE: An axial noncontrast enhanced CT scan of the brain was performed from the skull base to the high parietal region. One of the following dose reduction techniques was utilized for this exam. Automated exposure control, adjustment of the mA and/or kV according to patient size, and use of iterative reconstruction. FINDINGS: No intracerebral or extra axial hematoma seen. No established territorial ischemic infarction was seen. Age-appropriate brain involutional changes are seen as evident by prominent intra and extra-axial CSF spaces. Bilateral confluent hypodense areas are seen in periventricular deep white matter representing chronic microvascular ischemic changes. The faint pontine hypodense area noted in its right portion could be an artifact. No midline shifts or deformity. No obvious space-occupying lesions were seen. The visualized brain parenchyma shows a normal appearance. No focal parenchymal abnormalities are demonstrated. Rodríguez-white matter differentiation is maintained. Normal CT appearance of the posterior fossa structures namely the cerebellar hemispheres, brainstem, and cerebellar peduncles. No definite calvarium fractures. Scanned paranasal sinuses are clear. Hyperostosis frontalis interna. IMPRESSION: 1. No intracerebral or extra axial hematoma. 2. No established territorial ischemic infarction was seen. Early changes of acute ischemic infarction may not be detected on CT scan, MRI Stroke protocol including DWI/ ADC is the imaging modality of choice. 3. Age-appropriate brain involutional and chronic microvascular ischemic changes. 4. No obvious space-occupying lesions were seen. [facility] ER was called at [phone] at 10:40 AM EST, 08/30/2024 and Myesha (Nurse) was informed regarding the negative stroke results. Electronically Signed by: Grazyna Thomas MD. (08/30/2024 10:43:33 EDT)
[2024-08-30 10:53] LABS: ALBUMIN 4.5 g/dL (3.5-5.0); ANION GAP 15.5 MEQ/L (5-15); BILIRUBIN,TOTAL 0.7 mg/dL (0.2-1.3); Calcium 9.4 mg/dL (8.4-10.2); Creatinine 1 0.73 mg/dL (0.52-1.04); EST GLOMERULAR FILTRATION RATE 81.6 ML/MIN; Potassium 4.2 mmol/L (3.5-5.1); TSH, 3RD Generation 0.857 mIU/L (0.470-4.680); Total Protein 7.4 g/dL (6.3-8.2)
[2024-08-30] MEDS ORDERED: ANTIVERT 25 MG ONE (10:56)
[2024-08-30] MEDS: ANTIVERT 25 MG PO ONE (10:57)
[2024-08-30 13:18] LABS: Appearance Clear (Clear); Bacteria None Seen /HPF (None Seen); Bilirubin Negative (Negative); Blood Negative (Negative); Epithelial Cells None Seen /HPF (None Seen); Glucose, Urine Negative (Negative); Hyaline Casts NONE SEEN /LPF (0-2); Ketones Negative (Negative); Leukocyte Esterase Negative (Negative); Nitrite Negative (Negative); Ph 7.5 (4.6-8.0); Protein,Urine Dip Negative (Negative); RBC 0-2 /HPF (0-5); Urobilinogen 0.2 mg/dL (0.2); WBC 0-2 /HPF (0-5)
[2024-08-30 15:21] VITALS: BP 128/70; PULSE 76; RESP 23
[2024-08-30 16:54] VITALS: O2SAT 96
== END 2024-08-30 17:16 | disposition home or self-care (01) ==
LOC: ED 09:28
DX: R42 Dizziness and giddiness (principal); R11.2 Nausea with vomiting, unspecified; E78.5 Hyperlipidemia, unspecified; I10 Essential (primary) hypertension; Z79.899 Other long term (current) drug therapy
CPT/HCPCS: 36000; 36415; 70450; 80053; 81001; 84443; 84484; 85025; 85652; 93005; 99284; A9270-GY

== ENCOUNTER 2025-01-23 19:47 | Inpatient (IN) | payer MEDICARE ==
[2025-01-23] MEDS ORDERED: DUONEB 0.5-3 MG/3 ml Neb IH ONE ×2 (19:59→23:49)
--- NOTE | 2025-01-23 19:59 | ERPHSYRPT ---
- History of Present Illness Source: patient Exam Limitations: no limitations Physician History: Patient's had shortness of breath for about 4 months. She says it comes and goes last a few days and itPartially resolves on its own. She says that since around Thanksgi she has had increasing shortness of breathCough is occasionally productive. She said it is yellow sputum. She has a history of COPD. She does not have any coronary vascular disease that she knows of.Nothing makes The symptoms better or worse..She has not had any chest pain fever chills nausea vomitingShe has not had any edema. She does not have any orthopnea. Allergies/Adverse Reactions: Penicillins Allergy (Severe, Verified 08/30/24 09:41) Hives Home Medications: Lisinopril 20 mg [Zestril 20 MG] 10 mg PO DAILY 10/27/18 [History] cloNIDine HCL [Catapres] 0.1 mg PO HS 11/28/18 [History] Atorvastatin Calcium 10 mg PO HS 05/12/21 [History] Levothyroxine Sodium 25 Mcg [Synthroid 25 Mcg] 25 mcg PO DAILY 05/12/21 [History] Venlafaxine HCl [Effexor Xr] 150 mg PO DAILY 05/12/21 [History] Buspirone HCl 5 mg [Buspar 5 mg] 10 mg PO BID 10/09/22 [History] Metoprolol Tartrate 50 mg [Lopressor 50 MG] 50 mg PO HS 10/09/22 [History] Alendronate Sodium [Fosamax] 70 mg PO WEEKLY 11/05/22 [History] Budesonide/Glycopyr/Formoterol [Breztri Aerosphere Inhaler] 2 puff IH BID 04/06/24 [History] Amlodipine Besylate 5 mg PO BID 08/30/24 [History] Chlorthalidone 12.5 mg PO DAILY 08/30/24 [History] Hx Tetanus, Diphtheria Vaccination/Date Given: No Hx Influenza Vaccination/Date Given: No Hx Pneumococcal Vaccination/Date Given: Yes Travel Risk - Emerging Infectious Disease Are you exhibiting symptoms associated with any current EIDs: No - Review of Systems Constitutional: No Symptoms Eyes: No Symptoms Ears, Nose, & Throat: No Symptoms Respiratory: Dyspnea Cardiac: No Symptoms Abdominal/Gastrointestinal: No Symptoms Skin: No Symptoms Neurological: No Symptoms All Other Systems: Reviewed and Negative - Past Medical History Pertinent Past Medical History: Yes Neurological History: No Pertinent History ENT History: No Pertinent History Cardiac History: Arrhythmia, High Cholesterol, Hypertension, Myocardial Infarction ([place]) Respiratory History: Bronchitis, COPD Endocrine Medical History: Hypothyroidism Musculoskeletal History: Osteoarthritis GI Medical History: GERD, Hemorrhoids History: No Pertinent History Psycho-Social History: Anxiety Female Reproductive Disorders: No Pertinent History Other Medical History: Had mild CA in 2020, A-fib in 2021, herniated rectum - Past Surgical History Past Surgical History: Yes Neuro Surgical History: No Pertinent History Cardiac: No Pertinent History Respiratory: No Pertinent History Gastrointestinal: No Pertinent History Genitourinary: No Pertinent History Musculoskeletal: Joint Replacement, Other Female Surgical History: No Pertinent History Other Surgical History: bilateral hip replacements and lumbar fusions, cataract. left eye Oct 2018 - Social History Smoking Status: Former smoker How long have you smoked: 61 yrs Exposure to second hand smoke: Yes Drug Use: none Patient Lives Alone: No - Social Determinants of Health Will the patient participate in the screening: Yes Do you worry about a steady place to live?: No In the past 12 months,have you had to go without utilities?: No Transportation Issues: No Has anyone in your support network made you feel unsafe?: No Have you or anyone in your house had to go w/o enough food: No - Nursing Vital Signs Nursing Vital Signs: Initial Vital Signs Pulse Rate 96 H 01/23/25 19:44 Respiratory Rate 23 01/23/25 19:44 Blood Pressure 160/89 01/23/25 19:44 O2 Sat by Pulse Oximetry 93 L 01/23/25 19:44 Pain Scale Pain Intensity 0 - Physical Exam General Appearance: mild distress Eye Exam: PERRL/EOMI Ears, Nose, Throat Exam: hearing grossly normal, normal ENT inspection, normal pharynx Neck Exam: normal inspection, non-tender Respiratory Exam: respiratory distress (moderate), other (Barnard down in both lungs breath sounds are pretty much absent. There was some decent air movement in the upper lung clay with some expiratory wheezes) Cardiovascular/Chest Exam: normal heart sounds, tachycardia Abdominal/Gastrointestinal Exam: soft, normal bowel sounds Neurologic Exam: alert, oriented x 3, cooperative Skin Exam: normal color, warm SpO2 Interpretation: borderline oxygenation SpO2: 95 - Course Nursing assessment & vital signs reviewed: Yes EKG Interpreted by Me: RATE, NORMAL INTERVALS, NORMAL QRS, NORMAL ST-T Rhythm Strip: Rate Ordered Tests: Active Orders 24 hr Category Date Time Status EKG-ER Only STAT Care 01/23/25 19:54 Active CHEST 1 VIEW (PORTABLE) Stat Exams 01/23/25 19:54 Completed CHEST WITH CONTRAST [CT] Stat Exams 01/23/25 20:49 Completed BLOOD CULTURE Stat Lab 01/23/25 20:20 Received BNPII [NT PRO BNPII] Stat Lab 01/23/25 20:20 Completed CBC W DIFF Stat Lab 01/23/25 20:20 Completed CMP Stat Lab 01/23/25 20:20 Completed D-DIMER QUANTITATIVE Stat Lab 01/23/25 20:20 Completed TROPONIN Q4H Lab 01/23/25 20:20 Completed TROPONIN Q4H Lab 01/24/25 00:00 Ordered TROPONIN Q4H Lab 01/24/25 05:00 Ordered VENOUS BLOOD GAS Stat Lab 01/23/25 20:35 Completed Flutter Therapy UD RT 01/23/25 20:29 Active Respiratory Therapy Assessment DAILY RT 01/23/25 20:28 Active Transfer Order Routine Transfer 01/23/25 Ordered Medication Summary Generic Name Dose Route Start Last Admin Trade Name Freq PRN Reason Stop Dose Admin Albuterol Sulfate 2.5 mg 01/23/25 23:30 Albuterol Sulfate 2.5 Mg/3 Ml Neb IH 02/22/25 23:29 Q3-4HPRN PRN SHORTNESS OF BREATH/WHEEZING Discontinued Medications Generic Name Dose Route Start Last Admin Trade Name Freq PRN Reason Stop Dose Admin Albuterol/Ipratropium Confirm 01/23/25 19:59 Ipratropium/Albuterol Sulfate 3 Ml Ampul.Neb Administered 01/23/25 20:00 Dose 3 ml IH .STK-MED ONE Albuterol/Ipratropium 3 ml 01/23/25 20:38 01/23/25 20:39 Ipratropium/Albuterol Sulfate 3 Ml Ampul.Neb IH 01/23/25 20:39 3 ml STAT ONE Administration Lab/Rad Data: Laboratory Result Diagrams 01/23/25 20:20 01/23/25 20:20 Laboratory Results 03/07/1201/23/25 01/23/25 Range/Units 20:35 20:20 20:20 WBC (3.98-10.04) x10^3/uL RBC (3.93-5.22) x10^6/uL Hgb (11.2-15.7) g/dL Hct (34.1-44.9) % MCV (79.4-94.8) fL MCH (25.6-32.2) pg MCHC (32.2-35.5) g/dL RDW (11.7-14.4) % Plt Count (182-369) x10^3/uL MPV (9.4-12.3) fL Gran % (34.0-71.1) % Immature Gran % (Auto) (0.001-0.429) % Nucleat RBC Rel Count (0.00-0.2) % Eos # (Auto) (0.04-0.36) x10^3/uL Immature Gran # (Auto) (0.001-0.031) x10^3u/L Absolute Lymphs (auto) (1.18-3.74) x10^3/uL Absolute Monos (auto) (0.24-0.86) x10^3/uL Absolute Nucleated RBC (0.00-0.012) x10^3u/L Lymphocytes % (19.3-51.7) % Monocytes % (4.7-12.5) % Eosinophils % (0.7-5.8) % Basophils % (0.1-1.2) % Absolute Granulocytes (1.56-6.13) x10^3/uL Basophils # (0.01-0.08) x10^3/uL D-Dimer 1.03 H* (0.0-0.50) mg/L pO2/FiO2 Ratio 21 % VBG pH 7.49 H (7.32-7.42) VBG pCO2 at Pat Temp 41 L (42-55) mm/Hg VBG pO2 at Pat Temp 55 H (25-40) mm/Hg VBG HCO3 31.2 H* (22-28) meq/L VBG O2 Sat (Iesha) 87.5 L (95-100) VBG Base Excess 7.2 H (-2.0-2.0) VBG Hemoglobin 13.2 VBG Carboxyhemoglobin 4.5 (0.0-6.9) % T HGB POC Potassium 4.1 (3.5-5.1) Sodium (135-145) mmol/L Potassium (3.5-5.1) mmol/L Chloride (98-107) mmol/L Carbon Dioxide (22-30) mmol/L Anion Gap (5-15) MEQ/L BUN (7-17) mg/dL Creatinine (0.52-1.04) mg/dL Estimated GFR ML/MIN Glucose (74-106) mg/dL Calcium (8.4-10.2) mg/dL Total Bilirubin (0.2-1.3) mg/dL AST (14-36) U/L ALT (0-35) U/L Alkaline Phosphatase (38-126) U/L Troponin I < 0.012 (0.000-0.033) ng/mL NT-Pro-B Natriuret Pep (<300) pg/mL Serum Total Protein (6.3-8.2) g/dL Albumin (3.5-5.0) g/dL Influenza Type A Ag (NEGATIVE) Influenza Type B Ag (NEGATIVE) RSV (PCR) (NEGATIVE) SARS-CoV-2 (PCR) (NEGATIVE) 01/23/25 01/23/25 01/23/25 Range/Units 20:20 20:20 20:20 WBC 13.1 H (3.98-10.04) x10^3/uL RBC 4.39 (3.93-5.22) x10^6/uL Hgb 12.4 (11.2-15.7) g/dL Hct 37.7 (34.1-44.9) % MCV 85.9 (79.4-94.8) fL MCH 28.2 (25.6-32.2) pg MCHC 32.9 (32.2-35.5) g/dL RDW 12.5 (11.7-14.4) % Plt Count 310 (182-369) x10^3/uL MPV 9.5 (9.4-12.3) fL Gran % 79.9 H (34.0-71.1) % Immature Gran % (Auto) 0.5 H (0.001-0.429) % Nucleat RBC Rel Count 0.0 (0.00-0.2) % Eos # (Auto) 0.07 (0.04-0.36) x10^3/uL Immature Gran # (Auto) 0.06 H (0.001-0.031) x10^3u/L Absolute Lymphs (auto) 1.23 (1.18-3.74) x10^3/uL Absolute Monos (auto) 1.21 H (0.24-0.86) x10^3/uL Absolute Nucleated RBC 0.00 (0.00-0.012) x10^3u/L Lymphocytes % 9.4 L (19.3-51.7) % Monocytes % 9.2 (4.7-12.5) % Eosinophils % 0.5 L (0.7-5.8) % Basophils % 0.5 (0.1-1.2) % Absolute Granulocytes 10.47 H (1.56-6.13) x10^3/uL Basophils # 0.06 (0.01-0.08) x10^3/uL D-Dimer (0.0-0.50) mg/L pO2/FiO2 Ratio % VBG pH (7.32-7.42) VBG pCO2 at Pat Temp (42-55) mm/Hg VBG pO2 at Pat Temp (25-40) mm/Hg VBG HCO3 (22-28) meq/L VBG O2 Sat (Iesha) (95-100) VBG Base Excess (-2.0-2.0) VBG Hemoglobin VBG Carboxyhemoglobin (0.0-6.9) % T HGB POC Potassium (3.5-5.1) Sodium 140 (135-145) mmol/L Potassium 4.0 (3.5-5.1) mmol/L Chloride 104 (98-107) mmol/L Carbon Dioxide 21 L (22-30) mmol/L Anion Gap 18.1 H (5-15) MEQ/L BUN 10 (7-17) mg/dL Creatinine 0.64 (0.52-1.04) mg/dL Estimated GFR 87.6 ML/MIN Glucose 127 H (74-106) mg/dL Calcium 9.6 (8.4-10.2) mg/dL Total Bilirubin 0.50 (0.2-1.3) mg/dL AST 27 (14-36) U/L ALT 18 (0-35) U/L Alkaline Phosphatase 64 (38-126) U/L Troponin I (0.000-0.033) ng/mL NT-Pro-B Natriuret Pep 173 (<300) pg/mL Serum Total Protein 7.7 (6.3-8.2) g/dL Albumin 4.7 (3.5-5.0) g/dL Influenza Type A Ag NEGATIVE (NEGATIVE) Influenza Type B Ag NEGATIVE (NEGATIVE) RSV (PCR) NEGATIVE (NEGATIVE) SARS-CoV-2 (PCR) NEGATIVE (NEGATIVE) - Progress Progress: improved Air Movement: fair Progress Note: Patient was stable throughout stay. She improved pretty significantly with breathing treatments. She was still working to move air. She is maintaining good sats but I think we should put her on some supplemental oxygen.Is low concern for pulmonary embolism got a CT after an elevated D-dimer came back. It showed no evidence of pulmonary embolism. There was some new nodularity. We can address that on the floor. I think the patient's basically just having a COPD exacerbationI am going to call the hospitalist for admission.There is no evidence of infectious processes going on. 01/23/25 23:20 01/23/25 23:26 Blood Culture(s) Obtained: Yes Antibiotics given: No Will see patient in: hospital (observation) Medical Desision Making - Independent Historian Additional History obtained from: Spouse - External Record(s) Reviewed Records reviewed as a part of evaluation & management: Inpatient - Discussion of managment Care discussed with:: hospitalist Agreed on:: Treatment plan, place in obs - Departure Departure Disposition: Observation Clinical Impression: COPD exacerbation Condition: Good Critical Care Time: No Referrals: KAVEH ALMANZAR [Primary Care Provider] - Follow up/PCP as directed Instructions: Chronic Obstructive Pulmonary Disease
[2025-01-23 20:30] LABS: Absolute Neutrophil Ct (ANC) 10.47 x10^3/uL (1.56-6.13); BASOPHIL % 0.5 % (0.1-1.2); Basophil (Absolute #) 0.06 x10^3/uL (0.01-0.08); Eosinophil % 0.5 % (0.7-5.8); Eosinophil (Absolute #) 0.07 x10^3/uL (0.04-0.36); Hematocrit 37.7 % (34.1-44.9); Hemoglobin 12.4 g/dL (11.2-15.7); IMMATURE GRAN # 0.06 x10^3u/L (0.001-0.031); IMMATURE GRAN % 0.5 % (0.001-0.429); Lymphocyte (Absolute #) 1.23 x10^3/uL (1.18-3.74); Lymphocytes % 9.4 % (19.3-51.7); Mean Cell Volume 85.9 fL (79.4-94.8); Mean Corpuscular Hemoglobin 28.2 pg (25.6-32.2); Mean Corpuscular Hgb Concent. 32.9 g/dL (32.2-35.5); Mean Platelet Volume 9.5 fL (9.4-12.3); Monocyte (Absolute #) 1.21 x10^3/uL (0.24-0.86); Monocytes % 9.2 % (4.7-12.5); Neutrophil % 79.9 % (34.0-71.1); Platelet Count 310 x10^3/uL (182-369); Red Blood Count 4.39 x10^6/uL (3.93-5.22); Red Cell Distribution Width 12.5 % (11.7-14.4); White Blood Count 13.1 x10^3/uL (3.98-10.04)
--- NOTE | 2025-01-23 20:37 | XRAY ---
Indication: Dyspnea. Comparison: November 27, 2022 Portable chest less inflated and remains clear again with incidental left base calcified granuloma. Heart not enlarged again with small mediastinal calcified node. Bony thorax intact with osteopenia and mild degenerative changes. Impression: Continued nonacute chest with chronic features.
[2025-01-23] MEDS: DUONEB 0.5-3 MG/3 ml Neb IH ONE (20:39)
[2025-01-23 20:47] LABS: ALBUMIN 4.7 g/dL (3.5-5.0); ANION GAP 18.1 MEQ/L (5-15); BILIRUBIN,TOTAL 0.5 mg/dL (0.2-1.3); Calcium 9.6 mg/dL (8.4-10.2); Creatinine 1 0.64 mg/dL (0.52-1.04); EST GLOMERULAR FILTRATION RATE 87.6 ML/MIN; Total Protein 7.7 g/dL (6.3-8.2)
[2025-01-23 21:07] LABS: INFLUENZA A NEGATIVE (NEGATIVE); INFLUENZA B NEGATIVE (NEGATIVE); RESPIRATORY SYNCTIAL VIRUS NEGATIVE (NEGATIVE); SARS-CoV-2 Xpert Express NEGATIVE (NEGATIVE)
--- NOTE | 2025-01-23 22:26 | XRAY ---
CLINICAL HISTORY: dyspnea tachycardia high dimer COMPARISON: CT Chest scan done on 2021 TECHNIQUE: Contiguous axial images were obtained from the neck base through the upper abdomen following intravenous administration of contrast material. If IV contrast material had not been administered, the likelihood of detecting abnormalities relevant to the patient's condition would have been substantially decreased. In addition, sagittal and coronal reconstructions were performed. CT scan was performed according to ALARA (as low as reasonable achievable). FINDINGS: Few branching nodules are seen in both the lower lobes of the lungs Sub-segmental collapse of the lingula with old calcified granuloma is seen in the lingula. The rest of the lungs are clear, with no focal areas of consolidation. The central airways are patent. There are no pleural effusions. No pneumothorax is seen. No axillary, hilar, or mediastinal adenopathy is identified. The visualized thyroid is unremarkable. The heart, aorta, and pulmonary arteries are of normal size and configuration. No pericardial effusion is identified. Degenerative changes in the visualized spine. No aggressive appearing osseous lesions are identified. IMPRESSION: 1. No evidence of pulmonary thrombo-embolism 2. Few branching nodules are seen in both the lower lobes of the lungs- raising the possibility of infective etiology, Clinical-Lab Correlation is advised 3. Sub-segmental collapse of the lingula with old calcified granuloma is seen in the lingula. As compared to prior CT scan, the nodules in both the lower lobes of the lungs are new finding. Electronically Signed by: Moe Arthur MD. (01/23/2025 22:21:57 EST)
[2025-01-23 22:50] LABS: VBG BASE EXCESS 7.2 (-2.0-2.0); VBG HCO3- 31.2 meq/L (22-28); VBG O2 SATURATION 87.5 (95-100); VBG POTASSIUM 4.1 (3.5-5.1); VBG pH 7.49 (7.32-7.42)
[2025-01-23 22:51] LABS: VBG CARBOXYHEMOGLOBIN 4.5 % T HGB (0.0-6.9); VBG HEMOGLOBIN 13.2
[2025-01-23] MEDS ORDERED: solu-MEDROL ONE (23:40)
[2025-01-23] MEDS ORDERED: Sterile H2O 10 ml IJ ONE (23:40)
[2025-01-23] MEDS: solu-MEDROL 40 MG, Sterile H2O 10 ml 1 ML IV SCH (23:41)
--- NOTE | 2025-01-23 23:52 | PCM.HP ---
History of Present Illness - Chief Complaint Chief Complaint: sob Date: 01/23/25 History of Present Illness: Ms. SHEFFIELD is a 84 year old female with a past medical history significant for hypertension, hypothyroidism and COPD who presents to the hospital with complaints of shortness of breath that has been off and on for the past four months since . She was slightly hypoxic but improved slightly with duonebs though she remained tachypneic. No fever/chills. No chest pain or palpitations. No nausea, vomiting or diarrhea. No dysuria, hematuria or urgency. Initial labs were notable for a WBC of 13k. D-dimer was elevated but CTA chest negative for PE. - Review of Systems Constitutional: No Fever, No Chills Eyes: No Vision Changes Ears, Nose, & Throat: No Nose Discharge, No Sinus Drainage Respiratory: Orthopnea, Short Of Breath Cardiac: No Chest Pain, No Palpitations Abdominal/Gastrointestinal: No Abdominal Pain, No Nausea, No Vomiting, No Diarrhea Genitourinary Symptoms: No Dysuria, No Frequency Musculoskeletal: No Arthralgias Skin: No Rash Neurological: No Dizziness Psychological: No Suicidal Ideations Endocrine: No Polyuria, No Polydipsia Medications & Allergies Home Medications: Home Medication List Lisinopril 20 mg [Zestril 20 MG] 10 mg PO DAILY 10/27/18 [History Confirmed 01/23/25] cloNIDine HCL [Catapres] 0.1 mg PO HS 11/28/18 [History Confirmed 01/23/25] Atorvastatin Calcium 10 mg PO HS 05/12/21 [History Confirmed 01/23/25] Levothyroxine Sodium 25 Mcg [Synthroid 25 Mcg] 25 mcg PO DAILY 05/12/21 [History Confirmed 01/23/25] Venlafaxine HCl [Effexor Xr] 150 mg PO DAILY 05/12/21 [History Confirmed 01/23/25] Buspirone HCl 5 mg [Buspar 5 mg] 10 mg PO BID 10/09/22 [History Confirmed 01/23/25] Metoprolol Tartrate 50 mg [Lopressor 50 MG] 50 mg PO HS 10/09/22 [History Confirmed 01/23/25] Alendronate Sodium [Fosamax] 70 mg PO WEEKLY 11/05/22 [History Confirmed 01/23/25] Budesonide/Glycopyr/Formoterol [Breztri Aerosphere Inhaler] 2 puff IH BID 04/06/24 [History Confirmed 01/23/25] Amlodipine Besylate 5 mg PO BID 08/30/24 [History Confirmed 01/23/25] Chlorthalidone 25 mg PO DAILY 08/30/24 [History Confirmed 01/23/25] Allergies/Adverse Reactions: Allergies Allergy/AdvReac Type Severity Reaction Status Date / Time Penicillins Allergy Severe Hives Verified 08/30/24 09:41 - Past Medical History Past Medical History: Yes Neurological History: No Pertinent History ENT History: No Pertinent History Cardiac History: Arrhythmia, High Cholesterol, Hypertension, Myocardial Infarction ([place]) Respiratory History: Bronchitis, COPD Endocrine Medical History: Hypothyroidism Musculoskelatal History: Osteoarthritis GI Medical History: GERD, Hemorrhoids History: No Pertinent History Pyscho-Social History: Anxiety Reproductive Disorders: No Pertinent History Comment: Had mild [place] in 2020, A-fib in 2021, herniated rectum - Past Surgical History Past Surgical History: Yes Neuro Surgical History: No Pertinent History Cardiac History: No Pertinent History Respiratory Surgery: No Pertinent History GI Surgical History: No Pertinent History Genitourinary Surgical Hx: No Pertinent History Musculskeletal Surgical Hx: Joint Replacement, Other Female Surgical History: No Pertinent History Other Surgical History: bilateral hip replacements and lumbar fusions, cataract. left eye Oct 2018 - Social History Smoking Status: Former smoker How long have you smoked: 61 yrs Exposure to second hand smoke: Yes Alcohol: None Drug Use: none - Social Determinants of Health Will the patient participate in the screening: Yes Do you worry about a steady place to live?: No Do you have any problems with any of the following?: No known problems In the past 12 months,have you had to go without utilities?: No Have you or anyone in your house had to go without enough: No Transportation Issues: No Has anyone in your support network made you feel unsafe?: No - Physical Exam Vital Signs: Vital Signs - 24 hr Temp Pulse Resp BP BP Pulse Ox 01/23/25 23:32 95 01/23/25 23:00 89 125/72 92 L 01/23/25 22:30 90 119/63 93 L 01/23/25 22:25 89 128/77 93 L 01/23/25 22:10 94 H 21 93 L 01/23/25 22:03 92 H 22 93 L 01/23/25 21:30 90 22 147/94 94 L 01/23/25 21:00 87 23 141/79 92 L 01/23/25 20:39 93 H 20 93 L 01/23/25 20:30 92 H 21 123/74 94 L 01/23/25 20:00 97 H 22 120/89 92 L 01/23/25 19:48 28 H 95 01/23/25 19:47 98.4 F 111 H 28 H 160/89 95 01/23/25 19:44 96 H 23 160/89 93 L General Appearance: mild distress Neurologic Exam: cooperative Ears, Nose, Throat Exam: dry mucous membranes Neck Exam: supple Respiratory Exam: respiratory distress, accessory muscle use, rhonchi Cardiovascular Exam: regular rate/rhythm Gastrointestinal/Abdomen Exam: soft Extremity Exam: No pedal edema, No swelling Skin Exam: normal color, No rash Results - Labs Lab/Micro Results: Lab Results-Last 24 Hours 01/23/25 01/23/25 01/23/25 Range/Units 20:20 20:20 20:20 WBC 13.1 H (3.98-10.04) x10^3/uL RBC 4.39 (3.93-5.22) x10^6/uL Hgb 12.4 (11.2-15.7) g/dL Hct 37.7 (34.1-44.9) % MCV 85.9 (79.4-94.8) fL MCH 28.2 (25.6-32.2) pg MCHC 32.9 (32.2-35.5) g/dL RDW 12.5 (11.7-14.4) % Plt Count 310 (182-369) x10^3/uL MPV 9.5 (9.4-12.3) fL Gran % 79.9 H (34.0-71.1) % Immature Gran % (Auto) 0.5 H (0.001-0.429) % Nucleat RBC Rel Count 0.0 (0.00-0.2) % Eos # (Auto) 0.07 (0.04-0.36) x10^3/uL Immature Gran # (Auto) 0.06 H (0.001-0.031) x10^3u/L Absolute Lymphs (auto) 1.23 (1.18-3.74) x10^3/uL Absolute Monos (auto) 1.21 H (0.24-0.86) x10^3/uL Absolute Nucleated RBC 0.00 (0.00-0.012) x10^3u/L Lymphocytes % 9.4 L (19.3-51.7) % Monocytes % 9.2 (4.7-12.5) % Eosinophils % 0.5 L (0.7-5.8) % Basophils % 0.5 (0.1-1.2) % Absolute Granulocytes 10.47 H (1.56-6.13) x10^3/uL Basophils # 0.06 (0.01-0.08) x10^3/uL D-Dimer (0.0-0.50) mg/L pO2/FiO2 Ratio % VBG pH (7.32-7.42) VBG pCO2 at Pat Temp (42-55) mm/Hg VBG pO2 at Pat Temp (25-40) mm/Hg VBG HCO3 (22-28) meq/L VBG O2 Sat (Iesha) (95-100) VBG Base Excess (-2.0-2.0) VBG Hemoglobin VBG Carboxyhemoglobin (0.0-6.9) % T HGB POC Potassium (3.5-5.1) Sodium 140 (135-145) mmol/L Potassium 4.0 (3.5-5.1) mmol/L Chloride 104 (98-107) mmol/L Carbon Dioxide 21 L (22-30) mmol/L Anion Gap 18.1 H (5-15) MEQ/L BUN 10 (7-17) mg/dL Creatinine 0.64 (0.52-1.04) mg/dL Estimated GFR 87.6 ML/MIN Glucose 127 H (74-106) mg/dL Calcium 9.6 (8.4-10.2) mg/dL Total Bilirubin 0.50 (0.2-1.3) mg/dL AST 27 (14-36) U/L ALT 18 (0-35) U/L Alkaline Phosphatase 64 (38-126) U/L Troponin I (0.000-0.033) ng/mL NT-Pro-B Natriuret Pep 173 (<300) pg/mL Serum Total Protein 7.7 (6.3-8.2) g/dL Albumin 4.7 (3.5-5.0) g/dL Influenza Type A Ag NEGATIVE (NEGATIVE) Influenza Type B Ag NEGATIVE (NEGATIVE) RSV (PCR) NEGATIVE (NEGATIVE) SARS-CoV-2 (PCR) NEGATIVE (NEGATIVE) 01/23/25 01/23/25 01/23/25 Range/Units 20:20 20:20 20:35 WBC (3.98-10.04) x10^3/uL RBC (3.93-5.22) x10^6/uL Hgb (11.2-15.7) g/dL Hct (34.1-44.9) % MCV (79.4-94.8) fL MCH (25.6-32.2) pg MCHC (32.2-35.5) g/dL RDW (11.7-14.4) % Plt Count (182-369) x10^3/uL MPV (9.4-12.3) fL Gran % (34.0-71.1) % Immature Gran % (Auto) (0.001-0.429) % Nucleat RBC Rel Count (0.00-0.2) % Eos # (Auto) (0.04-0.36) x10^3/uL Immature Gran # (Auto) (0.001-0.031) x10^3u/L Absolute Lymphs (auto) (1.18-3.74) x10^3/uL Absolute Monos (auto) (0.24-0.86) x10^3/uL Absolute Nucleated RBC (0.00-0.012) x10^3u/L Lymphocytes % (19.3-51.7) % Monocytes % (4.7-12.5) % Eosinophils % (0.7-5.8) % Basophils % (0.1-1.2) % Absolute Granulocytes (1.56-6.13) x10^3/uL Basophils # (0.01-0.08) x10^3/uL D-Dimer 1.03 H* (0.0-0.50) mg/L pO2/FiO2 Ratio 21 % VBG pH 7.49 H (7.32-7.42) VBG pCO2 at Pat Temp 41 L (42-55) mm/Hg VBG pO2 at Pat Temp 55 H (25-40) mm/Hg VBG HCO3 31.2 H* (22-28) meq/L VBG O2 Sat (Iesha) 87.5 L (95-100) VBG Base Excess 7.2 H (-2.0-2.0) VBG Hemoglobin 13.2 VBG Carboxyhemoglobin 4.5 (0.0-6.9) % T HGB POC Potassium 4.1 (3.5-5.1) Sodium (135-145) mmol/L Potassium (3.5-5.1) mmol/L Chloride (98-107) mmol/L Carbon Dioxide (22-30) mmol/L Anion Gap (5-15) MEQ/L BUN (7-17) mg/dL Creatinine (0.52-1.04) mg/dL Estimated GFR ML/MIN Glucose (74-106) mg/dL Calcium (8.4-10.2) mg/dL Total Bilirubin (0.2-1.3) mg/dL AST (14-36) U/L ALT (0-35) U/L Alkaline Phosphatase (38-126) U/L Troponin I < 0.012 (0.000-0.033) ng/mL NT-Pro-B Natriuret Pep (<300) pg/mL Serum Total Protein (6.3-8.2) g/dL Albumin (3.5-5.0) g/dL Influenza Type A Ag (NEGATIVE) Influenza Type B Ag (NEGATIVE) RSV (PCR) (NEGATIVE) SARS-CoV-2 (PCR) (NEGATIVE) - Radiology Impressions Radiology Exams & Impressions: Radiology Procedures Category Date Time Status CHEST 1 VIEW (PORTABLE) Stat Exams 01/23/25 19:54 Completed CHEST WITH CONTRAST [CT] Stat Exams 01/23/25 20:49 Completed - Other Procedures and Tests Respiratory Therapy 01/23/25 20:28 Respiratory Therapy Assessment DAILY 01/23/25 20:29 Flutter Therapy UD Assessment/Plan (1) COPD exacerbation Current Visit: Yes Status: Acute Assessment & Plan: Acute exacerbation with tachypnea and hypoxia 1. Admit to hospital 2. Duonebs, steroids, supplemental oxygen 3. Monitor oxygen sats 4. DVT/GI prophylaxis 5. Monitor ABG 6. Empiric antibiotics Code(s): J44.1 - CHRONIC OBSTRUCTIVE PULMONARY DISEASE W (ACUTE) EXACERBATION (2) Essential (primary) hypertension Current Visit: Yes Status: Acute Assessment & Plan: Blood pressure under reasonable control 1. Continue bp meds 2. Low Na diet 3. Monitor blood pressure readings Code(s): I10 - ESSENTIAL (PRIMARY) HYPERTENSION (3) Leukocytosis Current Visit: No Status: Acute Qualifiers: Leukocytosis type: unspecified Qualified Code(s): D72.829 - Elevated white blood cell count, unspecified Code(s): D72.829 - ELEVATED WHITE BLOOD CELL COUNT, UNSPECIFIED Telemedicine Encounter - Telemedicine Encounter Telemedicine Encounter: "The entirety of this encounter was performed via Telemedicine" This visit was performed using real-time audio and video connection between my location and thepatients locationwith the assistance of a surrogateat the patients location. Written or verbal consent was obtained from the patient/guardian to perform this visit using[facility] medical cent[facility]edicine technology. Any patient questions regarding the telemedicine interaction were answered.
[2025-01-23] MEDS ORDERED: PROVENTIL Solution 2.5 MG/0.5 ML IH ONE (23:57)
[2025-01-23] MEDS: PROVENTIL 2.5 MG/3 ML NEB IH PRN (23:59)
[2025-01-24] MEDS ORDERED: Zofran 4 MG/2 ML VIAL IV PRN (00:26)
[2025-01-24] MEDS ORDERED: TYLENOL 325 MG PO PRN (00:26)
[2025-01-24 05:43] LABS: Absolute Neutrophil Ct (ANC) 12.15 x10^3/uL (1.56-6.13); BASOPHIL % 0.2 % (0.1-1.2); Basophil (Absolute #) 0.03 x10^3/uL (0.01-0.08); Eosinophil % 0.1 % (0.7-5.8); Eosinophil (Absolute #) 0.01 x10^3/uL (0.04-0.36); Hematocrit 37.9 % (34.1-44.9); Hemoglobin 12.5 g/dL (11.2-15.7); IMMATURE GRAN # 0.06 x10^3u/L (0.001-0.031); IMMATURE GRAN % 0.5 % (0.001-0.429); Lymphocytes % 3.9 % (19.3-51.7); Mean Cell Volume 87.1 fL (79.4-94.8); Mean Corpuscular Hemoglobin 28.7 pg (25.6-32.2); Mean Platelet Volume 9.5 fL (9.4-12.3); Monocyte (Absolute #) 0.18 x10^3/uL (0.24-0.86); Monocytes % 1.4 % (4.7-12.5); Neutrophil % 93.9 % (34.0-71.1); Platelet Count 293 x10^3/uL (182-369); Red Blood Count 4.35 x10^6/uL (3.93-5.22); Red Cell Distribution Width 12.7 % (11.7-14.4); White Blood Count 12.9 x10^3/uL (3.98-10.04)
[2025-01-24 06:02] LABS: ALBUMIN 4.6 g/dL (3.5-5.0); ANION GAP 16.7 MEQ/L (5-15); BILIRUBIN,TOTAL 0.5 mg/dL (0.2-1.3); Calcium 9.5 mg/dL (8.4-10.2); Creatinine 1 0.67 mg/dL (0.52-1.04); EST GLOMERULAR FILTRATION RATE 86.7 ML/MIN; Potassium 4.4 mmol/L (3.5-5.1); Total Protein 7.6 g/dL (6.3-8.2)
--- NOTE | 2025-01-24 06:26 | PCM.NOTE ---
Date and Time: 01/24/25622 Subjective Assessment: HPI: Ms. SHEFFIELD is a 84 year old female with a past medical history significant for hypertension, Afib (not on anticoagulation), hypothyroidism and COPD who presents to the hospital with complaints of shortness of breath that has been off and on for the past four months since . She was slightly hypoxic but improved slightly with duonebs though she remained tachypneic. No fever/chills. No chest pain or palpitations. No nausea, vomiting or diarrhea. No dysuria, hematuria or urgency. Initial labs were notable for a WBC of 13k. D- dimer was elevated but CTA chest negative for PE. Few branching nodules are seen in both the lower lobes of the lungs-raising the possibility of infective etiology. Admit for COPD exacerbation. IP treatment with ceftriaxone/azithromycin, solumedrol, bronchodilators. 01/24/25: Met and examined patient bedside. Endorses improvement of Dyspnea since admission. ON 2L NC - baseline RA. Cough is [employer]. Will continue abx, steroids, bronchodilators. - Review of Systems Constitutional: No Symptoms Eyes: No Symptoms Ears, Nose, & Throat: No Symptoms Respiratory: Cough, Short Of Breath Cardiac: No Symptoms Abdominal/Gastrointestinal: No Symptoms Genitourinary Symptoms: No Symptoms Musculoskeletal: No Symptoms Skin: No Symptoms Neurological: No Symptoms Psychological: No Symptoms Endocrine: No Symptoms Hematologic/Lymphatic: No Symptoms Immunological/Allergic: No Symptoms Objective Exam General Appearance: no apparent distress Neurologic Exam: alert, oriented x 3, cooperative Skin Exam: normal color Eye Exam: PERRL Ears, Nose, Throat Exam: normal ENT inspection Neck Exam: normal inspection Respiratory Exam: diminished breath sounds, wheezing Cardiovascular Exam: regular rate/rhythm, normal heart sounds Gastrointestinal/Abdomen Exam: soft, normal bowel sounds Extremity Exam: normal inspection Back Exam: normal inspection Pelvic Exam: deferred Objective Data Vital Signs: Vital Signs - 24 hr Temp Pulse Resp BP BP BP Pulse Ox 01/24/25 03:54 88 18 93 L 01/24/25 00:14 98.1 F 99 H 24 122/69 93 L 01/23/25 23:59 88 20 93 L 01/23/25 23:32 95 01/23/25 23:00 89 125/72 92 L 01/23/25 22:30 90 119/63 93 L 01/23/25 22:25 89 128/77 93 L 01/23/25 22:10 94 H 21 93 L 01/23/25 22:03 92 H 22 93 L 01/23/25 21:30 90 22 147/94 94 L 01/23/25 21:00 87 23 141/79 92 L 01/23/25 20:39 93 H 20 93 L 01/23/25 20:30 92 H 21 123/74 94 L 01/23/25 20:00 97 H 22 120/89 92 L 01/23/25 19:48 28 H 95 01/23/25 19:47 98.4 F 111 H 28 H 160/89 95 01/23/25 19:44 96 H 23 160/89 93 L Pain Assessment - Last Documented Pain Intensity 0 Intake and Output: Intake & Output 01/21/25 01/22/25 01/23/25 01/24/25 11:59 11:59 11:59 12:59 Weight 67 kg Lab Results: Lab Results-Last 24 Hours 01/23/25 01/23/25 01/23/25 Range/Units 20:20 20:20 20:20 WBC 13.1 H (3.98-10.04) x10^3/uL RBC 4.39 (3.93-5.22) x10^6/uL Hgb 12.4 (11.2-15.7) g/dL Hct 37.7 (34.1-44.9) % MCV 85.9 (79.4-94.8) fL MCH 28.2 (25.6-32.2) pg MCHC 32.9 (32.2-35.5) g/dL RDW 12.5 (11.7-14.4) % Plt Count 310 (182-369) x10^3/uL MPV 9.5 (9.4-12.3) fL Gran % 79.9 H (34.0-71.1) % Immature Gran % (Auto) 0.5 H (0.001-0.429) % Nucleat RBC Rel Count 0.0 (0.00-0.2) % Eos # (Auto) 0.07 (0.04-0.36) x10^3/uL Immature Gran # (Auto) 0.06 H (0.001-0.031) x10^3u/L Absolute Lymphs (auto) 1.23 (1.18-3.74) x10^3/uL Absolute Monos (auto) 1.21 H (0.24-0.86) x10^3/uL Absolute Nucleated RBC 0.00 (0.00-0.012) x10^3u/L Lymphocytes % 9.4 L (19.3-51.7) % Monocytes % 9.2 (4.7-12.5) % Eosinophils % 0.5 L (0.7-5.8) % Basophils % 0.5 (0.1-1.2) % Absolute Granulocytes 10.47 H (1.56-6.13) x10^3/uL Basophils # 0.06 (0.01-0.08) x10^3/uL D-Dimer (0.0-0.50) mg/L pO2/FiO2 Ratio % VBG pH (7.32-7.42) VBG pCO2 at Pat Temp (42-55) mm/Hg VBG pO2 at Pat Temp (25-40) mm/Hg VBG HCO3 (22-28) meq/L VBG O2 Sat (Iesha) (95-100) VBG Base Excess (-2.0-2.0) VBG Hemoglobin VBG Carboxyhemoglobin (0.0-6.9) % T HGB POC Potassium (3.5-5.1) Sodium 140 (135-145) mmol/L Potassium 4.0 (3.5-5.1) mmol/L Chloride 104 (98-107) mmol/L Carbon Dioxide 21 L (22-30) mmol/L Anion Gap 18.1 H (5-15) MEQ/L BUN 10 (7-17) mg/dL Creatinine 0.64 (0.52-1.04) mg/dL Estimated GFR 87.6 ML/MIN Glucose 127 H (74-106) mg/dL Calcium 9.6 (8.4-10.2) mg/dL Total Bilirubin 0.50 (0.2-1.3) mg/dL AST 27 (14-36) U/L ALT 18 (0-35) U/L Alkaline Phosphatase 64 (38-126) U/L Troponin I (0.000-0.033) ng/mL NT-Pro-B Natriuret Pep 173 (<300) pg/mL Serum Total Protein 7.7 (6.3-8.2) g/dL Albumin 4.7 (3.5-5.0) g/dL Influenza Type A Ag NEGATIVE (NEGATIVE) Influenza Type B Ag NEGATIVE (NEGATIVE) RSV (PCR) NEGATIVE (NEGATIVE) SARS-CoV-2 (PCR) NEGATIVE (NEGATIVE) 01/23/25 01/23/25 01/23/25 Range/Units 20:20 20:20 20:35 WBC (3.98-10.04) x10^3/uL RBC (3.93-5.22) x10^6/uL Hgb (11.2-15.7) g/dL Hct (34.1-44.9) % MCV (79.4-94.8) fL MCH (25.6-32.2) pg MCHC (32.2-35.5) g/dL RDW (11.7-14.4) % Plt Count (182-369) x10^3/uL MPV (9.4-12.3) fL Gran % (34.0-71.1) % Immature Gran % (Auto) (0.001-0.429) % Nucleat RBC Rel Count (0.00-0.2) % Eos # (Auto) (0.04-0.36) x10^3/uL Immature Gran # (Auto) (0.001-0.031) x10^3u/L Absolute Lymphs (auto) (1.18-3.74) x10^3/uL Absolute Monos (auto) (0.24-0.86) x10^3/uL Absolute Nucleated RBC (0.00-0.012) x10^3u/L Lymphocytes % (19.3-51.7) % Monocytes % (4.7-12.5) % Eosinophils % (0.7-5.8) % Basophils % (0.1-1.2) % Absolute Granulocytes (1.56-6.13) x10^3/uL Basophils # (0.01-0.08) x10^3/uL D-Dimer 1.03 H* (0.0-0.50) mg/L pO2/FiO2 Ratio 21 % VBG pH 7.49 H (7.32-7.42) VBG pCO2 at Pat Temp 41 L (42-55) mm/Hg VBG pO2 at Pat Temp 55 H (25-40) mm/Hg VBG HCO3 31.2 H* (22-28) meq/L VBG O2 Sat (Iesha) 87.5 L (95-100) VBG Base Excess 7.2 H (-2.0-2.0) VBG Hemoglobin 13.2 VBG Carboxyhemoglobin 4.5 (0.0-6.9) % T HGB POC Potassium 4.1 (3.5-5.1) Sodium (135-145) mmol/L Potassium (3.5-5.1) mmol/L Chloride (98-107) mmol/L Carbon Dioxide (22-30) mmol/L Anion Gap (5-15) MEQ/L BUN (7-17) mg/dL Creatinine (0.52-1.04) mg/dL Estimated GFR ML/MIN Glucose (74-106) mg/dL Calcium (8.4-10.2) mg/dL Total Bilirubin (0.2-1.3) mg/dL AST (14-36) U/L ALT (0-35) U/L Alkaline Phosphatase (38-126) U/L Troponin I < 0.012 (0.000-0.033) ng/mL NT-Pro-B Natriuret Pep (<300) pg/mL Serum Total Protein (6.3-8.2) g/dL Albumin (3.5-5.0) g/dL Influenza Type A Ag (NEGATIVE) Influenza Type B Ag (NEGATIVE) RSV (PCR) (NEGATIVE) SARS-CoV-2 (PCR) (NEGATIVE) 01/24/25 01/24/25 01/24/25 Range/Units 00:29 05:23 05:23 WBC 12.9 H (3.98-10.04) x10^3/uL RBC 4.35 (3.93-5.22) x10^6/uL Hgb 12.5 (11.2-15.7) g/dL Hct 37.9 (34.1-44.9) % MCV 87.1 (79.4-94.8) fL MCH 28.7 (25.6-32.2) pg MCHC 33.0 (32.2-35.5) g/dL RDW 12.7 (11.7-14.4) % Plt Count 293 (182-369) x10^3/uL MPV 9.5 (9.4-12.3) fL Gran % 93.9 H (34.0-71.1) % Immature Gran % (Auto) 0.5 H (0.001-0.429) % Nucleat RBC Rel Count 0.0 (0.00-0.2) % Eos # (Auto) 0.01 L (0.04-0.36) x10^3/uL Immature Gran # (Auto) 0.06 H (0.001-0.031) x10^3u/L Absolute Lymphs (auto) 0.50 L (1.18-3.74) x10^3/uL Absolute Monos (auto) 0.18 L (0.24-0.86) x10^3/uL Absolute Nucleated RBC 0.00 (0.00-0.012) x10^3u/L Lymphocytes % 3.9 L (19.3-51.7) % Monocytes % 1.4 L (4.7-12.5) % Eosinophils % 0.1 L (0.7-5.8) % Basophils % 0.2 (0.1-1.2) % Absolute Granulocytes 12.15 H (1.56-6.13) x10^3/uL Basophils # 0.03 (0.01-0.08) x10^3/uL D-Dimer (0.0-0.50) mg/L pO2/FiO2 Ratio % VBG pH (7.32-7.42) VBG pCO2 at Pat Temp (42-55) mm/Hg VBG pO2 at Pat Temp (25-40) mm/Hg VBG HCO3 (22-28) meq/L VBG O2 Sat (Iesha) (95-100) VBG Base Excess (-2.0-2.0) VBG Hemoglobin VBG Carboxyhemoglobin (0.0-6.9) % T HGB POC Potassium (3.5-5.1) Sodium (135-145) mmol/L Potassium (3.5-5.1) mmol/L Chloride (98-107) mmol/L Carbon Dioxide (22-30) mmol/L Anion Gap (5-15) MEQ/L BUN (7-17) mg/dL Creatinine (0.52-1.04) mg/dL Estimated GFR ML/MIN Glucose (74-106) mg/dL Calcium (8.4-10.2) mg/dL Total Bilirubin (0.2-1.3) mg/dL AST (14-36) U/L ALT (0-35) U/L Alkaline Phosphatase (38-126) U/L Troponin I < 0.012 < 0.012 (0.000-0.033) ng/mL NT-Pro-B Natriuret Pep (<300) pg/mL Serum Total Protein (6.3-8.2) g/dL Albumin (3.5-5.0) g/dL Influenza Type A Ag (NEGATIVE) Influenza Type B Ag (NEGATIVE) RSV (PCR) (NEGATIVE) SARS-CoV-2 (PCR) (NEGATIVE) 01/24/25 Range/Units 05:23 WBC (3.98-10.04) x10^3/uL RBC (3.93-5.22) x10^6/uL Hgb (11.2-15.7) g/dL Hct (34.1-44.9) % MCV (79.4-94.8) fL MCH (25.6-32.2) pg MCHC (32.2-35.5) g/dL RDW (11.7-14.4) % Plt Count (182-369) x10^3/uL MPV (9.4-12.3) fL Gran % (34.0-71.1) % Immature Gran % (Auto) (0.001-0.429) % Nucleat RBC Rel Count (0.00-0.2) % Eos # (Auto) (0.04-0.36) x10^3/uL Immature Gran # (Auto) (0.001-0.031) x10^3u/L Absolute Lymphs (auto) (1.18-3.74) x10^3/uL Absolute Monos (auto) (0.24-0.86) x10^3/uL Absolute Nucleated RBC (0.00-0.012) x10^3u/L Lymphocytes % (19.3-51.7) % Monocytes % (4.7-12.5) % Eosinophils % (0.7-5.8) % Basophils % (0.1-1.2) % Absolute Granulocytes (1.56-6.13) x10^3/uL Basophils # (0.01-0.08) x10^3/uL D-Dimer (0.0-0.50) mg/L pO2/FiO2 Ratio % VBG pH (7.32-7.42) VBG pCO2 at Pat Temp (42-55) mm/Hg VBG pO2 at Pat Temp (25-40) mm/Hg VBG HCO3 (22-28) meq/L VBG O2 Sat (Iesha) (95-100) VBG Base Excess (-2.0-2.0) VBG Hemoglobin VBG Carboxyhemoglobin (0.0-6.9) % T HGB POC Potassium (3.5-5.1) Sodium 140 (135-145) mmol/L Potassium 4.4 (3.5-5.1) mmol/L Chloride 103 (98-107) mmol/L Carbon Dioxide 25 (22-30) mmol/L Anion Gap 16.7 H (5-15) MEQ/L BUN 9 (7-17) mg/dL Creatinine 0.67 (0.52-1.04) mg/dL Estimated GFR 86.7 ML/MIN Glucose 173 H (74-106) mg/dL Calcium 9.5 (8.4-10.2) mg/dL Total Bilirubin 0.50 (0.2-1.3) mg/dL AST 25 (14-36) U/L ALT 17 (0-35) U/L Alkaline Phosphatase 68 (38-126) U/L Troponin I (0.000-0.033) ng/mL NT-Pro-B Natriuret Pep (<300) pg/mL Serum Total Protein 7.6 (6.3-8.2) g/dL Albumin 4.6 (3.5-5.0) g/dL Influenza Type A Ag (NEGATIVE) Influenza Type B Ag (NEGATIVE) RSV (PCR) (NEGATIVE) SARS-CoV-2 (PCR) (NEGATIVE) Radiology Exams: Radiology Procedures Category Date Time Status CHEST 1 VIEW (PORTABLE) Stat Exams 01/23/25 19:54 Completed CHEST WITH CONTRAST [CT] Stat Exams 01/23/25 20:49 Completed Assessment/Plan (1) COPD exacerbation Current Visit: Yes Status: Acute Assessment & Plan: -Supplemental oxygen with spo2 goal > 89% - currently on 2L - titrate -baseline RA -Continue ceftriaxone/azithromycin/solumedrol/bronchodilator - add mucinex - xopenex -RT following -CMP/CBC reviewed -Blood/sputum cultures pending Code(s): J44.1 - CHRONIC OBSTRUCTIVE PULMONARY DISEASE W (ACUTE) EXACERBATION (2) Leukocytosis Current Visit: No Status: Acute Qualifiers: Leukocytosis type: unspecified Qualified Code(s): D72.829 - Elevated white blood cell count, unspecified Assessment & Plan: -CT chest reviewed and negative for PE- does show possible infectious process in the lower lobes - continue abx as stated above - WBC reviewed and down-trending 12.9<13.1 - patient is on steroids -UA/blood/sputum cultures pending Code(s): D72.829 - ELEVATED WHITE BLOOD CELL COUNT, UNSPECIFIED (3) HLD (hyperlipidemia) Current Visit: Yes Status: Acute Assessment & Plan: -Continue Statin Code(s): E78.5 - HYPERLIPIDEMIA, UNSPECIFIED (4) Hypothyroid Current Visit: Yes Status: Acute Assessment & Plan: -Continue Levothyroxine Code(s): E03.9 - HYPOTHYROIDISM, UNSPECIFIED (5) Essential (primary) hypertension Current Visit: Yes Status: Acute Assessment & Plan: -Continue home meds Code(s): I10 - ESSENTIAL (PRIMARY) HYPERTENSION (6) Atrial fibrillation Current Visit: No Status: Chronic Qualifiers: Atrial fibrillation type: unspecified Qualified Code(s): I48.91 - Unspecified atrial fibrillation Assessment & Plan: -Patient follows with Dr. Aviles - was on anticoagulation previously but states she could not afford it and has been off of it for some time -Continue with home med metoprolol -Tele VTE: Lovenox PPI: portonix Dispo: 1-2 days Code status: Full Code Code(s): I48.91 - UNSPECIFIED ATRIAL FIBRILLATION
[2025-01-24] MEDS: DUONEB 0.5-3 MG/3 ml Neb IH SCH ×2 (08:26→08:35)
[2025-01-24] MEDS: Zestril 10 MG PO SCH (09:22)
[2025-01-24] MEDS: Zithromax 500 MG/ 250 ML NaCl Premix 500 MG/250 ML IVPB IV SCH (09:22)
[2025-01-24] MEDS: SYNTHROID 25 MCG PO SCH (09:22)
[2025-01-24] MEDS: Effexor XR 75 MG PO SCH (09:22)
[2025-01-24] MEDS: Protonix 40MG Tablet PO SCH (09:22)
[2025-01-24] MEDS: NORVASC 5 MG PO SCH (09:22)
[2025-01-24] MEDS: BUSPAR 5 MG PO SCH (09:22)
[2025-01-24] MEDS: CHLORTHALIDONE PO SCH (09:23)
[2025-01-24] MEDS: ENOXAPARIN SODIUM SQ SCH (09:23)
[2025-01-24] MEDS: ROCEPHIN 1 GM / 100 ML NaCl 1 GM/100 ML IVPB IV SCH (09:24)
[2025-01-24] MEDS: solu-MEDROL 40 MG, Sterile H2O 10 ml 1 ML IV SCH (09:24)
[2025-01-24 09:43] LABS: Slide Review 1 YES
[2025-01-24] MEDS ORDERED: NON-FORMULARY ITEM (Venlafaxine Hcl [Effexor Xr] 150 MG Cap.Er.24h) PO SCH (10:00)
[2025-01-24] MEDS ORDERED: Zestril 20 MG PO SCH (10:00)
[2025-01-24] MEDS: Mucinex 600MG ER Tabs PO SCH (10:45)
[2025-01-24 11:00] LABS: Appearance Clear (Clear); Bacteria None Seen /HPF (None Seen); Bilirubin Negative (Negative); Blood Negative (Negative); Epithelial Cells None Seen /HPF (None Seen); Glucose, Urine Negative (Negative); Hyaline Casts NONE SEEN /LPF (0-2); Ketones Negative (Negative); Leukocyte Esterase Negative (Negative); Nitrite Negative (Negative); Ph 6.5 (4.6-8.0); Protein,Urine Dip Negative (Negative); RBC 0-2 /HPF (0-5); Urobilinogen 0.2 mg/dL (0.2); WBC 0-2 /HPF (0-5)
[2025-01-24] MEDS: Xopenex 1.25 MG/0.5 ML UD NEBULE IH SCH (13:43)
[2025-01-24] MEDS: CLONIDINE 0.1 MG TABLET PO SCH (21:11)
[2025-01-24] MEDS: Lopressor 50 MG PO SCH (21:11)
[2025-01-24] MEDS: Zocor 10MG PO SCH (21:11)
[2025-01-24] MEDS ORDERED: NON-FORMULARY ITEM (Atorvastatin Calcium [Atorvastatin Calcium] 10 MG Tablet) PO SCH (22:00)
[2025-01-24] MEDS ORDERED: CLONIDINE HCL 0.2 MG PO SCH (22:00)
[2025-01-25] MEDS ORDERED: Sodium Chloride 3 ML UD NEBULES IH ONE (00:52)
[2025-01-25 05:25] LABS: Absolute Neutrophil Ct (ANC) 15.15 x10^3/uL (1.56-6.13); BASOPHIL % 0.1 % (0.1-1.2); Basophil (Absolute #) 0.02 x10^3/uL (0.01-0.08); Eosinophil (Absolute #) 0 x10^3/uL (0.04-0.36); Hematocrit 37.8 % (34.1-44.9); Hemoglobin 12.1 g/dL (11.2-15.7); IMMATURE GRAN # 0.11 x10^3u/L (0.001-0.031); IMMATURE GRAN % 0.7 % (0.001-0.429); Lymphocyte (Absolute #) 0.54 x10^3/uL (1.18-3.74); Lymphocytes % 3.3 % (19.3-51.7); Mean Cell Volume 88.7 fL (79.4-94.8); Mean Corpuscular Hemoglobin 28.4 pg (25.6-32.2); Mean Platelet Volume 9.8 fL (9.4-12.3); Monocyte (Absolute #) 0.78 x10^3/uL (0.24-0.86); Monocytes % 4.7 % (4.7-12.5); Neutrophil % 91.2 % (34.0-71.1); Platelet Count 326 x10^3/uL (182-369); Red Blood Count 4.26 x10^6/uL (3.93-5.22); Red Cell Distribution Width 12.9 % (11.7-14.4); White Blood Count 16.6 x10^3/uL (3.98-10.04)
[2025-01-25 05:55] LABS: ALBUMIN 4.7 g/dL (3.5-5.0); ANION GAP 18.3 MEQ/L (5-15); BILIRUBIN,TOTAL 0.5 mg/dL (0.2-1.3); Calcium 9.3 mg/dL (8.4-10.2); Creatinine 1 0.68 mg/dL (0.52-1.04); EST GLOMERULAR FILTRATION RATE 86.4 ML/MIN; Potassium 4.2 mmol/L (3.5-5.1); Total Protein 7.8 g/dL (6.3-8.2)
[2025-01-25] MEDS: Sodium Chloride 3 ML UD NEBULES IH SCH (07:04)
[2025-01-25 07:19] LABS: Slide Review 1 YES
[2025-01-25] MEDS ORDERED: DUONEB 0.5-3 MG/3 ml Neb IH ONE (07:35)
[2025-01-25] MEDS: DUONEB 0.5-3 MG/3 ml Neb IH PRN (07:37)
[2025-01-25] MEDS ORDERED: xanAX 0.25 MG ONE (08:10)
[2025-01-25] MEDS: xanAX 0.25 MG PO ONE ×2 (08:15→20:08)
--- NOTE | 2025-01-25 11:25 | PCM.NOTE ---
Date and Time: 01/25/25 1120 Subjective Assessment: 01/25/25 Ms. Hurt is an 84-year-old female with a medical history of hypertension, atrial fibrillation (not on anticoagulation), hypothyroidism, and COPD, who presented with complaints of shortness of breath that had been intermittent for the past four months since [place]. She was slightly hypoxic upon arrival but showed some improvement with duonebs, although she remained tachypneic. She denied fever, chills, chest pain, palpitations, nausea, vomiting, diarrhea, or urinary symptoms. Initial labs showed a WBC of 13k and an elevated D-dimer, but a CTA chest was negative for a pulmonary embolism. Few branching nodules were seen in both lower lobes, raising concern for an infective etiology. She was admitted for a COPD exacerbation and started on ceftriaxone/azithromycin, solumedrol, and bronchodilators. On 01/24/25, she was seen at the bedside, endorsing improvement in her dyspnea since admission. She was on 2L of nasal cannula (NC), with a baseline of room air. She had a non-productive cough, and the plan was to continue antibiotics, steroids, and bronchodilators. On the morning of 01/25/25, she was extremely short of breath, and respiratory therapy administered several breathing treatments and a one-time dose of Xanax to help calm her. She was placed on 3L of NC, with her baseline being room air. Her lung sounds were diminished throughout. The plan is to continue antibiotics, Mucinex, steroids, breathing treatments, and her home inhaler (Breztri). A sputum culture is pending, and flutter therapy continued. The team anticipates she will need 1-2 more days of treatment before discharge. - Review of Systems Constitutional: No Fever, No Chills Eyes: No Symptoms Ears, Nose, & Throat: No Symptoms Respiratory: Short Of Breath, No Cough Cardiac: No Chest Pain, No Edema, No Syncope Abdominal/Gastrointestinal: No Abdominal Pain, No Nausea, No Vomiting, No Diarrhea Genitourinary Symptoms: No Dysuria Musculoskeletal: No Back Pain, No Neck Pain Skin: No Rash Neurological: No Dizziness, No Focal Weakness, No Sensory Changes Psychological: No Symptoms Endocrine: No Symptoms Hematologic/Lymphatic: No Symptoms Immunological/Allergic: No Symptoms Objective Exam General Appearance: no apparent distress, alert Neurologic Exam: alert, oriented x 3, cooperative, normal mood/affect, nml cerebellar function, sensation nml, No motor deficits Skin Exam: normal color, warm, dry Eye Exam: PERRL, EOMI, eyes nml inspection Ears, Nose, Throat Exam: normal ENT inspection, pharynx normal, moist mucous membranes Neck Exam: normal inspection, non-tender, supple, full range of motion Respiratory Exam: diminished breath sounds, No respiratory distress Cardiovascular Exam: regular rate/rhythm, normal heart sounds Gastrointestinal/Abdomen Exam: soft, No tenderness, No mass Extremity Exam: normal inspection, normal range of motion Back Exam: normal inspection, normal range of motion, No CVA tenderness, No vertebral tenderness Pelvic Exam: deferred Rectal Exam: deferred Objective Data Vital Signs: Vital Signs - 24 hr Temp Pulse Resp BP Pulse Ox 01/25/25 07:48 103 H 26 H 96 01/25/25 07:38 97.8 F 88 16 157/79 97 01/25/25 07:04 93 H 20 90 L 01/25/25 03:41 97.3 F 85 26 H 117/62 93 L 01/25/25 00:56 104 H 28 H 94 L 01/25/25 00:00 97.2 F 91 H 30 H 149/75 94 L 01/24/25 20:00 98.3 F 105 H 21 156/74 93 L 01/24/25 19:41 123 H 20 92 L 01/24/25 16:00 97.6 F 109 H 17 124/68 93 L 01/24/25 13:46 90 18 92 L 01/24/25 12:00 96.9 F 92 H 19 128/70 92 L Pain Assessment - Last Documented Pain Intensity 0 Intake and Output: Intake & Output 01/22/25 01/23/25 01/24/25 01/25/25 10:59 10:59 11:59 11:59 Intake Total 1960 Balance 1960 Weight Lab Results: Lab Results-Last 24 Hours 01/25/25 01/25/25 Range/Units 05:19 05:19 WBC 16.6 H (3.98-10.04) x10^3/uL RBC 4.26 (3.93-5.22) x10^6/uL Hgb 12.1 (11.2-15.7) g/dL Hct 37.8 (34.1-44.9) % MCV 88.7 (79.4-94.8) fL MCH 28.4 (25.6-32.2) pg MCHC 32.0 L (32.2-35.5) g/dL RDW 12.9 (11.7-14.4) % Plt Count 326 (182-369) x10^3/uL MPV 9.8 (9.4-12.3) fL Gran % 91.2 H (34.0-71.1) % Immature Gran % (Auto) 0.7 H (0.001-0.429) % Nucleat RBC Rel Count 0.0 (0.00-0.2) % Eos # (Auto) 0 L (0.04-0.36) x10^3/uL Immature Gran # (Auto) 0.11 H (0.001-0.031) x10^3u/L Absolute Lymphs (auto) 0.54 L (1.18-3.74) x10^3/uL Absolute Monos (auto) 0.78 (0.24-0.86) x10^3/uL Absolute Nucleated RBC 0.00 (0.00-0.012) x10^3u/L Lymphocytes % 3.3 L (19.3-51.7) % Monocytes % 4.7 (4.7-12.5) % Eosinophils % 0.0 L (0.7-5.8) % Basophils % 0.1 (0.1-1.2) % Absolute Granulocytes 15.15 H (1.56-6.13) x10^3/uL Basophils # 0.02 (0.01-0.08) x10^3/uL Sodium 144 (135-145) mmol/L Potassium 4.2 (3.5-5.1) mmol/L Chloride 104 (98-107) mmol/L Carbon Dioxide 25 (22-30) mmol/L Anion Gap 18.3 H (5-15) MEQ/L BUN 13 (7-17) mg/dL Creatinine 0.68 (0.52-1.04) mg/dL Estimated GFR 86.4 ML/MIN Glucose 156 H (74-106) mg/dL Calcium 9.3 (8.4-10.2) mg/dL Total Bilirubin 0.50 (0.2-1.3) mg/dL AST 33 (14-36) U/L ALT 21 (0-35) U/L Alkaline Phosphatase 60 (38-126) U/L Serum Total Protein 7.8 (6.3-8.2) g/dL Albumin 4.7 (3.5-5.0) g/dL Slides for Path Review YES Radiology Exams: Radiology Procedures Category Date Time Status CHEST 1 VIEW (PORTABLE) Stat Exams 01/23/25 19:54 Completed CHEST WITH CONTRAST [CT] Stat Exams 01/23/25 20:49 Completed Assessment/Plan (1) COPD exacerbation Current Visit: Yes Status: Acute Assessment & Plan: -Supplemental oxygen with spo2 goal > 89% - currently on 3L - titrate -baseline RA -Continue ceftriaxone/azithromycin/solumedrol/bronchodilator - add mucinex - xopenex -RT following -CMP/CBC reviewed -Blood culture x2 negative - sputum culture pending - xanax x1 this AM - d-dimer 1.03- negative for PE Code(s): J44.1 - CHRONIC OBSTRUCTIVE PULMONARY DISEASE W (ACUTE) EXACERBATION (2) HLD (hyperlipidemia) Current Visit: Yes Status: Chronic Assessment & Plan: -Continue Statin Code(s): E78.5 - HYPERLIPIDEMIA, UNSPECIFIED (3) Hypothyroid Current Visit: Yes Status: Chronic Assessment & Plan: -Continue Levothyroxine Code(s): E03.9 - HYPOTHYROIDISM, UNSPECIFIED (4) Leukocytosis Current Visit: No Status: Acute Qualifiers: Leukocytosis type: unspecified Qualified Code(s): D72.829 - Elevated white blood cell count, unspecified Assessment & Plan: -CT chest reviewed and negative for PE- does show possible infectious process in the lower lobes - continue abx as stated above - WBC 16.6- may be 2:2 steroids Code(s): D72.829 - ELEVATED WHITE BLOOD CELL COUNT, UNSPECIFIED (5) Atrial fibrillation Current Visit: No Status: Chronic Qualifiers: Atrial fibrillation type: unspecified Qualified Code(s): I48.91 - Unspecified atrial fibrillation Assessment & Plan: -Patient follows with Dr. Aviles - was on anticoagulation previously but states she could not afford it and has been off of it for some time -Continue with home med metoprolol -Tele Code(s): I48.91 - UNSPECIFIED ATRIAL FIBRILLATION (6) Dehydration Current Visit: Yes Status: Acute Assessment & Plan: - anion gap 18.3 - NS @ 50 ml/hr Code(s): E86.0 - DEHYDRATION (7) Essential (primary) hypertension Current Visit: Yes Status: Chronic Assessment & Plan: -Continue home meds - BP stable VTE: Lovenox PPI: portonix Dispo: 1-2 days Code status: Full Code Next of KIN: Child- Miriam- [phone] Code(s): I10 - ESSENTIAL (PRIMARY) HYPERTENSION
[2025-01-25] MEDS ORDERED: Sodium Chloride 0.9% 1000 ML 1,000 ML ONE (11:43)
[2025-01-25] MEDS: Sodium Chloride 0.9% 1000 ML 1,000 ML IV SCH (11:44)
[2025-01-25] MEDS: PATIENT OWN MEDICATION IH SCH (13:34)
[2025-01-26 05:16] LABS: Hematocrit 39.4 % (34.1-44.9); Hemoglobin 12.4 g/dL (11.2-15.7); Mean Cell Volume 89.7 fL (79.4-94.8); Mean Corpuscular Hemoglobin 28.2 pg (25.6-32.2); Mean Corpuscular Hgb Concent. 31.5 g/dL (32.2-35.5); Mean Platelet Volume 9.8 fL (9.4-12.3); Platelet Count 335 x10^3/uL (182-369); Red Blood Count 4.39 x10^6/uL (3.93-5.22); White Blood Count 14.3 x10^3/uL (3.98-10.04)
[2025-01-26 05:59] LABS: ALBUMIN 4.5 g/dL (3.5-5.0); ANION GAP 14.5 MEQ/L (5-15); BILIRUBIN,TOTAL 0.5 mg/dL (0.2-1.3); Calcium 9.1 mg/dL (8.4-10.2); Creatinine 1 0.58 mg/dL (0.52-1.04); EST GLOMERULAR FILTRATION RATE 89.7 ML/MIN; Potassium 4.5 mmol/L (3.5-5.1); Total Protein 7.6 g/dL (6.3-8.2)
[2025-01-26] MEDS: Tessalon Perles 100 MG PO PRN (08:39)
[2025-01-26] MEDS: xanAX 0.25 MG PO ONE (09:52)
--- NOTE | 2025-01-26 10:08 | PCM.NOTE ---
Date and Time: 01/26/25 1002 Subjective Assessment: 01/25/25 Ms. Hurt is an 84-year-old female with a medical history of hypertension, atrial fibrillation (not on anticoagulation), hypothyroidism, and COPD, who presented with complaints of shortness of breath that had been intermittent for the past four months since [place]. She was slightly hypoxic upon arrival but showed some improvement with duonebs, although she remained tachypneic. She denied fever, chills, chest pain, palpitations, nausea, vomiting, diarrhea, or urinary symptoms. Initial labs showed a WBC of 13k and an elevated D-dimer, but a CTA chest was negative for a pulmonary embolism. Few branching nodules were seen in both lower lobes, raising concern for an infective etiology. She was admitted for a COPD exacerbation and started on ceftriaxone/azithromycin, solumedrol, and bronchodilators. On 01/24/25, she was seen at the bedside, endorsing improvement in her dyspnea since admission. She was on 2L of nasal cannula (NC), with a baseline of room air. She had a non-productive cough, and the plan was to continue antibiotics, steroids, and bronchodilators. On the morning of 01/25/25, she was extremely short of breath, and respiratory therapy administered several breathing treatments and a one-time dose of Xanax to help calm her. She was placed on 3L of NC, with her baseline being room air. Her lung sounds were diminished throughout. The plan is to continue antibiotics, Mucinex, steroids, breathing treatments, and her home inhaler (Breztri). A sputum culture is pending, and flutter therapy continued. The team anticipates she will need 1-2 more days of treatment before discharge. 01/26/25 Pt resting in bed. She continues to be short of breath today. Will increase steroids to Q8HR. 0.25 Xanax gave again for anxiety r/t SOB. She continues to require 4L NC and baseline is room air. Lung sounds are coarse throughout. WBC improved at 14.3. Continue IV antibiotics, steroids, Breztri, and nebs. Tessalon ordered for cough. She denies CP, Abd. pain, N/V/D. - Review of Systems Constitutional: No Fever, No Chills Eyes: No Symptoms Ears, Nose, & Throat: No Symptoms Respiratory: Short Of Breath, Wheezing, No Cough Cardiac: No Chest Pain, No Edema, No Syncope Abdominal/Gastrointestinal: No Abdominal Pain, No Nausea, No Vomiting, No Diarrhea Genitourinary Symptoms: No Dysuria Musculoskeletal: No Back Pain, No Neck Pain Skin: No Rash Neurological: No Dizziness, No Focal Weakness, No Sensory Changes Psychological: No Symptoms Endocrine: No Symptoms Hematologic/Lymphatic: No Symptoms Immunological/Allergic: No Symptoms Objective Exam General Appearance: no apparent distress, alert Neurologic Exam: alert, oriented x 3, cooperative, normal mood/affect, nml cerebellar function, sensation nml, No motor deficits Skin Exam: normal color, warm, dry Eye Exam: PERRL, EOMI, eyes nml inspection Ears, Nose, Throat Exam: normal ENT inspection, pharynx normal, moist mucous membranes Neck Exam: normal inspection, non-tender, supple, full range of motion Respiratory Exam: respiratory distress, rhonchi Cardiovascular Exam: regular rate/rhythm, normal heart sounds Gastrointestinal/Abdomen Exam: soft, No tenderness, No mass Extremity Exam: normal inspection, normal range of motion Back Exam: normal inspection, normal range of motion, No CVA tenderness, No vertebral tenderness Pelvic Exam: deferred Rectal Exam: deferred Objective Data Vital Signs: Vital Signs - 24 hr Temp Pulse Resp BP Pulse Ox 01/26/25 09:00 101 H 22 93 L 01/26/25 07:22 97.6 F 105 H 20 137/67 95 01/26/25 06:40 95 H 20 95 01/26/25 04:00 96.8 F 102 H 22 162/76 96 01/26/25 01:10 97 H 18 96 01/26/25 00:00 97.1 F 98 H 22 156/74 96 01/25/25 20:00 97.5 F 108 H 24 151/92 96 01/25/25 19:25 115 H 20 94 L 01/25/25 17:08 89 L 01/25/25 16:00 98.0 F 116 H 16 127/81 92 L 01/25/25 15:14 96 01/25/25 13:27 117 H 24 97 01/25/25 11:55 97.9 F 101 H 16 154/74 95 Pain Assessment - Last Documented Pain Intensity 0 Intake and Output: Intake & Output 01/23/25 01/24/25 01/25/25 01/26/25 10:59 11:59 11:59 11:59 Intake Total 1959 2104 Balance 1959 2104 Weight Lab Results: Lab Results-Last 24 Hours 01/26/25 01/26/25 Range/Units 04:40 04:40 WBC 14.3 H (3.98-10.04) x10^3/uL RBC 4.39 (3.93-5.22) x10^6/uL Hgb 12.4 (11.2-15.7) g/dL Hct 39.4 (34.1-44.9) % MCV 89.7 (79.4-94.8) fL MCH 28.2 (25.6-32.2) pg MCHC 31.5 L (32.2-35.5) g/dL RDW 13.0 (11.7-14.4) % Plt Count 335 (182-369) x10^3/uL MPV 9.8 (9.4-12.3) fL Sodium 138 (135-145) mmol/L Potassium 4.5 (3.5-5.1) mmol/L Chloride 97 L (98-107) mmol/L Carbon Dioxide 31 H (22-30) mmol/L Anion Gap 14.5 (5-15) MEQ/L BUN 13 (7-17) mg/dL Creatinine 0.58 (0.52-1.04) mg/dL Estimated GFR 89.7 ML/MIN Glucose 154 H (74-106) mg/dL Calcium 9.1 (8.4-10.2) mg/dL Total Bilirubin 0.50 (0.2-1.3) mg/dL AST 41 H (14-36) U/L ALT 21 (0-35) U/L Alkaline Phosphatase 63 (38-126) U/L Serum Total Protein 7.6 (6.3-8.2) g/dL Albumin 4.5 (3.5-5.0) g/dL Assessment/Plan (1) COPD exacerbation Current Visit: Yes Status: Acute Code(s): J44.1 - CHRONIC OBSTRUCTIVE PULMONARY DISEASE W (ACUTE) EXACERBATION (2) HLD (hyperlipidemia) Current Visit: Yes Status: Chronic Code(s): E78.5 - HYPERLIPIDEMIA, UNSPECIFIED (3) Hypothyroid Current Visit: Yes Status: Chronic Code(s): E03.9 - HYPOTHYROIDISM, UNSPECIFIED (4) Leukocytosis Current Visit: No Status: Acute Qualifiers: Leukocytosis type: unspecified Qualified Code(s): D72.829 - Elevated white blood cell count, unspecified Code(s): D72.829 - ELEVATED WHITE BLOOD CELL COUNT, UNSPECIFIED (5) Atrial fibrillation Current Visit: No Status: Chronic Qualifiers: Atrial fibrillation type: unspecified Qualified Code(s): I48.91 - Unspecified atrial fibrillation Code(s): I48.91 - UNSPECIFIED ATRIAL FIBRILLATION (6) Dehydration Current Visit: Yes Status: Acute Code(s): E86.0 - DEHYDRATION (7) Essential (primary) hypertension Current Visit: Yes Status: Chronic Assessment & Plan: (1) COPD exacerbation Current Visit: Yes Status: Acute Assessment & Plan: -Supplemental oxygen with spo2 goal > 89% - currently on 3L - titrate -baseline RA -Continue ceftriaxone/azithromycin/solumedrol/bronchodilator - add mucinex - xopenex -RT following -CMP/CBC reviewed -Blood culture x2 negative - sputum culture pending - xanax x1 this AM - d-dimer 1.03- negative for PE 01/26 - Steroids increased to Q8HR - on 4LNC 95%- baseline RA - lungs coarse throughout - Sputum culture pending- obtained today - Tessalon for cough - CBC, CMP reviewed Code(s): J44.1 - CHRONIC OBSTRUCTIVE PULMONARY DISEASE W (ACUTE) EXACERBATION (2) HLD (hyperlipidemia) Current Visit: Yes Status: Chronic Assessment & Plan: -Continue Statin Code(s): E78.5 - HYPERLIPIDEMIA, UNSPECIFIED (3) Hypothyroid Current Visit: Yes Status: Chronic Assessment & Plan: -Continue Levothyroxine Code(s): E03.9 - HYPOTHYROIDISM, UNSPECIFIED (4) Leukocytosis Current Visit: No Status: Acute Qualifiers: Leukocytosis type: unspecified Qualified Code(s): D72.829 - Elevated white blood cell count, unspecified Assessment & Plan: -CT chest reviewed and negative for PE- does show possible infectious process in the lower lobes - continue abx as stated above - WBC 16.6- may be 2:2 steroids 01/26 - WBC 14.3- improved Code(s): D72.829 - ELEVATED WHITE BLOOD CELL COUNT, UNSPECIFIED (5) Atrial fibrillation Current Visit: No Status: Chronic Qualifiers: Atrial fibrillation type: unspecified Qualified Code(s): I48.91 - Unspecified atrial fibrillation Assessment & Plan: -Patient follows with Dr. Aviles - was on anticoagulation previously but states she could not afford it and has been off of it for some time -Continue with home med metoprolol -Tele Code(s): I48.91 - UNSPECIFIED ATRIAL FIBRILLATION (6) Dehydration Current Visit: Yes Status: Acute Assessment & Plan: - anion gap 18.3 - NS @ 50 ml/hr 01/26 - anion gap 14.5- improved - cont. IVF Code(s): E86.0 - DEHYDRATION (7) Essential (primary) hypertension Current Visit: Yes Status: Chronic Assessment & Plan: -Continue home meds - BP stable VTE: Lovenox PPI: protonix Dispo: 1-2 days Code status: Full Code Next of KIN: Child- Miriam- [phone] Code(s): I10 - ESSENTIAL (PRIMARY) HYPERTENSION Code(s): I10 - ESSENTIAL (PRIMARY) HYPERTENSION
[2025-01-26] MEDS ORDERED: DUONEB 0.5-3 MG/3 ml Neb IH ONE (18:53)
[2025-01-26] MEDS: solu-MEDROL 40 MG, Sterile H2O 10 ml 1 ML IV SCH (22:22)
[2025-01-26] MEDS: xanAX 0.25 MG PO PRN (23:47)
[2025-01-27] MEDS ORDERED: DUONEB 0.5-3 MG/3 ml Neb IH ONE (00:53)
[2025-01-27 06:05] LABS: Hematocrit 40.1 % (34.1-44.9); Mean Cell Volume 88.5 fL (79.4-94.8); Mean Corpuscular Hemoglobin 28.7 pg (25.6-32.2); Mean Corpuscular Hgb Concent. 32.4 g/dL (32.2-35.5); Platelet Count 310 x10^3/uL (182-369); Red Blood Count 4.53 x10^6/uL (3.93-5.22); Red Cell Distribution Width 12.6 % (11.7-14.4); White Blood Count 8.3 x10^3/uL (3.98-10.04)
[2025-01-27 06:35] LABS: ALBUMIN 4.4 g/dL (3.5-5.0); BILIRUBIN,TOTAL 0.5 mg/dL (0.2-1.3); Calcium 9.1 mg/dL (8.4-10.2); Creatinine 1 0.64 mg/dL (0.52-1.04); EST GLOMERULAR FILTRATION RATE 87.6 ML/MIN; Potassium 4.2 mmol/L (3.5-5.1); Total Protein 7.5 g/dL (6.3-8.2)
[2025-01-27] MEDS: ZITHROMAX IV*** 500 MG in Sodium Chloride 0.9% 250 ML 250 ML IV SCH (10:38)
--- NOTE | 2025-01-27 11:28 | PCM.NOTE ---
Date and Time: 01/27/25 1121 Subjective Assessment: 01/25/25 Ms. Hurt is an 84-year-old female with a medical history of hypertension, atrial fibrillation (not on anticoagulation), hypothyroidism, and COPD, who presented with complaints of shortness of breath that had been intermittent for the past four months since [place]. She was slightly hypoxic upon arrival but showed some improvement with duonebs, although she remained tachypneic. She denied fever, chills, chest pain, palpitations, nausea, vomiting, diarrhea, or urinary symptoms. Initial labs showed a WBC of 13k and an elevated D-dimer, but a CTA chest was negative for a pulmonary embolism. Few branching nodules were seen in both lower lobes, raising concern for an infective etiology. She was admitted for a COPD exacerbation and started on ceftriaxone/azithromycin, solumedrol, and bronchodilators. On 01/24/25, she was seen at the bedside, endorsing improvement in her dyspnea since admission. She was on 2L of nasal cannula (NC), with a baseline of room air. She had a non-productive cough, and the plan was to continue antibiotics, steroids, and bronchodilators. On the morning of 01/25/25, she was extremely short of breath, and respiratory therapy administered several breathing treatments and a one-time dose of Xanax to help calm her. She was placed on 3L of NC, with her baseline being room air. Her lung sounds were diminished throughout. The plan is to continue antibiotics, Mucinex, steroids, breathing treatments, and her home inhaler (Breztri). A sputum culture is pending, and flutter therapy continued. The team anticipates she will need 1-2 more days of treatment before discharge. 01/26/25 Pt resting in bed. She continues to be short of breath today. Will increase ster oids to Q8HR. 0.25 Xanax gave again for anxiety r/t SOB. She continues to require 4L NC and baseline is room air. Lung sounds are coarse throughout. WBC improved at 14.3. Continue IV antibiotics, steroids, Breztri, and nebs. Tessalon ordered for cough. She denies CP, Abd. pain, N/V/D. 01/27/25 Pt resting in bed. She explained she is starting to feel better today. She continues to have SOB and coarse lung sounds throughout. She is requiring 4lNC and O2 96%. Will wean O2 as tolerated. Sputum culture gram negative and sensitivity pending. BC x2 negative. Continue IV antibiotics, steroids, Brez tri, and nebs. IVF stopped. She denies CP, abd. pain, N/V/D. - Review of Systems Constitutional: No Fever, No Chills Eyes: No Symptoms Ears, Nose, & Throat: No Symptoms Respiratory: Short Of Breath, No Cough Cardiac: No Chest Pain, No Edema, No Syncope Abdominal/Gastrointestinal: No Abdominal Pain, No Nausea, No Vomiting, No Diarrhea Genitourinary Symptoms: No Dysuria Musculoskeletal: No Back Pain, No Neck Pain Skin: No Rash Neurological: No Dizziness, No Focal Weakness, No Sensory Changes Psychological: No Symptoms Endocrine: No Symptoms Hematologic/Lymphatic: No Symptoms Immunological/Allergic: No Symptoms Objective Exam General Appearance: no apparent distress, alert Neurologic Exam: alert, oriented x 3, cooperative, normal mood/affect, nml cerebellar function, sensation nml, No motor deficits Skin Exam: normal color, warm, dry Eye Exam: PERRL, EOMI, eyes nml inspection Ears, Nose, Throat Exam: normal ENT inspection, pharynx normal, moist mucous membranes Neck Exam: normal inspection, non-tender, supple, full range of motion Respiratory Exam: diminished breath sounds, rhonchi, No respiratory distress Cardiovascular Exam: regular rate/rhythm, normal heart sounds Gastrointestinal/Abdomen Exam: soft, No tenderness, No mass Extremity Exam: normal inspection, normal range of motion Back Exam: normal inspection, normal range of motion, No CVA tenderness, No vertebral tenderness Pelvic Exam: deferred Rectal Exam: deferred Objective Data Vital Signs: Vital Signs - 24 hr Temp Pulse Resp BP Pulse Ox 01/27/25 10:28 102 H 20 96 01/27/25 08:00 96.9 F 104 H 20 161/82 98 01/27/25 07:34 97 01/27/25 06:24 79 22 97 01/27/25 04:00 97.1 F 101 H 20 127/65 100 01/27/25 00:00 97.3 F 103 H 26 H 141/78 99 01/26/25 20:00 97.0 F 103 H 24 143/80 97 01/26/25 19:01 100 H 18 98 01/26/25 16:00 97.1 F 102 H 20 142/82 96 01/26/25 12:47 93 H 20 93 L 01/26/25 12:00 97.1 F 98 H 20 115/59 97 Pain Assessment - Last Documented Pain Intensity 0 Intake and Output: Intake & Output 01/24/25 01/25/25 01/26/25 01/27/25 11:59 11:59 11:59 11:59 Intake Total 1959 2104 2517 Balance 1959 2104 2517 Weight 67 kg Lab Results: Lab Results-Last 24 Hours 01/27/25 01/27/25 Range/Units 05:52 05:52 WBC 8.3 (3.98-10.04) x10^3/uL RBC 4.53 (3.93-5.22) x10^6/uL Hgb 13.0 (11.2-15.7) g/dL Hct 40.1 (34.1-44.9) % MCV 88.5 (79.4-94.8) fL MCH 28.7 (25.6-32.2) pg MCHC 32.4 (32.2-35.5) g/dL RDW 12.6 (11.7-14.4) % Plt Count 310 (182-369) x10^3/uL MPV 10.0 (9.4-12.3) fL Sodium 138 (135-145) mmol/L Potassium 4.2 (3.5-5.1) mmol/L Chloride 95 L (98-107) mmol/L Carbon Dioxide 34 H (22-30) mmol/L Anion Gap 13.0 (5-15) MEQ/L BUN 15 (7-17) mg/dL Creatinine 0.64 (0.52-1.04) mg/dL Estimated GFR 87.6 ML/MIN Glucose 132 H (74-106) mg/dL Calcium 9.1 (8.4-10.2) mg/dL Total Bilirubin 0.50 (0.2-1.3) mg/dL AST 33 (14-36) U/L ALT 21 (0-35) U/L Alkaline Phosphatase 59 (38-126) U/L Serum Total Protein 7.5 (6.3-8.2) g/dL Albumin 4.4 (3.5-5.0) g/dL Assessment/Plan (1) COPD exacerbation Current Visit: Yes Status: Acute Code(s): J44.1 - CHRONIC OBSTRUCTIVE PULMONARY DISEASE W (ACUTE) EXACERBATION (2) HLD (hyperlipidemia) Current Visit: Yes Status: Chronic Code(s): E78.5 - HYPERLIPIDEMIA, UNSPECIFIED (3) Hypothyroid Current Visit: Yes Status: Chronic Code(s): E03.9 - HYPOTHYROIDISM, UNSPECIFIED (4) Leukocytosis Current Visit: No Status: Acute Qualifiers: Leukocytosis type: unspecified Qualified Code(s): D72.829 - Elevated white blood cell count, unspecified Code(s): D72.829 - ELEVATED WHITE BLOOD CELL COUNT, UNSPECIFIED (5) Atrial fibrillation Current Visit: No Status: Chronic Qualifiers: Atrial fibrillation type: unspecified Qualified Code(s): I48.91 - Unspecified atrial fibrillation Code(s): I48.91 - UNSPECIFIED ATRIAL FIBRILLATION (6) Dehydration Current Visit: Yes Status: Acute Code(s): E86.0 - DEHYDRATION (7) Essential (primary) hypertension Current Visit: Yes Status: Chronic Assessment & Plan: (1) COPD exacerbation Current Visit: Yes Status: Acute Assessment & Plan: -Supplemental oxygen with spo2 goal > 89% - currently on 3L - titrate -baseline RA -Continue ceftriaxone/azithromycin/solumedrol/bronchodilator - add mucinex - xopenex -RT following -CMP/CBC reviewed -Blood culture x2 negative - sputum culture pending - xanax x1 this AM - d-dimer 1.03- negative for PE 01/26 - Steroids increased to Q8HR - on 4LNC 95%- baseline RA - lungs coarse throughout - Sputum culture pending- obtained today - Tessalon for cough - CBC, CMP reviewed 01/27 - Sputum culture- gram negative- sensitivity pending - BC x2 negative - CBC, CMP reviewed - 4lNC 96%- wean O2- keep > 92%- baseline RA - lungs coarse throughout Code(s): J44.1 - CHRONIC OBSTRUCTIVE PULMONARY DISEASE W (ACUTE) EXACERBATION (2) HLD (hyperlipidemia) Current Visit: Yes Status: Chronic Assessment & Plan: -Continue Statin Code(s): E78.5 - HYPERLIPIDEMIA, UNSPECIFIED (3) Hypothyroid Current Visit: Yes Status: Chronic Assessment & Plan: -Continue Levothyroxine Code(s): E03.9 - HYPOTHYROIDISM, UNSPECIFIED (4) Leukocytosis Current Visit: No Status: Acute Qualifiers: Leukocytosis type: unspecified Qualified Code(s): D72.829 - Elevated white blood cell count, unspecified Assessment & Plan: -CT chest reviewed and negative for PE- does show possible infectious process in the lower lobes - continue abx as stated above - WBC 16.6- may be 2:2 steroids 01/26 - WBC 14.3- improved 01/27 - resolved Code(s): D72.829 - ELEVATED WHITE BLOOD CELL COUNT, UNSPECIFIED (5) Atrial fibrillation Current Visit: No Status: Chronic Qualifiers: Atrial fibrillation type: unspecified Qualified Code(s): I48.91 - Unspecified atrial fibrillation Assessment & Plan: -Patient follows with Dr. Aviles - was on anticoagulation previously but states she could not afford it and has been off of it for some time -Continue with home med metoprolol -Tele Code(s): I48.91 - UNSPECIFIED ATRIAL FIBRILLATION (6) Dehydration Current Visit: Yes Status: Acute Assessment & Plan: - anion gap 18.3 - NS @ 50 ml/hr 01/26 - anion gap 14.5- improved - cont. IVF 01/27 - resolved - IVF stopped Code(s): E86.0 - DEHYDRATION (7) Essential (primary) hypertension Current Visit: Yes Status: Chronic Assessment & Plan: -Continue home meds - BP stable VTE: Lovenox PPI: protonix Dispo: 1-2 days Code status: Full Code Next of KIN: Child- Miriam- [phone] Code(s): I10 - ESSENTIAL (PRIMARY) HYPERTENSION Code(s): I10 - ESSENTIAL (PRIMARY) HYPERTENSION
[2025-01-27] MEDS: DUONEB 0.5-3 MG/3 ml Neb IH SCH (14:16)
[2025-01-27] MEDS: xanAX 0.25 MG PO PRN (22:19)
[2025-01-28 05:41] LABS: Hematocrit 40.5 % (34.1-44.9); Hemoglobin 12.9 g/dL (11.2-15.7); Mean Cell Volume 88.2 fL (79.4-94.8); Mean Corpuscular Hemoglobin 28.1 pg (25.6-32.2); Mean Corpuscular Hgb Concent. 31.9 g/dL (32.2-35.5); Platelet Count 338 x10^3/uL (182-369); Red Blood Count 4.59 x10^6/uL (3.93-5.22); Red Cell Distribution Width 12.6 % (11.7-14.4); White Blood Count 8.2 x10^3/uL (3.98-10.04)
[2025-01-28 06:08] LABS: ALBUMIN 4.3 g/dL (3.5-5.0); BILIRUBIN,TOTAL 0.4 mg/dL (0.2-1.3); Calcium 9.6 mg/dL (8.4-10.2); Creatinine 1 0.74 mg/dL (0.52-1.04); EST GLOMERULAR FILTRATION RATE 80.2 ML/MIN; Potassium 3.8 mmol/L (3.5-5.1); Total Protein 7.3 g/dL (6.3-8.2)
--- NOTE | 2025-01-28 10:40 | PCM.DS ---
Discharge Summary Date of Admission: 01/25/25 10:00 Date of Discharge: 01/28/25 Admitting Physician: VALENCIA DUNN MD Primary Care Provider: KAVEH ALMANZAR Allergies Allergies Penicillins Allergy (Severe, Verified 08/30/24 09:41) [facility] Summary - Hospital Course Hospital Course: 01/25/25 Ms. Hurt is an 84-year-old female with a medical history of hypertension, atrial fibrillation (not on anticoagulation), hypothyroidism, and COPD, who presented with complaints of shortness of breath that had been intermittent for the past four months since . She was slightly hypoxic upon arrival but showed some improvement with duonebs, although she remained tachypneic. She denied fever, chills, chest pain, palpitations, nausea, vomiting, diarrhea, or urinary symptoms. Initial labs showed a WBC of 13k and an elevated D-dimer, but a CTA chest was negative for a pulmonary embolism. Few branching nodules were seen in both lower lobes, raising concern for an infective etiology. She was admitted for a COPD exacerbation and started on ceftriaxone/azithromycin, solumedrol, and bronchodilators. On 01/24/25, she was seen at the bedside, endorsing improvement in her dyspnea since admission. She was on 2L of nasal cannula (NC), with a baseline of room air. She had a non-productive cough, and the plan was to continue antibiotics, steroids, and bronchodilators. On the morning of 01/25/25, she was extremely short of breath, and respiratory therapy administered several breathing treatments and a one-time dose of Xanax to help calm her. She was placed on 3L of NC, with her baseline being room air. Her lung sounds were diminished throughout. The plan is to continue antibiotics, Mucinex, steroids, breathing treatments, and her home inhaler (Breztri). A sputum culture is pending, and flutter therapy continued. The team anticipates she will need 1-2 more days of treatment before discharge. 01/26/25 Pt resting in bed. She continues to be short of breath today. Will increase steroids to Q8HR. 0.25 Xanax gave again for anxiety r/t SOB. She continues to require 4L NC and baseline is room air. Lung sounds are coarse throughout. WBC improved at 14.3. Continue IV antibiotics, steroids, Breztri, and nebs. Tessalon ordered for cough. She denies CP, Abd. pain, N/V/D. 01/27/25 Pt resting in bed. She explained she is starting to feel better today. She continues to have SOB and coarse lung sounds throughout. She is requiring 4lNC and O2 96%. Will wean O2 as tolerated. Sputum culture gram negative and sensitivity pending. BC x2 negative. Continue IV antibiotics, steroids, Breztri, and nebs. IVF stopped. She denies CP, abd. pain, N/V/D. 01/28/25 Pt resting in bed. She was on 2lNC last night and O2 off this AM. I was going to have her qualified for home O2 by RT and she is adamant she will not use home O2 and does not want it. She continues to have some coarse lung sounds but they are much improved from previous days. Will d/c with antibiotics and steroids. Appointments made with Pulm and PCP for f/u. Sputum culture + for citrobactor. BC x2 negative - Vitals & Intake/Output Vital Signs: Vital Signs Temperature 96.8 F 01/28/25 07:29 Pulse Rate 73 01/28/25 07:29 Respiratory Rate 18 01/28/25 07:29 Blood Pressure 138/71 01/28/25 07:29 O2 Sat by Pulse Oximetry 96 01/28/25 07:29 Intake & Output: Intake & Output 01/25/25 01/26/25 01/27/25 01/28/25 11:59 11:59 11:59 11:59 Intake Total 1959 2104 2517 2123 Balance 1959 2104 2517 2123 Weight 67 kg - Lab Result Diagrams: 01/28/25 05:34 01/28/25 05:34 Lab Results-Last 24 Hrs: Lab Results-Last 24 Hours 01/28/25 01/28/25 Range/Units 05:34 05:34 WBC 8.2 (3.98-10.04) x10^3/uL RBC 4.59 (3.93-5.22) x10^6/uL Hgb 12.9 (11.2-15.7) g/dL Hct 40.5 (34.1-44.9) % MCV 88.2 (79.4-94.8) fL MCH 28.1 (25.6-32.2) pg MCHC 31.9 L (32.2-35.5) g/dL RDW 12.6 (11.7-14.4) % Plt Count 338 (182-369) x10^3/uL MPV 10.0 (9.4-12.3) fL Sodium 139 (135-145) mmol/L Potassium 3.8 (3.5-5.1) mmol/L Chloride 95 L (98-107) mmol/L Carbon Dioxide 34 H (22-30) mmol/L Anion Gap 14.0 (5-15) MEQ/L BUN 15 (7-17) mg/dL Creatinine 0.74 (0.52-1.04) mg/dL Estimated GFR 80.2 ML/MIN Glucose 136 H (74-106) mg/dL Calcium 9.6 (8.4-10.2) mg/dL Total Bilirubin 0.40 (0.2-1.3) mg/dL AST 26 (14-36) U/L ALT 21 (0-35) U/L Alkaline Phosphatase 56 (38-126) U/L Serum Total Protein 7.3 (6.3-8.2) g/dL Albumin 4.3 (3.5-5.0) g/dL Micro Results-Entire Visit: Microbiology 01/25/25 22:40 Sputum Culture - Final Sputum - Expectorant Citrobacter Freundii 01/23/25 20:20 Blood Culture - Final Blood 01/23/25 20:20 Blood Culture - Final Blood - Procedures and Test Procedures and Tests throughout Hospitalization: Therapy Orders & Screens 01/23/25 20:28 Respiratory Therapy Assessment DAILY Comment: 01/23/25 20:29 Flutter Therapy UD Comment: 01/24/25 00:14 Oxygen Nasal Cannula 2 lpm Comment: 01/24/25 00:26 Respiratory Therapy Consult ONCE Comment: Reason For Exam: Diagnosis: sob 01/24/25 01:02 Smoking Cessation Education ONCE Comment: Diagnosis: sob Smoking Status: Former smoker How long have you smoked: 61 yrs Have you smoked in the past 12 months: Yes Approximately how many cigarettes per day: 4 cigarettes/day Do you dip or chew tobacco: No If,Former Smoker,when did you quit: 202001/27/25 11:27 RT Miscellaneous Order ROUTINE Comment: Physician Instructions: Keep O2 > 92% Reason For Exam: wean o2 - Baseline RA Diagnosis: EXAC COPD, FAILED OUTPATIENT 01/28/25 07:00 Respiratory MDI Q12H Comment: Diagnosis: EXAC COPD, FAILED OUTPATIENT Discharge Exam General Appearance: no apparent distress, alert Neurologic Exam: alert, oriented x 3, cooperative, normal mood/affect, nml cerebellar function, sensation nml, No motor deficits Eye Exam: PERRL, EOMI, eyes nml inspection Ears, Nose, Throat Exam: normal ENT inspection, pharynx normal, moist mucous membranes Neck Exam: normal inspection, non-tender, supple, full range of motion Respiratory Exam: normal breath sounds, lungs clear, rhonchi, No respiratory distress Cardiovascular Exam: regular rate/rhythm, normal heart sounds Gastrointestinal/Abdomen Exam: soft, No tenderness, No mass Pelvic Exam: deferred Rectal Exam: deferred Back Exam: normal inspection, normal range of motion, No CVA tenderness, No vertebral tenderness Extremity Exam: normal inspection, normal range of motion Skin Exam: normal color, warm, dry Final Diagnosis/Problem List - Final Discharge Diagnosis/Problem (1) COPD exacerbation Current Visit: Yes Status: Acute Code(s): J44.1 - CHRONIC OBSTRUCTIVE PULMONARY DISEASE W (ACUTE) EXACERBATION (2) HLD (hyperlipidemia) Current Visit: Yes Status: Chronic Code(s): E78.5 - HYPERLIPIDEMIA, UNSPECIFIED (3) Hypothyroid Current Visit: Yes Status: Chronic Code(s): E03.9 - HYPOTHYROIDISM, UNSPECIFIED (4) Leukocytosis Current Visit: No Status: Acute Code(s): D72.829 - ELEVATED WHITE BLOOD CELL COUNT, UNSPECIFIED (5) Atrial fibrillation Current Visit: No Status: Chronic Code(s): I48.91 - UNSPECIFIED ATRIAL FIBRILLATION (6) Dehydration Current Visit: Yes Status: Acute Code(s): E86.0 - DEHYDRATION (7) Essential (primary) hypertension Current Visit: Yes Status: Chronic Assessment & Plan: (1) COPD exacerbation Current Visit: Yes Status: Acute Assessment & Plan: -Supplemental oxygen with spo2 goal > 89% - currently on 3L - titrate -baseline RA -Continue ceftriaxone/azithromycin/solumedrol/bronchodilator - add mucinex - xopenex -RT following -CMP/CBC reviewed -Blood culture x2 negative - sputum culture pending - xanax x1 this AM - d-dimer 1.03- negative for PE 3/11 - Steroids increased to Q8HR - on 4LNC 95%- baseline RA - lungs coarse throughout - Sputum culture pending- obtained today - Tessalon for cough - CBC, CMP reviewed 01/27 - Sputum culture- gram negative- sensitivity pending - BC x2 negative - CBC, CMP reviewed - 4lNC 96%- wean O2- keep > 92%- baseline RA - lungs coarse throughout 01/28 - Sputum culture + for citrobactor- will d/c with appropriate antibiotic and steroids - Was on 2lNC overnight and O2 off this AM by RT- Pt refusing home O2 even if needed - F/U with Pulm and PCP OP - CBC, CMP reviewed Code(s): J44.1 - CHRONIC OBSTRUCTIVE PULMONARY DISEASE W (ACUTE) EXACERBATION (2) HLD (hyperlipidemia) Current Visit: Yes Status: Chronic Assessment & Plan: -Continue Statin Code(s): E78.5 - HYPERLIPIDEMIA, UNSPECIFIED (3) Hypothyroid Current Visit: Yes Status: Chronic Assessment & Plan: -Continue Levothyroxine Code(s): E03.9 - HYPOTHYROIDISM, UNSPECIFIED (4) Leukocytosis Current Visit: No Status: Acute Qualifiers: Leukocytosis type: unspecified Qualified Code(s): D72.829 - Elevated white blood cell count, unspecified Assessment & Plan: -CT chest reviewed and negative for PE- does show possible infectious process in the lower lobes - continue abx as stated above - WBC 16.6- may be 2:2 steroids 01/26 - WBC 14.3- improved 01/27 - resolved Code(s): D72.829 - ELEVATED WHITE BLOOD CELL COUNT, UNSPECIFIED (5) Atrial fibrillation Current Visit: No Status: Chronic Qualifiers: Atrial fibrillation type: unspecified Qualified Code(s): I48.91 - Unspecified atrial fibrillation Assessment & Plan: -Patient follows with Dr. Aviles - was on anticoagulation previously but states she could not afford it and has been off of it for some time -Continue with home med metoprolol -Tele Code(s): I48.91 - UNSPECIFIED ATRIAL FIBRILLATION (6) Dehydration Current Visit: Yes Status: Acute Assessment & Plan: - anion gap 18.3 - NS @ 50 ml/hr 01/26 - anion gap 14.5- improved - cont. IVF 01/27 - resolved - IVF stopped Code(s): E86.0 - DEHYDRATION (7) Essential (primary) hypertension Current Visit: Yes Status: Chronic Assessment & Plan: -Continue home meds - BP stable Code(s): I10 - ESSENTIAL (PRIMARY) HYPERTENSION - Discharge Discharge Date: 01/28/25 Disposition: Home, Self-Care Condition: Good Prescriptions: New Benzonatate 100 mg PO TID 10 Days #30 cap levoFLOXacin [Levofloxacin] 750 mg PO DAILY 5 Days #5 tablet Continue Lisinopril 20 mg [Zestril 20 MG] 10 mg PO DAILY cloNIDine HCL [Catapres] 0.1 mg PO HS Levothyroxine Sodium 25 Mcg [Synthroid 25 Mcg] 25 mcg PO DAILY Atorvastatin Calcium 10 mg PO HS Venlafaxine HCl [Effexor Xr] 150 mg PO DAILY Metoprolol Tartrate 50 mg [Lopressor 50 MG] 50 mg PO HS Buspirone HCl 5 mg [Buspar 5 mg] 10 mg PO BID Alendronate Sodium [Fosamax] 70 mg PO WEEKLY Budesonide/Glycopyr/Formoterol [Breztri Aerosphere Inhaler] 2 puff IH BID Chlorthalidone 25 mg PO DAILY Amlodipine Besylate 5 mg PO BID Follow up with: TRISTAN ALEXANDRE [ACTIVE STAFF] - 02/08/25 3:30 pm BETHANY AVILES [CONSULTING PHYSICIAN] - 02/03/25 2:30 pm ([place] [facility]) KAVEH ALMANZAR [Primary Care Provider] - 02/04/25 10:00 am
[2025-01-28 11:53] VITALS: BP 156/78; PULSE 87; RESP 16; TEMP 96.7; O2SAT 99
== END 2025-01-28 13:26 | disposition home or self-care (01) | DRG 192 ==
LOC: ED 19:47 → MED SURG 01-24 00:10 → OBSVTOIN 01-25 10:00
PROVIDERS: ADMIT Internal Medicine Nephrology; ATTEND Internal Medicine Nephrology
DX: J44.1 Chronic obstructive pulmonary disease with (acute) exacerbation (principal); E78.5 Hyperlipidemia, unspecified; E03.9 Hypothyroidism, unspecified; D72.829 Elevated white blood cell count, unspecified; I48.91 Unspecified atrial fibrillation; E86.0 Dehydration; I10 Essential (primary) hypertension; I25.2 Old myocardial infarction; Z79.899 Other long term (current) drug therapy
CPT/HCPCS: 0241U; 36415; 71045; 71260; 80053; 81001; 82805; 83880; 84484; 85025; 85027; 85379; 87040; 87070; 87077; 87186; 93005; 94640; 94667; 94668; 94760; 96374; 99285; G0378; J0456; J0696; J1650; J2919; J7609; Q3014; A9270-GY